=== PATIENT | male | born 1960 | race American Indian/Alaskan Native ===

== ENCOUNTER 2016-11-17 12:05 | Inpatient (IN) | payer OTHER ==
[2016-11-17] MEDS ORDERED: NACL 0.9% 1000 ML 1,000 ML ONE (12:26)
[2016-11-17] MEDS ORDERED: NACL 0.9% 1000 ML 2,000 ML IV ONE (12:53)
[2016-11-17] MEDS ORDERED: ZOSYN/NS 3.375GM/50ML 50 ML IV ONE (12:59)
[2016-11-17] MEDS ORDERED: VANCOMYCIN PHARMACY TO DOSE IV SCH (13:00)
[2016-11-17 13:08] LABS: ISTAT Base Excess -3; ISTAT HCO3 20.2; ISTAT PH 7.483 (7.35-7.45); ISTAT PO2 55 (80-105); ISTAT SO2 91; ISTAT TCO2 21
--- NOTE | 2016-11-17 13:16 | Admit Criteria Form ---
Admission Criteria Documentation: SEVERE SEPSIS Clinical Indications for Admission to Inpatient Care (Place 'X' for any and all applicable criteria): Hospital admission is needed for appropriate care of the patient because of ANY ONE of the following: [X]I. Hemodynamic instability indicated by ANY ONE of the following(1)(2)(3)( 4)(5): [X]a. Vital sign abnormality not readily corrected by appropriate treatment within 12 to 24 hours indicated by ANY ONE of the following: [X]i) Tachycardia that persists despite appropriate treatment [X]ii) Hypotension that persists despite appropriate treatment []iii) Orthostatic vital sign changes that persist despite appropriate treatment [X]b. Vital sign abnormality that is severe indicated by ANY ONE of the following: [X]i. Inadequate perfusion indicated by ANY ONE of the following: [X]1) Lactic acidosis (greater than 2 mmol/L) []2) New abnormal capillary refill (greater than 3 seconds) []3) Reduced urine output []4) New altered mental status []5) Myocardial Ischemia []ii. Mean arterial pressure [A] less than 60 mm Hg []iii. Mean arterial pressure[A] less than 70 mm Hg after 30 minutes of appropriate treatment (eg, fluid resuscitation) []iv. Sustained heart rate greater than 120 beats per minute in adult []v. IV inotropic or vasopressor medication required to maintain adequate blood pressure or perfusion []II. Systemic or infectious condition causing severe symptoms or findings not responsive to emergency or observation care treatment (as appropriate) indicated by ANY ONE of the following: []a. Cardiac arrhythmias of immediate concern(1)(2)(3) []b. Severe endocrine disorder (eg, thyrotoxicosis, adrenal insufficiency)(4)(5) []c. Seizures (eg, new or recurrent)(6) []d. New-onset end organ failure or dysfunction as indicated by ANY ONE of the following: []i. Acute unexplained hypoxemia (eg, not from lung infection or chronic disease)(7)(8)(9) []ii. Acute renal failure as indicated by new onset of ANY ONE of the following(10)(11)(12)(13)(14): []1) 3-fold rise in serum creatinine from baseline []2) Serum creatinine greater than 4 mg/dL (354 micromoles/L) with acute rise greater than 0.5 mg/dL (44.2 micromoles/L) []3) Reduction of more than 75% in estimated glomerular filtration rate from baseline. []4) Estimated glomerular filtration rate less than 35 mL/min/1.73m2 ( 0.59 mL/sec/1.73m2) in child younger than 18 years. []5) Cessation of urine output indicated by ALL of the following: []A. Adequate volume status []B. Inadequate urine output as indicated by ANY ONE of the following: []a. Urine output less than 0.3 mL/kg/hr for 24 hours []b. Anuria (urine output less than 0.1 mL/kg/hr) for 12 hours []iii. Acute mental status changes(15) []iv. Acute hepatic failure (eg, plasma bilirubin greater than 4 mg/ dL (68 micromoles/L), new INR greater than 2.0)(16)(17) []e. Unmanageable nausea and vomiting(18) []f. New-onset or uncontrolled central diabetes insipidus(19)(20) []g. Clinically significant dehydration(18)(21) []h. Hypoglycemia(22) []i. Acidosis (pH less than 7.35) or alkalosis (pH greater than 7.45)( 22)(23) []j. Toxic drug level that indicates need for specific monitoring or treatment(24)(25) []k. Severe electrolyte abnormalities indicated by ALL of the following( 1)(2)(3): []i. Electrolytes and associated findings are not as expected for patient baseline or acceptable treatment effects. []ii. Severe abnormalities indicated by ANY ONE of the following: []1) Sodium less than 130 mEq/L (mmol/L) (new) []2) Sodium less than 135 mEq/L (mmol/L) with ANY ONE of the following: []A. Uncorrectable (to near normal or chronic baseline) after trial of outpatient and emergency treatment []B. Altered mental status []C. Seizures []D. Severe medical etiology requiring inpatient management (eg , heart failure, hypovolemia) []3) Sodium greater than 155 mEq/L (mmol/L) []4) Sodium greater than 150 mEq/L (mmol/L) with ANY ONE of the following: []A. Uncorrectable (to near normal or chronic baseline) with outpatient and emergency treatment []B. Altered mental status []C. Seizures []D. Severe medical etiology (eg, hypovolemia, diabetes insipidus) []5) Potassium less than 2.5 mEq/L (mmol/L) despite outpatient and emergency treatment []6) Potassium less than 3 mEq/L (mmol/L) with ANY ONE of the following : []A. Weakness []B. Cardiac abnormality (eg, arrhythmia, conduction disturbance ) []C. Cardiac ischemia []D. Ileus []E. Ongoing medical cause requiring inpatient management (eg, acute renal wasting or SIADH) []F. Other severe symptoms []7) Potassium greater than 6.5 mEq/L (mmol/L) []8) Potassium greater than 5 mEq/L (mmol/L) with ANY ONE of the following: []A. Uncorrectable (to near normal or chronic baseline) with outpatient and emergency treatment []B. Severe ECG findings[A] []C. Acute worsening of renal failure (creatinine greater than 2.5 mg/dL (221 micromoles/L) or significant elevation for age and size) []D. Severe weakness []E. Severe medical etiology (eg, hemolysis, infection, drug overdose) []9) Calcium less than 7 mg/dL (1.75 mmol/L) despite outpatient and emergency treatment(5) []10) Calcium less than 8 mg/dL (2 mmol/L) with significant symptoms or findings (eg, altered mental status, muscle spasms, seizures, breathing difficulty, cardiac abnormality (eg, arrhythmia or conduction disturbance))(5) []11) Calcium greater than 14 mg/dL (3.5 mmol/L)(5) []12) Calcium greater than 12 mg/dL (3 mmol/L) with ANY ONE of the following(5): []A. Uncorrectable (to near normal or chronic baseline) with outpatient and emergency treatment []B. Significant dehydration or hypovolemia as indicated by ALL of the following(3)(6)(7): []a. Not resolved with initial treatments []b. Clinically significant dehydration as indicated by ANY ONE of the following: [](1) Vomiting refractory to outpatient treatment (ie, precluding oral rehydration) [](2) Inability to drink [](3) Hypernatremia or other electrolyte abnormality unable to be corrected with outpatient and emergency treatment [](4) Failure to remain hydrated with outpatient therapy [](5) Reduced urine output [](6) Hypotension [](7) Serious cause for dehydration requiring acute hospitalization ( eg, bowel obstruction, increased intracranial pressure, infectious cause) [](8) Child with ANY ONE of the following(8): [](i) Severe abdominal tenderness [](ii) Adequate care not available at home [](iii) Severe dehydration (greater than 9% loss of body weight) []C. Significant symptoms or findings (eg, altered mental status , cardiac abnormality (eg, arrhythmia, conduction disturbance), malignant etiology requiring inpatient treatment) []13) Phosphorus less than 1 mg/dL (0.32 mmol/L) []14) Phosphorus less than 1.5 mg/dL (0.48 mmol/L) with ANY ONE of the following: []A. Patient unresponsive to outpatient and emergency treatment []B. Significant symptoms or findings (eg, weakness, altered mental status, breathing difficulty, seizures, rhabdomyolysis) []15) Phosphorus greater than 10 mg/dL (3.2 mmol/L) []16) Phosphorus greater than 4.5 mg/dL (1.45 mmol/L) (new) with ANY ONE of the following: []A. Severe medical etiology (eg, crush injury, acute renal failure) []B. Associated hypocalcemia with significant findings (eg, neurologic symptoms, altered mental status, muscle spasms, seizures, breathing difficulty, cardiac abnormality (eg, arrhythmia, conduction disturbance)) []16) Magnesium less than 1 mg/dL (0.41 mmol/L) []17) Magnesium less than 1.5 mg/dL (0.62 mmol/L) with ANY ONE of the following: []A. Patient unresponsive to outpatient and emergency treatment []B. Associated hypocalcemia with significant findings (eg, altered mental status, muscle spasms, seizures, breathing difficulty, cardiac abnormality (eg, arrhythmia, conduction disturbance)) []C. Associated hypokalemia (potassium less than 3 mEq/L (mmol/L )) with risk of arrhythmia []18) Magnesium greater than 4 mEq/L (2 mmol/L) []19) Magnesium greater than 2.5 mEq/L (1.25 mmol/L) with significant symptoms or findings (eg, weakness, altered mental status, cardiac abnormality (eg, arrhythmia, conduction disturbance), breathing difficulty, severe medical etiology (eg, renal failure, hypovolemia)) []20) Uric acid greater than 20 mg/dL (1190 micromoles/L)(9) []21) Uric acid greater than 8 mg/dL (476 micromoles/L) with significant symptoms or findings of tumor lysis syndrome (eg, creatinine greater than 1.5 times upper limit of normal, cardiac abnormality (eg , arrhythmia, conduction disturbance), seizure)(9) []III. High fever or other high-risk infection situation as indicated by ANY ONE of the following(26)(27)(28): []a. Outpatient and observation care antimicrobial treatment unavailable, not effective, or not appropriate []b. Documented bacteremia []c. Temperature greater than 104.9 degrees F (40.5 degrees C) (oral) []d. Temperature greater than 103.1 degrees F (39.5 degrees C) (oral) or less than 96.8 degrees F (36 degrees C) (rectal) that does not respond to emergency treatment and observation care []IV. High-risk febrile neutropenia[A] as indicated by ANY ONE of the following(29)(30)(31)(32): []a. Profound neutropenia[B] anticipated to extend for more than 7 days []b. Hemodynamic instability []c. Hypoxemia []d. Tachypnea []e. Altered mental status []f. New-onset abdominal pain []g. New-onset vomiting or diarrhea []h. Oral or gastrointestinal mucositis that interferes with swallowing or causes severe diarrhea []i. Focal infection (eg, cellulitis, pneumonia, central line or catheter infection, perirectal abscess) []j. Renal insufficiency (eg, GFR of less than 30 mL/min/1.73m2 (0.5 mL/sec /1.73m2)). []k. Severe liver dysfunction (transaminase levels greater than 5 times normal) []l. Platelet count less than 50,000/mm3 (50 x109/L)(33) []m. Leukemia or lymphoma induction therapy []n. Leukemia not in complete remission or with evidence of disease progression []o. Bone marrow transplant patient []p. Alemtuzumab being used for therapy []q. [employer] Supportive Care in Cancer (MASCC) Risk Index score of less than 21[C](33)(35). []V. Isolation required (eg, tuberculosis that requires isolation, Ebola infection)[D](36)(37)(38)(39)(40) []. Gangrene that requires treatment beyond emergency or observation level care(41)(42) []VII. Antitoxin administration and ongoing observation required (eg, tetanus, botulism)(43)(44) []. Suspected infection with rapid progression or severe symptoms as indicated by ANY ONE of the following(45): []a. Streptococcal or staphylococcal toxic shock(46) []b. Diphtheria(47) []c. Hantavirus(48) []d. Severe acute respiratory syndrome(8)(49) []e. Anthrax(50) []f. Ebola[D](36)(37)(38) []g. Necrotizing soft tissue infection(41)(42) []h. Plague(50) []i. Other suspected infection that requires care beyond emergency or observation level care []VII. Severe adverse drug or systemic toxin reaction as indicated by ANY ONE of the following(24): []a. Serotonin syndrome(51)(52) []b. Neuroleptic malignant syndrome(51)(52) []c. Cholinergic syndrome with severe symptoms (eg, bronchorrhea, weakness , mental status changes, seizures)(53) []d. Anticholinergic syndrome []e. Sympathetic syndrome with severe symptoms (eg, seizures, mental status changes, cardiac dysrhythmias) []f. Other severe adverse drug or systemic toxin reaction that remains after emergency or observation level care (as appropriate) []VIII. Allergic reaction with severe symptoms (not responsive to emergency or observation care treatment as appropriate), including ANY ONE of the following(54): []a. Airway edema (pharyngeal, epiglottic, or laryngeal edema) []b. Stridor []c. Respiratory failure []d. Bronchospasm []e. Hypotension []IX. Environmental emergency (not responsive to emergency or observation care treatment as appropriate) as indicated by ANY ONE of the following(55)(56): []a. Hyperthermia []b. Heat stroke []c. Heat exhaustion []d. Hypothermia (temperature less than 95 degrees F (35 degrees C) rectal) (57) []e. Electrocution(58) []X. Complications of transplanted organ (ie, not covered elsewhere)[E] indicated by ANY ONE of the following(59): []a. Acute graft rejection (or graft vs. host disease)[F] requiring inpatient management (eg, intravenous immunosuppression)(60)(61)(62)( 63) []b. Acute failure of transplanted organ necessitating inpatient care (eg, cannot be managed in other setting) []c. Infection requiring inpatient management (eg, Hemodynamic instability, need for intravenous antimicrobial treatment)(64)(65) []d. Other complication of transplanted organ requiring inpatient management []XI. Systemic or Infectious Condition condition, symptom, or finding for which emergency and observation care have failed or are not considered appropriate. See General Criteria: Observation Care, General Admission Criteria or Pediatric General Admission Criteria guideline as appropriate. (Contents from SEVERE SEPSIS and SYSTEMIC OR INFECTIOUS CONDITION clinical indications for admission to inpatient care have been integrated in this form) The [facility] content [facility] by [facility] has been revised. The portions of the content which have been revised are identified through the use of italic text or in bold and [facility] has neither reviewed nor approved the modified material. All other unmodified content is copyright [facility]. Please see references footnoted in the original [facility] edition 2016 Admission Criteria Met: Yes
[2016-11-17 13:29] LABS: Hematocrit 26.2 % (35.5-45.6); Hemoglobin 8.5 gm/dl (11.8-15.2); Mean Corpuscular Volume 91 fl (84-94); Red Blood Count 2.89 M/mm3 (3.65-5.03); White Blood Count 25.7 K/mm3 (4.5-11.0)
[2016-11-17 13:30] LABS: Mean Corpuscular HGB Conc 33 % (32-34); Mean Corpuscular Hemoglobin 30 pg (28-32); Mean Platelet Volume 7.5 fl (6-12); Platelet Count 263 K/mm3 (140-440); Red Cell Distribution Width 16.3 % (13.2-15.2)
[2016-11-17 13:38] LABS: INR 1.13 (0.87-1.13)
[2016-11-17 13:48] LABS: Creatine Kinase MB 2.6 ng/mL (0.0-4.0)
[2016-11-17 13:49] LABS: Alanine Aminotransferase 14 units/L (7-56); Albumin 2.5 g/dL (3.9-5); Albumin/Globulin Ratio 0.7 %; Alkaline Phosphatase 72 units/L (35-129); Anion Gap 20 mmol/L; BUN/Creatinine Ratio 12.66; Bilirubin,Total 0.7 mg/dL (0.1-1.2); Blood Urea Nitrogen 19 mg/dL (9-20); Calcium 7.7 mg/dL (8.4-10.2); Carbon Dioxide 22 mmol/L (22-30); Chloride 95.4 mmol/L (98-107); Glucose 132 mg/dL (75-100); Lipase 76 units/L (13-60); Sodium 135 mmol/L (137-145); Total Protein 6.3 g/dL (6.3-8.2)
[2016-11-17 13:59] LABS: Bilirubin,Direct < 0.2 mg/dL (0-0.2)
--- NOTE | 2016-11-17 14:00 | XRay Report ---
AP CHEST: HISTORY: Fever, sepsis. FINDINGS: No comparison. Mild cardiomegaly and pulmonary venous congestion are identified. Small pleural effusions are suspected. No pneumothorax. Right IJ venous catheter terminates in the lower SVC. IMPRESSION: Mild CHF.
[2016-11-17 14:01] LABS: Cholesterol 111 mg/dL (50-199); HDL Cholesterol 45 mg/dL (40-59); LDL Cholesterol,Direct 39 mg/dL (50-130); Triglycerides 138 mg/dL (2-149)
[2016-11-17] MEDS ORDERED: K-DUR PO ONE ×2 (14:01→14:03)
[2016-11-17] MEDS ORDERED: KCL IV ONE (14:01)
--- NOTE | 2016-11-17 14:02 | Emergency Department Report ---
ED General Adult HPI - General Chief complaint: BP Check / Ring removal req Stated complaint: FEELING WEAK Time Seen by Provider: 11/17/16 12:53 Source: patient, EMS, RN notes reviewed Mode of arrival: Stretcher Limitations: Physical Limitation - History of Present Illness Initial comments: Patient presents to the emergency department with a limited ability to give a history. He is hypotensive. He is in respiratory distress. He states that he' s been feeling very weak. He said some abdominal swelling he states. Complains of some vague abdominal discomfort but this does not seem to be very prominent symptom. Apparently is also had diarrhea somewhat chronically. The patient's arrives after his initial resuscitation. She provides some further information. She states that he was discharged to rehabilitation from the formerly named [facility] on 11/15/2016. He was in the hospital for a month. She or the patient are aware of him having any cardiac problems. He is an insulin- dependent diabetic. The patient himself is able to tell me that he had diarrhea during his prior hospitalization which was thought to the "due to antibiotics". He also is aware that he had pneumonia. says that he was principally admitted for an infection of his left great toe. I believe they are both limited historians at best. -: Gradual, days(s) Location: abdomen Consistency: other (vague abdominal discomfort only. Apparently associated with diarrhea.) Improves with: none Worsens with: none Associated Symptoms: shortness of breath, weakness - Related Data Home Medications Medication Instructions Recorded Confirmed Last Taken Unobtainable 11/17/16 11/17/16 Unknown Allergies Allergy/AdvReac Type Severity Reaction Status Date / Time No Known Allergies Allergy Unverified 11/17/16 13:06 ED Review of Systems ROS: Stated complaint: FEELING WEAK Other details as noted in HPI Comment: Unobtainable due to pts medical conditions (limited history available as per HPI) ED Past Medical Hx - Past Medical History Previous Medical History?: Yes Hx Hypertension: Yes Hx Diabetes: Yes Hx Renal Disease: Yes Hx Psychiatric Treatment: Yes Additional medical history: anemia, esphophageal varicies, pneumonia, reports recent knee swelling. This is nursing information of uncertain reliability. It has not been verified. - Surgical History Past Surgical History?: No Additional Surgical History: Denies prior abdominal surgery - Social History Smoking Status: Never Smoker Substance Use Type: None - Medications Home Medications: Home Medications Medication Instructions Recorded Confirmed Last Taken Type Unobtainable 11/17/16 11/17/16 Unknown History ED Physical Exam - General Limitations: Physical Limitation General appearance: lethargic, other (respiratory distress) - Head Head exam: Present: atraumatic, normocephalic - Eye Eye exam: Present: normal appearance, PERRL, EOMI. Absent: scleral icterus - ENT ENT exam: Present: mucous membranes dry, mucous membranes moist - Neck Neck exam: Present: normal inspection - Respiratory Respiratory exam: Present: rhonchi. Absent: respiratory distress - Cardiovascular Cardiovascular Exam: Present: regular rate, normal rhythm. Absent: systolic murmur, diastolic murmur, rubs, gallop - GI/Abdominal GI/Abdominal exam: Present: soft, distended (protuberant but normal bowel sounds no definite fluid wave), normal bowel sounds. Absent: tenderness, guarding, rebound, rigid - Rectal Rectal exam: Present: deferred - Extremities Exam Extremities exam: Present: other (bilateral dorsalis pedis and posterior tibial pulses are appreciated. There are no necrotic toes.). Absent: calf tenderness - Back Exam Back exam: Present: normal inspection - Neurological Exam Neurological exam: Present: altered, other (no acute focal deficit obvious) - Psychiatric Psychiatric exam: Present: normal mood, flat affect - Skin Skin exam: Present: warm, dry, intact, other (be some post inflammatory hyperpigmentation of the left great toe but doesn't look infected). Absent: rash ED Course Vital Signs 11/17/16 11/17/16 11/17/16 12:10 12:15 12:20 Temperature Pulse Rate Respiratory Rate Blood Pressure 81/46 81/46 O2 Sat by Pulse 80 L 73 L 79 L Oximetry 11/17/16 11/17/16 11/17/16 12:26 12:30 12:36 Temperature Pulse Rate Respiratory Rate Blood Pressure 73/45 73/45 73/45 O2 Sat by Pulse 89 95 94 Oximetry 11/17/16 11/17/16 11/17/16 12:41 12:45 12:51 Temperature Pulse Rate Respiratory Rate Blood Pressure 79/46 81/47 73/45 O2 Sat by Pulse 91 92 96 Oximetry 11/17/16 11/17/16 11/17/16 12:55 12:57 13:00 Temperature 99.8 F H Pulse Rate 82 Respiratory Rate Blood Pressure 73/45 73/42 84/51 O2 Sat by Pulse 92 72 L 94 Oximetry 11/17/16 11/17/16 13:05 13:07 Temperature Pulse Rate Respiratory 16 Rate Blood Pressure 84/51 O2 Sat by Pulse 92 93 Oximetry - Reevaluation(s) Reevaluation #1: The patient's resuscitation consisted of IV fluids and the placement of a central line. An arterial blood gas showed hypoxia with mild metabolic acidosis and respiratory compensation. Patient actually responded well to IV fluids. His saturations improved. Levophed was placed on standby. monitoring engineer showed several runs of nonsustained V. tach. A CT of the patient's abdomen showed pleural effusion and bilateral pulmonary consolidations. A chest x-ray appeared to be consistent with cardiomegaly and CHF and shows good line placement. Chest x-ray did not include pneumonia as well. The CT of the abdomen was suggestive of colitis but no significant ascites. There was no pneumoperitoneum or other intra-abdominal process evident. I discussed this with Dr. Carballo, the radiologist. I obtained a consult with Dr. Lo concerning the patient's CHF hypotension as well as runs of ventricular tachycardia. I believe the patient's ventricular irritability certainly may be largely related to his hypokalemia. The patient was given 40 of potassium by mouth and K riders were begun. Additionally a magnesium level was obtained as well as 2 g of magnesium ordered empirically in consideration of the patient's severe hypokalemia and ventricular tachycardia. Patient is noted to have a very significantly elevated white blood cell count. His initial antibiotics choices included Zosyn, vancomycin and Flagyl. I will defer further antibiotic treatment to Dr. Bailey, the hospitalist is admitting the patient, as well as, infectious disease consultation as he may choose to obtain. A C. difficile study was ordered. Patient was noted by nursing staff without significant diarrhea. No bedsores were noted. 11/17/16 14:40 11/17/16 14:48 - Central Line Placement Right IJ Consent Obtained: verbal consent Time Out Performed: No Patient Placed on Monitor/Pulse Ox: Yes Prep: mask, gown, gloves Central Line Prep: Chlorhexidine scrub Local Anesthesia Used: Lidocaine 1% Amount of Anesthesia Used (mls): 3 Ultrasound Used for Placement: No (EJ to IJ transfer technique) Central Line Lumen Inserted: triple Bloods Obtained for Lab: Yes Central Line Position: good blood return, all ports aspirated, flus, sutured in place with 2-0 Dressing Applied: Tegaderm Post Procedure X-Ray: tip of catheter in good p Patient Tolerated Procedure: well Complications: none ED Medical Decision Making - Lab Data Result diagrams: 11/17/16 Unknown 11/17/16 Unknown Laboratory Results - last 24 hr 11/17/16 11/17/16 11/17/16 13:00 Unknown Unknown WBC 25.7 H RBC 2.89 L Hgb 8.5 L Hct 26.2 L MCV 91 MCH 30 MCHC 33 RDW 16.3 H Plt Count 263 PT 14.4 INR 1.13 POC ABG pH 7.483 H POC ABG pCO2 27.0 L POC ABG pO2 55 L POC ABG HCO3 20.2 POC ABG Total CO2 21 POC ABG O2 Sat 91 POC ABG Base Excess -3 FiO2 100 Sodium Chloride Carbon Dioxide Anion Gap BUN Creatinine Estimated GFR BUN/Creatinine Ratio Glucose Calcium Total Bilirubin Direct Bilirubin AST ALT Alkaline Phosphatase Ammonia Total Creatine Kinase CK-MB (CK-2) CK-MB (CK-2) Rel Index Troponin T Total Protein Albumin Albumin/Globulin Ratio Lipase 11/17/16 11/17/16 11/17/16 Unknown Unknown Unknown WBC RBC Hgb Hct MCV MCH MCHC RDW Plt Count PT INR POC ABG pH POC ABG pCO2 POC ABG pO2 POC ABG HCO3 POC ABG Total CO2 POC ABG O2 Sat POC ABG Base Excess FiO2 Sodium 135 L Chloride 95.4 L Carbon Dioxide 22 Anion Gap 20 BUN 19 Creatinine 1.5 Estimated GFR 59 BUN/Creatinine Ratio 12.66 Glucose 132 H Calcium 7.7 L Total Bilirubin 0.7 Direct Bilirubin < 0.2 AST 16 ALT 14 Alkaline Phosphatase 72 Ammonia 43.0 Total Creatine Kinase 23 L CK-MB (CK-2) 2.6 CK-MB (CK-2) Rel Index 11.3 H Troponin T 0.066 H Total Protein 6.3 Albumin 2.5 L Albumin/Globulin Ratio 0.7 Lipase 76 H Laboratory Results - last 24 hr 11/17/16 11/17/16 11/17/16 13:00 Unknown Unknown WBC 25.7 H RBC 2.89 L Hgb 8.5 L Hct 26.2 L MCV 91 MCH 30 MCHC 33 RDW 16.3 H Plt Count 263 PT 14.4 INR 1.13 POC ABG pH 7.483 H POC ABG pCO2 27.0 L POC ABG pO2 55 L POC ABG HCO3 20.2 POC ABG Total CO2 21 POC ABG O2 Sat 91 POC ABG Base Excess -3 FiO2 100 Sodium Chloride Carbon Dioxide Anion Gap BUN Creatinine Estimated GFR BUN/Creatinine Ratio Glucose Calcium Total Bilirubin Direct Bilirubin AST ALT Alkaline Phosphatase Ammonia Total Creatine Kinase CK-MB (CK-2) CK-MB (CK-2) Rel Index Troponin T Total Protein Albumin Albumin/Globulin Ratio Lipase 11/17/16 11/17/16 11/17/16 Unknown Unknown Unknown WBC RBC Hgb Hct MCV MCH MCHC RDW Plt Count PT INR POC ABG pH POC ABG pCO2 POC ABG pO2 POC ABG HCO3 POC ABG Total CO2 POC ABG O2 Sat POC ABG Base Excess FiO2 Sodium 135 L Chloride 95.4 L Carbon Dioxide 22 Anion Gap 20 BUN 19 Creatinine 1.5 Estimated GFR 59 BUN/Creatinine Ratio 12.66 Glucose 132 H Calcium 7.7 L Total Bilirubin 0.7 Direct Bilirubin < 0.2 AST 16 ALT 14 Alkaline Phosphatase 72 Ammonia 43.0 Total Creatine Kinase 23 L CK-MB (CK-2) 2.6 CK-MB (CK-2) Rel Index 11.3 H Troponin T 0.066 H Total Protein 6.3 Albumin 2.5 L Albumin/Globulin Ratio 0.7 Lipase 76 H - EKG Data -: EKG Interpreted by La EKG shows normal: sinus rhythm - EKG Data Interpretation: other (suggestive of hypokalemia repolarization abnormalities and nonsustained ventricular tachycardia) - Radiology Data Radiology results: report reviewed Critical Care Time: Yes Critical care time in (mins) excluding proc time.: 90 Critical care attestation.: If time is entered above; I have spent that time in minutes in the direct care of this critically ill patient, excluding procedure time. ED Disposition Clinical Impression: Septic shock, Nonsustained ventricular tachycardia, Hypokalemia, Hypoxia Bilateral pneumonia Qualifiers: Pneumonia type: due to unspecified organism Lung location: lower lobe of lung Qualified Code(s): J18.9 - Pneumonia, unspecified organism Anemia Qualifiers: Anemia type: unspecified type Qualified Code(s): D64.9 - Anemia, unspecified Disposition: OP ADMITTED IP TO THIS HOSP Is pt being admited?: Yes Does the pt Need Aspirin: Yes Condition: Stable Instructions: Bacterial Pneumonia (ED) Referrals: VERN COLVIN MD [Primary Care Provider] - 3-5 Days Time of Disposition: 14:51
[2016-11-17 14:03] LABS: Bilirubin,Indirect 0.5 mg/dL; Potassium 2.5 mmol/L (3.6-5.0)
[2016-11-17] MEDS ORDERED: ALUM-MAG HYDROX-SIMETH 200-200-20MG/5ML PO PRN (14:09)
[2016-11-17] MEDS ORDERED: MILK OF MAGNESIA PO PRN (14:09)
[2016-11-17] MEDS ORDERED: DULCOLAX PR PRN (14:09)
--- NOTE | 2016-11-17 14:09 | Event Note ---
Date: 11/17/16 See H/p in reports Septic shock Azeem pneumonia C diff colitis?? HTN DM
[2016-11-17 14:12] LABS: Blastocytes % (Manual) 0 %
[2016-11-17 14:13] LABS: Basophils % (Manual) 0 % (0.0-1.8); Eosinophils % (Manual) 0 % (0.0-4.3)
[2016-11-17 14:15] LABS: Diff Status Complete; RBC Morphology Normal
[2016-11-17] MEDS ORDERED: DILAUDID IV PRN (14:16)
[2016-11-17] MEDS: KCL 10MEQ/100ML 100 ML IV SCH ×3 (14:23→16:14)
[2016-11-17] MEDS ORDERED: NOVOLOG SUB-Q ONE (14:24)
[2016-11-17] MEDS ORDERED: VANCOMYCIN VIAL 2,000 MG in NACL 0.9% 500 ML 500 ML IV ONE (14:30)
[2016-11-17] MEDS ORDERED: PROTONIX IV ONE ×2 (14:32→15:02)
--- NOTE | 2016-11-17 14:44 | Cat Scan Report ---
CT ABDOMEN AND PELVIS WITHOUT CONTRAST: INDICATION: Fever, sepsis, abdominal pain. COMPARISON: None similar. FINDINGS: Noncontrast abdomen and pelvis CT performed. LUNG BASES: Extensive dense consolidation involving approximately 70-80% of both lower lobes with few air bronchograms as well. Few small right middle lobe interstitial nodular densities may measure up to 6 mm as peripherally on axial series 2, image 13. Prominent bronchovascular markings/septa as well. Small bilateral pleural effusions, right more than left with AP thickness of approximately 1.7 cm. Normal heart size. No effusions. Anemia suspected. ABDOMEN: Please note that sensitivity to detect small visceral lesions is limited due to the absence of intravenous or oral contrast. Some breathing artifact. Minimal dependent gallbladder hyperdensity along its posterior wall near the neck, axial series 2, image 54. Approximately 5 mm inferior splenic hypodensity peripherally questioned, axial image 67, series 2. Otherwise, grossly unremarkable unenhanced liver, spleen, pancreas, adrenals, nonaneurysmal abdominal aorta with few atherosclerotic calcifications, IVC and non-hydronephrotic kidneys. No radiopaque renal calculi. Mild bilateral perinephric stranding. Approximately 1 cm density to the left of the SMA, axial image 70, series 2 and also an approximately 1.4 cm left para-aortic ring calcification noted on axial image 90. No ascites or size significant adenopathy. Nonopacified GI tract evaluation limited, though grossly nonobstructive. Mild ingested fluid/debris and some air noted within the stomach. Few air-containing small bowel loops measure up to 1.9 cm caliber. Normal appendix. [id number] ascending colon stool. Some stool within distal small bowel though also noted within the right hemiabdomen. Questionable wall thickening with caliber transition noted along the right distal ascending colon, axial series 2, images 77-95 leading up to the hepatic flexure. Air-containing transverse colon measures up to 6 cm caliber. Decompressed descending colon. Fluid and air though mildly distends the sigmoid to approximately 6 cm caliber as on axial image 125, series 2. PELVIS: Poorly formed stool also noted within the remainder sigmoid and the rectum. Few small phleboliths. Seminal vesicles and prostate within normal limits with possible prior TURP. Grossly unremarkable nonopacified urinary bladder, well-distended. No free fluid or adenopathy. Questionable right orchiectomy. Approximately 2 cm fat-containing left inguinal hernia. Mild multilevel spinal degenerative changes. Spine and pelvic bones also somewhat heterogeneous, at places patchily sclerotic. Multilevel lumbar and few lower thoracic Schmorl's nodes along the superior endplates incidentally noted. Mild bilateral flank subcutaneous stranding/edema. CONCLUSION: 1. Distal ascending colon CT appearance felt somewhat abnormal with caliber transition and possible wall thickening. Infection/inflammation may be correlated for clinically, though a subtle underlying neoplasm would remain to be excluded. 2. Poorly formed rectosigmoid stool. 3. Dense bibasilar consolidations and small bilateral pleural effusions in this patient with possible CHF. 4. Various other incidental findings, including mild subcutaneous edema and slight nonspecific bony heterogeneity, amongst others, as described. I phoned the above results to Dr. Cuba in the ER, 1:55 PM, 11/17/2016. Thank you for the opportunity to participate in this patient's care.
[2016-11-17] MEDS ORDERED: MAGNESIUM SULFATE 2GM/50ML 50 ML IV ONE ×2 (14:48→15:02)
[2016-11-17] MEDS ORDERED: FLAGYL 500 MG/100 ML 100 ML IV SCH (15:00)
--- NOTE | 2016-11-17 16:45 | Consultation ---
Addendum entered and electronically signed by GEOVANY TRENT MD 11/17/16 20:16 : Patient admitted with sepsis and COPD exacerbation, in addition to multiple electrolyte abnormalities. His presenting EKG is atrial fibrillation, with reasonably well-controlled ventricular rate, but frequent ventricular ectopy in addition to short burst of nonsustained ventricular tachycardia. The duration or chronicity of the atrial fibrillation is uncertain. It is not certain if he was on oral anticoagulation therapy, and his INR is normal at 1.13 on this presentation. No records are available is time for assessment of his prior cardiac history. Recommend: Optimal management of sepsis and acute medical illness. Replete potassium and other electrolyte abnormalities. A beta ivonne therapy for atrial fibrillation rate control. Echocardiogram for left ventricular function assessment. Records from [facility] for further review of his prior cardiac history. Original Note: History of Present Illness Consult date: 11/17/16 Consult reason: arrhythmia, congestive heart failure History of present illness: This is a 56yr old man who present to the ED with feeling ill. He complains of abdominal pain, nausea and shortness of breath. Patient follows with the [place] and reports he was recently discharged from the [facility] hospital following a long hospitalization to an acute rehab for deconditioning. He reports he has a history of Diabetes and Hypertension. He denies a cardiac history. His ECG shows atrial fibrillation with frequent PVCs. ED workup revealed multiple metabolic abnormalities: WBC 25,700, HCT 26.2 and a potassium of 2.5. Also hypotensive with a BP 81/46 and a mild fever. Cardiac consultation requested. Medications and Allergies Allergies Allergy/AdvReac Type Severity Reaction Status Date / Time No Known Allergies Allergy Unverified 11/17/16 13:06 Home Medications Medication Instructions Recorded Confirmed Last Taken Type Unobtainable 11/17/16 11/17/16 Unknown History Active Meds: Active Medications Al Hydrox/Mg Hydrox/Simethicone (Alum-Mag Hydrox-Simeth 901-100-38pq/5ml) 30 ml PO Q4H PRN PRN Reason: Indigestion Aspirin (Baby Aspirin) 162 mg PO QDAY ONE Stop: 11/18/16 15:02 Bisacodyl (Dulcolax) 10 mg [place] QDAY PRN PRN Reason: constipation unrelieved by MOM Enoxaparin Sodium (Lovenox) 40 mg SUB-Q QDAY INCOLASA Hydromorphone HCl (Dilaudid) 0.5 mg IV Q3HR PRN PRN Reason: Pain , Severe (7-10) Potassium Chloride (Kcl 10meq/100ml) 100 mls @ 100 mls/hr IV Q1H NICOLASA Stop: 11/17/16 16:59 Last Admin: 11/17/16 16:14 Dose: Not Given Metronidazole (Flagyl 500 Mg/100 Ml) 100 mls @ 200 mls/hr IV ONCE NICOLASA Sodium Chloride (Nacl 0.9% 1000 Ml) 1,000 mls @ 125 mls/hr IV DIRECT NICOLASA Meropenem (Merrem/Ns 500 Mg/50 Ml) 50 mls @ 50 mls/hr IV Q6H NICOLASA Metronidazole (Flagyl 500 Mg/100 Ml) 100 mls @ 100 mls/hr IV Q8H NICOLASA Vancomycin HCl (Vancomycin/Ns 1 Gm/250 Ml) 250 mls @ 125 mls/hr IV Q12H NICOLASA Magnesium Hydroxide (Milk Of Magnesia) 30 ml PO Q4H PRN PRN Reason: Constipation Vancomycin HCl (Vancomycin Pharmacy To Dose) 1 each IV PKCONSULT NICOLASA PRN Reason: Protocol Physical Examination Vital Signs Pulse Ox 80 L 11/17/16 12:10 General appearance: no acute distress HEENT: Positive: PERRL Neck: Positive: trachea midline Cardiac: Positive: Irregularly Regular Lungs: Positive: Decreased Breath Sounds Results 11/17/16 Unknown 11/17/16 Unknown Cardiac Enzymes 11/17/16 11/17/16 Range/Units Unknown Unknown AST 16 (5-40) units/L CK-MB (CK-2) 2.6 (0.0-4.0) ng/mL Coagulation 11/17/16 Range/Units Unknown PT 14.4 (12.2-14.9) Sec. INR 1.13 (0.87-1.13) Lipids 11/17/16 Range/Units Unknown Triglycerides 138 (2-149) mg/dL Cholesterol 111 (50-199) mg/dL HDL Cholesterol 45 (40-59) mg/dL Cholesterol/HDL Ratio 2.46 % CBC 11/17/16 Range/Units Unknown WBC 25.7 H (4.5-11.0) K/mm3 RBC 2.89 L (3.65-5.03) M/mm3 Hgb 8.5 L (11.8-15.2) gm/dl Hct 26.2 L (35.5-45.6) % Plt Count 263 (140-440) K/mm3 Comprehensive Metabolic Panel 11/17/16 Range/Units Unknown Sodium 135 L (137-145) mmol/L Potassium 2.5 L* (3.6-5.0) mmol/L Chloride 95.4 L (98-107) mmol/L Carbon Dioxide 22 (22-30) mmol/L BUN 19 (9-20) mg/dL Creatinine 1.5 (0.8-1.5) mg/dL Glucose 132 H (75-100) mg/dL Calcium 7.7 L (8.4-10.2) mg/dL Direct Bilirubin < 0.2 (0-0.2) mg/dL Indirect Bilirubin 0.5 mg/dL AST 16 (5-40) units/L ALT 14 (7-56) units/L Alkaline Phosphatase 72 (35-129) units/L Total Protein 6.3 (6.3-8.2) g/dL Albumin 2.5 L (3.9-5) g/dL Assessment and Plan Sepsis Afib with frequent PVCs hypokalemia -2.5 Anemia Diabetes mellitus Recommend: Replete potassium Echocardiogram for LVEF assessment.
--- NOTE | 2016-11-17 17:25 | Emergency Department Report ---
Blank Doc - Documentation Documentation: This patient has been admitted. The nurse brought to my attention and EKG that had a short MT interval and left bundle-branch block. I ordered a stat repeat BMP and a troponin. I requested that the channel man be notified. The patient is already admitted to the ICU.
[2016-11-17 18:08] LABS: BUN/Creatinine Ratio 14.61; Blood Urea Nitrogen 19 mg/dL (9-20); Calcium 7.5 mg/dL (8.4-10.2); Carbon Dioxide 22 mmol/L (22-30); Chloride 101.4 mmol/L (98-107); Glucose 166 mg/dL (75-100); Potassium 3.9 mmol/L (3.6-5.0); Sodium 136 mmol/L (137-145)
[2016-11-17 18:11] LABS: Anion Gap 17 mmol/L
--- NOTE | 2016-11-17 18:36 | Consultation ---
History of Present Illness Consult date: 11/17/16 Requesting physician: ANSELMO THOMAS Reason for consult: pleural effusion, other (Sepsis Syndrome) History of present illness: PULMONARY/CCM CONSULT (Full dictation # [id number]) Please see dictated notes for full details Medications and Allergies Allergies Allergy/AdvReac Type Severity Reaction Status Date / Time No Known Allergies Allergy Unverified 11/17/16 13:06 Home Medications Medication Instructions Recorded Confirmed Last Taken Type Unobtainable 11/17/16 11/17/16 Unknown History Active Meds: Active Medications Al Hydrox/Mg Hydrox/Simethicone (Alum-Mag Hydrox-Simeth 867-874-30et/5ml) 30 ml PO Q4H PRN PRN Reason: Indigestion Aspirin (Baby Aspirin) 162 mg PO QDAY ONE Stop: 11/18/16 15:02 Bisacodyl (Dulcolax) 10 mg [place] QDAY PRN PRN Reason: constipation unrelieved by MOM Enoxaparin Sodium (Lovenox) 40 mg SUB-Q QDAY NICOLASA Hydromorphone HCl (Dilaudid) 0.5 mg IV Q3HR PRN PRN Reason: Pain , Severe (7-10) Metronidazole (Flagyl 500 Mg/100 Ml) 100 mls @ 200 mls/hr IV ONCE NICOLASA Sodium Chloride (Nacl 0.9% 1000 Ml) 1,000 mls @ 125 mls/hr IV DIRECT NICOLASA Meropenem (Merrem/Ns 500 Mg/50 Ml) 50 mls @ 50 mls/hr IV Q6H NICOLASA Metronidazole (Flagyl 500 Mg/100 Ml) 100 mls @ 100 mls/hr IV Q8H NICOLASA Vancomycin HCl (Vancomycin/Ns 1 Gm/250 Ml) 250 mls @ 125 mls/hr IV Q12H NICOLASA Magnesium Hydroxide (Milk Of Magnesia) 30 ml PO Q4H PRN PRN Reason: Constipation Vancomycin HCl (Vancomycin Pharmacy To Dose) 1 each IV PKCONSULT NICOLASA PRN Reason: Protocol Physical Examination Vital signs: Vital Signs Pulse Ox 80 L 11/17/16 12:10 Results - Laboratory Findings CBC and BMP: 11/17/16 Unknown 11/18/16 08:00 ABG POC ABG pH 7.483 (7.35-7.45) H 11/17/16 13:00 POC ABG pCO2 27.0 (35-45) L 11/17/16 13:00 POC ABG pO2 55 (80-105) L 11/17/16 13:00 POC ABG HCO3 20.2 11/17/16 13:00 POC ABG Total CO2 21 11/17/16 13:00 POC ABG O2 Sat 91 11/17/16 13:00 PT/INR, D-dimer PT 14.4 Sec. (12.2-14.9) 11/17/16 Unknown INR 1.13 (0.87-1.13) 11/17/16 Unknown Abnormal lab findings: Abnormal Labs 11/17/16 11/17/16 11/17/16 17:07 17:43 Unknown WBC 25.7 H RBC 2.89 L Hgb 8.5 L Hct 26.2 L RDW 16.3 H Seg Neuts % (Manual) 90.0 H Lymphocytes % (Manual) 7.0 L Seg Neutrophils # Man 23.1 H Sodium 136 L Potassium Chloride Glucose 166 H POC Glucose 153 H Lactic Acid Calcium 7.5 L Total Creatine Kinase CK-MB (CK-2) Rel Index Troponin T Albumin LDL Cholesterol Direct Lipase 11/17/16 11/17/16 11/17/16 Unknown Unknown Unknown WBC RBC Hgb Hct RDW Seg Neuts % (Manual) Lymphocytes % (Manual) Seg Neutrophils # Man Sodium 135 L Potassium 2.5 L* Chloride 95.4 L Glucose 132 H POC Glucose Lactic Acid 2.1 H* Calcium 7.7 L Total Creatine Kinase 23 L CK-MB (CK-2) Rel Index 11.3 H Troponin T 0.066 H Albumin 2.5 L LDL Cholesterol Direct 39 L Lipase 76 H
[2016-11-17 19:44] LABS: Bilirubin,Urine NEG (Negative); Blood,Urine NEG (Negative); Ketones,Urine NEG (Negative); Leukocyte Esterase,Urine NEG (Negative); Mucus,Urine FEW /HPF; Nitrite,Urine NEG (Negative); Protein,Urine <15 mg/dL mg/dL (Negative); Urobilinogen,Urine < 2.0 mg/dL (<2.0)
[2016-11-17] MEDS: NACL 0.9% 1000 ML 1,000 ML IV SCH (19:47)
[2016-11-17] MEDS: MERREM/NS 500 MG/50 ML 50 ML IV SCH ×2 (19:48→23:16)
[2016-11-17] MEDS: DILAUDID IV PRN ×2 (19:54→23:18)
[2016-11-17] MEDS: FLAGYL 500 MG/100 ML 100 ML IV SCH (23:30)
[2016-11-18] MEDS: VANCOMYCIN PO SCH ×3 (01:41→12:30)
[2016-11-18] MEDS: K-DUR PO SCH ×4 (01:41→12:28)
[2016-11-18] MEDS: KCL 10MEQ/100ML 100 ML IV SCH ×4 (01:41→04:49)
[2016-11-18] MEDS ORDERED: VANCOMYCIN/NS 1 GM/250 ML 250 ML IV SCH (02:00)
--- NOTE | 2016-11-18 02:07 | History and Physical Report ---
CHIEF COMPLAINT: Respiratory distress and feeling very weak. HISTORY OF PRESENT ILLNESS: A 56-year-old male, brought in for being hypotensive and respiratory distress. He feels very weak. Abdominal swelling. Complains of vague abdominal discomfort. Also, has some diarrhea, was discharged from rehabilitation center on 11/15/2016. He was in the hospital for one month. Has insulin-dependent diabetes. Diarrhea during his prior hospitalizations which was thought to be due to antibiotics. At this point, basically the patient is hypotensive and short of breath. He was apparently admitted for infection of the left great toe. This is a limited history and poor historian. PAST MEDICAL HISTORY: Significant for hypertension, diabetes, chronic kidney disease, psychiatric treatment, anemia, pneumonia, and recent knee swelling. PAST SURGICAL HISTORY: None. SOCIAL HISTORY: Does not smoke. No alcohol, no recreational drugs. FAMILY HISTORY: Significant for hypertension. REVIEW OF SYSTEMS: Significant for shortness of breath, abdominal discomfort, and diarrhea. Otherwise review of systems is essentially negative. PHYSICAL EXAMINATION: GENERAL: Middle aged male, cooperative during examination. VITAL SIGNS: Temperature is 99.8, blood pressure is 84/51, 73/45, and sats are 91% to 96%. HEENT: Unremarkable. NECK: Supple, no lymphadenopathy, no thyromegaly. LUNGS: Clear to auscultation and percussion. Good air entry. CARDIOVASCULAR: S1, S2 heard. No gallop, no murmur, no rub. Apical impulse. Scattered rhonchi bilaterally. ABDOMEN: Soft and benign. Slight tenderness present in the periumbilical region. EXTREMITIES: Good pedal pulses. CENTRAL NERVOUS SYSTEM: Alert and oriented x 4, nonfocal exam. LABORATORY DATA: Significant for high white count of 25,700, hemoglobin of 8.5, hematocrit of 26.2, and platelet count of 263. Sodium is 136, potassium is 3.9, repeat potassium is 2.5. BUN and creatinine 19 and 1.3, glucose is 156, calcium is 7.5. Troponin is 0.352 and repeat troponin is 0.066. Creatinine kinase is low. Lipase is 76. Urine shows no white blood cells or nitrites. X-ray shows mild CHF. CT of the abdomen shows distal ascending colon, probably somewhat abnormal with calibrate transition and possible wall thickening. Infection by inflammation may be correlated for clinically, otherwise subtle underlying neoplasm would remain to be excluded. Poorly formed rectosigmoid stool. Other incidental findings including mild subcutaneous edema. ASSESSMENT AND PLAN: 1. Sepsis secondary to possible Clostridium difficile colitis. The patient started on IV Flagyl and also p.o. vancomycin. Stool for Clostridium difficile to be ordered. 2. Hypokalemia, severe, to be supplemented. High troponins. Cardiology consult requested. 3. Septic shock, on broad-spectrum antibiotics and IV Flagyl to continue. ID consult, critical care consult, and Cardiology consult requested. Clostridium difficile toxin ordered. IV potassium chloride ordered. Prognosis is fair. Admit to ICU. CRITICAL CARE STATEMENT: The high probability of her clinical significant, sudden or life threatening deterioration of the cardiorespiratory system required my full and direct attention, intervention, and personal management. The aggregate critical care time was 35 minutes. The time is in addition to the time spent performing reported procedures, but include the following, data review and interpretation, patient's assessment and monitoring, vital signs documentation, medication orders and management. JOB# [id number] MEERA/BRAYAN ARCHER
[2016-11-18 02:08] LABS: BUN/Creatinine Ratio 14.28; Blood Urea Nitrogen 20 mg/dL (9-20); Calcium 7.3 mg/dL (8.4-10.2); Carbon Dioxide 21 mmol/L (22-30); Chloride 103.2 mmol/L (98-107); Glucose 169 mg/dL (75-100); Potassium 3.7 mmol/L (3.6-5.0); Sodium 136 mmol/L (137-145)
[2016-11-18 02:11] LABS: Anion Gap 16 mmol/L
[2016-11-18] MEDS: DILAUDID IV PRN ×4 (02:56→20:38)
[2016-11-18] MEDS: MERREM/NS 500 MG/50 ML 50 ML IV SCH (04:52)
[2016-11-18] MEDS: NACL 0.9% 1000 ML 1,000 ML IV SCH ×2 (04:53→23:32)
[2016-11-18] MEDS: FLAGYL 500 MG/100 ML 100 ML IV SCH ×2 (06:39→16:00)
[2016-11-18 08:43] LABS: Alanine Aminotransferase 13 units/L (7-56); Albumin 2.4 g/dL (3.9-5); Albumin/Globulin Ratio 0.7 %; Alkaline Phosphatase 110 units/L (35-129); Anion Gap 19 mmol/L; BUN/Creatinine Ratio 14.61; Bilirubin,Total 0.5 mg/dL (0.1-1.2); Blood Urea Nitrogen 19 mg/dL (9-20); Calcium 7.6 mg/dL (8.4-10.2); Carbon Dioxide 20 mmol/L (22-30); Chloride 104.1 mmol/L (98-107); Glucose 120 mg/dL (75-100); Potassium 4.3 mmol/L (3.6-5.0); Sodium 139 mmol/L (137-145)
[2016-11-18] MEDS ORDERED: MAGNESIUM SULFATE 4GM/100ML 100 ML IV ONE (09:00)
[2016-11-18] MEDS: BABY ASPIRIN PO SCH (09:29)
[2016-11-18] MEDS: LOVENOX SUB-Q SCH (09:29)
--- NOTE | 2016-11-18 11:37 | Progress Note ---
Addendum entered and electronically signed by RENAY DUMONT MD 12:12: Frequent episodes of non-sustained VT despite correction of potassium Patient denies previous history of heart disease but CT chest was pertinent for pulmonary edema and cardiomegaly. Echo is still pending ECG is showing intermittent LBBB Continue to replace electrolytes, treat underlying pneumonia, diarrhea and abdominal distention Start metoprolol and amiodarone to control wide complex arrhythmias Will hold on anticoagulation for paroxysmal afib until we make sure that his blood counts are stable An ischemic evaluation is warranted in the future once acute processes resolve Follow-up on echocardiogram Original Note: Assessment and Plan Sepsis Afib, paroxysmal potassium 2.5 on presentation reverted to sinus rhythm with a LBBB NSVT Anemia Diabetes mellitus Echocardiogram for LVEF assessment. Subjective Date of service: 11/18/16 Interval history: Short burst of nonsustained ventricular tachycardia noted on telemetry. Objective Vital Signs Temp Pulse Resp BP BP Pulse Ox 11/18/16 11:22 26 H 11/18/16 11:01 116 H 16 129/62 94 11/18/16 10:49 134 H 21 142/84 97 11/18/16 10:31 122 H 15 142/84 96 11/18/16 10:00 103 H 14 142/84 98 11/18/16 09:31 100 H 15 131/79 100 11/18/16 09:20 100 11/18/16 09:00 100 H 13 131/79 100 11/18/16 08:30 104 H 21 127/77 100 11/18/16 08:20 19 100 11/18/16 08:00 101 H 19 119/76 98 11/18/16 07:45 91 H 11 L 119/76 100 11/18/16 07:31 91 H 10 L 119/76 100 11/18/16 07:00 93 H 13 119/76 99 11/18/16 06:38 14 11/18/16 06:31 97 H 14 110/77 100 11/18/16 06:00 94 H 20 110/77 100 11/18/16 05:31 96 H 11 L 125/80 100 11/18/16 05:00 97 H 16 125/80 100 11/18/16 04:31 105 H 22 87/66 97 11/18/16 04:00 98.8 F 123 H 13 87/66 99 01/11/17 03:31 122 H 14 97/70 99 11/18/16 03:00 93 H 12 97/70 100 11/18/16 02:56 14 11/18/16 02:31 126 H 13 96/60 97 11/18/16 02:00 126 H 10 L 96/60 97 11/18/16 01:31 136 H 13 98/49 95 11/18/16 01:00 102 H 12 98/49 93 11/18/16 00:31 112 H 14 94/62 97 11/18/16 00:00 98.1 F 86 12 114/69 100 11/17/16 23:48 16 11/17/16 23:31 90 14 124/78 100 11/17/16 23:18 15 11/17/16 23:00 91 H 14 124/78 100 11/17/16 22:31 87 10 L 123/75 100 11/17/16 22:00 90 20 114/72 100 11/17/16 21:31 93 H 12 113/76 100 11/17/16 21:03 93 H 12 123/75 99 11/17/16 21:00 95 H 12 123/75 100 11/17/16 20:59 93 H 13 113/76 99 11/17/16 20:56 100 11/17/16 20:45 89 17 113/76 100 11/17/16 20:42 93 H 13 100 11/17/16 20:31 95 H 12 113/76 100 11/17/16 20:24 22 11/17/16 20:00 98.8 F 97 H 13 113/76 99 11/17/16 19:54 21 11/17/16 19:31 99 H 14 112/70 99 11/17/16 19:00 87 12 112/70 99 11/17/16 18:44 100 H 20 98 11/17/16 17:33 98 H 16 119/74 100 11/17/16 17:30 98 H 17 119/74 100 11/17/16 17:05 96 H 14 100 11/17/16 14:53 103 H 18 111/65 100 - Physical Examination General: No Apparent Distress HEENT: Positive: PERRL Neck: Positive: trachea midline Cardiac: Positive: Reg Rate and Rhythm - Labs and Meds Cardiac Enzymes 11/17/16 11/17/16 11/18/16 Range/Units Unknown Unknown 08:00 AST 16 20 (5-40) units/L CK-MB (CK-2) 2.6 (0.0-4.0) ng/mL Coagulation 11/17/16 Range/Units Unknown PT 14.4 (12.2-14.9) Sec. INR 1.13 (0.87-1.13) Lipids 11/17/16 Range/Units Unknown Triglycerides 138 (2-149) mg/dL Cholesterol 111 (50-199) mg/dL HDL Cholesterol 45 (40-59) mg/dL Cholesterol/HDL Ratio 2.46 % CBC 11/17/16 Range/Units Unknown WBC 25.7 H (4.5-11.0) K/mm3 RBC 2.89 L (3.65-5.03) M/mm3 Hgb 8.5 L (11.8-15.2) gm/dl Hct 26.2 L (35.5-45.6) % Plt Count 263 (140-440) K/mm3 Comprehensive Metabolic Panel 11/17/16 11/17/16 11/18/16 Range/Units 17:43 Unknown 01:25 Sodium 136 L 135 L 136 L (137-145) mmol/L Potassium 3.9 D 2.5 L* 3.7 (3.6-5.0) mmol/L Chloride 101.4 95.4 L 103.2 (98-107) mmol/L Carbon Dioxide 22 22 21 L (22-30) mmol/L BUN 19 19 20 (9-20) mg/dL Creatinine 1.3 1.5 1.4 (0.8-1.5) mg/dL Glucose 166 H 132 H 169 H (75-100) mg/dL Calcium 7.5 L 7.7 L 7.3 L (8.4-10.2) mg/dL Direct Bilirubin < 0.2 (0-0.2) mg/dL Indirect Bilirubin 0.5 mg/dL AST 16 (5-40) units/L ALT 14 (7-56) units/L Alkaline Phosphatase 72 (35-129) units/L Total Protein 6.3 (6.3-8.2) g/dL Albumin 2.5 L (3.9-5) g/dL 11/18/16 Range/Units 08:00 Sodium 139 (137-145) mmol/L Potassium 4.3 (3.6-5.0) mmol/L Chloride 104.1 (98-107) mmol/L Carbon Dioxide 20 L (22-30) mmol/L BUN 19 (9-20) mg/dL Creatinine 1.3 (0.8-1.5) mg/dL Glucose 120 H (75-100) mg/dL Calcium 7.6 L (8.4-10.2) mg/dL Direct Bilirubin (0-0.2) mg/dL Indirect Bilirubin mg/dL AST 20 (5-40) units/L ALT 13 (7-56) units/L Alkaline Phosphatase 110 (35-129) units/L Total Protein 6.0 L (6.3-8.2) g/dL Albumin 2.4 L (3.9-5) g/dL
[2016-11-18] MEDS: LOPRESSOR PO SCH ×2 (13:00→21:33)
[2016-11-18] MEDS ORDERED: CORDARONE PO SCH (13:00)
--- NOTE | 2016-11-18 13:36 | Progress Note ---
History Interval history: No new issues overnight. Patient denies currently any chest pain. Hospitalist Physical - Constitutional Vitals: Temp Pulse Resp BP Pulse Ox 98.8 F 113 H 26 H 130/86 97 11/18/16 04:00 11/18/16 13:00 11/18/16 12:31 11/18/16 13:00 11/18/16 12:31 General appearance: Present: no acute distress - EENT Eyes: Present: PERRL, EOM intact ENT: hearing intact, clear oral mucosa, dentition normal - Neck Neck: Present: supple, normal ROM - Respiratory Respiratory effort: normal Respiratory: bilateral: diminished, rhonchi - Cardiovascular Rhythm: regular Heart Sounds: Present: S1 & S2. Absent: gallop, rub - Extremities Extremities: no ischemia, No edema, Full ROM - Abdominal General gastrointestinal: soft, non-tender, non-distended, normal bowel sounds - Integumentary Integumentary: Present: clear, warm, dry - Neurologic Neurologic: CNII-XII intact, moves all extremities Results - Labs CBC & Chem 7: 11/17/16 Unknown 11/18/16 08:00 Labs: Laboratory Last Values WBC 25.7 K/mm3 (4.5-11.0) H 11/17/16 Unknown RBC 2.89 M/mm3 (3.65-5.03) L 11/17/16 Unknown Hgb 8.5 gm/dl (11.8-15.2) L 11/17/16 Unknown Hct 26.2 % (35.5-45.6) L 11/17/16 Unknown MCV 91 fl (84-94) 11/17/16 Unknown MCH 30 pg (28-32) 11/17/16 Unknown MCHC 33 % (32-34) 11/17/16 Unknown RDW 16.3 % (13.2-15.2) H 11/17/16 Unknown Plt Count 263 K/mm3 (140-440) 11/17/16 Unknown Add Manual Diff Complete 11/17/16 Unknown Total Counted 100 11/17/16 Unknown Seg Neuts % (Manual) 90.0 % (40.0-70.0) H 11/17/16 Unknown Band Neutrophils % 0 % 11/17/16 Unknown Lymphocytes % (Manual) 7.0 % (13.4-35.0) L 11/17/16 Unknown Reactive Lymphs % (Man) 0 % 11/17/16 Unknown Monocytes % (Manual) 3.0 % (0.0-7.3) 11/17/16 Unknown Eosinophils % (Manual) 0 % (0.0-4.3) 11/17/16 Unknown Basophils % (Manual) 0 % (0.0-1.8) 11/17/16 Unknown Metamyelocytes % 0 % 11/17/16 Unknown Myelocytes % 0 % 11/17/16 Unknown Promyelocytes % 0 % 11/17/16 Unknown Blast Cells % 0 % 11/17/16 Unknown Nucleated RBC % Not Reportable 11/17/16 Unknown Seg Neutrophils # Man 23.1 K/mm3 (1.8-7.7) H 11/17/16 Unknown Band Neutrophils # 0.0 K/mm3 11/17/16 Unknown Lymphocytes # (Manual) 1.8 K/mm3 (1.2-5.4) 11/17/16 Unknown Abs React Lymphs (Man) 0.0 K/mm3 11/17/16 Unknown Monocytes # (Manual) 0.8 K/mm3 (0.0-0.8) 11/17/16 Unknown Eosinophils # (Manual) 0.0 K/mm3 (0.0-0.4) 11/17/16 Unknown Basophils # (Manual) 0.0 K/mm3 (0.0-0.1) 11/17/16 Unknown Metamyelocytes # 0.0 K/mm3 11/17/16 Unknown Myelocytes # 0.0 K/mm3 11/17/16 Unknown Promyelocytes # 0.0 K/mm3 11/17/16 Unknown Blast Cells # 0.0 K/mm3 11/17/16 Unknown WBC Morphology Not Reportable 11/17/16 Unknown Hypersegmented Neuts Not Reportable 11/17/16 Unknown Hyposegmented Neuts Not Reportable 11/17/16 Unknown Hypogranular Neuts Not Reportable 11/17/16 Unknown Smudge Cells Not Reportable 11/17/16 Unknown Toxic Granulation Not Reportable 11/17/16 Unknown Toxic Vacuolation Not Reportable 11/17/16 Unknown Dohle Bodies Not Reportable 11/17/16 Unknown Pelger-Huet Anomaly Not Reportable 11/17/16 Unknown Boo Rods Not Reportable 11/17/16 Unknown Platelet Estimate Appears normal 11/17/16 Unknown Clumped Platelets Not Reportable 11/17/16 Unknown Plt Clumps, EDTA Not Reportable 11/17/16 Unknown Large Platelets Not Reportable 11/17/16 Unknown Giant Platelets Not Reportable 11/17/16 Unknown Platelet Satelliting Not Reportable 11/17/16 Unknown Plt Morphology Comment Not Reportable 11/17/16 Unknown RBC Morphology Normal 11/17/16 Unknown Dimorphic RBCs Not Reportable 11/17/16 Unknown Polychromasia Not Reportable 11/17/16 Unknown Hypochromasia Not Reportable 11/17/16 Unknown Poikilocytosis Not Reportable 11/17/16 Unknown Anisocytosis Not Reportable 11/17/16 Unknown Microcytosis Not Reportable 11/17/16 Unknown Macrocytosis Not Reportable 11/17/16 Unknown Spherocytes Not Reportable 11/17/16 Unknown Pappenheimer Bodies Not Reportable 11/17/16 Unknown Sickle Cells Not Reportable 11/17/16 Unknown Target Cells Not Reportable 11/17/16 Unknown Tear Drop Cells Not Reportable 11/17/16 Unknown Ovalocytes Not Reportable 11/17/16 Unknown Helmet Cells Not Reportable 11/17/16 Unknown [place] Bodies Not Reportable 11/17/16 Unknown [place] Rings Not Reportable 11/17/16 Unknown Oscar Cells Not Reportable 11/17/16 Unknown Bite Cells Not Reportable 11/17/16 Unknown Crenated Cell Not Reportable 11/17/16 Unknown Elliptocytes Not Reportable 11/17/16 Unknown Acanthocytes (Spur) Not Reportable 11/17/16 Unknown Rouleaux Not Reportable 11/17/16 Unknown Hemoglobin C Crystals Not Reportable 11/17/16 Unknown Schistocytes Not Reportable 11/17/16 Unknown Malaria parasites Not Reportable 11/17/16 Unknown Tan Bodies Not Reportable 11/17/16 Unknown Hem Pathologist Commnt No 11/17/16 Unknown PT 14.4 Sec. (12.2-14.9) 11/17/16 Unknown INR 1.13 (0.87-1.13) 11/17/16 Unknown POC ABG pH 7.483 (7.35-7.45) H 11/17/16 13:00 POC ABG pCO2 27.0 (35-45) L 11/17/16 13:00 POC ABG pO2 55 (80-105) L 11/17/16 13:00 POC ABG HCO3 20.2 11/17/16 13:00 POC ABG Total CO2 21 11/17/16 13:00 POC ABG O2 Sat 91 11/17/16 13:00 POC ABG Base Excess -3 11/17/16 13:00 FiO2 100 % 11/17/16 13:00 Sodium 139 mmol/L (137-145) 11/18/16 08:00 Potassium 4.3 mmol/L (3.6-5.0) 11/18/16 08:00 Chloride 104.1 mmol/L (98-107) 11/18/16 08:00 Carbon Dioxide 20 mmol/L (22-30) L 11/18/16 08:00 Anion Gap 19 mmol/L 11/18/16 08:00 BUN 19 mg/dL (9-20) 11/18/16 08:00 Creatinine 1.3 mg/dL (0.8-1.5) 11/18/16 08:00 Estimated GFR > 60 ml/min 11/18/16 08:00 BUN/Creatinine Ratio 14.61 % 11/18/16 08:00 Glucose 120 mg/dL (75-100) H 11/18/16 08:00 POC Glucose 145 (70-105) H 11/18/16 08:28 Hemoglobin A1c 7.9 % (4-6) H 11/18/16 01:25 Lactic Acid 2.1 mmol/L (0.7-2.0) H* 11/17/16 Unknown Calcium 7.6 mg/dL (8.4-10.2) L 11/18/16 08:00 Magnesium 1.5 mg/dL (1.7-2.3) L 11/18/16 01:25 Total Bilirubin 0.5 mg/dL (0.1-1.2) 11/18/16 08:00 Direct Bilirubin < 0.2 mg/dL (0-0.2) 11/17/16 Unknown Indirect Bilirubin 0.5 mg/dL 11/17/16 Unknown AST 20 units/L (5-40) 11/18/16 08:00 ALT 13 units/L (7-56) 11/18/16 08:00 Alkaline Phosphatase 110 units/L (35-129) 11/18/16 08:00 Ammonia 43.0 umol/L (25-60) 11/17/16 Unknown Total Creatine Kinase 23 units/L (55-170) L 11/17/16 Unknown CK-MB (CK-2) 2.6 ng/mL (0.0-4.0) 11/17/16 Unknown CK-MB (CK-2) Rel Index 11.3 (0-4) H 11/17/16 Unknown Troponin T 0.066 ng/mL (0.00-0.029) H 11/17/16 Unknown Total Protein 6.0 g/dL (6.3-8.2) L 11/18/16 08:00 Albumin 2.4 g/dL (3.9-5) L 11/18/16 08:00 Albumin/Globulin Ratio 0.7 % 11/18/16 08:00 Triglycerides 138 mg/dL (2-149) 11/17/16 Unknown Cholesterol 111 mg/dL (50-199) 11/17/16 Unknown LDL Cholesterol Direct 39 mg/dL (50-130) L 11/17/16 Unknown HDL Cholesterol 45 mg/dL (40-59) 11/17/16 Unknown Cholesterol/HDL Ratio 2.46 % 11/17/16 Unknown Lipase 76 units/L (13-60) H 11/17/16 Unknown Urine Color Yellow (Yellow) 11/17/16 15:29 Urine Turbidity Clear (Clear) 11/17/16 15: Urine pH 6.0 (5.0-7.0) 11/17/16 15:29 Ur Specific [place] 1.011 (1.003-1.030) 11/17/16 15:29 Urine Protein <15 mg/dl mg/dL (Negative) 11/17/16 15:29 Urine Glucose (UA) 50 mg/dL (Negative) 11/17/16 15: Urine Ketones Neg mg/dL (Negative) 11/17/16 15: Urine Blood Neg (Negative) 11/17/16 15: Urine Nitrite Neg (Negative) 11/17/16 15: Urine Bilirubin Neg (Negative) 11/17/16 15: Urine Urobilinogen < 2.0 mg/dL (<2.0) 11/17/16 15:29 Ur Leukocyte Esterase Neg (Negative) 11/17/16 15:29 Urine WBC (Auto) 2.0 /HPF (0.0-6.0) 11/17/16 15:29 Urine RBC (Auto) 3.0 /HPF (0.0-6.0) 11/17/16 15:29 Urine Mucus Few /HPF 11/17/16 15:29
[2016-11-18] MEDS ORDERED: CORDARONE 150 MG in D5W 97 ML IV ONE (14:30)
[2016-11-18] MEDS ORDERED: CORDARONE 900 MG in D5W 482 ML IV SCH (15:00)
[2016-11-18] MEDS ORDERED: PITRESSin 20 UNIT in NACL 0.9% 100 ML IV SCH (15:00)
[2016-11-18] MEDS: PEPCID PO SCH (15:43)
--- NOTE | 2016-11-18 15:52 | Consultation ---
History of Present Illness - Reason for Consult Consult date: 11/18/16 Evaluate for Acute IRU - History of Present Illness 56 y.o. male admitted from [facility] secondary to hypotension and respiratory distress. Pt [facility] for [facility]D; discharged to SNF once stable. Pt also reports intermittent diarrhea since discharge; pending CDiff culture. Acute care course complicated by AFib with episodes of non-sustained VTach. On today, pt reports ongoing shortness of breath. Consult requested for post-acute placement recommendations. Past History Past Medical History: atrial fib, anemia, diabetes, hypertension, renal failure Past Surgical History: No surgical history Social history: alcohol abuse. denies: smoking Family history: hypertension Medications and Allergies Allergies Allergy/AdvReac Type Severity Reaction Status Date / Time No Known Allergies Allergy Unverified 11/17/16 13:06 Home Medications Medication Instructions Recorded Confirmed Last Taken Type Unobtainable 11/17/16 11/17/16 Unknown History Active Meds: Active Medications Al Hydrox/Mg Hydrox/Simethicone (Alum-Mag Hydrox-Simeth [id number]/5ml) 30 ml PO Q4H PRN PRN Reason: Indigestion Aspirin (Baby Aspirin) 162 mg PO QDAY [facility] Last Admin: 11/18/16 09:29 Dose: 162 mg Bisacodyl (Dulcolax) 10 mg AL QDAY PRN PRN Reason: constipation unrelieved by MOM Enoxaparin Sodium (Lovenox) 40 mg SUB-Q QDAY [facility] Last Admin: 11/18/16 09:29 Dose: 40 mg Famotidine (Pepcid) 20 mg PO QDAY [facility] Last Admin: 11/18/16 15:43 Dose: 20 mg Hydromorphone HCl (Dilaudid) 0.5 mg IV Q3HR PRN PRN Reason: Pain , Severe (7-10) Last Admin: 11/18/16 11:22 Dose: 0.5 mg Sodium Chloride (Nacl 0.9% 1000 Ml) 1,000 mls @ 125 mls/hr IV DIRECT [facility] Last Admin: 11/18/16 04:53 Dose: 125 mls/hr Metronidazole (Flagyl 500 Mg/100 Ml) 100 mls @ 100 mls/hr IV Q8H [facility] Last Admin: 11/18/16 06:39 Dose: 100 mls/hr Vasopressin 20 unit/ Sodium (Chloride) 101 mls @ 12.12 mls/hr IV TITR NICOLASA; 0.04 UNITS/MIN PRN Reason: Protocol Amiodarone HCl 900 mg/ (Dextrose) 500 mls @ 33.33 mls/hr IV DIRECT NICOLASA; 1 MG /MIN PRN Reason: Protocol Last Admin: 11/18/16 14:36 Dose: 33.33 mls/hr Magnesium Hydroxide (Milk Of Magnesia) 30 ml PO Q4H PRN PRN Reason: Constipation Metoprolol Tartrate (Lopressor) 25 mg PO BID NICOLASA Last Admin: 11/18/16 13:00 Dose: 25 mg Review of Systems All systems: negative Ears, nose, mouth and throat: no headache Cardiovascular: no chest pain, no lightheadedness Respiratory: shortness of breath, dyspnea on exertion Gastrointestinal: diarrhea, no nausea, no vomiting Exam - Constitutional Vitals: Vital Signs - 12hr 11/18/16 11/18/16 11/18/16 04:00 04:31 05:00 Temperature 98.8 F Pulse Rate 123 H 105 H 97 H Respiratory 13 22 16 Rate Respiratory Rate [Left Knee ] Blood Pressure 87/66 87/66 125/80 O2 Sat by Pulse 99 97 100 Oximetry 11/18/16 11/18/16 11/18/16 05:31 06:00 06:31 Temperature Pulse Rate 96 H 94 H 97 H Respiratory 11 L 20 14 Rate Respiratory Rate [Left Knee ] Blood Pressure 125/80 110/77 110/77 O2 Sat by Pulse 100 100 100 Oximetry 11/18/16 11/18/16 11/18/16 06:38 07:00 07:31 Temperature Pulse Rate 93 H 91 H Respiratory 14 13 10 L Rate Respiratory Rate [Left Knee ] Blood Pressure 119/76 119/76 O2 Sat by Pulse 99 100 Oximetry 11/18/16 11/18/16 11/18/16 07:45 08:00 08:20 Temperature 98.3 F Pulse Rate 91 H 101 H Respiratory 11 L 19 19 Rate Respiratory Rate [Left Knee ] Blood Pressure 119/76 119/76 O2 Sat by Pulse 100 98 100 Oximetry 11/18/16 11/18/16 11/18/16 08:30 09:00 09:20 Temperature Pulse Rate 104 H 100 H Respiratory 21 13 Rate Respiratory Rate [Left Knee ] Blood Pressure 127/77 131/79 O2 Sat by Pulse 100 100 100 Oximetry 11/18/16 11/18/16 11/18/16 09:31 10:00 10:31 Temperature Pulse Rate 100 H 103 H 122 H Respiratory 15 14 15 Rate Respiratory Rate [Left Knee ] Blood Pressure 131/79 142/84 142/84 O2 Sat by Pulse 100 98 96 Oximetry 11/18/16 11/18/16 11/18/16 10:49 11:01 11:03 Temperature Pulse Rate 134 H 116 H 103 H Respiratory 21 16 16 Rate Respiratory Rate [Left Knee ] Blood Pressure 142/84 129/62 129/62 O2 Sat by Pulse 97 94 94 Oximetry 11/18/16 11/18/16 11/18/16 11:22 11:30 11:31 Temperature Pulse Rate 142 H Respiratory 26 H 23 Rate Respiratory 24 Rate [Left Knee ] Blood Pressure 129/62 O2 Sat by Pulse 91 Oximetry 11/18/16 11/18/16 11/18/16 12:00 12:31 13:00 Temperature 98.1 F Pulse Rate 105 H 136 H 113 H Respiratory 17 26 H Rate Respiratory Rate [Left Knee ] Blood Pressure 130/86 130/86 130/86 O2 Sat by Pulse 97 97 Oximetry General appearance: mild distress (shortness of breath), other (girlfriend present) - EENT Eyes: EOM intact ENT: hearing intact - Neck Neck: supple, normal ROM - Respiratory Respiratory effort: labored (just completed getting bed linens changed following incontinent episode) - Cardiovascular Rhythm: irregularly irregular - Extremities Extremities: No edema - Neurologic Neurologic: CNII-XII intact, moves all extremities - Psychiatric Psychiatric: appropriate mood/affect, cooperative - Labs CBC & Chem 7: 11/17/16 Unknown 11/18/16 08:00 Labs: Laboratory Results - last 72 hr 11/17/16 11/17/16 11/17/16 15:29 17:07 17:43 WBC RBC Hgb Hct MCV MCH MCHC RDW Plt Count Add Manual Diff Total Counted Seg Neuts % (Manual) Band Neutrophils % Lymphocytes % (Manual) Reactive Lymphs % (Man) Monocytes % (Manual) Eosinophils % (Manual) Basophils % (Manual) Metamyelocytes % Myelocytes % Promyelocytes % Blast Cells % Nucleated RBC % Seg Neutrophils # Man Band Neutrophils # Lymphocytes # (Manual) Abs React Lymphs (Man) Monocytes # (Manual) Eosinophils # (Manual) Basophils # (Manual) Metamyelocytes # Myelocytes # Promyelocytes # Blast Cells # WBC Morphology Hypersegmented Neuts Hyposegmented Neuts Hypogranular Neuts Smudge Cells Toxic Granulation Toxic Vacuolation Dohle Bodies Pelger-Huet Anomaly Boo Rods Platelet Estimate Clumped Platelets Plt Clumps, EDTA Large Platelets Giant Platelets Platelet Satelliting Plt Morphology Comment RBC Morphology Dimorphic RBCs Polychromasia Hypochromasia Poikilocytosis Anisocytosis Microcytosis Macrocytosis Spherocytes Pappenheimer Bodies Sickle Cells Target Cells Tear Drop Cells Ovalocytes Helmet Cells Cosme-Satsuma Bodies [place] Rings [place] Cells Bite Cells Crenated Cell Elliptocytes Acanthocytes (Spur) Rouleaux Hemoglobin C Crystals Schistocytes Malaria parasites Tan Bodies Hem Pathologist Commnt PT INR Sodium Potassium Chloride Carbon Dioxide Anion Gap BUN Creatinine Estimated GFR BUN/Creatinine Ratio Glucose POC Glucose 153 H Hemoglobin A1c Lactic Acid Calcium Magnesium 1.7 Total Bilirubin Direct Bilirubin Indirect Bilirubin AST ALT Alkaline Phosphatase Ammonia Total Creatine Kinase CK-MB (CK-2) CK-MB (CK-2) Rel Index Troponin T C-Reactive Protein Total Protein Albumin Albumin/Globulin Ratio Triglycerides Cholesterol LDL Cholesterol Direct HDL Cholesterol Cholesterol/HDL Ratio Lipase Urine Color Yellow Urine Turbidity Clear Urine pH 6.0 Ur Specific Savery 1.011 Urine Protein <15 mg/dl Urine Glucose (UA) 50 Urine Ketones Neg Urine Blood Neg Urine Nitrite Neg Urine Bilirubin Neg Urine Urobilinogen < 2.0 Ur Leukocyte Esterase Neg Urine WBC (Auto) 2.0 Urine RBC (Auto) 3.0 Urine Mucus Few 11/17/16 11/17/16 11/17/16 17:43 17:43 21:25 WBC RBC Hgb Hct MCV MCH MCHC RDW Plt Count Add Manual Diff Total Counted Seg Neuts % (Manual) Band Neutrophils % Lymphocytes % (Manual) Reactive Lymphs % (Man) Monocytes % (Manual) Eosinophils % (Manual) Basophils % (Manual) Metamyelocytes % Myelocytes % Promyelocytes % Blast Cells % Nucleated RBC % Seg Neutrophils # Man Band Neutrophils # Lymphocytes # (Manual) Abs React Lymphs (Man) Monocytes # (Manual) Eosinophils # (Manual) Basophils # (Manual) Metamyelocytes # Myelocytes # Promyelocytes # Blast Cells # WBC Morphology Hypersegmented Neuts Hyposegmented Neuts Hypogranular Neuts Smudge Cells Toxic Granulation Toxic Vacuolation Dohle Bodies Pelger-Huet Anomaly Boo Rods Platelet Estimate Clumped Platelets Plt Clumps, EDTA Large Platelets Giant Platelets Platelet Satelliting Plt Morphology Comment RBC Morphology Dimorphic RBCs Polychromasia Hypochromasia Poikilocytosis Anisocytosis Microcytosis Macrocytosis Spherocytes Pappenheimer Bodies Sickle Cells Target Cells Tear Drop Cells Ovalocytes Helmet Cells Cosme-Satsuma Bodies [place] Rings [place] Cells Bite Cells Crenated Cell Elliptocytes Acanthocytes (Spur) Rouleaux Hemoglobin C Crystals Schistocytes Malaria parasites Tan Bodies Hem Pathologist Commnt PT INR Sodium 136 L Potassium 3.9 D Chloride 101.4 Carbon Dioxide 22 Anion Gap 17 BUN 19 Creatinine 1.3 Estimated GFR > 60 BUN/Creatinine Ratio 14.61 Glucose 166 H POC Glucose Hemoglobin A1c Lactic Acid 1.2 Calcium 7.5 L Magnesium Total Bilirubin Direct Bilirubin Indirect Bilirubin AST ALT Alkaline Phosphatase Ammonia Total Creatine Kinase CK-MB (CK-2) CK-MB (CK-2) Rel Index Troponin T 0.352 H* D C-Reactive Protein Total Protein Albumin Albumin/Globulin Ratio Triglycerides Cholesterol LDL Cholesterol Direct HDL Cholesterol Cholesterol/HDL Ratio Lipase Urine Color Urine Turbidity Urine pH Ur Specific Savery Urine Protein Urine Glucose (UA) Urine Ketones Urine Blood Urine Nitrite Urine Bilirubin Urine Urobilinogen Ur Leukocyte Esterase Urine WBC (Auto) Urine RBC (Auto) Urine Mucus 11/17/16 11/17/16 11/17/16 Unknown Unknown Unknown WBC 25.7 H RBC 2.89 L Hgb 8.5 L Hct 26.2 L MCV 91 MCH 30 MCHC 33 RDW 16.3 H Plt Count 263 Add Manual Diff Complete Total Counted 100 Seg Neuts % (Manual) 90.0 H Band Neutrophils % 0 Lymphocytes % (Manual) 7.0 L Reactive Lymphs % (Man) 0 Monocytes % (Manual) 3.0 Eosinophils % (Manual) 0 Basophils % (Manual) 0 Metamyelocytes % 0 Myelocytes % 0 Promyelocytes % 0 Blast Cells % 0 Nucleated RBC % Not Reportable Seg Neutrophils # Man 23.1 H Band Neutrophils # 0.0 Lymphocytes # (Manual) 1.8 Abs React Lymphs (Man) 0.0 Monocytes # (Manual) 0.8 Eosinophils # (Manual) 0.0 Basophils # (Manual) 0.0 Metamyelocytes # 0.0 Myelocytes # 0.0 Promyelocytes # 0.0 Blast Cells # 0.0 WBC Morphology Not Reportable Hypersegmented Neuts Not Reportable Hyposegmented Neuts Not Reportable Hypogranular Neuts Not Reportable Smudge Cells Not Reportable Toxic Granulation Not Reportable Toxic Vacuolation Not Reportable Dohle Bodies Not Reportable Pelger-Huet Anomaly Not Reportable Boo Rods Not Reportable Platelet Estimate Appears normal Clumped Platelets Not Reportable Plt Clumps, EDTA Not Reportable Large Platelets Not Reportable Giant Platelets Not Reportable Platelet Satelliting Not Reportable Plt Morphology Comment Not Reportable RBC Morphology Normal Dimorphic RBCs Not Reportable Polychromasia Not Reportable Hypochromasia Not Reportable Poikilocytosis Not Reportable Anisocytosis Not Reportable Microcytosis Not Reportable Macrocytosis Not Reportable Spherocytes Not Reportable Pappenheimer Bodies Not Reportable Sickle Cells Not Reportable Target Cells Not Reportable Tear Drop Cells Not Reportable Ovalocytes Not Reportable Helmet Cells Not Reportable Cosme-Satsuma Bodies Not Reportable [place] Rings Not Reportable [place] Cells Not Reportable Bite Cells Not Reportable Crenated Cell Not Reportable Elliptocytes Not Reportable Acanthocytes (Spur) Not Reportable Rouleaux Not Reportable Hemoglobin C Crystals Not Reportable Schistocytes Not Reportable Malaria parasites Not Reportable Tan Bodies Not Reportable Hem Pathologist Commnt No PT 14.4 INR 1.13 Sodium 135 L Potassium 2.5 L* Chloride 95.4 L Carbon Dioxide 22 Anion Gap 20 BUN 19 Creatinine 1.5 Estimated GFR 59 BUN/Creatinine Ratio 12.66 Glucose 132 H POC Glucose Hemoglobin A1c Lactic Acid Calcium 7.7 L Magnesium Total Bilirubin 0.7 Direct Bilirubin < 0.2 Indirect Bilirubin 0.5 AST 16 ALT 14 Alkaline Phosphatase 72 Ammonia Total Creatine Kinase CK-MB (CK-2) CK-MB (CK-2) Rel Index Troponin T 0.066 H C-Reactive Protein Total Protein 6.3 Albumin 2.5 L Albumin/Globulin Ratio 0.7 Triglycerides 138 Cholesterol 111 LDL Cholesterol Direct 39 L HDL Cholesterol 45 Cholesterol/HDL Ratio 2.46 Lipase 76 H Urine Color Urine Turbidity Urine pH Ur Specific Savery Urine Protein Urine Glucose (UA) Urine Ketones Urine Blood Urine Nitrite Urine Bilirubin Urine Urobilinogen Ur Leukocyte Esterase Urine WBC (Auto) Urine RBC (Auto) Urine Mucus 11/17/16 11/17/16 11/17/16 Unknown Unknown Unknown WBC RBC Hgb Hct MCV MCH MCHC RDW Plt Count Add Manual Diff Total Counted Seg Neuts % (Manual) Band Neutrophils % Lymphocytes % (Manual) Reactive Lymphs % (Man) Monocytes % (Manual) Eosinophils % (Manual) Basophils % (Manual) Metamyelocytes % Myelocytes % Promyelocytes % Blast Cells % Nucleated RBC % Seg Neutrophils # Man Band Neutrophils # Lymphocytes # (Manual) Abs React Lymphs (Man) Monocytes # (Manual) Eosinophils # (Manual) Basophils # (Manual) Metamyelocytes # Myelocytes # Promyelocytes # Blast Cells # WBC Morphology Hypersegmented Neuts Hyposegmented Neuts Hypogranular Neuts Smudge Cells Toxic Granulation Toxic Vacuolation Dohle Bodies Pelger-Huet Anomaly Boo Rods Platelet Estimate Clumped Platelets Plt Clumps, EDTA Large Platelets Giant Platelets Platelet Satelliting Plt Morphology Comment RBC Morphology Dimorphic RBCs Polychromasia Hypochromasia Poikilocytosis Anisocytosis Microcytosis Macrocytosis Spherocytes Pappenheimer Bodies Sickle Cells Target Cells Tear Drop Cells Ovalocytes Helmet Cells Cosme-S[place]uma Bodies [place] Rings [place] Cells Bite Cells Crenated Cell Elliptocytes Acanthocytes (Spur) Rouleaux Hemoglobin C Crystals Schistocytes Malaria parasites Tan Bodies Hem Pathologist Commnt PT INR Sodium Potassium Chloride Carbon Dioxide Anion Gap BUN Creatinine Estimated GFR BUN/Creatinine Ratio Glucose POC Glucose Hemoglobin A1c Lactic Acid 2.1 H* Calcium Magnesium Total Bilirubin Direct Bilirubin Indirect Bilirubin AST ALT Alkaline Phosphatase Ammonia 43.0 Total Creatine Kinase 23 L CK-MB (CK-2) 2.6 CK-MB (CK-2) Rel Index 11.3 H Troponin T C-Reactive Protein Total Protein Albumin Albumin/Globulin Ratio Triglycerides Cholesterol LDL Cholesterol Direct HDL Cholesterol Cholesterol/HDL Ratio Lipase Urine Color Urine Turbidity Urine pH Ur Specific Savery Urine Protein Urine Glucose (UA) Urine Ketones Urine Blood Urine Nitrite Urine Bilirubin Urine Urobilinogen Ur Leukocyte Esterase Urine WBC (Auto) Urine RBC (Auto) Urine Mucus 11/18/16 11/18/16 11/18/16 00:20 01:25 01:25 WBC RBC Hgb Hct MCV MCH MCHC RDW Plt Count Add Manual Diff Total Counted Seg Neuts % (Manual) Band Neutrophils % Lymphocytes % (Manual) Reactive Lymphs % (Man) Monocytes % (Manual) Eosinophils % (Manual) Basophils % (Manual) Metamyelocytes % Myelocytes % Promyelocytes % Blast Cells % Nucleated RBC % Seg Neutrophils # Man Band Neutrophils # Lymphocytes # (Manual) Abs React Lymphs (Man) Monocytes # (Manual) Eosinophils # (Manual) Basophils # (Manual) Metamyelocytes # Myelocytes # Promyelocytes # Blast Cells # WBC Morphology Hypersegmented Neuts Hyposegmented Neuts Hypogranular Neuts Smudge Cells Toxic Granulation Toxic Vacuolation Dohle Bodies Pelger-Huet Anomaly Boo Rods Platelet Estimate Clumped Platelets Plt Clumps, EDTA Large Platelets Giant Platelets Platelet Satelliting Plt Morphology Comment RBC Morphology Dimorphic RBCs Polychromasia Hypochromasia Poikilocytosis Anisocytosis Microcytosis Macrocytosis Spherocytes Pappenheimer Bodies Sickle Cells Target Cells Tear Drop Cells Ovalocytes Helmet Cells Cosme-Satsuma Bodies [place] Rings [place] Cells Bite Cells Crenated Cell Elliptocytes Acanthocytes (Spur) Rouleaux Hemoglobin C Crystals Schistocytes Malaria parasites Tan Bodies Hem Pathologist Commnt PT INR Sodium Potassium Chloride Carbon Dioxide Anion Gap BUN Creatinine Estimated GFR BUN/Creatinine Ratio Glucose POC Glucose 290 H Hemoglobin A1c 7.9 H Lactic Acid Calcium Magnesium 1.5 L Total Bilirubin Direct Bilirubin Indirect Bilirubin AST ALT Alkaline Phosphatase Ammonia Total Creatine Kinase CK-MB (CK-2) CK-MB (CK-2) Rel Index Troponin T C-Reactive Protein Total Protein Albumin Albumin/Globulin Ratio Triglycerides Cholesterol LDL Cholesterol Direct HDL Cholesterol Cholesterol/HDL Ratio Lipase Urine Color Urine Turbidity Urine pH Ur Specific Sa[place] Urine Protein Urine Glucose (UA) Urine Ketones Urine Blood Urine Nitrite Urine Bilirubin Urine Urobilinogen Ur Leukocyte Esterase Urine WBC (Auto) Urine RBC (Auto) Urine Mucus 11/18/16 11/18/16 11/18/16 01:25 08:00 08:00 WBC RBC Hgb Hct MCV MCH MCHC RDW Plt Count Add Manual Diff Total Counted Seg Neuts % (Manual) Band Neutrophils % Lymphocytes % (Manual) Reactive Lymphs % (Man) Monocytes % (Manual) Eosinophils % (Manual) Basophils % (Manual) Metamyelocytes % Myelocytes % Promyelocytes % Blast Cells % Nucleated RBC % Seg Neutrophils # Man Band Neutrophils # Lymphocytes # (Manual) Abs React Lymphs (Man) Monocytes # (Manual) Eosinophils # (Manual) Basophils # (Manual) Metamyelocytes # Myelocytes # Promyelocytes # Blast Cells # WBC Morphology Hypersegmented Neuts Hyposegmented Neuts Hypogranular Neuts Smudge Cells Toxic Granulation Toxic Vacuolation Dohle Bodies Pelger-Huet Anomaly Boo Rods Platelet Estimate Clumped Platelets Plt Clumps, EDTA Large Platelets Giant Platelets Platelet Satelliting Plt Morphology Comment RBC Morphology Dimorphic RBCs Polychromasia Hypochromasia Poikilocytosis Anisocytosis Microcytosis Macrocytosis Spherocytes Pappenheimer Bodies Sickle Cells Target Cells Tear Drop Cells Ovalocytes Helmet Cells Cosme-S[place]uma Bodies [place] Rings Oscar Cells Bite Cells Crenated Cell Elliptocytes Acanthocytes (Spur) Rouleaux Hemoglobin C Crystals Schistocytes Malaria parasites Tan Bodies Hem Pathologist Commnt PT INR Sodium 136 L 139 Potassium 3.7 4.3 Chloride 103.2 104.1 Carbon Dioxide 21 L 20 L Anion Gap 16 19 BUN 20 19 Creatinine 1.4 1.3 Estimated GFR > 60 > 60 BUN/Creatinine Ratio 14.28 14.61 Glucose 169 H 120 H POC Glucose Hemoglobin A1c Lactic Acid Calcium 7.3 L 7.6 L Magnesium Total Bilirubin 0.5 Direct Bilirubin Indirect Bilirubin AST 20 ALT 13 Alkaline Phosphatase 110 Ammonia Total Creatine Kinase CK-MB (CK-2) CK-MB (CK-2) Rel Index Troponin T C-Reactive Protein 6.40 H Total Protein 6.0 L Albumin 2.4 L Albumin/Globulin Ratio 0.7 Triglycerides Cholesterol LDL Cholesterol Direct HDL Cholesterol Cholesterol/HDL Ratio Lipase Urine Color Urine Turbidity Urine pH Ur Specific Savery Urine Protein Urine Glucose (UA) Urine Ketones Urine Blood Urine Nitrite Urine Bilirubin Urine Urobilinogen Ur Leukocyte Esterase Urine WBC (Auto) Urine RBC (Auto) Urine Mucus 11/18/16 08:28 WBC RBC Hgb Hct MCV MCH MCHC RDW Plt Count Add Manual Diff Total Counted Seg Neuts % (Manual) Band Neutrophils % Lymphocytes % (Manual) Reactive Lymphs % (Man) Monocytes % (Manual) Eosinophils % (Manual) Basophils % (Manual) Metamyelocytes % Myelocytes % Promyelocytes % Blast Cells % Nucleated RBC % Seg Neutrophils # Man Band Neutrophils # Lymphocytes # (Manual) Abs React Lymphs (Man) Monocytes # (Manual) Eosinophils # (Manual) Basophils # (Manual) Metamyelocytes # Myelocytes # Promyelocytes # Blast Cells # WBC Morphology Hypersegmented Neuts Hyposegmented Neuts Hypogranular Neuts Smudge Cells Toxic Granulation Toxic Vacuolation Dohle Bodies Pelger-Huet Anomaly Boo Rods Platelet Estimate Clumped Platelets Plt Clumps, EDTA Large Platelets Giant Platelets Platelet Satelliting Plt Morphology Comment RBC Morphology Dimorphic RBCs Polychromasia Hypochromasia Poikilocytosis Anisocytosis Microcytosis Macrocytosis Spherocytes Pappenheimer Bodies Sickle Cells Target Cells Tear Drop Cells Ovalocytes Helmet Cells Cosme-S[place]uma Bodies [place] Rings [place] Cells Bite Cells Crenated Cell Elliptocytes Acanthocytes (Spur) Rouleaux Hemoglobin C Crystals Schistocytes Malaria parasites Tan Bodies Hem Pathologist Commnt PT INR Sodium Potassium Chloride Carbon Dioxide Anion Gap BUN Creatinine Estimated GFR BUN/Creatinine Ratio Glucose POC Glucose 145 H Hemoglobin A1c Lactic Acid Calcium Magnesium Total Bilirubin Direct Bilirubin Indirect Bilirubin AST ALT Alkaline Phosphatase Ammonia Total Creatine Kinase CK-MB (CK-2) CK-MB (CK-2) Rel Index Troponin T C-Reactive Protein Total Protein Albumin Albumin/Globulin Ratio Triglycerides Cholesterol LDL Cholesterol Direct HDL Cholesterol Cholesterol/HDL Ratio Lipase Urine Color Urine Turbidity Urine pH Ur Specific Sa[place] Urine Protein Urine Glucose (UA) Urine Ketones Urine Blood Urine Nitrite Urine Bilirubin Urine Urobilinogen Ur Leukocyte Esterase Urine WBC (Auto) Urine RBC (Auto) Urine Mucus Assessment and Plan Patient was assessed and evaluated for Acute Inpatient Rehab Unit. 56 y.o. male with recent history of pneumonia, COPD exacerbation, CHF, ? Cdiff. [facility] On today, pt is noted to be unstable to participate with PT. When respiratory status and HR stabilize, PT evaluation will be completed. If pt is noted to have decline in functional status, pt will require placement in [facility] approved facility. Will discuss with CM. Thank you for consultation. - Patient Problems (1) Hypoxia Current Visit: Yes Status: Acute (2) Nonsustained ventricular tachycardia Current Visit: Yes Status: Acute
--- NOTE | 2016-11-18 17:57 | Consultation ---
History of Present Illness - Reason for Consult Consult date: 11/18/16 sepsis - History of Present Illness Mr Hannah is a 56y/o AA male with a known history of HTN, DM 2, HLD, anemia, CKD, GERD, depression, and alcohol abuse who had been recently hospitalized at the [facility] with pneumonia (10/25- 11/08/16) and now presents for admission to on 11/17/16 with generalized weakness and worsening shortness of breath, and diarrhea. The patient has evidence of atrial fibrillation and frequent ventricular ectopy; chest x-ray shows cardiomegaly with bilateral infiltrates consistent with CHF; CBC shows a white count of 25,700. Lactate level is 2.1. The patient is afebrile with blood and urine cultures negative to date. He is currently on broad spectrum antibiotics and is seen for further ID recommendations. The patient currently denies any headache. He describes some dry cough. He denies chest pain but does have shortness of breath on minimal exertion. He denies any nausea or vomiting. He describes 2 watery stools per day without blood. He notes abdominal distention without pain. He described, prior to the hospitalization at the [place], generalized myalgias and arthralgias. The patient does not recall what previous antibiotics he received but is unaware of taking any recent oral antibiotics. Mr Hannah denies any recent travel. He is unaware of exposure to ill persons. There is no pet exposure. He denies any history of TB or HIV risk factors. He does describe daily alcohol use; drinking approximately a pint of alcohol daily right up until the time of his hospitalization now. The patient has undergone a CT scan of his abdomen which shows possible wall thickening of the ascending colon consistent with colitis. Medications and Allergies Allergies Allergy/AdvReac Type Severity Reaction Status Date / Time No Known Allergies Allergy Unverified 11/17/16 13:06 Home Medications Medication Instructions Recorded Confirmed Last Taken Type Unobtainable 11/17/16 11/17/16 Unknown History Active Meds: Active Medications Al Hydrox/Mg Hydrox/Simethicone (Alum-Mag Hydrox-Simeth [id number]/5ml) 30 ml PO Q4H PRN PRN Reason: Indigestion Aspirin (Baby Aspirin) 162 mg PO QDAY NICOLASA Last Admin: 11/18/16 09:29 Dose: 162 mg Bisacodyl (Dulcolax) 10 mg [place] QDAY PRN PRN Reason: constipation unrelieved by MOM Enoxaparin Sodium (Lovenox) 40 mg SUB-Q QDAY [facility] Last Admin: 11/18/16 09:29 Dose: 40 mg Famotidine (Pepcid) 20 mg PO QDAY [facility] Last Admin: 11/18/16 15:43 Dose: 20 mg Hydromorphone HCl (Dilaudid) 0.5 mg IV Q3HR PRN PRN Reason: Pain , Severe (7-10) Last Admin: 11/18/16 11:22 Dose: 0.5 mg Sodium Chloride (Nacl 0.9% 1000 Ml) 1,000 mls @ 125 mls/hr IV DIRECT NICOLASA Last Admin: 11/18/16 04:53 Dose: 125 mls/hr Metronidazole (Flagyl 500 Mg/100 Ml) 100 mls @ 100 mls/hr IV Q8H [facility] Last Admin: 11/18/16 16:00 Dose: 100 mls/hr Vasopressin 20 unit/ Sodium (Chloride) 101 mls @ 12.12 mls/hr IV TITR NICOLASA; 0.04 UNITS/MIN PRN Reason: Protocol Amiodarone HCl 900 mg/ (Dextrose) 500 mls @ 33.33 mls/hr IV DIRECT NICOLASA; 1 MG /MIN PRN Reason: Protocol Last Admin: 11/18/16 14:36 Dose: 33.33 mls/hr Magnesium Hydroxide (Milk Of Magnesia) 30 ml PO Q4H PRN PRN Reason: Constipation Metoprolol Tartrate (Lopressor) 25 mg PO BID [facility] Last Admin: 11/18/16 13:00 Dose: 25 mg Review of Systems Constitutional: weakness Respiratory: shortness of breath (see above.) Physical Examination - Physical Exam Narrative exam: Well-developed well-nourished appearing in no distress. HEENT: Pupils are equal reactive to light and accommodation. Conjunctiva clear. Oropharynx is normal with no evidence of oral candidiasis or pharyngitis. NECK: Supple. No enlargement of the thyroid gland. No significant cervical lymphadenopathy. No jugular venous distention at 30. Right IJ catheter in place. LUNGS: Rales bilaterally. HEART: Regular rate with ectopy. Murmur not heard. ABDOMEN: Soft and nontender. Liver and spleen are not palpably enlarged or tender. No palpable masses. Mildly distended. BS+ EXTREMITIES: No rash,or peripheral lymphadenopathy; 2+ ankle edema SKIN: No other rash, ulcers or wounds. NEUROLOGIC: No focal findings. No tremor. - Constitutional Vitals: Vital Signs Temp Pulse Resp BP Pulse Ox 97 F L 86 20 100/68 99 11/18/16 16:00 11/18/16 16:00 11/18/16 16:00 11/18/16 16:00 11/18/16 16:00 Temperature -Last 24 Hours Temperature 97 F Temperature 98.1 F Temperature 98.3 F Temperature 98.8 F Temperature 98.1 F Temperature 98.8 F Results - Labs CBC & Chem 7: 11/17/16 Unknown 11/18/16 08:00 Labs: Abnormal lab results 11/17/16 11/17/16 11/18/16 Range/Units 17:43 17:43 00:20 Sodium 136 L (137-145) mmol/L Carbon Dioxide (22-30) mmol/L Glucose 166 H (75-100) mg/dL POC Glucose 290 H (70-105) Hemoglobin A1c (4-6) % Calcium 7.5 L (8.4-10.2) mg/dL Magnesium (1.7-2.3) mg/dL Troponin T 0.352 H* D (0.00-0.029) ng/mL C-Reactive Protein (0.00-1.30) mg/dL Total Protein (6.3-8.2) g/dL Albumin (3.9-5) g/dL 11/18/16 11/18/16 11/18/16 Range/Units 01:25 01:25 01:25 Sodium 136 L (137-145) mmol/L Carbon Dioxide 21 L (22-30) mmol/L Glucose 169 H (75-100) mg/dL POC Glucose (70-105) Hemoglobin A1c 7.9 H (4-6) % Calcium 7.3 L (8.4-10.2) mg/dL Magnesium 1.5 L (1.7-2.3) mg/dL Troponin T (0.00-0.029) ng/mL C-Reactive Protein (0.00-1.30) mg/dL Total Protein (6.3-8.2) g/dL Albumin (3.9-5) g/dL 11/18/16 11/18/16 11/18/16 Range/Units 08:00 08:00 08:28 Sodium (137-145) mmol/L Carbon Dioxide 20 L (22-30) mmol/L Glucose 120 H (75-100) mg/dL POC Glucose 145 H (70-105) Hemoglobin A1c (4-6) % Calcium 7.6 L (8.4-10.2) mg/dL Magnesium (1.7-2.3) mg/dL Troponin T (0.00-0.029) ng/mL C-Reactive Protein 6.40 H (0.00-1.30) mg/dL Total Protein 6.0 L (6.3-8.2) g/dL Albumin 2.4 L (3.9-5) g/dL Assessment and Plan Assessment: Mr Hannah is a 56y/o AA male with a known history of HTN, DM 2, HLD, anemia, CKD, GERD, depression, and alcohol abuse who had been recently hospitalized at the [facility] with pneumonia (10/25- 11/08/16) and now presents for admission to on 11/17/16 with generalized weakness and worsening shortness of breath, and diarrhea. The patient has evidence of atrial fibrillation and frequent ventricular ectopy; chest x-ray shows cardiomegaly with bilateral infiltrates consistent with CHF; CBC shows a white count of 25,700. Lactate level is 2.1. The patient is afebrile with blood and urine cultures negative to date. He is currently on broad spectrum antibiotics and is seen for further ID recommendations. Antibiotics: Flagyl 500 mg by mouth 3 times a day ( 11/18 - > s/p: Vancomycin IV (11/17 ) Flagyl 500 mg IV every 8 hour ( 11/17 ->11/18) Meropenem 500 mg IV every 6 hours ( 11/17 -11/18) Zosyn 3.375 g IV every 6 hours ( 11/17) Conclusions: 1. Bilateral pulmonary infiltrate/effusion - R/O CHF - Atrial fibrillation - Frequent ventricular ectopy - Hypoxemia 2. Hx of recent PNA - [facility] hospitalization 10/25 - 11/08/16 ( ? Findings) - R/O sepsis 3. Diarrhea - CT scan with Ascending colon wall thickening - R/O PMC 4. Leukocytosis -R/O secondary to above 5. Anemia -probably multifactorial 6. EtOH abuse 7. Hx multiple medical problems: HTN, DM 2, HLD, depression, GERD, CKD Recommendations: - Suggest at this point txing for possible C. difficile colitis ( stool assay pending) with oral metronidazole - Suspect chest x-ray findings and hypoxemia in view of normal Temps to be due to heart failure. - Will follow off broad-spectrum parenteral antibiotics - Await further culture findings - Check pBNP; await cardiac echo findings - [facility] - Continue supportive therapies. -
[2016-11-18] MEDS: FLAGYL PO SCH (21:33)
[2016-11-19] MEDS: DILAUDID IV PRN ×3 (02:55→19:27)
--- NOTE | 2016-11-19 05:31 | Consultation ---
CONSULTING PHYSICIAN: Dr. Bailey. REASON FOR CONSULTATION: Septic shock. CHIEF COMPLAINT AND HISTORY OF PRESENT ILLNESS: The patient is a 56-year-old -[place] male with past medical history significant amongst other things for a recent admission at [facility]. A very poor historian. He states that he was told he had a pneumonia. Both his knees swell up during the admission and he had drainage of fluid from both knees. They were painful, they were tender, but he does not have a diagnosis. He at some point was discharged from [facility] nearby. He stated he had been there about 2 or 3 days. When on the day of presentation, he was getting physical therapy when he became very lightheaded. He had some nausea, no actual vomiting. He denied actual chest pain, but knew he was not feeling well. He was in some respiratory distress, came into the Emergency Room and in the Emergency Room, he was found amongst other things to be tachycardic, having some rounds of wide complex tachycardia. At a point, he had some sustained V-tach. He denies a history of problems of cardiomyopathy, but in the ER was found to likely have a cardiomyopathy. He was ultimately admitted to the intensive care unit secondary to the rounds of wide complex tachycardia as well as the need for vasopressor medication. When I stopped by to see him, he was feeling a little bit better, but as he was giving me the history, the pulse was going as high as to the 160s, 172 at one point and coming back right down. With regard to tobacco use/abuse, he gives a less than 10-pack year tobacco smoking history. In the ER, he told that he was a never smoker. He denies any hematemesis. He denies hemoptysis or any other bleeding diathesis. That really is as much of the history of presentation as I have. PAST MEDICAL HISTORY: Hypertension, diabetes, chronic kidney disease, history of some psychiatric treatment, history of anemia, history of esophageal varices, history of pneumonia, and history of gout. PAST SURGICAL HISTORY: Denied any. MEDICATIONS: He was on at the time I stopped by to see him, according to the medication administration record included the following: He was on p.r.n. milk of magnesia, amiodarone 400 mg p.o. b.i.d., aspirin 162 mg p.o. daily, p.r.n. Dulcolax, Lovenox 40 mg subq daily, Dilaudid 0.5 mg IV q.3 hours p.r.n. severe pain, Lopressor 25 mg p.o. b.i.d., Flagyl 500 mg IV q.8 hours and had been on sodium chloride at 125 mL per hour. He had been on meropenem, he received a dose in the Emergency Room I believe. He also received a dose of Zosyn and also received some vancomycin. ALLERGIES: No known drug allergies. DIET: Reportedly was having some diarrhea before coming in. Denies any acute weight loss or gain in the preceding few weeks to months. FAMILY AND SOCIAL HISTORY: He was living in the community prior to this admission to the rehab center. He gives me a less than 10-pack year tobacco smoking history. Family history otherwise unknown. REVIEW OF SYSTEMS: No loss of consciousness. No new onset seizures. No new onset focal weakness. No gross hematochezia or melena. No gross hematuria or dysuria. No hematemesis, no hemoptysis. He even denied palpitations. Complete review of systems was obtained. Pertinent positives and/or negatives as in body of history above, otherwise noncontributory. PHYSICAL EXAMINATION: VITAL SIGNS: At initial presentation, he had a low grade fever of 99.8 with a pulse of 82, respiratory rate of 16, blood pressure was as low as 73/82 in the Emergency Room. Oxygen sats at 94%. Inspired oxygen concentration was not recorded. HEAD, EYES, EARS, NOSE, AND THROAT: Pupils are equal, round, about 2 to 3 mm, reactive to light. Extraocular muscle movements are intact. Grossly, no palpable lymph nodes in the supraclavicular or submandibular lymph node chains. Oropharynx is a Mallampati #2 oropharynx. No significant posterior oropharyngeal erythema or exudation. LUNGS: Auscultation of both lung snider significant for bibasilar inspiratory rales. No active wheezing. HEART: Heart sounds 1 and 2 are heard. Irregular tachycardia at the time of my evaluation. ABDOMEN: Soft, full, bowel sounds are positive, did not appear tender. EXTREMITIES: Show swelling and tenderness to the left knee and right anterior region. No significant digital clubbing or cyanosis otherwise. NEUROLOGIC: The exam was grossly nonfocal. LABORATORY DATA: From my review, white cell count 25,700, hemoglobin 8.5, hematocrit 26.2, platelets 263. Arterial blood gas had showed a pH of 7.48, pCO2 of 27, pO2 of 55 that was on 100% FiO2 downstairs. INR 1.13. Admission sodium was 136, potassium 3.9, chloride 101, bicarb 22, BUN 19, creatinine 1.3, glucose was 166. Magnesium was on the lower limit of normal around 1.7 and by yesterday it was 1.5. Troponin peaked at 0.35. Albumin 2.5. Otherwise, liver function tests essentially within normal limits. Ammonia within normal limits. Urinalysis negative for nitrites and leukocyte esterase. I have also reviewed the radiologist's interpretation and it is really consistent with diffuse bilateral pulmonary infiltrates consistent with pulmonary edema. I cannot rule out small bilateral pleural effusions. There is a right IJ central line with a tip in the distal SVC, no gross pneumothorax, no gross bony fracture. No overt cardiomegaly. The film is rotated to the left. A CT of the abdomen and pelvis was also done and I have reviewed that report. The lung windows do show consolidation in the bases as well as probable small bilateral pleural effusions. There was appearance of possible wall thickening of the distal ascending colon, small bilateral pleural effusions with a consolidation. ASSESSMENT AND PLAN: We have a middle-aged gentleman acute congestive heart failure exacerbation and certainly must have had, I believe, a baseline cardiomyopathy, I do not know that for a fact. Respiratory whitman, pulmonary edema appears to be the major play here. I certainly cannot rule out an occult pneumonia are also at play in this dispensation. We will offer a CPAP therapy to this gentleman, who likely has congestive heart failure and it will help him with the reduced work of breathing and with oxygenation. The pleural effusions are not that remarkable. I note he has relative azotemia at presentation. I am not so sure that diuresis is appropriate. We will defer to the seismograph chief on that issue. Sputum will be sent for Gram stain culture and sensitivities. Bronchodilators will be scheduled initially, I will go with Xopenex in terms of his tachyarrhythmia at this time. Oxygen will be weaned to keep sats greater than or equal to about 92% to 94%. From a cardiovascular standpoint, he has been seen by Cardiology. I will defer rate control to them. Cardiac enzymes are really not that remarkable. I agree with magnesium supplementation. We will also need to supplement other electrolytes, in particular potassium. From a renal standpoint, again no major electrolyte abnormalities. At this point, he has had correction of his potassium. BUN and creatinine are in a more appropriate range. I do believe that if intravenous contrast is needed, he should be able to tolerate it. From a GI and nutritional standpoint, oral nutrition will be the feeding modality of choice. He will be put on GI prophylaxis. Aspiration precautions will be maintained. From an Infectious Disease standpoint, I am suspecting there may indeed be a GI cause here. I will continue the Flagyl. We have deescalated to Flagyl monotherapy; however, I will go ahead and get a CRP level to better understand the true infectious potential of this leukocytosis as well as consult Infectious Disease physicians if they have not already been consulted to assist with antibiotic management of this gentleman. Sputum will also be sent for culture and sensitivities. From a INSTRUMENT REPAIRER HELPER standpoint, the exam is grossly nonfocal. No acute indication for neuro imaging. We will follow him clinically. From a general in-hospital healthcare maintenance standpoint, he is going to be placed on GI prophylaxis. He is on deep venous thromboses prophylaxis. Flu and pneumonia vaccination will be per protocol. Thankfully, blood pressure is holding at this point. Hopefully, he does not decompensate. He remains critically ill at this point. He is about to go on continuous noninvasive ventilatory therapy and he continues to be in wide complex tachyarrhythmia. At this point, I spent about 30 to 35 minutes of critical care time without overlap and excluding any procedural time that may be necessary. JOB# [id number] SABINA/BRAYAN
[2016-11-19] MEDS: FLAGYL PO SCH ×3 (05:36→22:43)
--- NOTE | 2016-11-19 09:30 | Progress Note ---
Assessment and Plan Assessment: Mr Hannah is a 56y/o AA male with a known history of HTN, DM 2, HLD, anemia, CKD, GERD, depression, and alcohol abuse who had been recently hospitalized at the [facility] with pneumonia (10/25- 11/08/16) and now presents for admission to on 11/17/16 with generalized weakness and worsening shortness of breath, and diarrhea. The patient has evidence of atrial fibrillation and frequent ventricular ectopy; chest x-ray shows cardiomegaly with bilateral infiltrates consistent with CHF; CBC shows a white count of 25,700. Lactate level is 2.1. The patient is afebrile with blood and urine cultures negative to date. He is currently on broad spectrum antibiotics and is seen for further ID recommendations. Antibiotics: Flagyl 500 mg by mouth 3 times a day ( 11/18 - > s/p: Vancomycin IV (11/17 ) Flagyl 500 mg IV every 8 hour ( 11/17 ->11/18) Meropenem 500 mg IV every 6 hours ( 11/17 -11/18) Zosyn 3.375 g IV every 6 hours ( 11/17) Conclusions: 1. Bilateral pulmonary infiltrate/effusion - R/O CHF - Atrial fibrillation - Frequent ventricular ectopy - Hypoxemia - pBNP = 2949 2. Hx of recent PNA - [facility] hospitalization 10/25 - 11/08/16 ( ? Findings) - R/O sepsis - Blood and urine cultures negative ( 11/17 ) 3. Diarrhea - CT scan with Ascending colon wall thickening - R/O PMC ( C. difficile assay pending) 4. Leukocytosis -R/O secondary to above 5. Anemia -probably multifactorial 6. EtOH abuse 7. Hx multiple medical problems: HTN, DM 2, HLD, depression, GERD, CKD Recommendations: - Suggest at this point continuing oral metronidazole for possible C. difficile colitis ( stool assay pending) - Suspect chest x-ray findings and hypoxemia in view of normal Temps to be due to heart failure. - Await cardiac echocardiogram findings. Followed by cardiology. - Follow WBC numbers. - We'll try to get [facility] records - Continue supportive therapies. - Subjective Date of service: 11/19/16 Interval history: Patient undergoing echocardiogram. Appear short of breath lying flat. Objective - Exam Narrative Exam: Well-developed well-nourished appearing. Somewhat tachypneic. HEENT: Pupils are equal reactive to light and accommodation. Conjunctiva clear. Oropharynx is normal with no evidence of oral candidiasis or pharyngitis. NECK: Supple. No enlargement of the thyroid gland. No significant cervical lymphadenopathy. No jugular venous distention at 30. Right IJ catheter in place. LUNGS: Anterior breath sounds clear sounding this a.m. HEART: Regular rate with ectopy. Murmur not heard. ABDOMEN: Soft and nontender. Liver and spleen are not palpably enlarged or tender. No palpable masses. Mildly distended. BS+ EXTREMITIES: No rash,or peripheral lymphadenopathy; 2+ ankle edema SKIN: No other rash, ulcers or wounds. NEUROLOGIC: No focal findings. No tremor. - Constitutional Vitals: Vital Signs Temp Pulse Resp BP Pulse Ox 98.0 F 94 H 28 H 156/87 98 11/19/16 07:53 11/19/16 07:00 11/19/16 07:00 11/19/16 07:00 11/19/16 08:58 Temperature -Last 24 Hours Temperature 98.0 F Temperature 99.0 F Temperature 98.4 F Temperature 98.8 F Temperature 97 F Temperature 98.1 F - Labs CBC & Chem 7: 11/17/16 Unknown 11/18/16 08:00 Labs: Abnormal lab results 11/18/16 11/18/16 11/18/16 Range/Units 08:00 11:21 16:17 POC Glucose 203 H 259 H (70-105) C-Reactive Protein 6.40 H (0.00-1.30) mg/dL NT-Pro-B Natriuret Pep (0-900) pg/mL 11/18/16 11/19/16 11/19/16 Range/Units 21:46 02:45 07:45 POC Glucose 335 H 238 H (70-105) C-Reactive Protein (0.00-1.30) mg/dL NT-Pro-B Natriuret Pep 2949 H (0-900) pg/mL
[2016-11-19] MEDS: LOPRESSOR PO SCH ×2 (10:50→22:43)
[2016-11-19] MEDS: PEPCID PO SCH (10:50)
[2016-11-19] MEDS: BABY ASPIRIN PO SCH (10:50)
[2016-11-19] MEDS: LOVENOX SUB-Q SCH (10:52)
--- NOTE | 2016-11-19 11:02 | Progress Note ---
Assessment and Plan Assessment and plan: 1. Sepsis. Patient with bilateral pneumonia and leukocytosis. We will trend lactic acid levels and follow-up blood cultures. ID following. Continue antibiotics. 2. C. difficile colitis. Patient with significant diarrhea. CT scan with ascending colon wall thickening. C. difficile assay pending. 3. Healthcare associated Bilateral pneumonia. Patient with recent [place] hospitalization from 10/25-11/08/16 for pneumonia. Continue to follow serial chest x-ray. ID following. 4. Atrial fibrillation. Cardiology consultation. Follow-up echocardiogram. 5. Acute hypoxic respiratory failure. Etiology secondary to above. Continue O2 and BiPAP as needed. Pulmonary following. 6. Anemia. Etiology likely multifactorial. Continue follow H&H. 7. Hypertension. Continue antihypertensive medications. 8. Diabetes mellitus type 2. Continue Accu-Cheks and sliding scale insulin. 9. Hyperlipidemia. Continue medications. 10. Chronic kidney disease. Creatinine appears to be stable. Continue to monitor BMP closely. 11. DVT prophylaxis. The high probability of a clinically significant, sudden or life threatening deterioration of the [respiratory and cardiac] system(s) required my full and direct attention, intervention and personal management. The aggregate critical care time was [31] minutes. This time is in addition to time spent performing reported procedures but includes the following: [x] Data Review and interpretation [x] Patient assessment and monitoring of vital signs [x] Documentation [x] Medication orders and management History Interval history: No new issues overnight. Patient denies currently any chest pain. Hospitalist Physical - Constitutional Vitals: Temp Pulse Resp BP Pulse Ox 98.0 F 94 H 28 H 156/87 98 11/19/16 07:53 11/19/16 07:00 11/19/16 07:00 11/19/16 07:00 11/19/16 08:58 General appearance: Present: mild distress (shortness of breath), other ( girlfriend present) - EENT Eyes: Present: PERRL, EOM intact ENT: hearing intact, clear oral mucosa, dentition normal - Neck Neck: Present: supple, normal ROM - Respiratory Respiratory effort: normal Respiratory: bilateral: diminished, rales, rhonchi - Cardiovascular Rhythm: regular Heart Sounds: Present: S1 & S2. Absent: gallop, rub - Extremities Extremities: no ischemia, No edema, Full ROM - Abdominal General gastrointestinal: soft, non-tender, non-distended, normal bowel sounds - Integumentary Integumentary: Present: clear, warm, dry - Neurologic Neurologic: CNII-XII intact, moves all extremities Results - Labs CBC & Chem 7: 11/17/16 Unknown 11/18/16 08:00 Labs: Laboratory Last Values WBC 25.7 K/mm3 (4.5-11.0) H 11/17/16 Unknown RBC 2.89 M/mm3 (3.65-5.03) L 11/17/16 Unknown Hgb 8.5 gm/dl (11.8-15.2) L 11/17/16 Unknown Hct 26.2 % (35.5-45.6) L 11/17/16 Unknown MCV 91 fl (84-94) 11/17/16 Unknown MCH 30 pg (28-32) 11/17/16 Unknown MCHC 33 % (32-34) 11/17/16 Unknown RDW 16.3 % (13.2-15.2) H 11/17/16 Unknown Plt Count 263 K/mm3 (140-440) 11/17/16 Unknown Add Manual Diff Complete 11/17/16 Unknown Total Counted 100 11/17/16 Unknown Seg Neuts % (Manual) 90.0 % (40.0-70.0) H 11/17/16 Unknown Band Neutrophils % 0 % 11/17/16 Unknown Lymphocytes % (Manual) 7.0 % (13.4-35.0) L 11/17/16 Unknown Reactive Lymphs % (Man) 0 % 11/17/16 Unknown Monocytes % (Manual) 3.0 % (0.0-7.3) 11/17/16 Unknown Eosinophils % (Manual) 0 % (0.0-4.3) 11/17/16 Unknown Basophils % (Manual) 0 % (0.0-1.8) 11/17/16 Unknown Metamyelocytes % 0 % 11/17/16 Unknown Myelocytes % 0 % 11/17/16 Unknown Promyelocytes % 0 % 11/17/16 Unknown Blast Cells % 0 % 11/17/16 Unknown Nucleated RBC % Not Reportable 11/17/16 Unknown Seg Neutrophils # Man 23.1 K/mm3 (1.8-7.7) H 11/17/16 Unknown Band Neutrophils # 0.0 K/mm3 11/17/16 Unknown Lymphocytes # (Manual) 1.8 K/mm3 (1.2-5.4) 11/17/16 Unknown Abs React Lymphs (Man) 0.0 K/mm3 11/17/16 Unknown Monocytes # (Manual) 0.8 K/mm3 (0.0-0.8) 11/17/16 Unknown Eosinophils # (Manual) 0.0 K/mm3 (0.0-0.4) 11/17/16 Unknown Basophils # (Manual) 0.0 K/mm3 (0.0-0.1) 11/17/16 Unknown Metamyelocytes # 0.0 K/mm3 11/17/16 Unknown Myelocytes # 0.0 K/mm3 11/17/16 Unknown Promyelocytes # 0.0 K/mm3 11/17/16 Unknown Blast Cells # 0.0 K/mm3 11/17/16 Unknown WBC Morphology Not Reportable 11/17/16 Unknown Hypersegmented Neuts Not Reportable 11/17/16 Unknown Hyposegmented Neuts Not Reportable 11/17/16 Unknown Hypogranular Neuts Not Reportable 11/17/16 Unknown Smudge Cells Not Reportable 11/17/16 Unknown Toxic Granulation Not Reportable 11/17/16 Unknown Toxic Vacuolation Not Reportable 11/17/16 Unknown Dohle Bodies Not Reportable 11/17/16 Unknown Pelger-Huet Anomaly Not Reportable 11/17/16 Unknown Boo Rods Not Reportable 11/17/16 Unknown Platelet Estimate Appears normal 11/17/16 Unknown Clumped Platelets Not Reportable 11/17/16 Unknown Plt Clumps, EDTA Not Reportable 11/17/16 Unknown Large Platelets Not Reportable 11/17/16 Unknown Giant Platelets Not Reportable 11/17/16 Unknown Platelet Satelliting Not Reportable 11/17/16 Unknown Plt Morphology Comment Not Reportable 11/17/16 Unknown RBC Morphology Normal 11/17/16 Unknown Dimorphic RBCs Not Reportable 11/17/16 Unknown Polychromasia Not Reportable 11/17/16 Unknown Hypochromasia Not Reportable 11/17/16 Unknown Poikilocytosis Not Reportable 11/17/16 Unknown Anisocytosis Not Reportable 11/17/16 Unknown Microcytosis Not Reportable 11/17/16 Unknown Macrocytosis Not Reportable 11/17/16 Unknown Spherocytes Not Reportable 11/17/16 Unknown Pappenheimer Bodies Not Reportable 11/17/16 Unknown Sickle Cells Not Reportable 11/17/16 Unknown Target Cells Not Reportable 11/17/16 Unknown Tear Drop Cells Not Reportable 11/17/16 Unknown Ovalocytes Not Reportable 11/17/16 Unknown Helmet Cells Not Reportable 11/17/16 Unknown [place] Bodies Not Reportable 11/17/16 Unknown Novi Rings Not Reportable 11/17/16 Unknown Oscar Cells Not Reportable 11/17/16 Unknown Bite Cells Not Reportable 11/17/16 Unknown Crenated Cell Not Reportable 11/17/16 Unknown Elliptocytes Not Reportable 11/17/16 Unknown Acanthocytes (Spur) Not Reportable 11/17/16 Unknown Rouleaux Not Reportable 11/17/16 Unknown Hemoglobin C Crystals Not Reportable 11/17/16 Unknown Schistocytes Not Reportable 11/17/16 Unknown Malaria parasites Not Reportable 11/17/16 Unknown Tan Bodies Not Reportable 11/17/16 Unknown Hem Pathologist Commnt No 11/17/16 Unknown PT 14.4 Sec. (12.2-14.9) 11/17/16 Unknown INR 1.13 (0.87-1.13) 11/17/16 Unknown POC ABG pH 7.483 (7.35-7.45) H 11/17/16 13:00 POC ABG pCO2 27.0 (35-45) L 11/17/16 13:00 POC ABG pO2 55 (80-105) L 11/17/16 13:00 POC ABG HCO3 20.2 11/17/16 13:00 POC ABG Total CO2 21 11/17/16 13:00 POC ABG O2 Sat 91 11/17/16 13:00 POC ABG Base Excess -3 11/17/16 13:00 FiO2 100 % 11/17/16 13:00 Sodium 139 mmol/L (137-145) 11/18/16 08:00 Potassium 4.3 mmol/L (3.6-5.0) 11/18/16 08:00 Chloride 104.1 mmol/L (98-107) 11/18/16 08:00 Carbon Dioxide 20 mmol/L (22-30) L 11/18/16 08:00 Anion Gap 19 mmol/L 11/18/16 08:00 BUN 19 mg/dL (9-20) 11/18/16 08:00 Creatinine 1.3 mg/dL (0.8-1.5) 11/18/16 08:00 Estimated GFR > 60 ml/min 11/18/16 08:00 BUN/Creatinine Ratio 14.61 % 11/18/16 08:00 Glucose 120 mg/dL (75-100) H 11/18/16 08:00 POC Glucose 238 (70-105) H 11/19/16 07:45 Hemoglobin A1c 7.9 % (4-6) H 11/18/16 01:25 Lactic Acid 0.9 mmol/L (0.7-2.0) 11/19/16 05:55 Calcium 7.6 mg/dL (8.4-10.2) L 11/18/16 08:00 Magnesium 1.7 mg/dL (1.7-2.3) 11/19/16 05:55 Total Bilirubin 0.5 mg/dL (0.1-1.2) 11/18/16 08:00 Direct Bilirubin < 0.2 mg/dL (0-0.2) 11/17/16 Unknown Indirect Bilirubin 0.5 mg/dL 11/17/16 Unknown AST 20 units/L (5-40) 11/18/16 08:00 ALT 13 units/L (7-56) 11/18/16 08:00 Alkaline Phosphatase 110 units/L (35-129) 11/18/16 08:00 Ammonia 43.0 umol/L (25-60) 11/17/16 Unknown Total Creatine Kinase 23 units/L (55-170) L 11/17/16 Unknown CK-MB (CK-2) 2.6 ng/mL (0.0-4.0) 11/17/16 Unknown CK-MB (CK-2) Rel Index 11.3 (0-4) H 11/17/16 Unknown Troponin T 0.066 ng/mL (0.00-0.029) H 11/17/16 Unknown C-Reactive Protein 6.40 mg/dL (0.00-1.30) H 11/18/16 08:00 NT-Pro-B Natriuret Pep 2949 pg/mL (0-900) H 11/19/16 02:45 Total Protein 6.0 g/dL (6.3-8.2) L 11/18/16 08:00 Albumin 2.4 g/dL (3.9-5) L 11/18/16 08:00 Albumin/Globulin Ratio 0.7 % 11/18/16 08:00 Triglycerides 138 mg/dL (2-149) 11/17/16 Unknown Cholesterol 111 mg/dL (50-199) 11/17/16 Unknown LDL Cholesterol Direct 39 mg/dL (50-130) L 11/17/16 Unknown HDL Cholesterol 45 mg/dL (40-59) 11/17/16 Unknown Cholesterol/HDL Ratio 2.46 % 11/17/16 Unknown Lipase 76 units/L (13-60) H 11/17/16 Unknown Urine Color Yellow (Yellow) 11/17/16 15: Urine Turbidity Clear (Clear) 11/17/16 15: Urine pH 6.0 (5.0-7.0) 11/17/16 15: Ur Specific [place] 1.011 (1.003-1.030) 11/17/16 15: Urine Protein <15 mg/dl mg/dL (Negative) 11/17/16 15: Urine Glucose (UA) 50 mg/dL (Negative) 11/17/16 15: Urine Ketones Neg mg/dL (Negative) 11/17/16 15: Urine Blood Neg (Negative) 11/17/16 15: Urine Nitrite Neg (Negative) 11/17/16 15: Urine Bilirubin Neg (Negative) 11/17/16: Urine Urobilinogen < 2.0 mg/dL (<2.0) 11/17/16 15: Ur Leukocyte Esterase Neg (Negative) 11/17/16 15:29 Urine WBC (Auto) 2.0 /HPF (0.0-6.0) 11/17/16 15: Urine RBC (Auto) 3.0 /HPF (0.0-6.0) 11/17/16 15: Urine Mucus Few /HPF 11/17/16 15:29
--- NOTE | 2016-11-19 11:28 | Progress Note ---
Addendum entered and electronically signed by GEOVANY TRENT MD 11/19/16 16:00 : The patient's shortness of breath has worsened, currently markedly short of breath and is on O2 facemask. He has not had a chest x-ray today, last chest x- ray was 2 days ago on admission, demonstrates a right lower lobe infiltrate, with some vascular congestion in the bilateral upper lobes. Cardiac status: His presenting atrial fibrillation has reverted, he is currently in a stable sinus rhythm. Hemodynamics and blood pressure appears stable. Echocardiogram done at the bedside today demonstrates normal left ventricle systolic function with ejection fraction 60%, no significant valvular lesions, normal size right heart chambers with only mild pulmonary hypertension. Recommend: Chest x-ray will be prudent for assessment of his pulmonary status with respect to his worsening dyspnea. We will continue medical management of his paroxysmal cardiac tachycardia arrhythmias. Original Note: Assessment and Plan Sepsis Afib, paroxysmal potassium 2.5 on presentation reverted to sinus rhythm with a LBBB NSVT Anemia Diabetes mellitus Echocardiogram results pending. Continue metoprolol and amiodarone for suppression of wide complex arrhythmias. Will transition oral amiodarone. Will hold on anticoagulation for paroxysmal afib until his blood counts are stable. Ischemic evaluation is warranted in the future once acute processes resolve. Subjective Date of service: 11/19/16 Interval history: Patient is short of breath. Venturi mask in place. Objective Vital Signs Temp Pulse Resp Resp BP Pulse Ox 11/19/16 10:50 98 H 162/89 11/19/16 08:58 98 11/19/16 07:53 98.0 F 11/19/16 07:00 94 H 28 H 156/87 92 11/19/16 06:30 94 H 36 H 154/89 92 11/19/16 06:00 91 H 29 H 149/85 92 11/19/16 05:30 90 23 145/85 93 11/19/16 05:00 90 24 143/84 94 11/19/16 04:30 89 28 H 145/85 92 11/19/16 04:00 99.0 F 89 24 145/80 92 11/19/16 03:30 89 26 H 144/84 93 11/19/16 03:00 88 26 H 139/84 93 11/19/16 02:55 29 H 11/19/16 02:30 89 27 H 132/79 94 11/19/16 02:00 91 H 30 H 139/83 98 11/19/16 01:30 88 27 H 136/86 93 11/19/16 01:00 87 26 H 142/89 94 11/19/16 00:30 87 31 H 145/85 90 11/19/16 00:00 98.4 F 87 29 H 138/80 90 11/18/16 23:30 84 21 125/79 94 11/18/16 23:00 83 24 127/80 92 11/18/16 22:30 86 26 H 128/81 94 11/18/16 22:00 89 28 H 130/82 94 11/18/16 21:33 93 H 130/77 11/18/16 21:30 92 H 25 H 130/83 95 11/18/16 21:00 88 20 131/82 94 11/18/16 20:38 22 11/18/16 20:30 87 21 113/79 94 11/18/16 20:00 98.8 F 87 27 H 115/78 92 11/18/16 19:30 84 21 114/73 93 11/18/16 19:03 85 22 103/69 93 11/18/16 19:00 85 20 103/69 93 11/18/16 18:36 85 24 103/70 93 11/18/16 18:30 86 26 H 103/70 92 11/18/16 18:00 84 22 101/67 93 11/18/16 17:30 87 29 H 104/68 95 11/18/16 17:01 92 H 26 H 98/62 95 11/18/16 16:30 83 19 103/67 99 11/18/16 16:25 84 22 102/70 99 11/18/16 16:00 97 F L 86 22 100/68 99 11/18/16 15:30 92 H 31 H 100/67 99 11/18/16 15:00 102 H 29 H 123/75 97 11/18/16 14:30 138 H 26 H 105/72 93 11/18/16 14:00 128 H 27 H 109/66 95 11/18/16 13:30 136 H 32 H 82/52 86 11/18/16 13:00 112 H 27 H 95/59 89 11/18/16 12:45 128 H 30 H 130/86 94 11/18/16 12:31 136 H 26 H 130/86 97 11/18/16 12:00 98.1 F 105 H 17 130/86 97 11/18/16 11:31 142 H 23 129/62 91 11/18/16 11:30 24 - Physical Examination General: Other (mild distress) HEENT: Positive: PERRL Cardiac: Positive: Reg Rate and Rhythm
[2016-11-19] MEDS ORDERED: PNEUMOVAX 23 IM ONE (11:42)
[2016-11-19] MEDS ORDERED: FLUARIX QUAD 2016-2017(36 MOS+) IM ONE (11:45)
[2016-11-19] MEDS ORDERED: D50W (25GM) IV PRN (12:21)
--- NOTE | 2016-11-19 12:36 | Progress Note ---
Assessment and Plan - Patient Problems (1) Bilateral pneumonia Current Visit: Yes Status: Acute Qualifiers: Pneumonia type: due to unspecified organism Lung location: lower lobe of lung Qualified Code(s): J18.9 - Pneumonia, unspecified organism Plan to address problem: - Actually more likely pulmonary edema - leucocytosis may also be related to pulmonary edema - will send sputum culture - CRP unremarkable - begin diuresis (2) Hypokalemia Current Visit: Yes Status: Acute Plan to address problem: - corrected (3) Nonsustained ventricular tachycardia Current Visit: Yes Status: Acute Plan to address problem: - better controlled - appears in NSR now - cardiology on case (4) Acute hypoxemic respiratory failure Current Visit: Yes Status: Acute Plan to address problem: - begin lasix 20mg IV q12h (follow BUN/Cr and electrolytes) - prn BIPAP - wean oxygen to keep sats > 94% - bronchodilators prn (5) Pulmonary edema w/congestive heart failure w/preserved LV function Current Visit: Yes Status: Acute Plan to address problem: - trend CVP's - diuresis - ? flash pulmonary edema during arrhythmia - cardiology evaluation ongoing - 2D ECHO with diastolic dysfunction (6) Discharge planning issues Current Visit: Yes Status: Acute Plan to address problem: - on amiodarone drip and hopefully can transfer to telemetry once drip turned off 32' CCT Subjective Date of service: 11/19/16 Principal diagnosis: Acute Hypoxemic Respiratory Failure; Acute pulmonary Edema Interval history: seen and examined at bedside; 24hour events reviewed; nursing and respiratory care staff consulted; no adverse overnight events reported to me; resting in bet ; feels and looks a little stronger; still SOB; no N/V/F/C; no gross bleeding; no acute chest pains Objective Vital Signs - 12hr 11/19/16 11/19/16 11/19/16 01:00 01:30 02:00 Temperature Pulse Rate 87 88 91 H Respiratory 26 H 27 H 30 H Rate Blood Pressure 142/89 136/86 139/83 O2 Sat by Pulse 94 93 98 Oximetry 11/19/16 11/19/16 11/19/16 02:30 02:55 03:00 Temperature Pulse Rate 89 88 Respiratory 27 H 29 H 26 H Rate Blood Pressure 132/79 139/84 O2 Sat by Pulse 94 93 Oximetry 11/19/16 11/19/16 11/19/16 03:30 04:00 04:30 Temperature 99.0 F Pulse Rate 89 89 89 Respiratory 26 H 24 28 H Rate Blood Pressure 144/84 145/80 145/85 O2 Sat by Pulse 93 92 92 Oximetry 11/19/16 11/19/16 11/19/16 05:00 05:30 06:00 Temperature Pulse Rate 90 90 91 H Respiratory 24 23 29 H Rate Blood Pressure 143/84 145/85 149/85 O2 Sat by Pulse 94 93 92 Oximetry 11/19/16 11/19/16 11/19/16 06:30 07:00 07:53 Temperature 98.0 F Pulse Rate 94 H 94 H Respiratory 36 H 28 H Rate Blood Pressure 154/89 156/87 O2 Sat by Pulse 92 92 Oximetry 11/19/16 11/19/16 11/19/16 08:58 10:50 12:00 Temperature 98.1 F Pulse Rate 98 H Respiratory Rate Blood Pressure 162/89 O2 Sat by Pulse 98 Oximetry Constitutional: no acute distress Eyes: non-icteric ENT: oropharynx moist Neck: supple, no lymphadenopathy Effort: mildly labored Ascultation: Bilateral: diminished breath sounds (bases), rales (basilar predominant) Cardiovascular: regular rate and rhythm Gastrointestinal: normoactive bowel sounds, soft, non-tender, non-distended Integumentary: other (left leg swelling) Extremities: no cyanosis, pulses normal, no ischemia or petechiae, edema (left leg) Neurologic: normal mental status, non-focal exam (grossly), pupils equal and round, motor strength normal and Psychiatric: mood appropriate, affect normal CBC and BMP: 11/17/16 Unknown 11/18/16 08:00 ABG, PT/INR, D-dimer: ABG POC ABG pH 7.483 (7.35-7.45) H 11/17/16 13:00 POC ABG pCO2 27.0 (35-45) L 11/17/16 13:00 POC ABG pO2 55 (80-105) L 11/17/16 13:00 POC ABG HCO3 20.2 11/17/16 13:00 POC ABG Total CO2 21 11/17/16 13:00 POC ABG O2 Sat 91 11/17/16 13:00 PT/INR, D-dimer PT 14.4 Sec. (12.2-14.9) 11/17/16 Unknown INR 1.13 (0.87-1.13) 11/17/16 Unknown Abnormal lab findings: Abnormal Labs 11/17/16 11/17/16 11/17/16 17:07 17:43 17:43 WBC RBC Hgb Hct RDW Seg Neuts % (Manual) Lymphocytes % (Manual) Seg Neutrophils # Man Sodium 136 L Potassium Chloride Carbon Dioxide Glucose 166 H POC Glucose 153 H Hemoglobin A1c Lactic Acid Calcium 7.5 L Magnesium Total Creatine Kinase CK-MB (CK-2) Rel Index Troponin T 0.352 H* D C-Reactive Protein NT-Pro-B Natriuret Pep Total Protein Albumin LDL Cholesterol Direct Lipase 11/17/16 11/17/16 11/17/16 Unknown Unknown Unknown WBC 25.7 H RBC 2.89 L Hgb 8.5 L Hct 26.2 L RDW 16.3 H Seg Neuts % (Manual) 90.0 H Lymphocytes % (Manual) 7.0 L Seg Neutrophils # Man 23.1 H Sodium 135 L Potassium 2.5 L* Chloride 95.4 L Carbon Dioxide Glucose 132 H POC Glucose Hemoglobin A1c Lactic Acid 2.1 H* Calcium 7.7 L Magnesium Total Creatine Kinase CK-MB (CK-2) Rel Index Troponin T 0.066 H C-Reactive Protein NT-Pro-B Natriuret Pep Total Protein Albumin 2.5 L LDL Cholesterol Direct 39 L Lipase 76 H 11/17/16 11/18/16 11/18/16 Unknown 00:20 01:25 WBC RBC Hgb Hct RDW Seg Neuts % (Manual) Lymphocytes % (Manual) Seg Neutrophils # Man Sodium Potassium Chloride Carbon Dioxide Glucose POC Glucose 290 H Hemoglobin A1c 7.9 H Lactic Acid Calcium Magnesium Total Creatine Kinase 23 L CK-MB (CK-2) Rel Index 11.3 H Troponin T C-Reactive Protein NT-Pro-B Natriuret Pep Total Protein Albumin LDL Cholesterol Direct Lipase 11/18/16 11/18/16 11/18/16 01:25 01:25 08:00 WBC RBC Hgb Hct RDW Seg Neuts % (Manual) Lymphocytes % (Manual) Seg Neutrophils # Man Sodium 136 L Potassium Chloride Carbon Dioxide 21 L 20 L Glucose 169 H 120 H POC Glucose Hemoglobin A1c Lactic Acid Calcium 7.3 L 7.6 L Magnesium 1.5 L Total Creatine Kinase CK-MB (CK-2) Rel Index Troponin T C-Reactive Protein NT-Pro-B Natriuret Pep Total Protein 6.0 L Albumin 2.4 L LDL Cholesterol Direct Lipase 11/18/16 11/18/16 11/18/16 08:00 08:28 11:21 WBC RBC Hgb Hct RDW Seg Neuts % (Manual) Lymphocytes % (Manual) Seg Neutrophils # Man Sodium Potassium Chloride Carbon Dioxide Glucose POC Glucose 145 H 203 H Hemoglobin A1c Lactic Acid Calcium Magnesium Total Creatine Kinase CK-MB (CK-2) Rel Index Troponin T C-Reactive Protein 6.40 H NT-Pro-B Natriuret Pep Total Protein Albumin LDL Cholesterol Direct Lipase 11/18/16 11/18/16 11/19/16 16:17 21:46 02:45 WBC RBC Hgb Hct RDW Seg Neuts % (Manual) Lymphocytes % (Manual) Seg Neutrophils # Man Sodium Potassium Chloride Carbon Dioxide Glucose POC Glucose 259 H 335 H Hemoglobin A1c Lactic Acid Calcium Magnesium Total Creatine Kinase CK-MB (CK-2) Rel Index Troponin T C-Reactive Protein NT-Pro-B Natriuret Pep 2949 H Total Protein Albumin LDL Cholesterol Direct Lipase 11/19/16 11/19/16 07:45 11:38 WBC RBC Hgb Hct RDW Seg Neuts % (Manual) Lymphocytes % (Manual) Seg Neutrophils # Man Sodium Potassium Chloride Carbon Dioxide Glucose POC Glucose 238 H 229 H Hemoglobin A1c Lactic Acid Calcium Magnesium Total Creatine Kinase CK-MB (CK-2) Rel Index Troponin T C-Reactive Protein NT-Pro-B Natriuret Pep Total Protein Albumin LDL Cholesterol Direct Lipase Chest x-ray: image reviewed
--- NOTE | 2016-11-19 12:51 | Echocardiography Report ---
Transthoracic Echocardiogram Indication: A-fib BP: 156/83 Conclusions *1. Normal LV size and function EF 60%. *2. Sclerotic aortic valve, no , mild AR. *3. Normal R heart chambers, mild TR, mild pulm HTN. Findings Left Ventricle: The left ventricular chamber size is normal. Mild concentric left ventricular hypertrophy is observed. Global left ventricular wall motion and contractility are within normal limits. Global left ventricular systolic function is normal. The estimated ejection fraction is 60-65%. Abnormal left ventricular diastolic function is observed. Left Atrium: The left atrial chamber size is normal. Right Ventricle: The right ventricular cavity size is normal. The right ventricular global systolic function is normal. Right Atrium: The right atrial cavity size is normal. The interatrial septum appears normal. Aortic Valve: The aortic valve leaflets are moderately thickened. Mild aortic leaflet calcification is visualized. There is mild aortic regurgitation. There is no evidence of aortic stenosis. The mean gradient of the aortic valve is 11 mmHg. The peak instantaneous gradient of the aortic valve is 15 mmHg. Mitral Valve: The mitral valve leaflets appear myxomatous. There is mitral annular calcification. The mitral valve leaflets are mildly thickened. Mild mitral leaflet calcification is visualized. There is mild mitral regurgitation. There is no evidence of mitral stenosis. The pressure half time of the mitral valve is 45 msec. Tricuspid Valve: The tricuspid valve leaflets are normal. There is mild tricuspid regurgitation. The right ventricular systolic pressure is calculated at 35 mmHg. There is evidence of mild pulmonary hypertension. There is no tricuspid stenosis. Pulmonic Valve: The pulmonic valve appears normal. There is trace pulmonic regurgitation. There is no pulmonic stenosis. Pericardium: A trivial pericardial effusion is visualized. Aorta: There is no dilatation of the ascending aorta. There is no dilatation of the aortic root. Venous: The inferior vena cava appears normal in size. Measurements Chambers MM Name Value Normal Range Ao root diameter (MM) 3.6 cm (2 - 3.7) LA dimension (AP) MM 3.2 cm (1.9 - 4) LA:Ao ratio (MM) 0.89 ratio - AV cusp separation (MM) 1.7 cm (1.5 - 2.6) Chambers 2D Name Value Normal Range IVSd (2D) 1.2 cm (0.6 - 1.1) LVPWd (2D) 1.26 cm (0.6 - 1.1) IVS:LVPW ratio (2D) 0.95 ratio - LVIDd (2D) 4.97 cm (3.7 - 5.6) LVIDs (2D) 3.33 cm (2 - 3.8) LV FS (Teichholz) (2D) 33 % - LV FS (cube) (2D) 33 % - EF Teichholz (2D) 61.5 % - Ao root diameter (2D) 3.4 cm (2 - 3.7) LA dimension (AP) 2D 4.2 cm (1.9 - 4) LA:Ao ratio (2D) 1.24 ratio - Volumes/Mass Name Value Normal Range LA ESV SP 4CH (MOD) 23 ml - LA ESV SP 2CH (MOD) 20 ml - LA ESV BP (MOD) 23 ml - LA ESV BP (MOD) index 10.2 ml/m2 - Diastolic/Systolic Function Name Value Normal Range MV E-wave Vmax 1.52 m/sec - MV deceleration time 137 msec - LV septal e' Vmax 0.09 m/sec - LV lateral e' Vmax 0.09 m/sec - LV E:e' septal ratio 17.5 ratio - LV E:e' lateral ratio 16.7 ratio - Aortic Valve Name Value Normal Range AV VTI 32 cm - AV peak gradient 15 mmHg - AV mean gradient 11 mmHg - LVOT diameter 2.2 cm - LVOT VTI 28.3 cm - LVOT mean gradient 6 mmHg - SV LVOT 108 ml - FREDY (continuity VTI) 3.36 cm2 - Mitral Valve Name Value Normal Range MV Vmax 2.33 m/sec - MV VTI 45.5 cm - MV PHT 45 msec - MR Vmax 5.41 m/sec - MR VTI 134 cm - MVA (PHT) 4.89 cm2 - MVA (continuity VTI) 2.36 cm2 - Tricuspid Valve Name Value Normal Range TR Vmax 2.85 m/sec - TR peak gradient 32 mmHg - RAP 3 mmHg - RVSP 35 mmHg - Pulmonic Valve/Qp:Qs Name Value Normal Range PV Vmax 1.15 m/sec - PV peak gradient 5 mmHg - CO end-diastolic Vmax 1.67 m/sec - PV acceleration time 127 msec -
[2016-11-19] MEDS ORDERED: LASIX IV STA (13:36)
[2016-11-19] MEDS ORDERED: NACL 0.9% 500 ML 500 ML ONE (13:50)
[2016-11-19] MEDS ORDERED: XANAX PO PRN (13:54)
[2016-11-19] MEDS: NACL 0.9% 1000 ML 1,000 ML IV SCH (16:02)
[2016-11-19] MEDS: CORDARONE PO SCH (16:17)
[2016-11-19] MEDS ORDERED: ZOFRAN IV PRN (19:07)
[2016-11-20] MEDS: NACL 0.9% 1000 ML 1,000 ML IV SCH ×2 (00:04→08:29)
[2016-11-20] MEDS: DILAUDID IV PRN ×4 (00:05→21:59)
[2016-11-20 05:12] LABS: BUN/Creatinine Ratio 13.33; Blood Urea Nitrogen 16 mg/dL (9-20); Carbon Dioxide 19 mmol/L (22-30); Chloride 106.4 mmol/L (98-107); Glucose 110 mg/dL (75-100); Potassium 3.5 mmol/L (3.6-5.0); Sodium 139 mmol/L (137-145)
[2016-11-20 05:13] LABS: Anion Gap 17 mmol/L
[2016-11-20 05:15] LABS: Hematocrit 21.7 % (35.5-45.6); Hemoglobin 7.5 gm/dl (11.8-15.2); Mean Corpuscular HGB Conc 35 % (32-34); Mean Corpuscular Hemoglobin 31 pg (28-32); Mean Corpuscular Volume 91 fl (84-94); Platelet Count 205 K/mm3 (140-440); Red Blood Count 2.38 M/mm3 (3.65-5.03); Red Cell Distribution Width 16.2 % (13.2-15.2); White Blood Count 14.2 K/mm3 (4.5-11.0)
[2016-11-20] MEDS: FLAGYL PO SCH (05:29)
[2016-11-20 07:00] LABS: Anisocytosis RARE; Blastocytes % (Manual) 0 %; Diff Status Complete
[2016-11-20] MEDS ORDERED: MAGNESIUM SULFATE 4GM/100ML 100 ML IV ONE (09:00)
[2016-11-20] MEDS ORDERED: K-DUR PO ONE (09:00)
[2016-11-20] MEDS: CORDARONE PO SCH (09:43)
[2016-11-20] MEDS: BABY ASPIRIN PO SCH (09:43)
[2016-11-20] MEDS: LOPRESSOR PO SCH ×2 (09:43→21:57)
[2016-11-20] MEDS: LOVENOX SUB-Q SCH (09:44)
[2016-11-20] MEDS: PEPCID PO SCH (09:44)
--- NOTE | 2016-11-20 10:13 | Progress Note ---
Assessment and Plan Current antibiotics: Flagyl 500 mg PO TID 11/18 --> Previous antibiotics: Vancomycin IV (11/17) Flagyl 500 mg IV q8h (11/17-11/18) Meropenem 500 mg IV q6h 11/17 -11/18 Zosyn 3.375 g IV q6h (11/17) ASSESSMENT: Ileana Hannah is a 56 y/o male with HTN, DM 2, HLD, anemia, CKD, GERD, depression, and alcohol abuse who had been recently hospitalized at the [facility] with pneumonia (10/25- 11/08/16) and now is admitted to [facility] on with generalized weakness and worsening shortness of breath, and diarrhea. Problem list: 1. Bilateral pulmonary infiltrates/effusion -Likely CHF -Atrial fibrillation on admission - Frequent ventricular ectopy - Hypoxemia - pBNP = 2949 2. Atrial fibrillation -Present on admission -Now in NSR 3. Hx of recent pneumonia - [place] hospitalization 10/25-11/08/16 - R/O sepsis - Blood and urine cultures negative and patient has been afebrile 4. Diarrhea - CT scan with ascending colon wall thickening -C. difficile assay negative 5. Leukocytosis -Reactive -Secondary to #1 6. Anemia -probably multifactorial 7. EtOH abuse 8. HTN 9. Type 2 DM 10. CKD PLAN: 1. With C. difficile assay negative will stop Flagyl and follow him off of antibiotics 2. Treatment of CHF as per cardiology 3. Reculture as clinically indicated 4. Follow WBC Myles Marr MD [facility] Office: [phone] Subjective Date of service: 11/20/16 Principal diagnosis: Acute Hypoxemic Respiratory Failure; Acute pulmonary Edema Interval history: Feeling "much better." Minimal cough and no sputum production. Diarrhea is decreasing. No new complaints. ROS: No subjective fever or chills. No nausea, vomiting or diarrhea. Objective - Exam Narrative Exam: GENERAL: Well-developed well-nourished appearing male who is alert and in no acute distress. Currently sitting on the side of the bed. HEENT: Pupils are equal reactive to light and accommodation. Conjunctiva clear. Oropharynx is normal with no evidence of oral candidiasis or pharyngitis. NECK: Supple. No enlargement of the thyroid gland. No significant cervical lymphadenopathy. No jugular venous distention at 30. Right IJ catheter in place. LUNGS: Coarse breath sounds posteriorly. No wheezes or rubs heard. HEART: Regular rate with patient all extra beat. No murmur, gallop or rub heard ABDOMEN: Soft and nontender. Liver and spleen are not palpably enlarged or tender. No palpable masses. Nondistended. BS+ EXTREMITIES: No rash,or peripheral lymphadenopathy; 2+ ankle edema SKIN: No other rash, ulcers or wounds. NEUROLOGIC: No focal findings. No tremor. Alert and responsive. - Constitutional Vitals: Vital Signs Temp Pulse Resp BP Pulse Ox 98.4 F 95 H 23 162/77 94 11/20/16 08:40 11/20/16 09:43 11/20/16 09:01 11/20/16 09:43 11/20/16 09:18 Temperature -Last 24 Hours Temperature 98.4 F Temperature 98.4 F Temperature 97.1 F Temperature 97.2 F Temperature 98.0 F Temperature 98.1 F - Labs CBC & Chem 7: 11/20/16 04:30 11/20/16 04:30 Labs: Abnormal lab results Microbiology 11/17/16 Unknown Peripheral/Venous Blood Culture - Preliminary NO GROWTH AFTER 48 HOURS 11/17/16 Unknown Peripheral/Venous Blood Culture - Preliminary NO GROWTH AFTER 48 HOURS 11/19/16 08:00 Stool C. difficile DNA Amplification - Negative 11/17/16 15:29 Urine,Catheterized - Straight Catheter Urine Culture - Final NO GROWTH AFTER 48 HOURS Imagin/10: CT of abdomen and pelvis: Distal ascending colon CT appearance abnormal with caliber transition and possible wall thickening. Dense by basilar consolidations and small bilateral pleural effusions.
--- NOTE | 2016-11-20 11:45 | XRay Report ---
AP CHEST HISTORY: Pulmonary edema. FINDINGS: This exam is presented to me for interpretation. No significant change can be appreciated in pulmonary edema since the exam 2 days ago. Heart size is within normal limits. No consolidation, pleural effusion or pneumothorax is appreciated. Right IJ venous catheter remains in the same position. IMPRESSION: No change.
--- NOTE | 2016-11-20 11:58 | Progress Note ---
Assessment and Plan Sepsis Afib, paroxysmal potassium 2.5 on presentation reverted to sinus rhythm with a LBBB NSVT, paroxysmal Anemia Diabetes mellitus Echocardiogram reports a normal left ventricle systolic function with ejection fraction 60%, no significant valvular lesions, normal size right heart chambers with only mild pulmonary hypertension. Recommend: Continue metoprolol and amiodarone for suppression of wide complex arrhythmias. Will hold on anticoagulation for paroxysmal afib until his blood counts are stable. Pre discharge stress thallium for further cardiac evaluation once acute processes resolve. Subjective Date of service: 11/20/16 Principal diagnosis: Acute Hypoxemic Respiratory Failure; Acute pulmonary Edema Interval history: Patient appears better. He is sitting up in bedside chair. He denies shortness of breath and chest pain. Objective Vital Signs Temp Pulse Resp BP Pulse Ox 11/20/16 11:31 83 27 H 162/87 99 11/20/16 11:00 86 24 140/75 93 11/20/16 10:31 162/87 93 11/20/16 10:00 98 H 29 H 162/87 94 11/20/16 09:43 95 H 162/77 11/20/16 09:30 88 19 162/77 94 11/20/16 09:21 91 H 25 H 136/79 94 11/20/16 09:18 94 11/20/16 09:01 96 H 23 136/79 93 11/20/16 09:00 96 H 23 136/79 93 11/20/16 08:57 96 H 24 147/89 94 11/20/16 08:55 95 H 28 H 147/89 94 11/20/16 08:40 98.4 F 11/20/16 08:35 95 H 27 H 147/89 95 11/20/16 08:33 95 H 27 H 147/89 95 11/20/16 08:30 95 H 25 H 147/89 96 11/20/16 08:19 95 H 21 160/81 95 11/20/16 08:00 90 21 160/81 100 11/20/16 07:30 91 H 25 H 158/83 100 11/20/16 07:00 87 18 156/86 100 11/20/16 06:30 87 19 154/81 100 11/20/16 06:00 86 20 153/85 100 11/20/16 05:30 88 20 152/83 97 11/20/16 05:00 84 17 148/81 100 11/20/16 04:30 86 23 140/84 96 11/20/16 04:05 98.4 F 11/20/16 04:01 82 18 143/84 99 11/20/16 04:00 81 18 143/84 99 11/20/16 03:46 99 11/20/16 03:39 82 18 144/80 100 11/20/16 03:30 79 17 144/80 100 11/20/16 03:00 79 16 139/77 99 11/20/16 02:30 80 17 137/79 99 11/20/16 02:21 83 19 148/85 99 11/20/16 02:00 81 16 148/85 99 11/20/16 01:30 80 17 137/82 99 11/20/16 01:07 82 18 125/78 97 11/20/16 01:01 82 17 143/82 100 11/20/16 00:46 97.1 F L 11/20/16 00:30 81 17 143/82 100 11/20/16 00:08 87 20 128/79 98 11/20/16 00:00 92 H 17 144/85 100 11/19/16 23:31 23 100 11/19/16 23:30 86 18 144/85 100 11/19/16 23:26 87 18 154/84 100 11/19/16 23:00 86 18 143/80 100 11/19/16 22:35 85 11/19/16 22:34 85 18 143/80 100 11/19/16 22:30 85 18 150/84 99 11/19/16 22:00 91 H 22 146/82 96 11/19/16 21:30 83 17 146/82 100 11/19/16 21:00 83 17 141/86 100 11/19/16 20:33 99 11/19/16 20:30 82 18 148/80 99 11/19/16 20:29 97.2 F L 11/19/16 20:24 82 18 150/83 99 11/19/16 20:00 84 24 150/83 99 11/19/16 19:30 84 24 137/79 98 11/19/16 19:00 86 21 144/81 97 11/19/16 18:30 86 18 152/82 97 11/19/16 18:00 82 20 145/86 97 11/19/16 17:30 82 18 142/83 96 11/19/16 17:09 24 96 11/19/16 17:00 80 23 142/80 96 11/19/16 16:30 79 21 135/77 96 11/19/16 16:00 98.0 F 79 21 133/77 95 11/19/16 15:58 24 11/19/16 15:30 81 28 H 137/79 96 11/19/16 15:00 81 26 H 132/82 95 11/19/16 14:30 80 28 H 130/80 94 11/19/16 14:00 83 26 H 147/72 96 11/19/16 13:30 90 22 147/72 91 11/19/16 13:00 94 H 23 158/88 93 11/19/16 12:30 95 H 26 H 153/88 95 11/19/16 12:00 98.1 F 97 H 32 H 162/86 96 - Physical Examination General: No Apparent Distress HEENT: Positive: PERRL Neck: Positive: trachea midline Cardiac: Positive: Reg Rate and Rhythm Lungs: Positive: Decreased Breath Sounds Neuro: Positive: Grossly Intact, Weakness - Labs and Meds CBC 11/20/16 Range/Units 04:30 WBC 14.2 H (4.5-11.0) K/mm3 RBC 2.38 L (3.65-5.03) M/mm3 Hgb 7.5 L (11.8-15.2) gm/dl Hct 21.7 L (35.5-45.6) % Plt Count 205 (140-440) K/mm3 Comprehensive Metabolic Panel 11/20/16 Range/Units 04:30 Sodium 139 (137-145) mmol/L Potassium 3.5 L (3.6-5.0) mmol/L Chloride 106.4 (98-107) mmol/L Carbon Dioxide 19 L (22-30) mmol/L BUN 16 (9-20) mg/dL Creatinine 1.2 (0.8-1.5) mg/dL Glucose 110 H (75-100) mg/dL Calcium 8.0 L (8.4-10.2) mg/dL
--- NOTE | 2016-11-20 13:14 | Progress Note ---
Assessment and Plan Assessment and plan: 1. Sepsis. Patient with bilateral pneumonia and leukocytosis. We will trend lactic acid levels and follow-up blood cultures. ID following. Continue antibiotics. 2. C. difficile colitis. Patient with significant diarrhea. CT scan with ascending colon wall thickening. C. difficile assay pending. 3. Healthcare associated Bilateral pneumonia. Patient with recent [place] hospitalization from 10/25-11/08/16 for pneumonia. Continue to follow serial chest x-ray. ID following. 4. Atrial fibrillation. Cardiology consultation. Follow-up echocardiogram. 5. Acute hypoxic respiratory failure. Etiology secondary to above. Continue O2 and BiPAP as needed. Pulmonary following. 6. Anemia. Etiology likely multifactorial. Continue follow H&H. 7. Hypertension. Continue antihypertensive medications. 8. Diabetes mellitus type 2. Continue Accu-Cheks and sliding scale insulin. 9. Hyperlipidemia. Continue medications. 10. Chronic kidney disease. Creatinine appears to be stable. Continue to monitor BMP closely. 11. DVT prophylaxis. History Interval history: No new issues overnight. Patient denies currently any chest pain. Hospitalist Physical - Constitutional Vitals: Temp Pulse Resp BP Pulse Ox 98.4 F 83 22 139/77 93 11/20/16 08:40 11/20/16 12:00 11/20/16 12:00 11/20/16 12:00 11/20/16 12:00 General appearance: Present: mild distress (shortness of breath), other ( girlfriend present) - EENT Eyes: Present: PERRL, EOM intact ENT: hearing intact, clear oral mucosa, dentition normal - Neck Neck: Present: supple, normal ROM - Respiratory Respiratory effort: normal Respiratory: bilateral: CTA - Cardiovascular Rhythm: regular Heart Sounds: Present: S1 & S2. Absent: gallop, rub - Extremities Extremities: no ischemia, No edema, Full ROM - Abdominal General gastrointestinal: soft, non-tender, non-distended, normal bowel sounds - Integumentary Integumentary: Present: clear, warm, dry - Neurologic Neurologic: CNII-XII intact, moves all extremities Results - Labs CBC & Chem 7: 11/20/16 04:30 11/20/16 04:30 Labs: Laboratory Last Values WBC 14.2 K/mm3 (4.5-11.0) H 11/20/16 04:30 RBC 2.38 M/mm3 (3.65-5.03) L 11/20/16 04:30 Hgb 7.5 gm/dl (11.8-15.2) L 11/20/16 04:30 Hct 21.7 % (35.5-45.6) L 11/20/16 04:30 MCV 91 fl (84-94) 11/20/16 04:30 MCH 31 pg (28-32) 11/20/16 04:30 MCHC 35 % (32-34) H 11/20/16 04:30 RDW 16.2 % (13.2-15.2) H 11/20/16 04:30 Plt Count 205 K/mm3 (140-440) 11/20/16 04:30 Add Manual Diff Complete 11/20/16 04:30 Total Counted 100 11/20/16 04:30 Seg Neuts % (Manual) 86.0 % (40.0-70.0) H 11/20/16 04:30 Band Neutrophils % 4.0 % 11/20/16 04:30 Lymphocytes % (Manual) 6.0 % (13.4-35.0) L 11/20/16 04:30 Reactive Lymphs % (Man) 0 % 11/20/16 04:30 Monocytes % (Manual) 1.0 % (0.0-7.3) 11/20/16 04:30 Eosinophils % (Manual) 2.0 % (0.0-4.3) 11/20/16 04:30 Basophils % (Manual) 1.0 % (0.0-1.8) 11/20/16 04:30 Metamyelocytes % 0 % 11/20/16 04:30 Myelocytes % 0 % 11/20/16 04:30 Promyelocytes % 0 % 11/20/16 04:30 Blast Cells % 0 % 11/20/16 04:30 Nucleated RBC % Not Reportable 11/20/16 04:30 Seg Neutrophils # Man 12.2 K/mm3 (1.8-7.7) H 11/20/16 04:30 Band Neutrophils # 0.6 K/mm3 11/20/16 04:30 Lymphocytes # (Manual) 0.9 K/mm3 (1.2-5.4) L 11/20/16 04:30 Abs React Lymphs (Man) 0.0 K/mm3 11/20/16 04:30 Monocytes # (Manual) 0.1 K/mm3 (0.0-0.8) 11/20/16 04:30 Eosinophils # (Manual) 0.3 K/mm3 (0.0-0.4) 11/20/16 04:30 Basophils # (Manual) 0.1 K/mm3 (0.0-0.1) 11/20/16 04:30 Metamyelocytes # 0.0 K/mm3 11/20/16 04:30 Myelocytes # 0.0 K/mm3 11/20/16 04:30 Promyelocytes # 0.0 K/mm3 11/20/16 04:30 Blast Cells # 0.0 K/mm3 11/20/16 04:30 WBC Morphology Not Reportable 11/20/16 04:30 Hypersegmented Neuts Not Reportable 11/20/16 04:30 Hyposegmented Neuts Not Reportable 11/20/16 04:30 Hypogranular Neuts Not Reportable 11/20/16 04:30 Smudge Cells Not Reportable 11/20/16 04:30 Toxic Granulation Not Reportable 11/20/16 04:30 Toxic Vacuolation Not Reportable 11/20/16 04:30 Dohle Bodies Not Reportable 11/20/16 04:30 Pelger-Huet Anomaly Not Reportable 11/20/16 04:30 Boo Rods Not Reportable 11/20/16 04:30 Platelet Estimate Appears normal 11/20/16 04:30 Clumped Platelets Not Reportable 11/20/16 04:30 Plt Clumps, EDTA Not Reportable 11/20/16 04:30 Large Platelets Not Reportable 11/20/16 04:30 Giant Platelets Not Reportable 11/20/16 04:30 Platelet Satelliting Not Reportable 11/20/16 04:30 Plt Morphology Comment Not Reportable 11/20/16 04:30 RBC Morphology Not Reportable 11/20/16 04:30 Dimorphic RBCs Not Reportable 11/20/16 04:30 Polychromasia Not Reportable 11/20/16 04:30 Hypochromasia Not Reportable 11/20/16 04:30 Poikilocytosis Not Reportable 11/20/16 04:30 Anisocytosis Rare 11/20/16 04:30 Microcytosis Not Reportable 11/20/16 04:30 Macrocytosis Not Reportable 11/20/16 04:30 Spherocytes Not Reportable 11/20/16 04:30 Pappenheimer Bodies Not Reportable 11/20/16 04:30 Sickle Cells Not Reportable 11/20/16 04:30 Target Cells Not Reportable 11/20/16 04:30 Tear Drop Cells Not Reportable 11/20/16 04:30 Ovalocytes Not Reportable 11/20/16 04:30 Helmet Cells Not Reportable 11/20/16 04:30 [place] Bodies Not Reportable 11/20/16 04:30 [place] Rings Not Reportable 11/20/16 04:30 [place] Cells Not Reportable 11/20/16 04:30 Bite Cells Not Reportable 11/20/16 04:30 Crenated Cell Not Reportable 11/20/16 04:30 Elliptocytes Not Reportable 11/20/16 04:30 Acanthocytes (Spur) Not Reportable 11/20/16 04:30 Rouleaux Not Reportable 11/20/16 04:30 Hemoglobin C Crystals Not Reportable 11/20/16 04:30 Schistocytes Not Reportable 11/20/16 04:30 Malaria parasites Not Reportable 11/20/16 04:30 Tan Bodies Not Reportable 11/20/16 04:30 Hem Pathologist Commnt No 11/20/16 04:30 PT 14.4 Sec. (12.2-14.9) 11/17/16 Unknown INR 1.13 (0.87-1.13) 11/17/16 Unknown POC ABG pH 7.483 (7.35-7.45) H 11/17/16 13:00 POC ABG pCO2 27.0 (35-45) L 11/17/16 13:00 POC ABG pO2 55 (80-105) L 11/17/16 13:00 POC ABG HCO3 20.2 11/17/16 13:00 POC ABG Total CO2 21 11/17/16 13:00 POC ABG O2 Sat 91 11/17/16 13:00 POC ABG Base Excess -3 11/17/16 13:00 FiO2 100 % 11/17/16 13:00 Sodium 139 mmol/L (137-145) 11/20/16 04:30 Potassium 3.5 mmol/L (3.6-5.0) L 11/20/16 04:30 Chloride 106.4 mmol/L (98-107) 11/20/16 04:30 Carbon Dioxide 19 mmol/L (22-30) L 11/20/16 04:30 Anion Gap 17 mmol/L 11/20/16 04:30 BUN 16 mg/dL (9-20) 11/20/16 04:30 Creatinine 1.2 mg/dL (0.8-1.5) 11/20/16 04:30 Estimated GFR > 60 ml/min 11/20/16 04:30 BUN/Creatinine Ratio 13.33 % 11/20/16 04:30 Glucose 110 mg/dL (75-100) H 11/20/16 04:30 POC Glucose 164 (70-105) H 11/19/16 21:58 Hemoglobin A1c 7.9 % (4-6) H 11/18/16 01:25 Lactic Acid 0.9 mmol/L (0.7-2.0) 11/19/16 05:55 Calcium 8.0 mg/dL (8.4-10.2) L 11/20/16 04:30 Magnesium 1.4 mg/dL (1.7-2.3) L 11/20/16 04:30 Total Bilirubin 0.5 mg/dL (0.1-1.2) 11/18/16 08:00 Direct Bilirubin < 0.2 mg/dL (0-0.2) 11/17/16 Unknown Indirect Bilirubin 0.5 mg/dL 11/17/16 Unknown AST 20 units/L (5-40) 11/18/16 08:00 ALT 13 units/L (7-56) 11/18/16 08:00 Alkaline Phosphatase 110 units/L (35-129) 11/18/16 08:00 Ammonia 43.0 umol/L (25-60) 11/17/16 Unknown Total Creatine Kinase 23 units/L (55-170) L 11/17/16 Unknown CK-MB (CK-2) 2.6 ng/mL (0.0-4.0) 11/17/16 Unknown CK-MB (CK-2) Rel Index 11.3 (0-4) H 11/17/16 Unknown Troponin T 0.066 ng/mL (0.00-0.029) H 11/17/16 Unknown C-Reactive Protein 6.40 mg/dL (0.00-1.30) H 11/18/16 08:00 NT-Pro-B Natriuret Pep 2949 pg/mL (0-900) H 11/19/16 02:45 Total Protein 6.0 g/dL (6.3-8.2) L 11/18/16 08:00 Albumin 2.4 g/dL (3.9-5) L 11/18/16 08:00 Albumin/Globulin Ratio 0.7 % 11/18/16 08:00 Triglycerides 138 mg/dL (2-149) 11/17/16 Unknown Cholesterol 111 mg/dL (50-199) 11/17/16 Unknown LDL Cholesterol Direct 39 mg/dL (50-130) L 11/17/16 Unknown HDL Cholesterol 45 mg/dL (40-59) 11/17/16 Unknown Cholesterol/HDL Ratio 2.46 % 11/17/16 Unknown Lipase 76 units/L (13-60) H 11/17/16 Unknown Urine Color Yellow (Yellow) 11/17/16 15:29 Urine Turbidity Clear (Clear) 11/17/16 15: Urine pH 6.0 (5.0-7.0) 11/17/16 15:29 Ur Specific [place] 1.011 (1.003-1.030) 11/17/16 15: Urine Protein <15 mg/dl mg/dL (Negative) 11/17/16 15: Urine Glucose (UA) 50 mg/dL (Negative) 11/17/16 15: Urine Ketones Neg mg/dL (Negative) 11/17/16 15: Urine Blood Neg (Negative) 11/17/16 15:29 Urine Nitrite Neg (Negative) 11/17/16 15:29 Urine Bilirubin Neg (Negative) 11/17/16 15: Urine Urobilinogen < 2.0 mg/dL (<2.0) 11/17/16 15: Ur Leukocyte Esterase Neg (Negative) 11/17/16 15:29 Urine WBC (Auto) 2.0 /HPF (0.0-6.0) 11/17/16 15: Urine RBC (Auto) 3.0 /HPF (0.0-6.0) 11/17/16 15:29 Urine Mucus Few /HPF 11/17/16 15:29
--- NOTE | 2016-11-20 15:33 | Progress Note ---
Assessment and Plan - Patient Problems (1) Bilateral pneumonia Current Visit: Yes Status: Acute Qualifiers: Pneumonia type: due to unspecified organism Lung location: lower lobe of lung Qualified Code(s): J18.9 - Pneumonia, unspecified organism Plan to address problem: - rapidity of symptom improvement with diuresis suggests pulmonary edema - supplemental oxygen to keep sats >94% (2) Hypokalemia Current Visit: Yes Status: Acute Plan to address problem: - replaced - replace magnesium also (3) Nonsustained ventricular tachycardia Current Visit: Yes Status: Acute Plan to address problem: - no recurrence - per cardiology recs - replacing magnesium also (4) Acute hypoxemic respiratory failure Current Visit: Yes Status: Acute Plan to address problem: - - continue lasix but change to p.o. and follow Bun / Cr - prn BIPAP - wean oxygen to keep sats > 94% - bronchodilators prn (5) Pulmonary edema w/congestive heart failure w/preserved LV function Current Visit: Yes Status: Acute Plan to address problem: - significant drop in CVP (18 to 8) with diuresis suggest CHF element - ? flash pulmonary edema during arrhythmia - cardiology evaluation ongoing - 2D ECHO with diastolic dysfunction - continue gentle diuresis (6) Discharge planning issues Current Visit: Yes Status: Acute Plan to address problem: - OK to transfer to medical floor Subjective Date of service: 11/20/16 Principal diagnosis: Acute Hypoxemic Respiratory Failure; Acute pulmonary Edema Interval history: seen and examined at bedside; 24hour events reviewed; nursing and respiratory care staff consulted; no adverse overnight events reported to me; oxygenation much improved; great response to diuretics over last 24 hours; denies acute chest pains or increased SOB Objective Vital Signs - 12hr 11/20/16 11/20/16 11/20/16 03:30 03:39 03:46 Temperature Pulse Rate 79 82 Respiratory 17 18 Rate Blood Pressure 144/80 144/80 O2 Sat by Pulse 100 100 99 Oximetry 11/20/16 11/20/16 11/20/16 04:00 04:01 04:05 Temperature 98.4 F Pulse Rate 81 82 Respiratory 18 18 Rate Blood Pressure 143/84 143/84 O2 Sat by Pulse 99 99 Oximetry 11/20/16 11/20/16 11/20/16 04:30 05:00 05:30 Temperature Pulse Rate 86 84 88 Respiratory 23 17 20 Rate Blood Pressure 140/84 148/81 152/83 O2 Sat by Pulse 96 100 97 Oximetry 11/20/16 11/20/16 11/20/16 06:00 06:30 07:00 Temperature Pulse Rate 86 87 87 Respiratory 20 19 18 Rate Blood Pressure 153/85 154/81 156/86 O2 Sat by Pulse 100 100 100 Oximetry 11/20/16 11/20/16 11/20/16 07:30 08:00 08:19 Temperature Pulse Rate 91 H 90 95 H Respiratory 25 H 21 21 Rate Blood Pressure 158/83 160/81 160/81 O2 Sat by Pulse 100 100 95 Oximetry 11/20/16 11/20/16 11/20/16 08:30 08:33 08:35 Temperature Pulse Rate 95 H 95 H 95 H Respiratory 25 H 27 H 27 H Rate Blood Pressure 147/89 147/89 147/89 O2 Sat by Pulse 96 95 95 Oximetry 11/20/16 11/20/16 11/20/16 08:40 08:55 08:57 Temperature 98.4 F Pulse Rate 95 H 96 H Respiratory 28 H 24 Rate Blood Pressure 147/89 147/89 O2 Sat by Pulse 94 94 Oximetry 11/20/16 11/20/16 11/20/16 09:00 09:01 09:18 Temperature Pulse Rate 96 H 96 H Respiratory 23 23 Rate Blood Pressure 136/79 136/79 O2 Sat by Pulse 93 93 94 Oximetry 11/20/16 11/20/16 11/20/16 09:21 09:30 09:43 Temperature Pulse Rate 91 H 88 95 H Respiratory 25 H 19 Rate Blood Pressure 136/79 162/77 162/77 O2 Sat by Pulse 94 94 Oximetry 11/20/16 11/20/16 11/20/16 10:00 10:31 11:00 Temperature Pulse Rate 98 H 86 Respiratory 29 H 24 Rate Blood Pressure 162/87 162/87 140/75 O2 Sat by Pulse 94 93 93 Oximetry 11/20/16 11/20/16 11/20/16 11:31 11:45 12:00 Temperature Pulse Rate 83 84 83 Respiratory 27 H 19 22 Rate Blood Pressure 162/87 162/87 139/77 O2 Sat by Pulse 99 93 93 Oximetry 11/20/16 11/20/16 11/20/16 12:17 14:00 14:17 Temperature Pulse Rate 86 88 Respiratory 28 H 19 Rate Blood Pressure 140/75 127/73 130/77 O2 Sat by Pulse 93 95 98 Oximetry 11/20/16 15:21 Temperature Pulse Rate 91 H Respiratory 26 H Rate Blood Pressure 130/77 O2 Sat by Pulse 93 Oximetry Constitutional: no acute distress Eyes: non-icteric ENT: oropharynx moist Neck: supple, no lymphadenopathy Effort: mildly labored Ascultation: Bilateral: diminished breath sounds (bases), rales (basilar predominant) Cardiovascular: regular rate and rhythm Gastrointestinal: normoactive bowel sounds, soft, non-tender, non-distended Integumentary: other (left leg swelling) Extremities: no cyanosis, pulses normal, no ischemia or petechiae, edema (left leg) Neurologic: normal mental status, non-focal exam (grossly), pupils equal and round, motor strength normal and Psychiatric: mood appropriate, affect normal CBC and BMP: 11/20/16 04:30 11/20/16 04:30 ABG, PT/INR, D-dimer: ABG POC ABG pH 7.483 (7.35-7.45) H 11/17/16 13:00 POC ABG pCO2 27.0 (35-45) L 11/17/16 13:00 POC ABG pO2 55 (80-105) L 11/17/16 13:00 POC ABG HCO3 20.2 11/17/16 13:00 POC ABG Total CO2 21 11/17/16 13:00 POC ABG O2 Sat 91 11/17/16 13:00 PT/INR, D-dimer PT 14.4 Sec. (12.2-14.9) 11/17/16 Unknown INR 1.13 (0.87-1.13) 11/17/16 Unknown Abnormal lab findings: Abnormal Labs 11/17/16 11/17/16 11/17/16 17:07 17:43 17:43 WBC RBC Hgb Hct MCHC RDW Seg Neuts % (Manual) Lymphocytes % (Manual) Seg Neutrophils # Man Lymphocytes # (Manual) Sodium 136 L Potassium Chloride Carbon Dioxide Glucose 166 H POC Glucose 153 H Hemoglobin A1c Lactic Acid Calcium 7.5 L Magnesium Total Creatine Kinase CK-MB (CK-2) Rel Index Troponin T 0.352 H* D C-Reactive Protein NT-Pro-B Natriuret Pep Total Protein Albumin LDL Cholesterol Direct Lipase 0111/17/16 11/17/16 Unknown Unknown Unknown WBC 25.7 H RBC 2.89 L Hgb 8.5 L Hct 26.2 L MCHC RDW 16.3 H Seg Neuts % (Manual) 90.0 H Lymphocytes % (Manual) 7.0 L Seg Neutrophils # Man 23.1 H Lymphocytes # (Manual) Sodium 135 L Potassium 2.5 L* Chloride 95.4 L Carbon Dioxide Glucose 132 H POC Glucose Hemoglobin A1c Lactic Acid 2.1 H* Calcium 7.7 L Magnesium Total Creatine Kinase CK-MB (CK-2) Rel Index Troponin T 0.066 H C-Reactive Protein NT-Pro-B Natriuret Pep Total Protein Albumin 2.5 L LDL Cholesterol Direct 39 L Lipase 76 H 11/17/16 11/18/16 11/18/16 Unknown 00:20 01:25 WBC RBC Hgb Hct MCHC RDW Seg Neuts % (Manual) Lymphocytes % (Manual) Seg Neutrophils # Man Lymphocytes # (Manual) Sodium Potassium Chloride Carbon Dioxide Glucose POC Glucose 290 H Hemoglobin A1c 7.9 H Lactic Acid Calcium Magnesium Total Creatine Kinase 23 L CK-MB (CK-2) Rel Index 11.3 H Troponin T C-Reactive Protein NT-Pro-B Natriuret Pep Total Protein Albumin LDL Cholesterol Direct Lipase 11/18/16 11/18/16 11/18/16 01:25 01:25 08:00 WBC RBC Hgb Hct MCHC RDW Seg Neuts % (Manual) Lymphocytes % (Manual) Seg Neutrophils # Man Lymphocytes # (Manual) Sodium 136 L Potassium Chloride Carbon Dioxide 21 L 20 L Glucose 169 H 120 H POC Glucose Hemoglobin A1c Lactic Acid Calcium 7.3 L 7.6 L Magnesium 1.5 L Total Creatine Kinase CK-MB (CK-2) Rel Index Troponin T C-Reactive Protein NT-Pro-B Natriuret Pep Total Protein 6.0 L Albumin 2.4 L LDL Cholesterol Direct Lipase 11/18/16 11/18/16 11/18/16 08:00 08:28 11:21 WBC RBC Hgb Hct MCHC RDW Seg Neuts % (Manual) Lymphocytes % (Manual) Seg Neutrophils # Man Lymphocytes # (Manual) Sodium Potassium Chloride Carbon Dioxide Glucose POC Glucose 145 H 203 H Hemoglobin A1c Lactic Acid Calcium Magnesium Total Creatine Kinase CK-MB (CK-2) Rel Index Troponin T C-Reactive Protein 6.40 H NT-Pro-B Natriuret Pep Total Protein Albumin LDL Cholesterol Direct Lipase 11/18/16 11/18/16 11/19/16 16:17 21:46 02:45 WBC RBC Hgb Hct MCHC RDW Seg Neuts % (Manual) Lymphocytes % (Manual) Seg Neutrophils # Man Lymphocytes # (Manual) Sodium Potassium Chloride Carbon Dioxide Glucose POC Glucose 259 H 335 H Hemoglobin A1c Lactic Acid Calcium Magnesium Total Creatine Kinase CK-MB (CK-2) Rel Index Troponin T C-Reactive Protein NT-Pro-B Natriuret Pep 2949 H Total Protein Albumin LDL Cholesterol Direct Lipase 11/19/16 11/19/16 11/19/16 07:45 11:38 15:56 WBC RBC Hgb Hct MCHC RDW Seg Neuts % (Manual) Lymphocytes % (Manual) Seg Neutrophils # Man Lymphocytes # (Manual) Sodium Potassium Chloride Carbon Dioxide Glucose POC Glucose 238 H 229 H 248 H Hemoglobin A1c Lactic Acid Calcium Magnesium Total Creatine Kinase CK-MB (CK-2) Rel Index Troponin T C-Reactive Protein NT-Pro-B Natriuret Pep Total Protein Albumin LDL Cholesterol Direct Lipase 11/19/16 11/20/16 11/20/16 21:58 04:30 04:30 WBC 14.2 H RBC 2.38 L Hgb 7.5 L Hct 21.7 L MCHC 35 H RDW 16.2 H Seg Neuts % (Manual) 86.0 H Lymphocytes % (Manual) 6.0 L Seg Neutrophils # Man 12.2 H Lymphocytes # (Manual) 0.9 L Sodium Potassium 3.5 L Chloride Carbon Dioxide 19 L Glucose 110 H POC Glucose 164 H Hemoglobin A1c Lactic Acid Calcium 8.0 L Magnesium Total Creatine Kinase CK-MB (CK-2) Rel Index Troponin T C-Reactive Protein NT-Pro-B Natriuret Pep Total Protein Albumin LDL Cholesterol Direct Lipase 11/20/16 04:30 WBC RBC Hgb Hct MCHC RDW Seg Neuts % (Manual) Lymphocytes % (Manual) Seg Neutrophils # Man Lymphocytes # (Manual) Sodium Potassium Chloride Carbon Dioxide Glucose POC Glucose Hemoglobin A1c Lactic Acid Calcium Magnesium 1.4 L Total Creatine Kinase CK-MB (CK-2) Rel Index Troponin T C-Reactive Protein NT-Pro-B Natriuret Pep Total Protein Albumin LDL Cholesterol Direct Lipase Chest x-ray: image reviewed
[2016-11-20] MEDS: LASIX PO SCH (17:22)
[2016-11-21] MEDS: LASIX PO SCH ×2 (05:56→17:34)
[2016-11-21] MEDS: DILAUDID IV PRN ×3 (10:09→22:03)
[2016-11-21] MEDS: CORDARONE PO SCH (10:10)
[2016-11-21] MEDS: LOPRESSOR PO SCH ×2 (10:10→21:56)
[2016-11-21] MEDS: LOVENOX SUB-Q SCH (10:10)
[2016-11-21] MEDS: BABY ASPIRIN PO SCH (10:10)
[2016-11-21] MEDS: PEPCID PO SCH (10:11)
--- NOTE | 2016-11-21 10:16 | Progress Note ---
Assessment and Plan Assessment and plan: 1. Sepsis. Patient with bilateral pneumonia and leukocytosis. We will trend lactic acid levels and follow-up blood cultures. ID following. Continue antibiotics. 2. C. difficile colitis. Patient with significant diarrhea. CT scan with ascending colon wall thickening. C. difficile assay pending. 3. Healthcare associated Bilateral pneumonia. Patient with recent [facility]-11/[facility]/16 for pneumonia. Continue to follow serial chest x-ray. ID following. 4. Atrial fibrillation. Cardiology consultation. Follow-up echocardiogram. 5. Acute hypoxic respiratory failure. Etiology secondary to above. Continue O2 and BiPAP as needed. Pulmonary following. 6. Anemia. Etiology likely multifactorial. Continue follow H&H. Transfuse for hemoglobin less than 7.0. Check Hemoccult of stool. 7. Hypertension. Continue antihypertensive medications. 8. Diabetes mellitus type 2. Continue Accu-Cheks and sliding scale insulin. 9. Hyperlipidemia. Continue medications. 10. Chronic kidney disease. Creatinine appears to be stable. Continue to monitor BMP closely. 11. DVT prophylaxis. History Interval history: No new issues overnight. Patient denies currently any chest pain. Hospitalist Physical - Constitutional Vitals: Temp Pulse Resp BP Pulse Ox 98.6 F 94 H 20 170/77 96 11/21/16 07:50 11/21/16 07:50 11/21/16 10:09 11/21/16 07:50 11/21/16 09:20 General appearance: Present: no acute distress - EENT Eyes: Present: PERRL, EOM intact ENT: hearing intact, clear oral mucosa, dentition normal - Neck Neck: Present: supple, normal ROM - Respiratory Respiratory effort: normal Respiratory: bilateral: CTA - Cardiovascular Rhythm: regular Heart Sounds: Present: S1 & S2. Absent: gallop, rub - Extremities Extremities: no ischemia, No edema, Full ROM - Abdominal General gastrointestinal: soft, non-tender, non-distended, normal bowel sounds - Integumentary Integumentary: Present: clear, warm, dry - Neurologic Neurologic: CNII-XII intact, moves all extremities Results - Labs CBC & Chem 7: 11/20/16 04:30 11/20/16 04:30 Labs: Laboratory Last Values WBC 14.2 K/mm3 (4.5-11.0) H 11/20/16 04:30 RBC 2.38 M/mm3 (3.65-5.03) L 11/20/16 04:30 Hgb 7.5 gm/dl (11.8-15.2) L 11/20/16 04:30 Hct 21.7 % (35.5-45.6) L 11/20/16 04:30 MCV 91 fl (84-94) 11/20/16 04:30 MCH 31 pg (28-32) 11/20/16 04:30 MCHC 35 % (32-34) H 11/20/16 04:30 RDW 16.2 % (13.2-15.2) H 11/20/16 04:30 Plt Count 205 K/mm3 (140-440) 11/20/16 04:30 Add Manual Diff Complete 11/20/16 04:30 Total Counted 100 11/20/16 04:30 Seg Neuts % (Manual) 86.0 % (40.0-70.0) H 11/20/16 04:30 Band Neutrophils % 4.0 % 11/20/16 04:30 Lymphocytes % (Manual) 6.0 % (13.4-35.0) L 11/20/16 04:30 Reactive Lymphs % (Man) 0 % 11/20/16 04:30 Monocytes % (Manual) 1.0 % (0.0-7.3) 11/20/16 04:30 Eosinophils % (Manual) 2.0 % (0.0-4.3) 11/20/16 04:30 Basophils % (Manual) 1.0 % (0.0-1.8) 11/20/16 04:30 Metamyelocytes % 0 % 11/20/16 04:30 Myelocytes % 0 % 11/20/16 04:30 Promyelocytes % 0 % 11/20/16 04:30 Blast Cells % 0 % 11/20/16 04:30 Nucleated RBC % Not Reportable 11/20/16 04:30 Seg Neutrophils # Man 12.2 K/mm3 (1.8-7.7) H 11/20/16 04:30 Band Neutrophils # 0.6 K/mm3 11/20/16 04:30 Lymphocytes # (Manual) 0.9 K/mm3 (1.2-5.4) L 11/20/16 04:30 Abs React Lymphs (Man) 0.0 K/mm3 11/20/16 04:30 Monocytes # (Manual) 0.1 K/mm3 (0.0-0.8) 11/20/16 04:30 Eosinophils # (Manual) 0.3 K/mm3 (0.0-0.4) 11/20/16 04:30 Basophils # (Manual) 0.1 K/mm3 (0.0-0.1) 11/20/16 04:30 Metamyelocytes # 0.0 K/mm3 11/20/16 04:30 Myelocytes # 0.0 K/mm3 11/20/16 04:30 Promyelocytes # 0.0 K/mm3 11/20/16 04:30 Blast Cells # 0.0 K/mm3 11/20/16 04:30 WBC Morphology Not Reportable 11/20/16 04:30 Hypersegmented Neuts Not Reportable 11/20/16 04:30 Hyposegmented Neuts Not Reportable 11/20/16 04:30 Hypogranular Neuts Not Reportable 11/20/16 04:30 Smudge Cells Not Reportable 11/20/16 04:30 Toxic Granulation Not Reportable 11/20/16 04:30 Toxic Vacuolation Not Reportable 11/20/16 04:30 Dohle Bodies Not Reportable 11/20/16 04:30 Pelger-Huet Anomaly Not Reportable 11/20/16 04:30 Boo Rods Not Reportable 11/20/16 04:30 Platelet Estimate Appears normal 11/20/16 04:30 Clumped Platelets Not Reportable 11/20/16 04:30 Plt Clumps, EDTA Not Reportable 11/20/16 04:30 Large Platelets Not Reportable 11/20/16 04:30 Giant Platelets Not Reportable 11/20/16 04:30 Platelet Satelliting Not Reportable 11/20/16 04:30 Plt Morphology Comment Not Reportable 11/20/16 04:30 RBC Morphology Not Reportable 11/20/16 04:30 Dimorphic RBCs Not Reportable 11/20/16 04:30 Polychromasia Not Reportable 11/20/16 04:30 Hypochromasia Not Reportable 11/20/16 04:30 Poikilocytosis Not Reportable 11/20/16 04:30 Anisocytosis Rare 11/20/16 04:30 Microcytosis Not Reportable 11/20/16 04:30 Macrocytosis Not Reportable 11/20/16 04:30 Spherocytes Not Reportable 11/20/16 04:30 Pappenheimer Bodies Not Reportable 11/20/16 04:30 Sickle Cells Not Reportable 11/20/16 04:30 Target Cells Not Reportable 11/20/16 04:30 Tear Drop Cells Not Reportable 11/20/16 04:30 Ovalocytes Not Reportable 11/20/16 04:30 Helmet Cells Not Reportable 11/20/16 04:30 [place] Bodies Not Reportable 11/20/16 04:30 Alden Rings Not Reportable 11/20/16 04:30 Oscar Cells Not Reportable 11/20/16 04:30 Bite Cells Not Reportable 11/20/16 04:30 Crenated Cell Not Reportable 11/20/16 04:30 Elliptocytes Not Reportable 11/20/16 04:30 Acanthocytes (Spur) Not Reportable 11/20/16 04:30 Rouleaux Not Reportable 11/20/16 04:30 Hemoglobin C Crystals Not Reportable 11/20/16 04:30 Schistocytes Not Reportable 11/20/16 04:30 Malaria parasites Not Reportable 11/20/16 04:30 Tan Bodies Not Reportable 11/20/16 04:30 Hem Pathologist Commnt No 11/20/16 04:30 PT 14.4 Sec. (12.2-14.9) 11/17/16 Unknown INR 1.13 (0.87-1.13) 11/17/16 Unknown POC ABG pH 7.483 (7.35-7.45) H 11/17/16 13:00 POC ABG pCO2 27.0 (35-45) L 11/17/16 13:00 POC ABG pO2 55 (80-105) L 11/17/16 13:00 POC ABG HCO3 20.2 11/17/16 13:00 POC ABG Total CO2 21 11/17/16 13:00 POC ABG O2 Sat 91 11/17/16 13:00 POC ABG Base Excess -3 11/17/16 13:00 FiO2 100 % 11/17/16 13:00 Sodium 139 mmol/L (137-145) 11/20/16 04:30 Potassium 3.5 mmol/L (3.6-5.0) L 11/20/16 04:30 Chloride 106.4 mmol/L (98-107) 11/20/16 04:30 Carbon Dioxide 19 mmol/L (22-30) L 11/20/16 04:30 Anion Gap 17 mmol/L 11/20/16 04:30 BUN 16 mg/dL (9-20) 11/20/16 04:30 Creatinine 1.2 mg/dL (0.8-1.5) 11/20/16 04:30 Estimated GFR > 60 ml/min 11/20/16 04:30 BUN/Creatinine Ratio 13.33 % 11/20/16 04:30 Glucose 110 mg/dL (75-100) H 11/20/16 04:30 POC Glucose 204 (70-105) H 11/20/16 21:08 Hemoglobin A1c 7.9 % (4-6) H 11/18/16 01:25 Lactic Acid 0.9 mmol/L (0.7-2.0) 11/19/16 05:55 Calcium 8.0 mg/dL (8.4-10.2) L 11/20/16 04:30 Magnesium 1.5 mg/dL (1.7-2.3) L 11/21/16 06:20 Total Bilirubin 0.5 mg/dL (0.1-1.2) 11/18/16 08:00 Direct Bilirubin < 0.2 mg/dL (0-0.2) 11/17/16 Unknown Indirect Bilirubin 0.5 mg/dL 11/17/16 Unknown AST 20 units/L (5-40) 11/18/16 08:00 ALT 13 units/L (7-56) 11/18/16 08:00 Alkaline Phosphatase 110 units/L (35-129) 11/18/16 08:00 Ammonia 43.0 umol/L (25-60) 11/17/16 Unknown Total Creatine Kinase 23 units/L (55-170) L 11/17/16 Unknown CK-MB (CK-2) 2.6 ng/mL (0.0-4.0) 11/17/16 Unknown CK-MB (CK-2) Rel Index 11.3 (0-4) H 11/17/16 Unknown Troponin T 0.066 ng/mL (0.00-0.029) H 11/17/16 Unknown C-Reactive Protein 6.40 mg/dL (0.00-1.30) H 11/18/16 08:00 NT-Pro-B Natriuret Pep 2949 pg/mL (0-900) H 11/19/16 02:45 Total Protein 6.0 g/dL (6.3-8.2) L 11/18/16 08:00 Albumin 2.4 g/dL (3.9-5) L 11/18/16 08:00 Albumin/Globulin Ratio 0.7 % 11/18/16 08:00 Triglycerides 138 mg/dL (2-149) 11/17/16 Unknown Cholesterol 111 mg/dL (50-199) 11/17/16 Unknown LDL Cholesterol Direct 39 mg/dL (50-130) L 11/17/16 Unknown HDL Cholesterol 45 mg/dL (40-59) 11/17/16 Unknown Cholesterol/HDL Ratio 2.46 % 11/17/16 Unknown Lipase 76 units/L (13-60) H 11/17/16 Unknown Urine Color Yellow (Yellow) 11/17/16 15: Urine Turbidity Clear (Clear) 11/17/16 15: Urine pH 6.0 (5.0-7.0) 11/17/16 15: Ur Specific [place] 1.011 (1.003-1.030) 11/17/16 15: Urine Protein <15 mg/dl mg/dL (Negative) 11/17/16 15: Urine Glucose (UA) 50 mg/dL (Negative) 11/17/16 15: Urine Ketones Neg mg/dL (Negative) 11/17/16 15: Urine Blood Neg (Negative) 11/17/16 15: Urine Nitrite Neg (Negative) 11/17/16 15: Urine Bilirubin Neg (Negative) 11/17/16: Urine Urobilinogen < 2.0 mg/dL (<2.0) 11/17/16 15: Ur Leukocyte Esterase Neg (Negative) 11/17/16 15: Urine WBC (Auto) 2.0 /HPF (0.0-6.0) 11/17/16: Urine RBC (Auto) 3.0 /HPF (0.0-6.0) 11/17/16 15:29 Urine Mucus Few /HPF 11/17/16 15:29
--- NOTE | 2016-11-21 10:42 | Progress Note ---
Assessment and Plan 1. Paroxysmal atrial fibrillation currently in sinus rhythm 2. Type 2 diabetes mellitus 3. Chronic anemia Echocardiogram showing normal left ventricular size and function. LV ejection fraction 60% Plan. Cardiac-whitman stable continue present medication. Anticoagulation on hold due to anemia . Subjective Date of service: 11/21/16 Principal diagnosis: Acute Hypoxemic Respiratory Failure; Acute pulmonary Edema Interval history: No cardiac symptoms. Objective Vital Signs Temp Pulse Pulse Pulse Pulse Resp Resp 11/21/16 10:09 20 11/21/16 09:20 11/21/16 07:50 98.6 F 94 H 22 11/21/16 05:11 98.2 F 69 18 11/21/16 00:28 97.6 F 83 18 11/20/16 22:00 11/20/16 21:59 18 11/20/16 21:57 95 H 11/20/16 20:19 98.6 F 95 H 20 11/20/16 20:16 20 11/20/16 20:00 95 H 18 11/20/16 19:21 93 H 11/20/16 18:24 98.1 F 92 H 20 11/20/16 16:50 11/20/16 16:00 98.2 F 90 26 H 11/20/16 15:23 91 H 24 11/20/16 15:21 91 H 26 H 11/20/16 14:17 11/20/16 14:00 88 19 11/20/16 12:17 86 28 H 11/20/16 12:00 83 22 11/20/16 11:45 84 19 11/20/16 11:31 83 27 H 11/20/16 11:00 86 24 BP BP Pulse Ox 11/21/16 10:09 11/21/16 09:20 96 11/21/16 07:50 170/77 98 11/21/16 05:11 133/69 96 11/21/16 00:28 136/71 97 11/20/16 22:00 96 11/20/16 21:59 11/20/16 21:57 148/72 11/20/16 20:19 148/72 96 11/20/16 20:16 11/20/16 20:00 98 11/20/16 19:21 11/20/16 18:24 152/76 95 11/20/16 16:50 93 11/20/16 16:00 155/77 95 11/20/16 15:23 130/77 92 11/20/16 15:21 130/77 93 11/20/16 14:17 130/77 98 11/20/16 14:00 127/73 95 11/20/16 12:17 140/75 93 11/20/16 12:00 139/77 93 11/20/16 11:45 162/87 93 11/20/16 11:31 162/87 99 11/20/16 11:00 140/75 93 - Physical Examination General: No Apparent Distress HEENT: Positive: PERRL Neck: Positive: trachea midline Cardiac: Positive: Reg Rate and Rhythm, S1/S2, S3, PMI, Laterally Displaced Lungs: Positive: clear to auscultation, No Wheeze, Rales, Rhonchi Neuro: Positive: Grossly Intact, Weakness, No Lateralizing Findings Abdomen: Positive: Unremarkable /Rectal: Normal Prostate Extremities: Absent: edema
--- NOTE | 2016-11-21 23:36 | Progress Note ---
Assessment and Plan Patient awake, weak. Resting on nasal canula 3 litres O2. O2 satuaration 97%. - Patient Problems (1) Acute hypoxemic respiratory failure Current Visit: Yes Status: Acute Plan to address problem: O2 supplementation 3 litres O2. Recommend Brovanna aerosol treatments q 12 hours. (2) Bilateral pneumonia Current Visit: Yes Status: Acute Qualifiers: Pneumonia type: due to unspecified organism Lung location: lower lobe of lung Qualified Code(s): J18.9 - Pneumonia, unspecified organism Plan to address problem: Recommend ceftrioxone and Zithromax. (3) Nonsustained ventricular tachycardia Current Visit: Yes Status: Acute Plan to address problem: Management as per cardiology. (4) Pulmonary edema w/congestive heart failure w/preserved LV function Current Visit: Yes Status: Acute Plan to address problem: Management as per cardiology. Subjective Date of service: 11/21/16 Principal diagnosis: Acute Hypoxemic Respiratory Failure; Acute pulmonary Edema Interval history: Patient awake, weak. Resting on nasal canula 3 litres O2. O2 satuaration 97%. Objective Vital Signs - 12hr 11/21/16 11/21/16 11/21/16 15:01 15:15 20:05 Temperature 98.3 F 98.8 F Pulse Rate Pulse Rate [ 89 95 H Right Dorsalis Pedis] Respiratory 22 20 18 Rate Blood Pressure Blood Pressure 159/74 165/76 [Left Arm] O2 Sat by Pulse 97 95 Oximetry 11/21/16 11/21/16 11/21/16 21:34 21:56 22:03 Temperature Pulse Rate 93 H Pulse Rate [ Right Dorsalis Pedis] Respiratory 22 Rate Blood Pressure 165/76 Blood Pressure [Left Arm] O2 Sat by Pulse 97 Oximetry Constitutional: no acute distress Eyes: non-icteric ENT: oropharynx moist Neck: supple, no lymphadenopathy Effort: mildly labored Ascultation: Bilateral: diminished breath sounds (bases), rales (basilar predominant) Cardiovascular: regular rate and rhythm Gastrointestinal: normoactive bowel sounds, soft, non-tender, non-distended Integumentary: other (left leg swelling) Extremities: no cyanosis, pulses normal, no ischemia or petechiae, edema (left leg) Neurologic: normal mental status, non-focal exam (grossly), pupils equal and round, motor strength normal and Psychiatric: mood appropriate, affect normal CBC and BMP: 01/15/17 05:49 11/22/16 05:49 ABG, PT/INR, D-dimer: ABG POC ABG pH 7.483 (7.35-7.45) H 11/17/16 13:00 POC ABG pCO2 27.0 (35-45) L 11/17/16 13:00 POC ABG pO2 55 (80-105) L 11/17/16 13:00 POC ABG HCO3 20.2 11/17/16 13:00 POC ABG Total CO2 21 11/17/16 13:00 POC ABG O2 Sat 91 11/17/16 13:00 PT/INR, D-dimer PT 14.4 Sec. (12.2-14.9) 11/17/16 Unknown INR 1.13 (0.87-1.13) 11/17/16 Unknown Abnormal lab findings: Abnormal Labs 11/17/16 11/17/16 11/17/16 17:07 17:43 17:43 WBC RBC Hgb Hct MCHC RDW Seg Neuts % (Manual) Lymphocytes % (Manual) Seg Neutrophils # Man Lymphocytes # (Manual) Sodium 136 L Potassium Chloride Carbon Dioxide Glucose 166 H POC Glucose 153 H Hemoglobin A1c Lactic Acid Calcium 7.5 L Magnesium Total Creatine Kinase CK-MB (CK-2) Rel Index Troponin T 0.352 H* D C-Reactive Protein NT-Pro-B Natriuret Pep Total Protein Albumin LDL Cholesterol Direct Lipase 11/17/16 11/17/16 11/17/16 Unknown Unknown Unknown WBC 25.7 H RBC 2.89 L Hgb 8.5 L Hct 26.2 L MCHC RDW 16.3 H Seg Neuts % (Manual) 90.0 H Lymphocytes % (Manual) 7.0 L Seg Neutrophils # Man 23.1 H Lymphocytes # (Manual) Sodium 135 L Potassium 2.5 L* Chloride 95.4 L Carbon Dioxide Glucose 132 H POC Glucose Hemoglobin A1c Lactic Acid 2.1 H* Calcium 7.7 L Magnesium Total Creatine Kinase CK-MB (CK-2) Rel Index Troponin T 0.066 H C-Reactive Protein NT-Pro-B Natriuret Pep Total Protein Albumin 2.5 L LDL Cholesterol Direct 39 L Lipase 76 H 11/17/16 11/18/16 11/18/16 Unknown 00:20 01:25 WBC RBC Hgb Hct MCHC RDW Seg Neuts % (Manual) Lymphocytes % (Manual) Seg Neutrophils # Man Lymphocytes # (Manual) Sodium Potassium Chloride Carbon Dioxide Glucose POC Glucose 290 H Hemoglobin A1c 7.9 H Lactic Acid Calcium Magnesium Total Creatine Kinase 23 L CK-MB (CK-2) Rel Index 11.3 H Troponin T C-Reactive Protein NT-Pro-B Natriuret Pep Total Protein Albumin LDL Cholesterol Direct Lipase 11/18/16 11/18/16 11/18/16 01:25 01:25 08:00 WBC RBC Hgb Hct MCHC RDW Seg Neuts % (Manual) Lymphocytes % (Manual) Seg Neutrophils # Man Lymphocytes # (Manual) Sodium 136 L Potassium Chloride Carbon Dioxide 21 L 20 L Glucose 169 H 120 H POC Glucose Hemoglobin A1c Lactic Acid Calcium 7.3 L 7.6 L Magnesium 1.5 L Total Creatine Kinase CK-MB (CK-2) Rel Index Troponin T C-Reactive Protein NT-Pro-B Natriuret Pep Total Protein 6.0 L Albumin 2.4 L LDL Cholesterol Direct Lipase 11/18/16 11/18/16 11/18/16 08:00 08:28 11:21 WBC RBC Hgb Hct MCHC RDW Seg Neuts % (Manual) Lymphocytes % (Manual) Seg Neutrophils # Man Lymphocytes # (Manual) Sodium Potassium Chloride Carbon Dioxide Glucose POC Glucose 145 H 203 H Hemoglobin A1c Lactic Acid Calcium Magnesium Total Creatine Kinase CK-MB (CK-2) Rel Index Troponin T C-Reactive Protein 6.40 H NT-Pro-B Natriuret Pep Total Protein Albumin LDL Cholesterol Direct Lipase 11/18/16 11/18/16 11/19/16 16:17 21:46 02:45 WBC RBC Hgb Hct MCHC RDW Seg Neuts % (Manual) Lymphocytes % (Manual) Seg Neutrophils # Man Lymphocytes # (Manual) Sodium Potassium Chloride Carbon Dioxide Glucose POC Glucose 259 H 335 H Hemoglobin A1c Lactic Acid Calcium Magnesium Total Creatine Kinase CK-MB (CK-2) Rel Index Troponin T C-Reactive Protein NT-Pro-B Natriuret Pep 2949 H Total Protein Albumin LDL Cholesterol Direct Lipase 11/19/16 11/19/16 11/19/16 07:45 11:38 15:56 WBC RBC Hgb Hct MCHC RDW Seg Neuts % (Manual) Lymphocytes % (Manual) Seg Neutrophils # Man Lymphocytes # (Manual) Sodium Potassium Chloride Carbon Dioxide Glucose POC Glucose 238 H 229 H 248 H Hemoglobin A1c Lactic Acid Calcium Magnesium Total Creatine Kinase CK-MB (CK-2) Rel Index Troponin T C-Reactive Protein NT-Pro-B Natriuret Pep Total Protein Albumin LDL Cholesterol Direct Lipase 11/19/16 11/20/16 11/20/16 21:58 04:30 04:30 WBC 14.2 H RBC 2.38 L Hgb 7.5 L Hct 21.7 L MCHC 35 H RDW 16.2 H Seg Neuts % (Manual) 86.0 H Lymphocytes % (Manual) 6.0 L Seg Neutrophils # Man 12.2 H Lymphocytes # (Manual) 0.9 L Sodium Potassium 3.5 L Chloride Carbon Dioxide 19 L Glucose 110 H POC Glucose 164 H Hemoglobin A1c Lactic Acid Calcium 8.0 L Magnesium Total Creatine Kinase CK-MB (CK-2) Rel Index Troponin T C-Reactive Protein NT-Pro-B Natriuret Pep Total Protein Albumin LDL Cholesterol Direct Lipase 11/20/16 11/20/16 11/20/16 04:30 07:52 11:35 WBC RBC Hgb Hct MCHC RDW Seg Neuts % (Manual) Lymphocytes % (Manual) Seg Neutrophils # Man Lymphocytes # (Manual) Sodium Potassium Chloride Carbon Dioxide Glucose POC Glucose 113 H 194 H Hemoglobin A1c Lactic Acid Calcium Magnesium 1.4 L Total Creatine Kinase CK-MB (CK-2) Rel Index Troponin T C-Reactive Protein NT-Pro-B Natriuret Pep Total Protein Albumin LDL Cholesterol Direct Lipase 11/20/16 11/20/16 11/21/16 15:32 21:08 06:20 WBC RBC Hgb Hct MCHC RDW Seg Neuts % (Manual) Lymphocytes % (Manual) Seg Neutrophils # Man Lymphocytes # (Manual) Sodium Potassium Chloride Carbon Dioxide Glucose POC Glucose 179 H 204 H Hemoglobin A1c Lactic Acid Calcium Magnesium 1.5 L Total Creatine Kinase CK-MB (CK-2) Rel Index Troponin T C-Reactive Protein NT-Pro-B Natriuret Pep Total Protein Albumin LDL Cholesterol Direct Lipase 11/21/16 20:57 WBC RBC Hgb Hct MCHC RDW Seg Neuts % (Manual) Lymphocytes % (Manual) Seg Neutrophils # Man Lymphocytes # (Manual) Sodium Potassium Chloride Carbon Dioxide Glucose POC Glucose 311 H Hemoglobin A1c Lactic Acid Calcium Magnesium Total Creatine Kinase CK-MB (CK-2) Rel Index Troponin T C-Reactive Protein NT-Pro-B Natriuret Pep Total Protein Albumin LDL Cholesterol Direct Lipase Chest x-ray: report reviewed (Pulmonary edema.), image reviewed
[2016-11-22] MEDS: LASIX PO SCH (05:44)
[2016-11-22 06:12] LABS: Basophils % (Auto) 0.6 % (0.0-1.8); Hematocrit 22.5 % (35.5-45.6); Hemoglobin 7.3 gm/dl (11.8-15.2); Mean Corpuscular HGB Conc 32 % (32-34); Mean Corpuscular Hemoglobin 29 pg (28-32); Mean Corpuscular Volume 89 fl (84-94); Platelet Count 250 K/mm3 (140-440); Red Blood Count 2.52 M/mm3 (3.65-5.03); White Blood Count 13.2 K/mm3 (4.5-11.0)
[2016-11-22 06:34] LABS: BUN/Creatinine Ratio 9.09; Blood Urea Nitrogen 10 mg/dL (9-20); Calcium 7.6 mg/dL (8.4-10.2); Carbon Dioxide 21 mmol/L (22-30); Chloride 102.7 mmol/L (98-107); Glucose 188 mg/dL (75-100); Sodium 138 mmol/L (137-145)
[2016-11-22 06:44] LABS: Anion Gap 17 mmol/L
[2016-11-22 06:49] LABS: Potassium 2.6 mmol/L (3.6-5.0)
[2016-11-22] MEDS: KCL 10MEQ/100ML 100 ML IV SCH ×4 (08:11→12:15)
[2016-11-22] MEDS: BABY ASPIRIN PO SCH (09:52)
[2016-11-22] MEDS: CORDARONE PO SCH (09:52)
[2016-11-22] MEDS: LOPRESSOR PO SCH ×2 (09:53→21:43)
[2016-11-22] MEDS: LOVENOX SUB-Q SCH (09:53)
[2016-11-22] MEDS: PEPCID PO SCH (09:54)
--- NOTE | 2016-11-22 10:07 | Progress Note ---
Assessment and Plan 1. Paroxysmal atrial fibrillation currently in sinus rhythm 2. Type 2 diabetes mellitus 3. Chronic anemia 4. Colitis 5. Sepsis Echocardiogram showing normal left ventricular size and function. LV ejection fraction 60% Plan. Cardiac-whitman stable continue present medication. Anticoagulation on hold due to anemia Continue present management. . Subjective Date of service: 11/22/16 Principal diagnosis: Acute Hypoxemic Respiratory Failure; Acute pulmonary Edema Interval history: No cardiac symptoms. Objective Vital Signs Temp Pulse Pulse Resp BP BP Pulse Ox 11/22/16 08:22 97 11/22/16 07:30 99.6 F 92 H 20 122/56 97 11/22/16 05:01 98.6 F 84 18 153/72 99 11/22/16 00:05 97.6 F 84 20 138/64 94 11/21/16 22:03 22 11/21/16 21:56 93 H 165/76 11/21/16 21:34 97 11/21/16 20:05 98.8 F 95 H 18 165/76 95 11/21/16 15:15 98.3 F 89 20 159/74 97 11/21/16 15:01 22 11/21/16 11:28 98.5 F 89 22 142/73 97 11/21/16 10:09 20 - Physical Examination General: No Apparent Distress HEENT: Positive: PERRL Neck: Positive: trachea midline Cardiac: Positive: irregularly irregular, S1/S2, S3, PMI, Laterally Displaced Lungs: Positive: clear to auscultation, No Wheeze, Rales, Rhonchi Neuro: Positive: Grossly Intact, Weakness, No Lateralizing Findings Abdomen: Positive: Unremarkable /Rectal: Normal Prostate Extremities: Absent: edema - Labs and Meds CBC 11/22/16 Range/Units 05:49 WBC 13.2 H (4.5-11.0) K/mm3 RBC 2.52 L (3.65-5.03) M/mm3 Hgb 7.3 L (11.8-15.2) gm/dl Hct 22.5 L (35.5-45.6) % Plt Count 250 (140-440) K/mm3 Lymph # 1.3 (1.2-5.4) K/mm3 Reynolds # 1.0 H (0.0-0.8) K/mm3 Eos # 0.1 (0.0-0.4) K/mm3 Baso # 0.1 (0.0-0.1) K/mm3 Comprehensive Metabolic Panel 11/22/16 Range/Units 05:49 Sodium 138 (137-145) mmol/L Potassium 2.6 L* D (3.6-5.0) mmol/L Chloride 102.7 (98-107) mmol/L Carbon Dioxide 21 L (22-30) mmol/L BUN 10 (9-20) mg/dL Creatinine 1.1 (0.8-1.5) mg/dL Glucose 188 H (75-100) mg/dL Calcium 7.6 L (8.4-10.2) mg/dL
--- NOTE | 2016-11-22 11:17 | Progress Note ---
Assessment and Plan Assessment and plan: 1. Sepsis. Patient with bilateral pneumonia and leukocytosis. Improved. Continue to follow off antibiotics. 2. Colitis. Patient with significant diarrhea that is somewhat improved. CT scan with ascending colon wall thickening. C. difficile assay negative. Flagyl discontinued. Consider GI consultation for possible colonoscopy. 3. Healthcare associated Bilateral pneumonia. [facility] with [facility]16 for [facility]. Continue to follow serial chest x-ray. ID following. 4. Paroxysmal Atrial fibrillation. Cardiology following. Echocardiogram revealed normal LV size and function. EF 60%. Anticoagulation on hold due to anemia. Continue amiodarone. 5. Acute hypoxic respiratory failure. Etiology secondary to above. Continue O2 and BiPAP as needed. Pulmonary following. 6. Anemia. Etiology likely multifactorial. Continue follow H&H. Transfuse for hemoglobin less than 7.0. Check Hemoccult of stool. 7. Hypertension. Continue antihypertensive medications. 8. Diabetes mellitus type 2. Continue Accu-Cheks and sliding scale insulin. 9. Hyperlipidemia. Continue medications. 10. Chronic kidney disease. Creatinine appears to be stable. Continue to monitor BMP closely. 11. Hypokalemia. Replete potassium. Recheck BMP in morning. 12. DVT prophylaxis. History Interval history: No new issues overnight. Patient denies currently any chest pain. Hospitalist Physical - Constitutional Vitals: Temp Pulse Resp BP Pulse Ox 99.6 F 92 H 20 122/56 97 11/22/16 07:30 11/22/16 07:30 11/22/16 07:30 11/22/16 07:30 11/22/16 08:22 General appearance: Present: no acute distress - EENT Eyes: Present: PERRL, EOM intact ENT: hearing intact, clear oral mucosa, dentition normal - Neck Neck: Present: supple, normal ROM - Respiratory Respiratory effort: normal Respiratory: bilateral: CTA - Cardiovascular Rhythm: regular Heart Sounds: Present: S1 & S2. Absent: gallop, rub - Extremities Extremities: no ischemia, No edema, Full ROM - Abdominal General gastrointestinal: soft, non-tender, non-distended, normal bowel sounds - Integumentary Integumentary: Present: clear, warm, dry - Neurologic Neurologic: CNII-XII intact, moves all extremities Results - Labs CBC & Chem 7: 11/22/16 05:49 11/22/16 05:49 Labs: Laboratory Last Values WBC 13.2 K/mm3 (4.5-11.0) H 11/22/16 05:49 RBC 2.52 M/mm3 (3.65-5.03) L 11/22/16 05:49 Hgb 7.3 gm/dl (11.8-15.2) L 11/22/16 05:49 Hct 22.5 % (35.5-45.6) L 11/22/16 05:49 MCV 89 fl (84-94) 11/22/16 05:49 MCH 29 pg (28-32) 11/22/16 05:49 MCHC 32 % (32-34) 11/22/16 05:49 RDW 16.0 % (13.2-15.2) H 11/22/16 05:49 Plt Count 250 K/mm3 (140-440) 11/22/16 05:49 Lymph % (Auto) 9.8 % (13.4-35.0) L 11/22/16 05:49 Bell % (Auto) 7.3 % (0.0-7.3) 11/22/16 05:49 Eos % (Auto) 1.0 % (0.0-4.3) 11/22/16 05:49 Baso % (Auto) 0.6 % (0.0-1.8) 11/22/16 05:49 Lymph # 1.3 K/mm3 (1.2-5.4) 11/22/16 05:49 Bell # 1.0 K/mm3 (0.0-0.8) H 11/22/16 05:49 Eos # 0.1 K/mm3 (0.0-0.4) 11/22/16 05:49 Baso # 0.1 K/mm3 (0.0-0.1) 11/22/16 05:49 Add Manual Diff Complete 11/20/16 04:30 Total Counted 100 11/20/16 04:30 Seg Neutrophils % 81.3 % (40.0-70.0) H 11/22/16 05:49 Seg Neuts % (Manual) 86.0 % (40.0-70.0) H 11/20/16 04:30 Band Neutrophils % 4.0 % 11/20/16 04:30 Lymphocytes % (Manual) 6.0 % (13.4-35.0) L 11/20/16 04:30 Reactive Lymphs % (Man) 0 % 11/20/16 04:30 Monocytes % (Manual) 1.0 % (0.0-7.3) 11/20/16 04:30 Eosinophils % (Manual) 2.0 % (0.0-4.3) 11/20/16 04:30 Basophils % (Manual) 1.0 % (0.0-1.8) 11/20/16 04:30 Metamyelocytes % 0 % 11/20/16 04:30 Myelocytes % 0 % 11/20/16 04:30 Promyelocytes % 0 % 11/20/16 04:30 Blast Cells % 0 % 11/20/16 04:30 Nucleated RBC % Not Reportable 11/20/16 04:30 Seg Neutrophils # 10.7 K/mm3 (1.8-7.7) H 11/22/16 05:49 Seg Neutrophils # Man 12.2 K/mm3 (1.8-7.7) H 11/20/16 04:30 Band Neutrophils # 0.6 K/mm3 11/20/16 04:30 Lymphocytes # (Manual) 0.9 K/mm3 (1.2-5.4) L 11/20/16 04:30 Abs React Lymphs (Man) 0.0 K/mm3 11/20/16 04:30 Monocytes # (Manual) 0.1 K/mm3 (0.0-0.8) 11/20/16 04:30 Eosinophils # (Manual) 0.3 K/mm3 (0.0-0.4) 11/20/16 04:30 Basophils # (Manual) 0.1 K/mm3 (0.0-0.1) 11/20/16 04:30 Metamyelocytes # 0.0 K/mm3 11/20/16 04:30 Myelocytes # 0.0 K/mm3 11/20/16 04:30 Promyelocytes # 0.0 K/mm3 11/20/16 04:30 Blast Cells # 0.0 K/mm3 11/20/16 04:30 WBC Morphology Not Reportable 11/20/16 04:30 Hypersegmented Neuts Not Reportable 11/20/16 04:30 Hyposegmented Neuts Not Reportable 11/20/16 04:30 Hypogranular Neuts Not Reportable 11/20/16 04:30 Smudge Cells Not Reportable 11/20/16 04:30 Toxic Granulation Not Reportable 11/20/16 04:30 Toxic Vacuolation Not Reportable 11/20/16 04:30 Dohle Bodies Not Reportable 11/20/16 04:30 Pelger-Huet Anomaly Not Reportable 11/20/16 04:30 Boo Rods Not Reportable 11/20/16 04:30 Platelet Estimate Appears normal 11/20/16 04:30 Clumped Platelets Not Reportable 11/20/16 04:30 Plt Clumps, EDTA Not Reportable 11/20/16 04:30 Large Platelets Not Reportable 11/20/16 04:30 Giant Platelets Not Reportable 11/20/16 04:30 Platelet Satelliting Not Reportable 11/20/16 04:30 Plt Morphology Comment Not Reportable 11/20/16 04:30 RBC Morphology Not Reportable 11/20/16 04:30 Dimorphic RBCs Not Reportable 11/20/16 04:30 Polychromasia Not Reportable 11/20/16 04:30 Hypochromasia Not Reportable 11/20/16 04:30 Poikilocytosis Not Reportable 11/20/16 04:30 Anisocytosis Rare 11/20/16 04:30 Microcytosis Not Reportable 11/20/16 04:30 Macrocytosis Not Reportable 11/20/16 04:30 Spherocytes Not Reportable 11/20/16 04:30 Pappenheimer Bodies Not Reportable 11/20/16 04:30 Sickle Cells Not Reportable 11/20/16 04:30 Target Cells Not Reportable 11/20/16 04:30 Tear Drop Cells Not Reportable 11/20/16 04:30 Ovalocytes Not Reportable 11/20/16 04:30 Helmet Cells Not Reportable 11/20/16 04:30 Cosme-Copeland Bodies Not Reportable 11/20/16 04:30 Menno Rings Not Reportable 11/20/16 04:30 Oscar Cells Not Reportable 11/20/16 04:30 Bite Cells Not Reportable 11/20/16 04:30 Crenated Cell Not Reportable 11/20/16 04:30 Elliptocytes Not Reportable 11/20/16 04:30 Acanthocytes (Spur) Not Reportable 11/20/16 04:30 Rouleaux Not Reportable 11/20/16 04:30 Hemoglobin C Crystals Not Reportable 11/20/16 04:30 Schistocytes Not Reportable 11/20/16 04:30 Malaria parasites Not Reportable 11/20/16 04:30 Tan Bodies Not Reportable 11/20/16 04:30 Hem Pathologist Commnt No 11/20/16 04:30 PT 14.4 Sec. (12.2-14.9) 11/17/16 Unknown INR 1.13 (0.87-1.13) 11/17/16 Unknown POC ABG pH 7.483 (7.35-7.45) H 11/17/16 13:00 POC ABG pCO2 27.0 (35-45) L 11/17/16 13:00 POC ABG pO2 55 (80-105) L 11/17/16 13:00 POC ABG HCO3 20.2 11/17/16 13:00 POC ABG Total CO2 21 11/17/16 13:00 POC ABG O2 Sat 91 11/17/16 13:00 POC ABG Base Excess -3 11/17/16 13:00 FiO2 100 % 11/17/16 13:00 Sodium 138 mmol/L (137-145) 11/22/16 05:49 Potassium 2.6 mmol/L (3.6-5.0) L* D 11/22/16 05:49 Chloride 102.7 mmol/L (98-107) 11/22/16 05:49 Carbon Dioxide 21 mmol/L (22-30) L 11/22/16 05:49 Anion Gap 17 mmol/L 11/22/16 05:49 BUN 10 mg/dL (9-20) 11/22/16 05:49 Creatinine 1.1 mg/dL (0.8-1.5) 11/22/16 05:49 Estimated GFR > 60 ml/min 11/22/16 05:49 BUN/Creatinine Ratio 9.09 % 11/22/16 05:49 Glucose 188 mg/dL (75-100) H 11/22/16 05:49 POC Glucose 311 (70-105) H 11/21/16 20:57 Hemoglobin A1c 7.9 % (4-6) H 01/11/17 01:25 Lactic Acid 0.9 mmol/L (0.7-2.0) 11/19/16 05:55 Calcium 7.6 mg/dL (8.4-10.2) L 11/22/16 05:49 Magnesium 1.5 mg/dL (1.7-2.3) L 11/21/16 06:20 Total Bilirubin 0.5 mg/dL (0.1-1.2) 11/18/16 08:00 Direct Bilirubin < 0.2 mg/dL (0-0.2) 11/17/16 Unknown Indirect Bilirubin 0.5 mg/dL 11/17/16 Unknown AST 20 units/L (5-40) 11/18/16 08:00 ALT 13 units/L (7-56) 11/18/16 08:00 Alkaline Phosphatase 110 units/L (35-129) 11/18/16 08:00 Ammonia 43.0 umol/L (25-60) 11/17/16 Unknown Total Creatine Kinase 23 units/L (55-170) L 11/17/16 Unknown CK-MB (CK-2) 2.6 ng/mL (0.0-4.0) 11/17/16 Unknown CK-MB (CK-2) Rel Index 11.3 (0-4) H 11/17/16 Unknown Troponin T 0.066 ng/mL (0.00-0.029) H 11/17/16 Unknown C-Reactive Protein 6.40 mg/dL (0.00-1.30) H 11/18/16 08:00 NT-Pro-B Natriuret Pep 2949 pg/mL (0-900) H 11/19/16 02:45 Total Protein 6.0 g/dL (6.3-8.2) L 11/18/16 08:00 Albumin 2.4 g/dL (3.9-5) L 11/18/16 08:00 Albumin/Globulin Ratio 0.7 % 11/18/16 08:00 Triglycerides 138 mg/dL (2-149) 11/17/16 Unknown Cholesterol 111 mg/dL (50-199) 11/17/16 Unknown LDL Cholesterol Direct 39 mg/dL (50-130) L 11/17/16 Unknown HDL Cholesterol 45 mg/dL (40-59) 11/17/16 Unknown Cholesterol/HDL Ratio 2.46 % 11/17/16 Unknown Lipase 76 units/L (13-60) H 11/17/16 Unknown Urine Color Yellow (Yellow) 11/17/16: Urine Turbidity Clear (Clear) 11/17/16 15 Urine pH 6.0 (5.0-7.0) 11/17/16 15: Ur Specific [place] 1.011 (1.003-1.030) 11/17/16 Urine Protein <15 mg/dl mg/dL (Negative) 11/17/16 Urine Glucose (UA) 50 mg/dL (Negative) 11/17/16 Urine Ketones Neg mg/dL (Negative) 11/17/16 Urine Blood Neg (Negative) 11/17/16 Urine Nitrite Neg (Negative) 11/17/16 Urine Bilirubin Neg (Negative) 11/17/16 Urine Urobilinogen < 2.0 mg/dL (<2.0) 11/17/16 Ur Leukocyte Esterase Neg (Negative) 11/17/16: Urine WBC (Auto) 2.0 /HPF (0.0-6.0) 11/17/16: Urine RBC (Auto) 3.0 /HPF (0.0-6.0) 11/17/16: Urine Mucus Few /HPF 11/17/16
--- NOTE | 2016-11-22 12:45 | Progress Note ---
Assessment and Plan Current antibiotics: Flagyl 500 mg PO TID 11/18 --> Previous antibiotics: Vancomycin IV (11/17) Flagyl 500 mg IV q8h (11/17-11/18) Meropenem 500 mg IV q6h 11/17 -11/18 Zosyn 3.375 g IV q6h (11/17) ASSESSMENT: Ileana Hannah is a 56 y/o male with HTN, DM 2, HLD, anemia, CKD, GERD, depression, and alcohol abuse who had been recently hospitalized at the [facility] with pneumonia (10/25- 11/08/16) and now is admitted to [facility] on with generalized weakness and worsening shortness of breath, and diarrhea. Problem list: 1. Bilateral pulmonary infiltrates/effusion -Likely CHF -Atrial fibrillation on admission - Frequent ventricular ectopy - Hypoxemia - pBNP = 2949 -patient with persistent edema 2. Atrial fibrillation -Present on admission -Now in NSR 3. Hx of recent pneumonia - [place] hospitalization 10/25-11/08/16 - R/O sepsis - Blood and urine cultures negative and patient has been afebrile 4. Diarrhea - CT scan with ascending colon wall thickening -C. difficile assay negative -resolved 5. Leukocytosis -Reactive -Secondary to #1 --decreased compared to initial presentation 6. Anemia -probably multifactorial PLAN: 1. monitor off antibiotics 2. Treatment of CHF as per cardiology 3. Reculture as clinically indicated 4. monitor WBC Subjective Date of service: 11/22/16 Principal diagnosis: Acute Hypoxemic Respiratory Failure; Acute pulmonary Edema Interval history: Patient reports that he is doing okay, he has no new complaints. No shortness of breath. Objective - Constitutional Vitals: Selected Entries 11/22/16 11/22/16 07:30 11:27 Temperature 99.6 F 97.0 F L Pulse Rate [ 76 Right Dorsalis Pedis] Respiratory 20 Rate O2 Sat by Pulse 97 Oximetry Blood Pressure 124/66 [Left Arm] Blood Pressure 85 Mean [Left Arm] General appearance: Present: no acute distress, well-nourished - EENT Eyes: PERRL, EOM intact, no scleral icterus, no conjunctival injection ENT: hearing intact, clear oral mucosa Ears: bilateral: normal - Neck Neck: supple, normal ROM, no enlarged thyroid, no masses or JVD - Respiratory Respiratory: bilateral: CTA - Breasts Breasts: deferred - Cardiovascular Rhythm: regular Heart Sounds: Present: S1 & S2, systolic murmur (systolic 1/6) Extremity abnormal: edema (1+ edema bilaterally) - Gastrointestinal General gastrointestinal: Present: soft, non-tender, normal bowel sounds Rectal Exam: deferred - Genitourinary Male genitourinary: deferred - Integumentary Integumentary: clear, warm, dry, no jaundice, no rash - Labs CBC & Chem 7: 11/22/16 05:49 11/22/16 05:49 Labs: Microbiology 11/19/16 08:00 Stool C. difficile DNA Amplification - Final 11/17/16 15:29 Urine,Catheterized - Straight Catheter Urine Culture - Final NO GROWTH AFTER 48 HOURS 11/17/16 Unknown Peripheral/Venous Blood Culture - Preliminary NO GROWTH AFTER 4 DAYS 11/17/16 Unknown Peripheral/Venous Blood Culture - Preliminary NO GROWTH AFTER 4 DAYS Laboratory Tests 11/22/16 11/22/16 05:49 05:49 WBC 13.2 H Plt Count 250 Potassium 2.6 L* D Creatinine 1.1 Glucose 188 H Calcium 7.6 L
--- NOTE | 2016-11-22 18:22 | Progress Note ---
Assessment and Plan Patient awake, weak. Resting on nasal canula 3 litres O2. O2 satuaration 98%. - Patient Problems (1) Acute hypoxemic respiratory failure Current Visit: Yes Status: Acute Plan to address problem: O2 supplementation 3 litres O2. Recommend Brovanna aerosol treatments q 12 hours. (2) Bilateral pneumonia Current Visit: Yes Status: Acute Qualifiers: Pneumonia type: due to unspecified organism Lung location: lower lobe of lung Qualified Code(s): J18.9 - Pneumonia, unspecified organism Plan to address problem: Recommend ceftrioxone and Zithromax. 11/22/16 Patient started on ceftrioxone. Not started no Zithromax because of drug interactions. (3) Nonsustained ventricular tachycardia Current Visit: Yes Status: Acute Plan to address problem: Management as per cardiology. (4) Pulmonary edema w/congestive heart failure w/preserved LV function Current Visit: Yes Status: Acute Plan to address problem: Management as per cardiology. Subjective Date of service: 11/22/16 Principal diagnosis: Acute Hypoxemic Respiratory Failure; Acute pulmonary Edema Interval history: Patient awake, weak. Resting on nasal canula 3 litres O2. O2 satuaration 97%. Objective Vital Signs - 12hr 11/22/16 11/22/16 11/22/16 07:30 08:22 10:00 Temperature 99.6 F Pulse Rate 89 Pulse Rate [ 92 H Right Dorsalis Pedis] Respiratory 20 20 Rate Respiratory 20 Rate [Left Knee ] Blood Pressure 122/56 [Left Arm] O2 Sat by Pulse 97 97 98 Oximetry 11/22/16 11:27 Temperature 97.0 F L Pulse Rate Pulse Rate [ 76 Right Dorsalis Pedis] Respiratory 20 Rate Respiratory Rate [Left Knee ] Blood Pressure 124/66 [Left Arm] O2 Sat by Pulse 97 Oximetry Constitutional: no acute distress Eyes: non-icteric ENT: oropharynx moist Neck: supple, no lymphadenopathy Effort: mildly labored Ascultation: Bilateral: diminished breath sounds (bases), rales (basilar predominant) Cardiovascular: regular rate and rhythm Gastrointestinal: normoactive bowel sounds, soft, non-tender, non-distended Integumentary: other (left leg swelling) Extremities: no cyanosis, pulses normal, no ischemia or petechiae, edema (left leg) Neurologic: normal mental status, non-focal exam (grossly), pupils equal and round, motor strength normal and Psychiatric: mood appropriate, affect normal CBC and BMP: 11/22/16 05:49 11/22/16 05:49 ABG, PT/INR, D-dimer: ABG POC ABG pH 7.483 (7.35-7.45) H 11/17/16 13:00 POC ABG pCO2 27.0 (35-45) L 11/17/16 13:00 POC ABG pO2 55 (80-105) L 11/17/16 13:00 POC ABG HCO3 20.2 11/17/16 13:00 POC ABG Total CO2 21 11/17/16 13:00 POC ABG O2 Sat 91 11/17/16 13:00 PT/INR, D-dimer PT 14.4 Sec. (12.2-14.9) 11/17/16 Unknown INR 1.13 (0.87-1.13) 11/17/16 Unknown Abnormal lab findings: Abnormal Labs 11/17/16 11/17/16 11/17/16 17:07 17:43 17:43 WBC RBC Hgb Hct MCHC RDW Lymph % (Auto) [place] # Seg Neutrophils % Seg Neuts % (Manual) Lymphocytes % (Manual) Seg Neutrophils # Seg Neutrophils # Man Lymphocytes # (Manual) Sodium 136 L Potassium Chloride Carbon Dioxide Glucose 166 H POC Glucose 153 H Hemoglobin A1c Lactic Acid Calcium 7.5 L Magnesium Total Creatine Kinase CK-MB (CK-2) Rel Index Troponin T 0.352 H* D C-Reactive Protein NT-Pro-B Natriuret Pep Total Protein Albumin LDL Cholesterol Direct Lipase 11/17/16 11/17/16 11/17/16 Unknown Unknown Unknown WBC 25.7 H RBC 2.89 L Hgb 8.5 L Hct 26.2 L MCHC RDW 16.3 H Lymph % (Auto) [place] # Seg Neutrophils % Seg Neuts % (Manual) 90.0 H Lymphocytes % (Manual) 7.0 L Seg Neutrophils # Seg Neutrophils # Man 23.1 H Lymphocytes # (Manual) Sodium 135 L Potassium 2.5 L* Chloride 95.4 L Carbon Dioxide Glucose 132 H POC Glucose Hemoglobin A1c Lactic Acid 2.1 H* Calcium 7.7 L Magnesium Total Creatine Kinase CK-MB (CK-2) Rel Index Troponin T 0.066 H C-Reactive Protein NT-Pro-B Natriuret Pep Total Protein Albumin 2.5 L LDL Cholesterol Direct 39 L Lipase 76 H 11/17/16 11/18/16 11/18/16 Unknown 00:20 01:25 WBC RBC Hgb Hct MCHC RDW Lymph % (Auto) [place] # Seg Neutrophils % Seg Neuts % (Manual) Lymphocytes % (Manual) Seg Neutrophils # Seg Neutrophils # Man Lymphocytes # (Manual) Sodium Potassium Chloride Carbon Dioxide Glucose POC Glucose 290 H Hemoglobin A1c 7.9 H Lactic Acid Calcium Magnesium Total Creatine Kinase 23 L CK-MB (CK-2) Rel Index 11.3 H Troponin T C-Reactive Protein NT-Pro-B Natriuret Pep Total Protein Albumin LDL Cholesterol Direct Lipase 11/18/16 11/18/16 11/18/16 01:25 01:25 08:00 WBC RBC Hgb Hct MCHC RDW Lymph % (Auto) [place] # Seg Neutrophils % Seg Neuts % (Manual) Lymphocytes % (Manual) Seg Neutrophils # Seg Neutrophils # Man Lymphocytes # (Manual) Sodium 136 L Potassium Chloride Carbon Dioxide 21 L 20 L Glucose 169 H 120 H POC Glucose Hemoglobin A1c Lactic Acid Calcium 7.3 L 7.6 L Magnesium 1.5 L Total Creatine Kinase CK-MB (CK-2) Rel Index Troponin T C-Reactive Protein NT-Pro-B Natriuret Pep Total Protein 6.0 L Albumin 2.4 L LDL Cholesterol Direct Lipase 11/18/16 11/18/16 11/18/16 08:00 08:28 11:21 WBC RBC Hgb Hct MCHC RDW Lymph % (Auto) [place] # Seg Neutrophils % Seg Neuts % (Manual) Lymphocytes % (Manual) Seg Neutrophils # Seg Neutrophils # Man Lymphocytes # (Manual) Sodium Potassium Chloride Carbon Dioxide Glucose POC Glucose 145 H 203 H Hemoglobin A1c Lactic Acid Calcium Magnesium Total Creatine Kinase CK-MB (CK-2) Rel Index Troponin T C-Reactive Protein 6.40 H NT-Pro-B Natriuret Pep Total Protein Albumin LDL Cholesterol Direct Lipase 11/18/16 11/18/16 11/19/16 16:17 21:46 02:45 WBC RBC Hgb Hct MCHC RDW Lymph % (Auto) [place] # Seg Neutrophils % Seg Neuts % (Manual) Lymphocytes % (Manual) Seg Neutrophils # Seg Neutrophils # Man Lymphocytes # (Manual) Sodium Potassium Chloride Carbon Dioxide Glucose POC Glucose 259 H 335 H Hemoglobin A1c Lactic Acid Calcium Magnesium Total Creatine Kinase CK-MB (CK-2) Rel Index Troponin T C-Reactive Protein NT-Pro-B Natriuret Pep 2949 H Total Protein Albumin LDL Cholesterol Direct Lipase 11/19/16 11/19/16 11/19/16 07:45 11:38 15:56 WBC RBC Hgb Hct MCHC RDW Lymph % (Auto) [place] # Seg Neutrophils % Seg Neuts % (Manual) Lymphocytes % (Manual) Seg Neutrophils # Seg Neutrophils # Man Lymphocytes # (Manual) Sodium Potassium Chloride Carbon Dioxide Glucose POC Glucose 238 H 229 H 248 H Hemoglobin A1c Lactic Acid Calcium Magnesium Total Creatine Kinase CK-MB (CK-2) Rel Index Troponin T C-Reactive Protein NT-Pro-B Natriuret Pep Total Protein Albumin LDL Cholesterol Direct Lipase 11/19/16 11/20/16 11/20/16 21:58 04:30 04:30 WBC 14.2 H RBC 2.38 L Hgb 7.5 L Hct 21.7 L MCHC 35 H RDW 16.2 H Lymph % (Auto) [place] # Seg Neutrophils % Seg Neuts % (Manual) 86.0 H Lymphocytes % (Manual) 6.0 L Seg Neutrophils # Seg Neutrophils # Man 12.2 H Lymphocytes # (Manual) 0.9 L Sodium Potassium 3.5 L Chloride Carbon Dioxide 19 L Glucose 110 H POC Glucose 164 H Hemoglobin A1c Lactic Acid Calcium 8.0 L Magnesium Total Creatine Kinase CK-MB (CK-2) Rel Index Troponin T C-Reactive Protein NT-Pro-B Natriuret Pep Total Protein Albumin LDL Cholesterol Direct Lipase 11/20/16 11/20/16 11/20/16 04:30 07:52 11:35 WBC RBC Hgb Hct MCHC RDW Lymph % (Auto) [place] # Seg Neutrophils % Seg Neuts % (Manual) Lymphocytes % (Manual) Seg Neutrophils # Seg Neutrophils # Man Lymphocytes # (Manual) Sodium Potassium Chloride Carbon Dioxide Glucose POC Glucose 113 H 194 H Hemoglobin A1c Lactic Acid Calcium Magnesium 1.4 L Total Creatine Kinase CK-MB (CK-2) Rel Index Troponin T C-Reactive Protein NT-Pro-B Natriuret Pep Total Protein Albumin LDL Cholesterol Direct Lipase 11/20/16 11/20/16 11/21/16 15:32 21:08 06:20 WBC RBC Hgb Hct MCHC RDW Lymph % (Auto) [place] # Seg Neutrophils % Seg Neuts % (Manual) Lymphocytes % (Manual) Seg Neutrophils # Seg Neutrophils # Man Lymphocytes # (Manual) Sodium Potassium Chloride Carbon Dioxide Glucose POC Glucose 179 H 204 H Hemoglobin A1c Lactic Acid Calcium Magnesium 1.5 L Total Creatine Kinase CK-MB (CK-2) Rel Index Troponin T C-Reactive Protein NT-Pro-B Natriuret Pep Total Protein Albumin LDL Cholesterol Direct Lipase 11/21/16 11/21/16 11/21/16 07:53 11:22 16:16 WBC RBC Hgb Hct MCHC RDW Lymph % (Auto) [place] # Seg Neutrophils % Seg Neuts % (Manual) Lymphocytes % (Manual) Seg Neutrophils # Seg Neutrophils # Man Lymphocytes # (Manual) Sodium Potassium Chloride Carbon Dioxide Glucose POC Glucose 193 H 260 H 315 H Hemoglobin A1c Lactic Acid Calcium Magnesium Total Creatine Kinase CK-MB (CK-2) Rel Index Troponin T C-Reactive Protein NT-Pro-B Natriuret Pep Total Protein Albumin LDL Cholesterol Direct Lipase 11/21/16 11/22/16 11/22/16 20:57 05:49 05:49 WBC 13.2 H RBC 2.52 L Hgb 7.3 L Hct 22.5 L MCHC RDW 16.0 H Lymph % (Auto) 9.8 L [place] # 1.0 H Seg Neutrophils % 81.3 H Seg Neuts % (Manual) Lymphocytes % (Manual) Seg Neutrophils # 10.7 H Seg Neutrophils # Man Lymphocytes # (Manual) Sodium Potassium 2.6 L* D Chloride Carbon Dioxide 21 L Glucose 188 H POC Glucose 311 H Hemoglobin A1c Lactic Acid Calcium 7.6 L Magnesium Total Creatine Kinase CK-MB (CK-2) Rel Index Troponin T C-Reactive Protein NT-Pro-B Natriuret Pep Total Protein Albumin LDL Cholesterol Direct Lipase
[2016-11-22] MEDS: BROVANA NEBU IH SCH (20:18)
[2016-11-22] MEDS: DILAUDID IV PRN (21:44)
[2016-11-23] MEDS: DILAUDID IV PRN ×4 (06:01→21:35)
[2016-11-23] MEDS: LASIX PO SCH ×3 (06:02→17:25)
[2016-11-23 06:14] LABS: Basophils % (Auto) 0.6 % (0.0-1.8); Eosinophils % (Auto) 1.1 % (0.0-4.3); Hematocrit 22.2 % (35.5-45.6); Hemoglobin 7.4 gm/dl (11.8-15.2); Mean Corpuscular HGB Conc 34 % (32-34); Mean Corpuscular Hemoglobin 30 pg (28-32); Mean Corpuscular Volume 89 fl (84-94); Platelet Count 258 K/mm3 (140-440); Red Blood Count 2.49 M/mm3 (3.65-5.03); White Blood Count 14.6 K/mm3 (4.5-11.0)
[2016-11-23 06:36] LABS: Anion Gap 20 mmol/L; BUN/Creatinine Ratio 7.85; Blood Urea Nitrogen 11 mg/dL (9-20); Calcium 7.6 mg/dL (8.4-10.2); Carbon Dioxide 20 mmol/L (22-30); Chloride 98.8 mmol/L (98-107); Glucose 159 mg/dL (75-100); Sodium 136 mmol/L (137-145)
[2016-11-23 06:43] LABS: Potassium 2.8 mmol/L (3.6-5.0)
[2016-11-23] MEDS: K-DUR PO SCH ×2 (07:15→16:33)
[2016-11-23] MEDS: BROVANA NEBU IH SCH ×2 (07:37→19:53)
--- NOTE | 2016-11-23 08:33 | Gastroenterology Consultation ---
<CRISTINA VELÁSQUEZ - Last Filed: 11/23/16 08:36> History of Present Illness - Reason for Consult Consult date: 11/23/16 Diarrhea Requesting physician: MARLENY BRIONES - History of Present Illness Mr Hannah is a 56y/o AA male with a known history of HTN, DM 2, HLD, CKD, GERD , testicular cancer and alcohol use who had been recently hospitalized at the [facility] with pneumonia and presented to [facility] on 11/17/16 for weakness and progressive SOB. He was noted for white count of 25,700. Lactate 2.1 on admission. During hospitalization he has been on multiple ABX. CT scan on 11/17/16 ( non-contrast) significant for possible wall thickening in the ascending colon. The patient has complaint of diarrhea, in which he states started on admission. He noted he is having watery stool twice per day. No previous hx of diarrhea. He reports his last colonoscopy was 2 years ago with the AR and EGD last year with the AR. He states both were normal. He denies abdominal pain, melena, N/V, or hematochezia. He is noted to be anemic on admission with unknown baseline. Past History Past Medical History: atrial fib, anemia, diabetes, hypertension, renal failure , other (testicular cancer) Past Surgical History: No surgical history Social history: alcohol abuse. denies: smoking Family history: hypertension Medications and Allergies Allergies Allergy/AdvReac Type Severity Reaction Status Date / Time No Known Allergies Allergy Unverified 11/17/16 13:06 Home Medications Medication Instructions Recorded Confirmed Last Taken Type Unobtainable 11/17/16 11/17/16 Unknown History Active Meds: Active Medications Al Hydrox/Mg Hydrox/Simethicone (Alum-Mag Hydrox-Simeth [id number]/5ml) 30 ml PO Q4H PRN PRN Reason: Indigestion Alprazolam (Xanax) 0.25 mg PO Q8H PRN PRN Reason: Anxiety Amiodarone HCl (Cordarone) 200 mg PO QDAY [facility] Last Admin: 11/22/16 09:52 Dose: 200 mg Arformoterol Tartrate (Brovana Nebu) 15 mcg IH Q12HRT [facility] Last Admin: 11/23/16 07:37 Dose: 15 mcg Aspirin (Baby Aspirin) 162 mg PO QDAY [facility] Last Admin: 11/22/16 09:52 Dose: 162 mg Bisacodyl (Dulcolax) 10 mg DC QDAY PRN PRN Reason: constipation unrelieved by MOM Dextrose (D50w (25gm)) 50 ml IV PRN PRN PRN Reason: Hypoglycemia Enoxaparin Sodium (Lovenox) 40 mg SUB-Q QDAY [facility] Last Admin: 11/22/16 09:53 Dose: 40 mg Famotidine (Pepcid) 20 mg PO QDAY [facility] Last Admin: 11/22/16 09:54 Dose: 20 mg Furosemide (Lasix) 20 mg PO 0600,1800 [facility] Last Admin: 11/23/16 06:02 Dose: 20 mg Hydromorphone HCl (Dilaudid) 0.5 mg IV Q3HR PRN PRN Reason: Pain , Severe (7-10) Last Admin: 11/23/16 06:01 Dose: 0.5 mg Ceftriaxone Sodium (Rocephin/Ns 1 Gm/50 Ml) 50 mls @ 100 mls/hr IV Q24HR [facility] PRN Reason: Protocol Insulin Human Regular (Novolin R) 0 units SUB-Q ACHS [facility] PRN Reason: Protocol Last Admin: 11/22/16 23:30 Dose: 2 units Magnesium Hydroxide (Milk Of Magnesia) 30 ml PO Q4H PRN PRN Reason: Constipation Metoprolol Tartrate (Lopressor) 25 mg PO BID [facility] Last Admin: 11/22/16 21:43 Dose: 25 mg Ondansetron HCl (Zofran) 4 mg IV Q8H PRN PRN Reason: Nausea And Vomiting Potassium Chloride (K-Dur) 40 meq PO Q4H [facility] Stop: 11/23/16 11:01 Last Admin: 11/23/16 07:15 Dose: 40 meq Review of Systems - Review of Systems Constitutional: weakness Respiratory: shortness of breath Gastrointestinal: diarrhea Exam - Constitutional Vital Signs: Temp Pulse Resp BP Pulse Ox 98.1 F 91 H 18 122/61 97 11/23/16 04:05 11/23/16 07:52 11/23/16 07:52 11/23/16 04:05 11/23/16 07:39 General appearance: no acute distress - EENT Eyes: EOM intact ENT: hearing intact - Neck Neck: supple - Respiratory Respiratory: bilateral: CTA - Cardiovascular Rhythm: regular Heart Sounds: Present: S1 & S2, systolic murmur Extremities: Full ROM Extremity abnormal: edema - Gastrointestinal General gastrointestinal: Present: soft, distended, other (hyperactive bowel sounds) - Integumentary Integumentary: Present: warm, dry - Neurologic Neurological: alert and oriented x3 - Psychiatric Psychiatric: cooperative - Labs CBC & Chem 7: 11/23/16 06:00 11/23/16 06:00 Lab Results: Laboratory Results - last 24 hr 11/22/16 11/22/16 11/22/16 07:28 11:22 17:26 WBC RBC Hgb Hct MCV MCH MCHC RDW Plt Count Lymph % (Auto) [place] % (Auto) Eos % (Auto) Baso % (Auto) Lymph # [place] # Eos # Baso # Seg Neutrophils % Seg Neutrophils # Sodium Potassium Chloride Carbon Dioxide Anion Gap BUN Creatinine Estimated GFR BUN/Creatinine Ratio Glucose POC Glucose 223 H 462 H 105 Calcium 11/22/16 11/23/16 11/23/16 22:53 06:00 06:00 WBC 14.6 H RBC 2.49 L Hgb 7.4 L Hct 22.2 L MCV 89 MCH 30 MCHC 34 RDW 16.0 H Plt Count 258 Lymph % (Auto) 10.4 L [place] % (Auto) 7.1 Eos % (Auto) 1.1 Baso % (Auto) 0.6 Lymph # 1.5 [place] # 1.0 H Eos # 0.2 Baso # 0.1 Seg Neutrophils % 80.8 H Seg Neutrophils # 11.8 H Sodium 136 L Potassium 2.8 L* Chloride 98.8 Carbon Dioxide 20 L Anion Gap 20 BUN 11 Creatinine 1.4 Estimated GFR > 60 BUN/Creatinine Ratio 7.85 Glucose 159 H POC Glucose 181 H Calcium 7.6 L 11/23/16 07:48 WBC RBC Hgb Hct MCV MCH MCHC RDW Plt Count Lymph % (Auto) [place] % (Auto) Eos % (Auto) Baso % (Auto) Lymph # [place] # Eos # Baso # Seg Neutrophils % Seg Neutrophils # Sodium Potassium Chloride Carbon Dioxide Anion Gap BUN Creatinine Estimated GFR BUN/Creatinine Ratio Glucose POC Glucose 168 H Calcium Assessment and Plan 1. Diarrhea -The patient was previously on Flagyl, Vancomycin, Meropenum and Zosyn. He is now on Ceftriaxone per pulmonology. C diff negative. Will check stool culture and fecal leukocytes. Likely infectious related but inflammatory (less likely) vs ischemic remains in the differential. Will discuss with Dr. Perry if colonoscopy vs Flex sig is warranted for inpatient, as the patient has had a colonoscopy her reports within [address] of Abdomen non-contrast completed on 11/17/16. 2. PNA -Per pulmonology -Currently on Ceftriaxone. -WBC now 14K from 25K 3. Anemia -Patient denies any overt bleeding. -8.5/26.2 on admission (unknown baseline) now 7.4/22 (likely hemodiluted with previous IVF and resuscitation for sepsis) -Further recommendations to follow. <JALIL PERRY - Last Filed: 11/23/16 17:35> Medications and Allergies Active Meds: Active Medications Al Hydrox/Mg Hydrox/Simethicone (Alum-Mag Hydrox-Simeth [phone]/5ml) 30 ml PO Q4H PRN PRN Reason: Indigestion Alprazolam (Xanax) 0.25 mg PO Q8H PRN PRN Reason: Anxiety Amiodarone HCl (Cordarone) 200 mg PO QDAY [facility] Last Admin: 11/23/16 09:44 Dose: 200 mg Arformoterol Tartrate (Brovana Nebu) 15 mcg IH Q12HRT [facility] Last Admin: 11/23/16 07:37 Dose: 15 mcg Aspirin (Baby Aspirin) 162 mg PO QDAY [facility] Last Admin: 11/23/16 09:44 Dose: 162 mg Bisacodyl (Dulcolax) 10 mg DC QDAY PRN PRN Reason: constipation unrelieved by MOM Dextrose (D50w (25gm)) 50 ml IV PRN PRN PRN Reason: Hypoglycemia Enoxaparin Sodium (Lovenox) 40 mg SUB-Q QDAY [facility] Last Admin: 11/23/16 09:44 Dose: 40 mg Famotidine (Pepcid) 20 mg PO QDAY [facility] Last Admin: 11/23/16 09:45 Dose: 20 mg Furosemide (Lasix) 20 mg PO 0600,1800 [facility] Last Admin: 11/23/16 17:25 Dose: 20 mg Hydromorphone HCl (Dilaudid) 0.5 mg IV Q3HR PRN PRN Reason: Pain , Severe (7-10) Last Admin: 11/23/16 10:56 Dose: 0.5 mg Ceftriaxone Sodium (Rocephin/Ns 1 Gm/50 Ml) 50 mls @ 100 mls/hr IV Q24HR [facility] PRN Reason: Protocol Last Admin: 11/23/16 09:43 Dose: 100 mls/hr Insulin Human Regular (Novolin R) 0 units SUB-Q ACHS [facility] PRN Reason: Protocol Last Admin: 11/23/16 17:25 Dose: 6 units Magnesium Hydroxide (Milk Of Magnesia) 30 ml PO Q4H PRN PRN Reason: Constipation Metoprolol Tartrate (Lopressor) 25 mg PO BID [facility] Last Admin: 11/23/16 09:44 Dose: 25 mg Ondansetron HCl (Zofran) 4 mg IV Q8H PRN PRN Reason: Nausea And Vomiting Potassium Chloride (K-Dur) 40 meq PO ONCE ONE Stop: 11/23/16 18:01 Last Admin: 11/23/16 17:25 Dose: 40 meq Exam - Constitutional Vital Signs: Temp Pulse Resp BP Pulse Ox 98.3 F 86 18 128/75 97 11/23/16 11:30 11/23/16 11:30 11/23/16 11:30 11/23/16 11:30 11/23/16 11:30 - Labs CBC & Chem 7: 11/23/16 06:00 11/23/16 06:00 Lab Results: Laboratory Results - last 24 hr 11/22/16 11/22/16 11/22/16 07:28 11:22 17:26 WBC RBC Hgb Hct MCV MCH MCHC RDW Plt Count Lymph % (Auto) [place] % (Auto) Eos % (Auto) Baso % (Auto) Lymph # [place] # Eos # Baso # Seg Neutrophils % Seg Neutrophils # Sodium Potassium Chloride Carbon Dioxide Anion Gap BUN Creatinine Estimated GFR BUN/Creatinine Ratio Glucose POC Glucose 223 H 462 H 105 Calcium 11/22/16 11/23/16 11/23/16 22:53 06:00 06:00 WBC 14.6 H RBC 2.49 L Hgb 7.4 L Hct 22.2 L MCV 89 MCH 30 MCHC 34 RDW 16.0 H Plt Count 258 Lymph % (Auto) 10.4 L [place] % (Auto) 7.1 Eos % (Auto) 1.1 Baso % (Auto) 0.6 Lymph # 1.5 [place] # 1.0 H Eos # 0.2 Baso # 0.1 Seg Neutrophils % 80.8 H Seg Neutrophils # 11.8 H Sodium 136 L Potassium 2.8 L* Chloride 98.8 Carbon Dioxide 20 L Anion Gap 20 BUN 11 Creatinine 1.4 Estimated GFR > 60 BUN/Creatinine Ratio 7.85 Glucose 159 H POC Glucose 181 H Calcium 7.6 L 11/23/16 11/23/16 11/23/16 07:48 11:02 16:15 WBC RBC Hgb Hct MCV MCH MCHC RDW Plt Count Lymph % (Auto) [place] % (Auto) Eos % (Auto) Baso % (Auto) Lymph # [place] # Eos # Baso # Seg Neutrophils % Seg Neutrophils # Sodium Potassium Chloride Carbon Dioxide Anion Gap BUN Creatinine Estimated GFR BUN/Creatinine Ratio Glucose POC Glucose 168 H 223 H 359 H Calcium Assessment and Plan GI Attending: I have performed a face to face evaluation on Mr. Hannah and agree with the above note of Justyna Velásquez NP. Pt with chronic, intermittent diarrhea; infectious w/u thus far neg. Will need to consider colonoscopy in next 1-2 days if he does not improve; would ensure to evaluate for IBD, Microscopic Colitis, etc.
[2016-11-23] MEDS: ROCEPHIN/NS 1 GM/50 ML 50 ML IV SCH (09:43)
[2016-11-23] MEDS: LOPRESSOR PO SCH ×2 (09:44→21:32)
[2016-11-23] MEDS: BABY ASPIRIN PO SCH (09:44)
[2016-11-23] MEDS: CORDARONE PO SCH (09:44)
[2016-11-23] MEDS: LOVENOX SUB-Q SCH (09:44)
[2016-11-23] MEDS: PEPCID PO SCH (09:45)
[2016-11-23] MEDS: KCL 10MEQ/100ML 100 ML IV SCH ×4 (12:24→17:25)
--- NOTE | 2016-11-23 12:28 | Progress Note ---
Assessment and Plan Current antibiotics: ceftriaxone 1gm iv Q24H (11/22 Previous antibiotics: Vancomycin IV (11/17) Flagyl 500 mg IV q8h (11/17-11/18) Meropenem 500 mg IV q6h 11/17 -11/18 Zosyn 3.375 g IV q6h (11/17) ASSESSMENT: Ileana Hannah is a 56 y/o male with HTN, DM 2, HLD, anemia, CKD, GERD, depression, and alcohol abuse who had been recently hospitalized at the [facility] with pneumonia (10/25- 11/08/16) and now is admitted to [facility] on with generalized weakness and worsening shortness of breath, and diarrhea. Problem list: 1. Bilateral pulmonary infiltrates/effusion -patient without clinical symptoms of pneumonia --his wbc is 14 which is lower than before, patient remains afebrile 2. Atrial fibrillation -Present on admission -Now in NSR 3. Hx of recent pneumonia - [place] hospitalization 10/25-11/08/16 - R/O sepsis - Blood and urine cultures negative and patient has been afebrile 4. Diarrhea - CT scan with ascending colon wall thickening -C. difficile assay negative on 11/19 -patient said he had 2 bowel movement yesterday that was watery but has not had any bowel movement today --if this was an infectious diarrhea I would expect it to get worse and not better without treatment 5. Leukocytosis -Reactive -Secondary to #1 --decreased compared to initial presentation PLAN: 1. Ceftriaxone started by pulmonary 2. repeat chest xray Subjective Date of service: 11/23/16 Principal diagnosis: Acute Hypoxemic Respiratory Failure; Acute pulmonary Edema Interval history: Patient seen in bed comfortable, no new complaints. He does not have a cough, no fevers. He had only 2 bowel movements yesterday and none today Objective - Constitutional Vitals: Selected Entries 11/23/16 11/23/16 07:30 07:52 Temperature 98.4 F Pulse Rate [ 91 H Anterior Bilateral Throughout] Respiratory 18 Rate [Anterior Bilateral Throughout] Blood Pressure 146/82 [Left Arm] Blood Pressure 103 Mean [Left Arm] General appearance: Present: no acute distress, well-nourished - EENT Eyes: PERRL, EOM intact, no scleral icterus, no conjunctival injection ENT: hearing intact, clear oral mucosa Ears: bilateral: normal - Neck Neck: supple, normal ROM, no enlarged thyroid, no masses or JVD - Respiratory Respiratory effort: normal Respiratory: bilateral: rales - Breasts Breasts: deferred - Cardiovascular Rhythm: regular Heart Sounds: Present: S1 & S2 Extremities: no ischemia Extremity abnormal: edema - Gastrointestinal General gastrointestinal: Present: soft, non-tender, normal bowel sounds Rectal Exam: deferred - Genitourinary Male genitourinary: deferred - Integumentary Integumentary: clear, warm, dry, no jaundice, no rash - Musculoskeletal Musculoskeletal: strength equal bilaterally - Neurologic Neurologic: moves all extremities - Psychiatric Psychiatric: appropriate mood/affect, cooperative - Labs CBC & Chem 7: 11/23/16 06:00 11/23/16 06:00 Labs: Microbiology 11/17/16 Unknown Peripheral/Venous Blood Culture - Final NO GROWTH AFTER 5 DAYS 11/17/16 Unknown Peripheral/Venous Blood Culture - Final NO GROWTH AFTER 5 DAYS 11/17/16 15:29 Urine,Catheterized - Straight Catheter Urine Culture - Final NO GROWTH AFTER 48 HOURS Laboratory Tests 11/17/16 11/23/16 11/23/16 15:29 06:00 06:00 WBC 14.6 H Plt Count 258 Potassium 2.8 L* Creatinine 1.4 Estimated GFR > 60 Urine WBC (Auto) 2.0
--- NOTE | 2016-11-23 13:50 | XRay Report ---
CHEST 2 VIEWS INDICATION: Pneumonia. COMPARISON: 11/09/2016 FINDINGS: Frontal and lateral chest radiographs again demonstrate right IJ catheter tip about the cavoatrial junction. Stable cardiomediastinal silhouette with slight improved bronchovascular prominence centrally, though some congestive hazy air space opacities in the lower lung zones persist with partially obscured left hemidiaphragm medially. Tiny pleural effusions may also be present. Minimal fluid or thickening along the fissures. Stable bones. CONCLUSION: Overall improving pulmonary edema radiographically, as described. Please correlate. Thank you for the opportunity to participate in this patient's care.
--- NOTE | 2016-11-23 14:58 | Progress Note ---
Assessment and Plan Patient awake, weak. Resting on nasal canula 3 litres O2. O2 satuaration 99% I was told patient scheduled for stress test tomorrow.. - Patient Problems (1) Acute hypoxemic respiratory failure Current Visit: Yes Status: Acute Plan to address problem: O2 supplementation 3 litres O2. Recommend Brovanna aerosol treatments q 12 hours. (2) Bilateral pneumonia Current Visit: Yes Status: Acute Qualifiers: Pneumonia type: due to unspecified organism Lung location: lower lobe of lung Qualified Code(s): J18.9 - Pneumonia, unspecified organism Plan to address problem: Recommend ceftrioxone and Zithromax. 11/22/16 Patient started on ceftrioxone. Not started no Zithromax because of drug interactions. (3) Nonsustained ventricular tachycardia Current Visit: Yes Status: Acute Plan to address problem: Management as per cardiology. (4) Pulmonary edema w/congestive heart failure w/preserved LV function Current Visit: Yes Status: Acute Plan to address problem: Management as per cardiology. Subjective Date of service: 11/23/16 Principal diagnosis: Acute Hypoxemic Respiratory Failure; Acute pulmonary Edema Interval history: Patient awake, weak. Resting on nasal canula 3 litres O2. O2 satuaration 99%. I was told patient scheduled for stress test tomorrow. Objective Vital Signs - 12hr 11/23/16 11/23/16 11/23/16 04:05 07:30 07:37 Temperature 98.1 F 98.4 F Pulse Rate [ 89 Anterior Bilateral Throughout] Pulse Rate [ 91 H Left Radial] Pulse Rate [ 89 Right Radial] Respiratory 20 20 Rate Respiratory 18 Rate [Anterior Bilateral Throughout] Blood Pressure 122/61 146/82 [Left Arm] O2 Sat by Pulse 95 97 Oximetry 11/23/16 11/23/16 11/23/16 07:39 07:52 11:30 Temperature 98.3 F Pulse Rate [ 91 H Anterior Bilateral Throughout] Pulse Rate [ Left Radial] Pulse Rate [ 86 Right Radial] Respiratory 18 Rate Respiratory 18 Rate [Anterior Bilateral Throughout] Blood Pressure 128/75 [Left Arm] O2 Sat by Pulse 97 97 Oximetry Constitutional: no acute distress Eyes: non-icteric ENT: oropharynx moist Neck: supple, no lymphadenopathy Effort: mildly labored Ascultation: Bilateral: diminished breath sounds (bases), rales (basilar predominant) Cardiovascular: regular rate and rhythm Gastrointestinal: normoactive bowel sounds, soft, non-tender, non-distended Integumentary: other (left leg swelling) Extremities: no cyanosis, pulses normal, no ischemia or petechiae, edema (left leg) Neurologic: normal mental status, non-focal exam (grossly), pupils equal and round, motor strength normal and Psychiatric: mood appropriate, affect normal CBC and BMP: 11/23/16 06:00 11/23/16 20:25 ABG, PT/INR, D-dimer: ABG POC ABG pH 7.483 (7.35-7.45) H 11/17/16 13:00 POC ABG pCO2 27.0 (35-45) L 11/17/16 13:00 POC ABG pO2 55 (80-105) L 11/17/16 13:00 POC ABG HCO3 20.2 11/17/16 13:00 POC ABG Total CO2 21 11/17/16 13:00 POC ABG O2 Sat 91 11/17/16 13:00 PT/INR, D-dimer PT 14.4 Sec. (12.2-14.9) 11/17/16 Unknown INR 1.13 (0.87-1.13) 11/17/16 Unknown Abnormal lab findings: Abnormal Labs 11/17/16 11/17/16 11/17/16 17:07 17:43 17:43 WBC RBC Hgb Hct MCHC RDW Lymph % (Auto) [place] # Seg Neutrophils % Seg Neuts % (Manual) Lymphocytes % (Manual) Seg Neutrophils # Seg Neutrophils # Man Lymphocytes # (Manual) Sodium 136 L Potassium Chloride Carbon Dioxide Glucose 166 H POC Glucose 153 H Hemoglobin A1c Lactic Acid Calcium 7.5 L Magnesium Total Creatine Kinase CK-MB (CK-2) Rel Index Troponin T 0.352 H* D C-Reactive Protein NT-Pro-B Natriuret Pep Total Protein Albumin LDL Cholesterol Direct Lipase 11/17/16 11/17/16 11/17/16 Unknown Unknown Unknown WBC 25.7 H RBC 2.89 L Hgb 8.5 L Hct 26.2 L MCHC RDW 16.3 H Lymph % (Auto) [place] # Seg Neutrophils % Seg Neuts % (Manual) 90.0 H Lymphocytes % (Manual) 7.0 L Seg Neutrophils # Seg Neutrophils # Man 23.1 H Lymphocytes # (Manual) Sodium 135 L Potassium 2.5 L* Chloride 95.4 L Carbon Dioxide Glucose 132 H POC Glucose Hemoglobin A1c Lactic Acid 2.1 H* Calcium 7.7 L Magnesium Total Creatine Kinase CK-MB (CK-2) Rel Index Troponin T 0.066 H C-Reactive Protein NT-Pro-B Natriuret Pep Total Protein Albumin 2.5 L LDL Cholesterol Direct 39 L Lipase 76 H 11/17/16 11/18/16 11/18/16 Unknown 00:20 01:25 WBC RBC Hgb Hct MCHC RDW Lymph % (Auto) [place] # Seg Neutrophils % Seg Neuts % (Manual) Lymphocytes % (Manual) Seg Neutrophils # Seg Neutrophils # Man Lymphocytes # (Manual) Sodium Potassium Chloride Carbon Dioxide Glucose POC Glucose 290 H Hemoglobin A1c 7.9 H Lactic Acid Calcium Magnesium Total Creatine Kinase 23 L CK-MB (CK-2) Rel Index 11.3 H Troponin T C-Reactive Protein NT-Pro-B Natriuret Pep Total Protein Albumin LDL Cholesterol Direct Lipase 11/18/16 11/18/16 11/18/16 01:25 01:25 08:00 WBC RBC Hgb Hct MCHC RDW Lymph % (Auto) [place] # Seg Neutrophils % Seg Neuts % (Manual) Lymphocytes % (Manual) Seg Neutrophils # Seg Neutrophils # Man Lymphocytes # (Manual) Sodium 136 L Potassium Chloride Carbon Dioxide 21 L 20 L Glucose 169 H 120 H POC Glucose Hemoglobin A1c Lactic Acid Calcium 7.3 L 7.6 L Magnesium 1.5 L Total Creatine Kinase CK-MB (CK-2) Rel Index Troponin T C-Reactive Protein NT-Pro-B Natriuret Pep Total Protein 6.0 L Albumin 2.4 L LDL Cholesterol Direct Lipase 11/18/16 11/18/16 11/18/16 08:00 08:28 11:21 WBC RBC Hgb Hct MCHC RDW Lymph % (Auto) [place] # Seg Neutrophils % Seg Neuts % (Manual) Lymphocytes % (Manual) Seg Neutrophils # Seg Neutrophils # Man Lymphocytes # (Manual) Sodium Potassium Chloride Carbon Dioxide Glucose POC Glucose 145 H 203 H Hemoglobin A1c Lactic Acid Calcium Magnesium Total Creatine Kinase CK-MB (CK-2) Rel Index Troponin T C-Reactive Protein 6.40 H NT-Pro-B Natriuret Pep Total Protein Albumin LDL Cholesterol Direct Lipase 11/18/16 11/18/16 11/19/16 16:17 21:46 02:45 WBC RBC Hgb Hct MCHC RDW Lymph % (Auto) [place] # Seg Neutrophils % Seg Neuts % (Manual) Lymphocytes % (Manual) Seg Neutrophils # Seg Neutrophils # Man Lymphocytes # (Manual) Sodium Potassium Chloride Carbon Dioxide Glucose POC Glucose 259 H 335 H Hemoglobin A1c Lactic Acid Calcium Magnesium Total Creatine Kinase CK-MB (CK-2) Rel Index Troponin T C-Reactive Protein NT-Pro-B Natriuret Pep 2949 H Total Protein Albumin LDL Cholesterol Direct Lipase 11/19/16 11/19/16 11/19/16 07:45 11:38 15:56 WBC RBC Hgb Hct MCHC RDW Lymph % (Auto) [place] # Seg Neutrophils % Seg Neuts % (Manual) Lymphocytes % (Manual) Seg Neutrophils # Seg Neutrophils # Man Lymphocytes # (Manual) Sodium Potassium Chloride Carbon Dioxide Glucose POC Glucose 238 H 229 H 248 H Hemoglobin A1c Lactic Acid Calcium Magnesium Total Creatine Kinase CK-MB (CK-2) Rel Index Troponin T C-Reactive Protein NT-Pro-B Natriuret Pep Total Protein Albumin LDL Cholesterol Direct Lipase 11/19/16 11/20/16 11/20/16 21:58 04:30 04:30 WBC 14.2 H RBC 2.38 L Hgb 7.5 L Hct 21.7 L MCHC 35 H RDW 16.2 H Lymph % (Auto) [place] # Seg Neutrophils % Seg Neuts % (Manual) 86.0 H Lymphocytes % (Manual) 6.0 L Seg Neutrophils # Seg Neutrophils # Man 12.2 H Lymphocytes # (Manual) 0.9 L Sodium Potassium 3.5 L Chloride Carbon Dioxide 19 L Glucose 110 H POC Glucose 164 H Hemoglobin A1c Lactic Acid Calcium 8.0 L Magnesium Total Creatine Kinase CK-MB (CK-2) Rel Index Troponin T C-Reactive Protein NT-Pro-B Natriuret Pep Total Protein Albumin LDL Cholesterol Direct Lipase 11/20/16 11/20/16 11/20/16 04:30 07:52 11:35 WBC RBC Hgb Hct MCHC RDW Lymph % (Auto) [place] # Seg Neutrophils % Seg Neuts % (Manual) Lymphocytes % (Manual) Seg Neutrophils # Seg Neutrophils # Man Lymphocytes # (Manual) Sodium Potassium Chloride Carbon Dioxide Glucose POC Glucose 113 H 194 H Hemoglobin A1c Lactic Acid Calcium Magnesium 1.4 L Total Creatine Kinase CK-MB (CK-2) Rel Index Troponin T C-Reactive Protein NT-Pro-B Natriuret Pep Total Protein Albumin LDL Cholesterol Direct Lipase 11/20/16 11/20/16 11/21/16 15:32 21:08 06:20 WBC RBC Hgb Hct MCHC RDW Lymph % (Auto) [place] # Seg Neutrophils % Seg Neuts % (Manual) Lymphocytes % (Manual) Seg Neutrophils # Seg Neutrophils # Man Lymphocytes # (Manual) Sodium Potassium Chloride Carbon Dioxide Glucose POC Glucose 179 H 204 H Hemoglobin A1c Lactic Acid Calcium Magnesium 1.5 L Total Creatine Kinase CK-MB (CK-2) Rel Index Troponin T C-Reactive Protein NT-Pro-B Natriuret Pep Total Protein Albumin LDL Cholesterol Direct Lipase 11/21/16 11/21/16 11/21/16 07:53 11:22 16:16 WBC RBC Hgb Hct MCHC RDW Lymph % (Auto) [place] # Seg Neutrophils % Seg Neuts % (Manual) Lymphocytes % (Manual) Seg Neutrophils # Seg Neutrophils # Man Lymphocytes # (Manual) Sodium Potassium Chloride Carbon Dioxide Glucose POC Glucose 193 H 260 H 315 H Hemoglobin A1c Lactic Acid Calcium Magnesium Total Creatine Kinase CK-MB (CK-2) Rel Index Troponin T C-Reactive Protein NT-Pro-B Natriuret Pep Total Protein Albumin LDL Cholesterol Direct Lipase 11/21/16 11/22/16 11/22/16 20:57 05:49 05:49 WBC 13.2 H RBC 2.52 L Hgb 7.3 L Hct 22.5 L MCHC RDW 16.0 H Lymph % (Auto) 9.8 L [place] # 1.0 H Seg Neutrophils % 81.3 H Seg Neuts % (Manual) Lymphocytes % (Manual) Seg Neutrophils # 10.7 H Seg Neutrophils # Man Lymphocytes # (Manual) Sodium Potassium 2.6 L* D Chloride Carbon Dioxide 21 L Glucose 188 H POC Glucose 311 H Hemoglobin A1c Lactic Acid Calcium 7.6 L Magnesium Total Creatine Kinase CK-MB (CK-2) Rel Index Troponin T C-Reactive Protein NT-Pro-B Natriuret Pep Total Protein Albumin LDL Cholesterol Direct Lipase 11/22/16 11/22/16 11/22/16 07:28 11:22 22:53 WBC RBC Hgb Hct MCHC RDW Lymph % (Auto) [place] # Seg Neutrophils % Seg Neuts % (Manual) Lymphocytes % (Manual) Seg Neutrophils # Seg Neutrophils # Man Lymphocytes # (Manual) Sodium Potassium Chloride Carbon Dioxide Glucose POC Glucose 223 H 462 H 181 H Hemoglobin A1c Lactic Acid Calcium Magnesium Total Creatine Kinase CK-MB (CK-2) Rel Index Troponin T C-Reactive Protein NT-Pro-B Natriuret Pep Total Protein Albumin LDL Cholesterol Direct Lipase 11/23/16 11/23/16 11/23/16 06:00 06:00 07:48 WBC 14.6 H RBC 2.49 L Hgb 7.4 L Hct 22.2 L MCHC RDW 16.0 H Lymph % (Auto) 10.4 L [place] # 1.0 H Seg Neutrophils % 80.8 H Seg Neuts % (Manual) Lymphocytes % (Manual) Seg Neutrophils # 11.8 H Seg Neutrophils # Man Lymphocytes # (Manual) Sodium 136 L Potassium 2.8 L* Chloride Carbon Dioxide 20 L Glucose 159 H POC Glucose 168 H Hemoglobin A1c Lactic Acid Calcium 7.6 L Magnesium Total Creatine Kinase CK-MB (CK-2) Rel Index Troponin T C-Reactive Protein NT-Pro-B Natriuret Pep Total Protein Albumin LDL Cholesterol Direct Lipase 11/23/16 11:02 WBC RBC Hgb Hct MCHC RDW Lymph % (Auto) [place] # Seg Neutrophils % Seg Neuts % (Manual) Lymphocytes % (Manual) Seg Neutrophils # Seg Neutrophils # Man Lymphocytes # (Manual) Sodium Potassium Chloride Carbon Dioxide Glucose POC Glucose 223 H Hemoglobin A1c Lactic Acid Calcium Magnesium Total Creatine Kinase CK-MB (CK-2) Rel Index Troponin T C-Reactive Protein NT-Pro-B Natriuret Pep Total Protein Albumin LDL Cholesterol Direct Lipase Chest x-ray: report reviewed (Reported improving pulmonary edema.), image reviewed
--- NOTE | 2016-11-23 15:23 | Progress Note ---
Addendum entered and electronically signed by GEOVANY TRENT MD 11/23/16 19:19 : Persantine thallium in the a.m. for cardiac ischemia assessment. Original Note: Assessment and Plan Pneumonia Afib, paroxysmal potassium 2.5 on presentation reverted to sinus rhythm with a LBBB NSVT, paroxysmal Anemia Diabetes mellitus Echocardiogram reports a normal left ventricle systolic function with ejection fraction 60%, no significant valvular lesions, normal size right heart chambers with only mild pulmonary hypertension. Recommend: Continue metoprolol and amiodarone for suppression of wide complex arrhythmias. Will hold on anticoagulation for paroxysmal afib until his blood counts are stable. Will get a stress thallium tomorrow morning for further cardiac evaluation. Subjective Date of service: 11/23/16 Principal diagnosis: Acute Hypoxemic Respiratory Failure; Acute pulmonary Edema Interval history: Patient appears better. He is sitting up in bedside chair. He denies shortness of breath and chest pain. Objective Vital Signs Temp Pulse Pulse Pulse Pulse Pulse Resp 11/23/16 11:30 98.3 F 86 18 11/23/16 07:52 91 H 11/23/16 07:39 11/23/16 07:37 89 11/23/16 07:30 98.4 F 89 20 11/23/16 04:05 98.1 F 91 H 20 11/23/16 00:20 98.7 F 82 20 11/22/16 21:53 98.6 F 100 H 18 11/22/16 21:44 20 11/22/16 21:43 100 H 11/22/16 20:25 94 H 11/22/16 20:23 11/22/16 20:20 91 H Resp Resp BP BP Pulse Ox 11/23/16 11:30 128/75 97 11/23/16 07:52 18 11/23/16 07:39 97 11/23/16 07:37 18 11/23/16 07:30 146/82 97 11/23/16 04:05 122/61 95 11/23/16 00:20 120/64 98 11/22/16 21:53 156/71 11/22/16 21:44 11/22/16 21:43 156/71 11/22/16 20:25 16 11/22/16 20:23 93 11/22/16 20:20 16 - Physical Examination General: No Apparent Distress HEENT: Positive: PERRL Neck: Positive: trachea midline Neuro: Positive: Grossly Intact, Weakness, No Lateralizing Findings Abdomen: Positive: Unremarkable /Rectal: Normal Prostate Extremities: Absent: edema - Labs and Meds CBC 11/23/16 Range/Units 06:00 WBC 14.6 H (4.5-11.0) K/mm3 RBC 2.49 L (3.65-5.03) M/mm3 Hgb 7.4 L (11.8-15.2) gm/dl Hct 22.2 L (35.5-45.6) % Plt Count 258 (140-440) K/mm3 Lymph # 1.5 (1.2-5.4) K/mm3 [place] # 1.0 H (0.0-0.8) K/mm3 Eos # 0.2 (0.0-0.4) K/mm3 Baso # 0.1 (0.0-0.1) K/mm3 Comprehensive Metabolic Panel 11/23/16 Range/Units 06:00 Sodium 136 L (137-145) mmol/L Potassium 2.8 L* (3.6-5.0) mmol/L Chloride 98.8 (98-107) mmol/L Carbon Dioxide 20 L (22-30) mmol/L BUN 11 (9-20) mg/dL Creatinine 1.4 (0.8-1.5) mg/dL Glucose 159 H (75-100) mg/dL Calcium 7.6 L (8.4-10.2) mg/dL
--- NOTE | 2016-11-23 17:34 | Progress Note ---
Assessment and Plan Assessment and plan: Patient is a 56y/o AA male with a known history of HTN, DM 2, HLD, anemia, CKD, GERD, depression, and alcohol abuse who had been recently hospitalized at the [facility] with pneumonia (10/25- 11/08/16) and now presents for admission to on 11/17/16 with generalized weakness and worsening shortness of breath, and diarrhea. Patient was noted to have CHF, and started on diuresis along with antibiotics for Bilateral Pneumonia. 1. Sepsis. Patient with bilateral pneumonia and leukocytosis. Improved. Continue to on Ceftriaxone. ID following. 2. Colitis. Patient with significant diarrhea that is somewhat improved. CT scan with ascending colon wall thickening. C. difficile assay negative. Flagyl discontinued. If no improvement consider GI consultation for possible colonoscopy. 3. Healthcare associated Bilateral pneumonia with hypoxemic Respiratory failure. Patient with recent [facility] hospitalization from 10/25-11/08/16 for pneumonia. Continue to follow serial chest x-ray. ID following. 4. Paroxysmal Atrial fibrillation. Cardiology following. Echocardiogram revealed normal LV size and function. EF 60%. Anticoagulation on hold due to anemia. Continue metoprolol and amiodarone. cardiology plans for stress test in am. Continue Brovanna 5. Acute hypoxic respiratory failure. Etiology secondary to above. Continue O2 and BiPAP as needed. Pulmonary following. 6. Anemia. continue to hold anticoagulation untill stable. Etiology likely multifactorial. Continue follow H&H. Transfuse for hemoglobin less than 7.0. Check Hemoccult of stool. 7. Hypertension. Continue antihypertensive medications. 8. Diabetes mellitus type 2. Continue Accu-Cheks and sliding scale insulin. 9. Hyperlipidemia. Continue medications. 10. Chronic kidney disease. Creatinine appears to be stable. Continue to monitor BMP closely. 11. Hypokalemia. Replete potassium. will give Kcl rider Recheck BMP in morning. 13. DVT prophylaxis. History Interval history: Patient seen and examined this morning in no acute distress Denies any chest pain, nausea, vomiting, diarrhea No fever noted blood pressure controlled No adverse events reported to me by nursing staff Hospitalist Physical - Physical exam Narrative exam: VITAL SIGNS: Reviewed. GENERAL: The patient appeared well nourished and normally developed. Vital signs as documented. HEAD: No signs of head trauma. EYES: Pupils are equal. Extraocular motions intact. EARS: Hearing grossly intact. MOUTH: Oropharynx is normal. NECK: No adenopathy, no JVD. CHEST: Chest with bibasilar crackles. CARDIAC: Regular rate and rhythm. S1 and S2, without murmurs, gallops, or rubs. VASCULAR: No Edema. Peripheral pulses normal and equal in all extremities. ABDOMEN: Soft, without detectable tenderness. No sign of distention. No rebound or guarding, and no masses palpated. Bowel Sounds normal. MUSCULOSKELETAL: Good range of motion of all major joints. Extremities without clubbing, cyanosis or edema. NEUROLOGIC EXAM: Alert and oriented x 3. No focal sensory or strength deficits. Speech normal. Follows commands. PSYCHIATRIC: Mood normal. SKIN: No rash or lesions. - Constitutional Vitals: Temp Pulse Resp BP Pulse Ox 98.3 F 86 18 128/75 97 11/23/16 11:30 11/23/16 11:30 11/23/16 11:30 11/23/16 11:30 11/23/16 11:30 General appearance: Present: no acute distress, well-nourished Results - Labs CBC & Chem 7: 11/23/16 06:00 11/23/16 06:00 Labs: Laboratory Last Values WBC 14.6 K/mm3 (4.5-11.0) H 11/23/16 06:00 RBC 2.49 M/mm3 (3.65-5.03) L 11/23/16 06:00 Hgb 7.4 gm/dl (11.8-15.2) L 11/23/16 06:00 Hct 22.2 % (35.5-45.6) L 11/23/16 06:00 MCV 89 fl (84-94) 11/23/16 06:00 MCH 30 pg (28-32) 11/23/16 06:00 MCHC 34 % (32-34) 11/23/16 06:00 RDW 16.0 % (13.2-15.2) H 11/23/16 06:00 Plt Count 258 K/mm3 (140-440) 11/23/16 06:00 Lymph % (Auto) 10.4 % (13.4-35.0) L 11/23/16 06:00 [place] % (Auto) 7.1 % (0.0-7.3) 11/23/16 06:00 Eos % (Auto) 1.1 % (0.0-4.3) 11/23/16 06:00 Baso % (Auto) 0.6 % (0.0-1.8) 11/23/16 06:00 Lymph # 1.5 K/mm3 (1.2-5.4) 11/23/16 06:00 [place] # 1.0 K/mm3 (0.0-0.8) H 11/23/16 06:00 Eos # 0.2 K/mm3 (0.0-0.4) 11/23/16 06:00 Baso # 0.1 K/mm3 (0.0-0.1) 11/23/16 06:00 Add Manual Diff Complete 11/20/16 04:30 Total Counted 100 11/20/16 04:30 Seg Neutrophils % 80.8 % (40.0-70.0) H 11/23/16 06:00 Seg Neuts % (Manual) 86.0 % (40.0-70.0) H 11/20/16 04:30 Band Neutrophils % 4.0 % 11/20/16 04:30 Lymphocytes % (Manual) 6.0 % (13.4-35.0) L 11/20/16 04:30 Reactive Lymphs % (Man) 0 % 11/20/16 04:30 Monocytes % (Manual) 1.0 % (0.0-7.3) 11/20/16 04:30 Eosinophils % (Manual) 2.0 % (0.0-4.3) 11/20/16 04:30 Basophils % (Manual) 1.0 % (0.0-1.8) 11/20/16 04:30 Metamyelocytes % 0 % 11/20/16 04:30 Myelocytes % 0 % 11/20/16 04:30 Promyelocytes % 0 % 11/20/16 04:30 Blast Cells % 0 % 11/20/16 04:30 Nucleated RBC % Not Reportable 11/20/16 04:30 Seg Neutrophils # 11.8 K/mm3 (1.8-7.7) H 11/23/16 06:00 Seg Neutrophils # Man 12.2 K/mm3 (1.8-7.7) H 11/20/16 04:30 Band Neutrophils # 0.6 K/mm3 11/20/16 04:30 Lymphocytes # (Manual) 0.9 K/mm3 (1.2-5.4) L 11/20/16 04:30 Abs React Lymphs (Man) 0.0 K/mm3 11/20/16 04:30 Monocytes # (Manual) 0.1 K/mm3 (0.0-0.8) 11/20/16 04:30 Eosinophils # (Manual) 0.3 K/mm3 (0.0-0.4) 11/20/16 04:30 Basophils # (Manual) 0.1 K/mm3 (0.0-0.1) 11/20/16 04:30 Metamyelocytes # 0.0 K/mm3 11/20/16 04:30 Myelocytes # 0.0 K/mm3 11/20/16 04:30 Promyelocytes # 0.0 K/mm3 11/20/16 04:30 Blast Cells # 0.0 K/mm3 11/20/16 04:30 WBC Morphology Not Reportable 11/20/16 04:30 Hypersegmented Neuts Not Reportable 11/20/16 04:30 Hyposegmented Neuts Not Reportable 11/20/16 04:30 Hypogranular Neuts Not Reportable 11/20/16 04:30 Smudge Cells Not Reportable 11/20/16 04:30 Toxic Granulation Not Reportable 11/20/16 04:30 Toxic Vacuolation Not Reportable 11/20/16 04:30 Dohle Bodies Not Reportable 11/20/16 04:30 Pelger-Huet Anomaly Not Reportable 11/20/16 04:30 Boo Rods Not Reportable 11/20/16 04:30 Platelet Estimate Appears normal 11/20/16 04:30 Clumped Platelets Not Reportable 11/20/16 04:30 Plt Clumps, EDTA Not Reportable 11/20/16 04:30 Large Platelets Not Reportable 11/20/16 04:30 Giant Platelets Not Reportable 11/20/16 04:30 Platelet Satelliting Not Reportable 11/20/16 04:30 Plt Morphology Comment Not Reportable 11/20/16 04:30 RBC Morphology Not Reportable 11/20/16 04:30 Dimorphic RBCs Not Reportable 11/20/16 04:30 Polychromasia Not Reportable 11/20/16 04:30 Hypochromasia Not Reportable 11/20/16 04:30 Poikilocytosis Not Reportable 11/20/16 04:30 Anisocytosis Rare 11/20/16 04:30 Microcytosis Not Reportable 11/20/16 04:30 Macrocytosis Not Reportable 11/20/16 04:30 Spherocytes Not Reportable 11/20/16 04:30 Pappenheimer Bodies Not Reportable 11/20/16 04:30 Sickle Cells Not Reportable 11/20/16 04:30 Target Cells Not Reportable 11/20/16 04:30 Tear Drop Cells Not Reportable 11/20/16 04:30 Ovalocytes Not Reportable 11/20/16 04:30 Helmet Cells Not Reportable 11/20/16 04:30 [place] Bodies Not Reportable 11/20/16 04:30 [place] Rings Not Reportable 11/20/16 04:30 [place] Cells Not Reportable 11/20/16 04:30 Bite Cells Not Reportable 11/20/16 04:30 Crenated Cell Not Reportable 11/20/16 04:30 Elliptocytes Not Reportable 11/20/16 04:30 Acanthocytes (Spur) Not Reportable 11/20/16 04:30 Rouleaux Not Reportable 11/20/16 04:30 Hemoglobin C Crystals Not Reportable 11/20/16 04:30 Schistocytes Not Reportable 11/20/16 04:30 Malaria parasites Not Reportable 11/20/16 04:30 Tan Bodies Not Reportable 11/20/16 04:30 Hem Pathologist Commnt No 11/20/16 04:30 PT 14.4 Sec. (12.2-14.9) 11/17/16 Unknown INR 1.13 (0.87-1.13) 11/17/16 Unknown POC ABG pH 7.483 (7.35-7.45) H 11/17/16 13:00 POC ABG pCO2 27.0 (35-45) L 11/17/16 13:00 POC ABG pO2 55 (80-105) L 11/17/16 13:00 POC ABG HCO3 20.2 11/17/16 13:00 POC ABG Total CO2 21 11/17/16 13:00 POC ABG O2 Sat 91 11/17/16 13:00 POC ABG Base Excess -3 11/17/16 13:00 FiO2 100 % 11/17/16 13:00 Sodium 136 mmol/L (137-145) L 11/23/16 06:00 Potassium 2.8 mmol/L (3.6-5.0) L* 11/23/16 06:00 Chloride 98.8 mmol/L (98-107) 11/23/16 06:00 Carbon Dioxide 20 mmol/L (22-30) L 11/23/16 06:00 Anion Gap 20 mmol/L 11/23/16 06:00 BUN 11 mg/dL (9-20) 11/23/16 06:00 Creatinine 1.4 mg/dL (0.8-1.5) 11/23/16 06:00 Estimated GFR > 60 ml/min 11/23/16 06:00 BUN/Creatinine Ratio 7.85 % 11/23/16 06:00 Glucose 159 mg/dL (75-100) H 11/23/16 06:00 POC Glucose 359 (70-105) H 11/23/16 16:15 Hemoglobin A1c 7.9 % (4-6) H 11/18/16 01:25 Lactic Acid 0.9 mmol/L (0.7-2.0) 11/19/16 05:55 Calcium 7.6 mg/dL (8.4-10.2) L 11/23/16 06:00 Magnesium 1.5 mg/dL (1.7-2.3) L 11/21/16 06:20 Total Bilirubin 0.5 mg/dL (0.1-1.2) 11/18/16 08:00 Direct Bilirubin < 0.2 mg/dL (0-0.2) 11/17/16 Unknown Indirect Bilirubin 0.5 mg/dL 11/17/16 Unknown AST 20 units/L (5-40) 11/18/16 08:00 ALT 13 units/L (7-56) 11/18/16 08:00 Alkaline Phosphatase 110 units/L (35-129) 11/18/16 08:00 Ammonia 43.0 umol/L (25-60) 11/17/16 Unknown Total Creatine Kinase 23 units/L (55-170) L 11/17/16 Unknown CK-MB (CK-2) 2.6 ng/mL (0.0-4.0) 11/17/16 Unknown CK-MB (CK-2) Rel Index 11.3 (0-4) H 11/17/16 Unknown Troponin T 0.066 ng/mL (0.00-0.029) H 11/17/16 Unknown C-Reactive Protein 6.40 mg/dL (0.00-1.30) H 11/18/16 08:00 NT-Pro-B Natriuret Pep 2949 pg/mL (0-900) H 11/19/16 02:45 Total Protein 6.0 g/dL (6.3-8.2) L 11/18/16 08:00 Albumin 2.4 g/dL (3.9-5) L 11/18/16 08:00 Albumin/Globulin Ratio 0.7 % 11/18/16 08:00 Triglycerides 138 mg/dL (2-149) 11/17/16 Unknown Cholesterol 111 mg/dL (50-199) 11/17/16 Unknown LDL Cholesterol Direct 39 mg/dL (50-130) L 11/17/16 Unknown HDL Cholesterol 45 mg/dL (40-59) 11/17/16 Unknown Cholesterol/HDL Ratio 2.46 % 11/17/16 Unknown Lipase 76 units/L (13-60) H 11/17/16 Unknown Urine Color Yellow (Yellow) 11/17/16 15: Urine Turbidity Clear (Clear) 11/17/16 15: Urine pH 6.0 (5.0-7.0) 11/17/16 15:29 Ur Specific [place] 1.011 (1.003-1.030) 11/17/16 15: Urine Protein <15 mg/dl mg/dL (Negative) 11/17/16 15: Urine Glucose (UA) 50 mg/dL (Negative) 11/17/16 15: Urine Ketones Neg mg/dL (Negative) 11/17/16 15: Urine Blood Neg (Negative) 11/17/16 15: Urine Nitrite Neg (Negative) 11/17/16 15: Urine Bilirubin Neg (Negative) 11/17/16 15: Urine Urobilinogen < 2.0 mg/dL (<2.0) 11/17/16 15: Ur Leukocyte Esterase Neg (Negative) 11/17/16 15:29 Urine WBC (Auto) 2.0 /HPF (0.0-6.0) 11/17/16 15:29 Urine RBC (Auto) 3.0 /HPF (0.0-6.0) 11/17/16 15:29 Urine Mucus Few /HPF 11/17/16 15:29 - Imaging and Cardiology Chest x-ray: image reviewed (improving )
[2016-11-23] MEDS ORDERED: K-DUR PO ONE (18:00)
[2016-11-24] MEDS: DILAUDID IV PRN ×3 (01:42→21:17)
[2016-11-24] MEDS: LASIX PO SCH ×2 (05:24→21:12)
[2016-11-24] MEDS: BROVANA NEBU IH SCH ×2 (07:15→20:25)
[2016-11-24] MEDS ORDERED: LEXISCAN IV ONE ×2 (08:57→09:00)
[2016-11-24] MEDS: ROCEPHIN/NS 1 GM/50 ML 50 ML IV SCH (11:36)
[2016-11-24] MEDS: LOVENOX SUB-Q SCH (11:41)
[2016-11-24] MEDS: LOPRESSOR PO SCH ×2 (11:47→21:12)
[2016-11-24] MEDS: BABY ASPIRIN PO SCH (11:48)
[2016-11-24] MEDS: PEPCID PO SCH (11:49)
[2016-11-24] MEDS: CORDARONE PO SCH (11:49)
--- NOTE | 2016-11-24 12:53 | Progress Note ---
Assessment and Plan - Patient Problems (1) Pulmonary edema w/congestive heart failure w/preserved LV function Current Visit: Yes Status: Acute Plan to address problem: Patient presented with SOB breath, bilateral infiltrates, consistent with acute pneumonia and possible intercurrent pulmonary edema. Echocardiogram showed normal left ventricular systolic function, ejection fraction 60%, and Persantine thallium stress test is normal. Recommend medical therapy to include diuretics, optimal blood pressure control, and aggressive risk factor modification. (2) Paroxysmal atrial fibrillation Current Visit: Yes Status: Acute Plan to address problem: The patient on presentation with his acute respiratory decompensation, manifested atrial fibrillation with rapid ventricular response. With medical therapy and maintaining his overall clinical status, the atrial fibrillation has reverted to a stable sinus rhythm. We will continue amiodarone, beta blockers for atrial fibrillation suppression. At this time, he is a poor candidate for oral anticoagulation due to persistent, severe anemia with a hematocrit of 22. Recommend spring 81 mg daily , until a full and complete workup of his anemia and hematology all gastroenterology established is that he can be safely anticoagulated. Okay for cardiac discharge. Subjective Date of service: 11/24/16 Principal diagnosis: Acute Hypoxemic Respiratory Failure; Acute pulmonary Edema Interval history: Patient looks and feels better, no cardiac complaints. Persantin thallium stress test today, was normal. Objective Vital Signs Temp Pulse Pulse Pulse Resp Resp BP 11/24/16 11:47 129/66 11/24/16 09:33 106 H 129/66 11/24/16 09:32 105 H 139/64 11/24/16 09:31 104 H 126/63 11/24/16 09:30 105 H 140/64 11/24/16 09:29 105 H 113/59 11/24/16 09:28 101 H 149/78 11/24/16 09:26 96 H 139/74 11/24/16 07:24 91 H 16 11/24/16 07:19 11/24/16 07:15 90 16 11/24/16 04:17 81 11/24/16 04:10 99.0 F 88 20 11/24/16 00:15 98.2 F 76 20 11/23/16 20:05 93 H 20 11/23/16 20:00 98.8 F 92 H 20 11/23/16 19:53 92 H 20 11/23/16 16:30 97 F L 89 16 BP BP Pulse Ox 11/24/16 11:47 11/24/16 09:33 11/24/16 09:32 11/24/16 09:31 11/24/16 09:30 11/24/16 09:29 11/24/16 09:28 11/24/16 09:26 11/24/16 07:24 11/24/16 07:19 98 11/24/16 07:15 11/24/16 04:17 11/24/16 04:10 135/72 99 11/24/16 00:15 117/60 100 11/23/16 20:05 11/23/16 20:00 150/69 97 11/23/16 19:53 99 11/23/16 16:30 140/76 - Physical Examination General: No Apparent Distress HEENT: Positive: PERRL Neck: Positive: trachea midline Cardiac: Positive: Reg Rate and Rhythm Lungs: Positive: Decreased Breath Sounds Neuro: Positive: Grossly Intact, Weakness, No Lateralizing Findings Abdomen: Positive: Unremarkable /Rectal: Normal Prostate Extremities: Absent: edema - Labs and Meds Comprehensive Metabolic Panel 11/23/16 Range/Units 20:25 Potassium 3.7 D (3.6-5.0) mmol/L
--- NOTE | 2016-11-24 16:36 | Progress Note ---
Assessment and Plan Current antibiotics: ceftriaxone 1gm iv Q24H (11/22 Previous antibiotics: Vancomycin IV (11/17) Flagyl 500 mg IV q8h (11/17-11/18) Meropenem 500 mg IV q6h 11/17 -11/18 Zosyn 3.375 g IV q6h (11/17) ASSESSMENT: Ileana Hannah is a 56 y/o male with HTN, DM 2, HLD, anemia, CKD, GERD, depression, and alcohol abuse who had been recently hospitalized at the [facility] with pneumonia (10/25- 11/08/16) and now is admitted to [facility] on with generalized weakness and worsening shortness of breath, and diarrhea. Problem list: 1. Bilateral pulmonary infiltrates/effusion -patient without clinical symptoms of pneumonia --his wbc is 14 which is lower than before, patient remains afebrile -Suspect resolving CHF 2. Atrial fibrillation -Present on admission -Now in NSR 3. Hx of recent pneumonia - CT hospitalization 10/25-11/08/16 - R/O sepsis - Blood and urine cultures negative and patient has been afebrile 4. Diarrhea - CT scan with ascending colon wall thickening -C. difficile assay negative on 11/19 -patient said he had 2 bowel movement yesterday that was watery but has not had any bowel movement today --if this was an infectious diarrhea I would expect it to get worse and not better without treatment 5. Leukocytosis -Reactive -Secondary to #1 --decreased compared to initial presentation PLAN: 1. Would suggest at this point stopping antibiotics. 2. Potassium correction as per Medicine 2. From ID standpoint can otherwise be followed as an outpatient. Subjective Date of service: 11/24/16 Principal diagnosis: Acute Hypoxemic Respiratory Failure; Acute pulmonary Edema Interval history: Describes a "few episodes" of diarrhea. No chest pain, cough or shortness of breath. Objective - Exam Narrative Exam: Well-developed well-nourished appearing. Somewhat tachypneic. HEENT: Pupils are equal reactive to light and accommodation. Conjunctiva clear. Oropharynx is normal with no evidence of oral candidiasis or pharyngitis. NECK: Supple. No enlargement of the thyroid gland. No significant cervical lymphadenopathy. No jugular venous distention at 30. Right IJ catheter in place. LUNGS: Anterior breath sounds clear sounding this a.m. HEART: Regular rate with ectopy. Murmur not heard. ABDOMEN: Soft and nontender. Liver and spleen are not palpably enlarged or tender. No palpable masses. Mildly distended. BS+ EXTREMITIES: No rash,or peripheral lymphadenopathy; 2+ ankle edema SKIN: No other rash, ulcers or wounds. NEUROLOGIC: No focal findings. No tremor. - Constitutional Vitals: Vital Signs Temp Pulse Resp BP Pulse Ox 99.6 F 83 18 126/65 98 11/24/16 16:10 11/24/16 16:10 11/24/16 16:10 11/24/16 16:10 11/24/16 16:10 Temperature -Last 24 Hours Temperature 99.6 F Temperature 98.9 F Temperature 99.0 F Temperature 98.2 F Temperature 98.8 F - Labs CBC & Chem 7: 11/23/16 06:00 11/23/16 20:25 Labs: Abnormal lab results 11/23/16 11/24/16 11/24/16 Range/Units 20:40 07:45 11:52 POC Glucose 331 H 262 H 330 H (70-105) 11/24/16 Range/Units 15:13 POC Glucose 238 H (70-105)
--- NOTE | 2016-11-24 16:42 | Gastroenterology Progress Note ---
Assessment and Plan 1) Diarrhea-unclear etiology, but slowly resolving -Would opt for watch and wait approach, off abx -C. diff neg 2) Distal asc colitis on CT -Pt states that his [facility] -Would not opt to repeat as outpatient -Pt can f/u at the [facility] for consideration of repeat colonoscopy 3) Anemia -Monitor Hb; no overt signs of GI bleeding, so no need for inpatient procedures No further w/u needed at this time. I will stop following daily, but please do not hesitate to contact me with any questions. Thank you! Subjective Date of service: 11/24/16 Principal diagnosis: Diarrhea, colitis on CT, anemia Interval history: Pt seen/examined. Events of last 24hrs noted. C. diff negative, stress test unremarkable. Pt states that stools are not yet completely formed, but describes a mushy consistency. No fevers, chills, nausea/vomiting, CP/SOB. Objective - Constitutional Vitals: Temp Pulse Resp BP Pulse Ox 99.6 F 83 18 126/65 98 11/24/16 16:10 11/24/16 16:10 11/24/16 16:10 11/24/16 16:10 11/24/16 16:10 General appearance: no acute distress - Neck Neck: supple - Respiratory Respiratory: bilateral: CTA - Cardiovascular Rhythm: regular Heart Sounds: Present: S1 & S2 - Extremities Extremities: No edema - Gastrointestinal General gastrointestinal: Present: soft, non-tender, non-distended, normal bowel sounds - Neurologic Neurological: alert and oriented x3 - Psychiatric Psychiatric: appropriate mood/affect - Labs CBC & Chem 7: 11/23/16 06:00 11/23/16 20:25 Labs: Laboratory Results - last 24 hr 11/23/16 11/23/16 11/24/16 20:25 20:40 07:45 Potassium 3.7 D POC Glucose 331 H 262 H 11/24/16 11/24/16 11:52 15:13 Potassium POC Glucose 330 H 238 H - Imaging CT scan: report reviewed
--- NOTE | 2016-11-24 18:31 | Progress Note ---
Assessment and Plan Patient awake, weak. Resting on nasal canula 3 litres O2. O2 satuaration 98% .Patient undergone nuclear perfusion scan. Results pending. - Patient Problems (1) Acute hypoxemic respiratory failure Current Visit: Yes Status: Acute Plan to address problem: O2 supplementation 3 litres O2. Recommend Brovanna aerosol treatments q 12 hours. (2) Bilateral pneumonia Current Visit: Yes Status: Acute Qualifiers: Pneumonia type: due to unspecified organism Lung location: lower lobe of lung Qualified Code(s): J18.9 - Pneumonia, unspecified organism Plan to address problem: Recommend ceftrioxone and Zithromax. 11/22/16 Patient started on ceftrioxone. Not started no Zithromax because of drug interactions. (3) Nonsustained ventricular tachycardia Current Visit: Yes Status: Acute Plan to address problem: Management as per cardiology. (4) Pulmonary edema w/congestive heart failure w/preserved LV function Current Visit: Yes Status: Acute Plan to address problem: Management as per cardiology. Chest xray reported improving pulmonary edema. Subjective Date of service: 11/24/16 Principal diagnosis: Diarrhea, colitis on CT, anemia Interval history: Patient awake, weak. Resting on nasal canula 3 litres O2. O2 satuaration 98% .Patient undergone nuclear perfusion scan. Results pending. Objective Vital Signs - 12hr 11/24/16 11/24/16 11/24/16 07:15 07:19 07:24 Temperature Pulse Rate Pulse Rate [ 90 91 H Anterior Bilateral Throughout] Pulse Rate [ Left Dorsalis Pedis] Pulse Rate [ Right Dorsalis Pedis] Respiratory Rate Respiratory 16 16 Rate [Anterior Bilateral Throughout] Blood Pressure Blood Pressure [Right Radial Artery] O2 Sat by Pulse 98 Oximetry 11/24/16 11/24/16 11/24/16 09:26 09:28 09:29 Temperature Pulse Rate 96 H 101 H 105 H Pulse Rate [ Anterior Bilateral Throughout] Pulse Rate [ Left Dorsalis Pedis] Pulse Rate [ Right Dorsalis Pedis] Respiratory Rate Respiratory Rate [Anterior Bilateral Throughout] Blood Pressure 139/74 149/78 113/59 Blood Pressure [Right Radial Artery] O2 Sat by Pulse Oximetry 11/24/16 11/24/16 11/24/16 09:30 09:31 09:32 Temperature Pulse Rate 105 H 104 H 105 H Pulse Rate [ Anterior Bilateral Throughout] Pulse Rate [ Left Dorsalis Pedis] Pulse Rate [ Right Dorsalis Pedis] Respiratory Rate Respiratory Rate [Anterior Bilateral Throughout] Blood Pressure 140/64 126/63 139/64 Blood Pressure [Right Radial Artery] O2 Sat by Pulse Oximetry 11/24/16 11/24/16 11/24/16 09:33 10:00 11:47 Temperature Pulse Rate 106 H Pulse Rate [ Anterior Bilateral Throughout] Pulse Rate [ 80 Left Dorsalis Pedis] Pulse Rate [ Right Dorsalis Pedis] Respiratory Rate Respiratory Rate [Anterior Bilateral Throughout] Blood Pressure 129/66 129/66 Blood Pressure [Right Radial Artery] O2 Sat by Pulse Oximetry 11/24/16 11/24/16 13:04 16:10 Temperature 98.9 F 99.6 F Pulse Rate Pulse Rate [ Anterior Bilateral Throughout] Pulse Rate [ Left Dorsalis Pedis] Pulse Rate [ 98 H 83 Right Dorsalis Pedis] Respiratory 28 H 18 Rate Respiratory Rate [Anterior Bilateral Throughout] Blood Pressure Blood Pressure 154/76 126/65 [Right Radial Artery] O2 Sat by Pulse 98 98 Oximetry Constitutional: no acute distress Eyes: non-icteric ENT: oropharynx moist Neck: supple, no lymphadenopathy Effort: mildly labored Ascultation: Bilateral: diminished breath sounds (bases), rales (basilar predominant) Cardiovascular: regular rate and rhythm Gastrointestinal: normoactive bowel sounds, soft, non-tender, non-distended Integumentary: other (left leg swelling) Extremities: no cyanosis, pulses normal, no ischemia or petechiae, edema (left leg) Neurologic: normal mental status, non-focal exam (grossly), pupils equal and round, motor strength normal and Psychiatric: mood appropriate, affect normal CBC and BMP: 11/23/16 06:00 11/23/16 20:25 ABG, PT/INR, D-dimer: ABG POC ABG pH 7.483 (7.35-7.45) H 11/17/16 13:00 POC ABG pCO2 27.0 (35-45) L 11/17/16 13:00 POC ABG pO2 55 (80-105) L 11/17/16 13:00 POC ABG HCO3 20.2 11/17/16 13:00 POC ABG Total CO2 21 11/17/16 13:00 POC ABG O2 Sat 91 11/17/16 13:00 PT/INR, D-dimer PT 14.4 Sec. (12.2-14.9) 11/17/16 Unknown INR 1.13 (0.87-1.13) 11/17/16 Unknown Abnormal lab findings: Abnormal Labs 11/17/16 11/17/16 11/17/16 17:07 17:43 17:43 WBC RBC Hgb Hct MCHC RDW Lymph % (Auto) [place] # Seg Neutrophils % Seg Neuts % (Manual) Lymphocytes % (Manual) Seg Neutrophils # Seg Neutrophils # Man Lymphocytes # (Manual) Sodium 136 L Potassium Chloride Carbon Dioxide Glucose 166 H POC Glucose 153 H Hemoglobin A1c Lactic Acid Calcium 7.5 L Magnesium Total Creatine Kinase CK-MB (CK-2) Rel Index Troponin T 0.352 H* D C-Reactive Protein NT-Pro-B Natriuret Pep Total Protein Albumin LDL Cholesterol Direct Lipase 11/17/16 11/17/16 11/17/16 Unknown Unknown Unknown WBC 25.7 H RBC 2.89 L Hgb 8.5 L Hct 26.2 L MCHC RDW 16.3 H Lymph % (Auto) [place] # Seg Neutrophils % Seg Neuts % (Manual) 90.0 H Lymphocytes % (Manual) 7.0 L Seg Neutrophils # Seg Neutrophils # Man 23.1 H Lymphocytes # (Manual) Sodium 135 L Potassium 2.5 L* Chloride 95.4 L Carbon Dioxide Glucose 132 H POC Glucose Hemoglobin A1c Lactic Acid 2.1 H* Calcium 7.7 L Magnesium Total Creatine Kinase CK-MB (CK-2) Rel Index Troponin T 0.066 H C-Reactive Protein NT-Pro-B Natriuret Pep Total Protein Albumin 2.5 L LDL Cholesterol Direct 39 L Lipase 76 H 11/17/16 11/18/16 11/18/16 Unknown 00:20 01:25 WBC RBC Hgb Hct MCHC RDW Lymph % (Auto) [place] # Seg Neutrophils % Seg Neuts % (Manual) Lymphocytes % (Manual) Seg Neutrophils # Seg Neutrophils # Man Lymphocytes # (Manual) Sodium Potassium Chloride Carbon Dioxide Glucose POC Glucose 290 H Hemoglobin A1c 7.9 H Lactic Acid Calcium Magnesium Total Creatine Kinase 23 L CK-MB (CK-2) Rel Index 11.3 H Troponin T C-Reactive Protein NT-Pro-B Natriuret Pep Total Protein Albumin LDL Cholesterol Direct Lipase 11/18/16 11/18/16 11/18/16 01:25 01:25 08:00 WBC RBC Hgb Hct MCHC RDW Lymph % (Auto) [place] # Seg Neutrophils % Seg Neuts % (Manual) Lymphocytes % (Manual) Seg Neutrophils # Seg Neutrophils # Man Lymphocytes # (Manual) Sodium 136 L Potassium Chloride Carbon Dioxide 21 L 20 L Glucose 169 H 120 H POC Glucose Hemoglobin A1c Lactic Acid Calcium 7.3 L 7.6 L Magnesium 1.5 L Total Creatine Kinase CK-MB (CK-2) Rel Index Troponin T C-Reactive Protein NT-Pro-B Natriuret Pep Total Protein 6.0 L Albumin 2.4 L LDL Cholesterol Direct Lipase 11/18/16 11/18/16 11/18/16 08:00 08:28 11:21 WBC RBC Hgb Hct MCHC RDW Lymph % (Auto) [place] # Seg Neutrophils % Seg Neuts % (Manual) Lymphocytes % (Manual) Seg Neutrophils # Seg Neutrophils # Man Lymphocytes # (Manual) Sodium Potassium Chloride Carbon Dioxide Glucose POC Glucose 145 H 203 H Hemoglobin A1c Lactic Acid Calcium Magnesium Total Creatine Kinase CK-MB (CK-2) Rel Index Troponin T C-Reactive Protein 6.40 H NT-Pro-B Natriuret Pep Total Protein Albumin LDL Cholesterol Direct Lipase 11/18/16 11/18/16 11/19/16 16:17 21:46 02:45 WBC RBC Hgb Hct MCHC RDW Lymph % (Auto) [place] # Seg Neutrophils % Seg Neuts % (Manual) Lymphocytes % (Manual) Seg Neutrophils # Seg Neutrophils # Man Lymphocytes # (Manual) Sodium Potassium Chloride Carbon Dioxide Glucose POC Glucose 259 H 335 H Hemoglobin A1c Lactic Acid Calcium Magnesium Total Creatine Kinase CK-MB (CK-2) Rel Index Troponin T C-Reactive Protein NT-Pro-B Natriuret Pep 2949 H Total Protein Albumin LDL Cholesterol Direct Lipase 11/19/16 11/19/16 11/19/16 07:45 11:38 15:56 WBC RBC Hgb Hct MCHC RDW Lymph % (Auto) [place] # Seg Neutrophils % Seg Neuts % (Manual) Lymphocytes % (Manual) Seg Neutrophils # Seg Neutrophils # Man Lymphocytes # (Manual) Sodium Potassium Chloride Carbon Dioxide Glucose POC Glucose 238 H 229 H 248 H Hemoglobin A1c Lactic Acid Calcium Magnesium Total Creatine Kinase CK-MB (CK-2) Rel Index Troponin T C-Reactive Protein NT-Pro-B Natriuret Pep Total Protein Albumin LDL Cholesterol Direct Lipase 11/19/16 11/20/16 11/20/16 21:58 04:30 04:30 WBC 14.2 H RBC 2.38 L Hgb 7.5 L Hct 21.7 L MCHC 35 H RDW 16.2 H Lymph % (Auto) [place] # Seg Neutrophils % Seg Neuts % (Manual) 86.0 H Lymphocytes % (Manual) 6.0 L Seg Neutrophils # Seg Neutrophils # Man 12.2 H Lymphocytes # (Manual) 0.9 L Sodium Potassium 3.5 L Chloride Carbon Dioxide 19 L Glucose 110 H POC Glucose 164 H Hemoglobin A1c Lactic Acid Calcium 8.0 L Magnesium Total Creatine Kinase CK-MB (CK-2) Rel Index Troponin T C-Reactive Protein NT-Pro-B Natriuret Pep Total Protein Albumin LDL Cholesterol Direct Lipase 11/20/16 11/20/16 11/20/16 04:30 07:52 11:35 WBC RBC Hgb Hct MCHC RDW Lymph % (Auto) [place] # Seg Neutrophils % Seg Neuts % (Manual) Lymphocytes % (Manual) Seg Neutrophils # Seg Neutrophils # Man Lymphocytes # (Manual) Sodium Potassium Chloride Carbon Dioxide Glucose POC Glucose 113 H 194 H Hemoglobin A1c Lactic Acid Calcium Magnesium 1.4 L Total Creatine Kinase CK-MB (CK-2) Rel Index Troponin T C-Reactive Protein NT-Pro-B Natriuret Pep Total Protein Albumin LDL Cholesterol Direct Lipase 11/20/16 11/20/16 11/21/16 15:32 21:08 06:20 WBC RBC Hgb Hct MCHC RDW Lymph % (Auto) [place] # Seg Neutrophils % Seg Neuts % (Manual) Lymphocytes % (Manual) Seg Neutrophils # Seg Neutrophils # Man Lymphocytes # (Manual) Sodium Potassium Chloride Carbon Dioxide Glucose POC Glucose 179 H 204 H Hemoglobin A1c Lactic Acid Calcium Magnesium 1.5 L Total Creatine Kinase CK-MB (CK-2) Rel Index Troponin T C-Reactive Protein NT-Pro-B Natriuret Pep Total Protein Albumin LDL Cholesterol Direct Lipase 11/21/16 11/21/16 11/21/16 07:53 11:22 16:16 WBC RBC Hgb Hct MCHC RDW Lymph % (Auto) [place] # Seg Neutrophils % Seg Neuts % (Manual) Lymphocytes % (Manual) Seg Neutrophils # Seg Neutrophils # Man Lymphocytes # (Manual) Sodium Potassium Chloride Carbon Dioxide Glucose POC Glucose 193 H 260 H 315 H Hemoglobin A1c Lactic Acid Calcium Magnesium Total Creatine Kinase CK-MB (CK-2) Rel Index Troponin T C-Reactive Protein NT-Pro-B Natriuret Pep Total Protein Albumin LDL Cholesterol Direct Lipase 11/21/16 11/22/16 11/22/16 20:57 05:49 05:49 WBC 13.2 H RBC 2.52 L Hgb 7.3 L Hct 22.5 L MCHC RDW 16.0 H Lymph % (Auto) 9.8 L [place] # 1.0 H Seg Neutrophils % 81.3 H Seg Neuts % (Manual) Lymphocytes % (Manual) Seg Neutrophils # 10.7 H Seg Neutrophils # Man Lymphocytes # (Manual) Sodium Potassium 2.6 L* D Chloride Carbon Dioxide 21 L Glucose 188 H POC Glucose 311 H Hemoglobin A1c Lactic Acid Calcium 7.6 L Magnesium Total Creatine Kinase CK-MB (CK-2) Rel Index Troponin T C-Reactive Protein NT-Pro-B Natriuret Pep Total Protein Albumin LDL Cholesterol Direct Lipase 11/22/16 11/22/16 11/22/16 07:28 11:22 22:53 WBC RBC Hgb Hct MCHC RDW Lymph % (Auto) [place] # Seg Neutrophils % Seg Neuts % (Manual) Lymphocytes % (Manual) Seg Neutrophils # Seg Neutrophils # Man Lymphocytes # (Manual) Sodium Potassium Chloride Carbon Dioxide Glucose POC Glucose 223 H 462 H 181 H Hemoglobin A1c Lactic Acid Calcium Magnesium Total Creatine Kinase CK-MB (CK-2) Rel Index Troponin T C-Reactive Protein NT-Pro-B Natriuret Pep Total Protein Albumin LDL Cholesterol Direct Lipase 11/23/16 11/23/16 11/23/16 06:00 06:00 07:48 WBC 14.6 H RBC 2.49 L Hgb 7.4 L Hct 22.2 L MCHC RDW 16.0 H Lymph % (Auto) 10.4 L [place] # 1.0 H Seg Neutrophils % 80.8 H Seg Neuts % (Manual) Lymphocytes % (Manual) Seg Neutrophils # 11.8 H Seg Neutrophils # Man Lymphocytes # (Manual) Sodium 136 L Potassium 2.8 L* Chloride Carbon Dioxide 20 L Glucose 159 H POC Glucose 168 H Hemoglobin A1c Lactic Acid Calcium 7.6 L Magnesium Total Creatine Kinase CK-MB (CK-2) Rel Index Troponin T C-Reactive Protein NT-Pro-B Natriuret Pep Total Protein Albumin LDL Cholesterol Direct Lipase 11/23/16 11/23/16 11/23/16 11:02 16:15 20:40 WBC RBC Hgb Hct MCHC RDW Lymph % (Auto) [place] # Seg Neutrophils % Seg Neuts % (Manual) Lymphocytes % (Manual) Seg Neutrophils # Seg Neutrophils # Man Lymphocytes # (Manual) Sodium Potassium Chloride Carbon Dioxide Glucose POC Glucose 223 H 359 H 331 H Hemoglobin A1c Lactic Acid Calcium Magnesium Total Creatine Kinase CK-MB (CK-2) Rel Index Troponin T C-Reactive Protein NT-Pro-B Natriuret Pep Total Protein Albumin LDL Cholesterol Direct Lipase 11/24/16 11/24/16 11/24/16 07:45 11:52 15:13 WBC RBC Hgb Hct MCHC RDW Lymph % (Auto) [place] # Seg Neutrophils % Seg Neuts % (Manual) Lymphocytes % (Manual) Seg Neutrophils # Seg Neutrophils # Man Lymphocytes # (Manual) Sodium Potassium Chloride Carbon Dioxide Glucose POC Glucose 262 H 330 H 238 H Hemoglobin A1c Lactic Acid Calcium Magnesium Total Creatine Kinase CK-MB (CK-2) Rel Index Troponin T C-Reactive Protein NT-Pro-B Natriuret Pep Total Protein Albumin LDL Cholesterol Direct Lipase
--- NOTE | 2016-11-24 23:57 | Treadmill Report ---
THALLIUM STRESS TEST REPORT LEFT VENTRICLE: Left ventricular chamber size is within normal spread. Perfusion study demonstrates homogeneous uptake of the tracer in all segments, no significant defects identified. Gated analysis demonstrates normal left ventricular systolic function, ejection fraction of 60%. CONCLUSION: Normal myocardial perfusion study. JOB# [id number] CA/NTS
[2016-11-25] MEDS: LASIX PO SCH ×2 (05:45→19:40)
[2016-11-25] MEDS: BROVANA NEBU IH SCH ×2 (08:59→20:56)
[2016-11-25] MEDS: LOVENOX SUB-Q SCH (09:18)
[2016-11-25] MEDS: BABY ASPIRIN PO SCH (09:20)
[2016-11-25] MEDS: LOPRESSOR PO SCH ×2 (09:21→22:33)
[2016-11-25] MEDS: PEPCID PO SCH (09:22)
[2016-11-25] MEDS: CORDARONE PO SCH (09:22)
--- NOTE | 2016-11-25 11:29 | Progress Note ---
Addendum entered and electronically signed by RENAY DUMONT MD 12:18: Continue metoprolol No further cardiac work-up Will sign off Please call back if needed Original Note: Assessment and Plan Pneumonia Afib, paroxysmal potassium 2.5 on presentation reverted to sinus rhythm with a LBBB normal MPI this admission NSVT, paroxysmal Severe Anemia Diabetes mellitus Echocardiogram reports a normal left ventricle systolic function with ejection fraction 60%, no significant valvular lesions, normal size right heart chambers with only mild pulmonary hypertension. Recommend: Continue metoprolol for suppression of wide complex arrhythmias. Considered a poor candidate for oral anticoagulation due to persistent, severe anemia with a hematocrit of 22. Recommend aspirin 81 mg daily. Stable cardiac whitman for discharge home. Subjective Date of service: 11/25/16 Principal diagnosis: Diarrhea, colitis on CT, anemia Interval history: Patient denies shortness of breath and chest pain. Appears well. Objective Vital Signs Temp Pulse Pulse Pulse Pulse Pulse Resp 11/25/16 09:21 80 11/25/16 08:55 97 H 11/25/16 08:47 95 H 11/25/16 08:00 11/25/16 07:47 99.3 F 94 H 20 11/25/16 00:55 98.8 F 83 19 11/24/16 21:17 20 11/24/16 21:12 95 H 11/24/16 20:36 88 11/24/16 20:27 11/24/16 20:26 88 11/24/16 20:00 99.1 F 86 18 11/24/16 16:10 99.6 F 83 18 11/24/16 13:04 98.9 F 98 H 28 H 11/24/16 11:47 Resp Resp BP BP Pulse Ox 11/25/16 09:21 11/25/16 08:55 20 11/25/16 08:47 20 22 11/25/16 08:00 97 11/25/16 07:47 126/60 92 11/25/16 00:55 123/59 98 11/24/16 21:17 11/24/16 21:12 115/63 11/24/16 20:36 17 11/24/16 20:27 98 11/24/16 20:26 17 11/24/16 20:00 115/63 100 11/24/16 16:10 126/65 98 11/24/16 13:04 154/76 98 11/24/16 11:47 129/66 - Physical Examination General: No Apparent Distress HEENT: Positive: PERRL Neck: Positive: trachea midline Cardiac: Positive: Reg Rate and Rhythm Lungs: Positive: Decreased Breath Sounds Neuro: Positive: Grossly Intact Extremities: Absent: edema
--- NOTE | 2016-11-25 12:06 | Progress Note ---
Assessment and Plan Current antibiotics: none Previous antibiotics: Vancomycin IV (11/17) Flagyl 500 mg IV q8h (11/17-11/18) Meropenem 500 mg IV q6h 11/17 -11/18 Zosyn 3.375 g IV q6h (11/17) ceftriaxone 1gm iv Q24H (11/22-11/24 ASSESSMENT: Ileana Hannah is a 56 y/o male with HTN, DM 2, HLD, anemia, CKD, GERD, depression, and alcohol abuse who had been recently hospitalized at the [facility] with pneumonia (10/25- 11/08/16) and now is admitted to [facility] on with generalized weakness and worsening shortness of breath, and diarrhea. Problem list: 1. Bilateral pulmonary infiltrates/effusion -patient without clinical symptoms of pneumonia --his wbc is 14 which is lower than before, patient remains afebrile -patient currently without shortness of breath 2. Atrial fibrillation -Present on admission -Now in NSR 3. Hx of recent pneumonia - [place] hospitalization 10/25-11/08/16 - R/O sepsis - Blood and urine cultures negative and patient has been afebrile 4. Diarrhea - CT scan with ascending colon wall thickening -C. difficile assay negative on 11/19 -patient said he had 2 bowel movement yesterday that was watery but has not had any bowel movement today --if this was an infectious diarrhea I would expect it to get worse and not better without treatment 5. Leukocytosis -Reactive -Secondary to #1 --decreased compared to initial presentation -most likely reactive PLAN: 1)monitor off antibiotics 2) no further ID input, please call with questions or concerns 1. Subjective Date of service: 11/25/16 Principal diagnosis: Diarrhea, colitis on CT, anemia Interval history: Patient said he would like to go home, he does not have shortness of breath Objective - Constitutional Vitals: Vital Signs Temp Pulse Resp BP Pulse Ox 99.3 F 80 20 126/60 97 11/25/16 07:47 11/25/16 09:21 11/25/16 08:55 11/25/16 07:47 11/25/16 08:00 Temperature -Last 24 Hours Temperature 99.3 F Temperature 98.8 F Temperature 99.1 F Temperature 99.6 F Temperature 98.9 F General appearance: Present: no acute distress, well-nourished - EENT Eyes: PERRL, EOM intact, no scleral icterus, no conjunctival injection ENT: hearing intact, clear oral mucosa Ears: bilateral: normal - Neck Neck: supple, normal ROM, no enlarged thyroid, no masses or JVD - Respiratory Respiratory effort: normal Respiratory: bilateral: CTA - Breasts Breasts: deferred - Cardiovascular Rhythm: regular Heart Sounds: Present: S1 & S2 Extremities: no ischemia Extremity abnormal: edema (1+) - Gastrointestinal General gastrointestinal: Present: soft, non-tender, normal bowel sounds Rectal Exam: deferred - Genitourinary Male genitourinary: deferred - Integumentary Integumentary: clear, warm, dry, no jaundice, no rash - Musculoskeletal Musculoskeletal: strength equal bilaterally - Labs CBC & Chem 7: 11/23/16 06:00 11/23/16 20:25 Labs: Abnormal lab results 11/24/16 11/24/16 11/24/16 Range/Units 11:52 15:13 20:56 POC Glucose 330 H 238 H 131 H (70-105)
[2016-11-25] MEDS: DILAUDID IV PRN ×2 (14:30→19:57)
--- NOTE | 2016-11-25 20:11 | Progress Note ---
Assessment and Plan Patient resting on room air at this time.. O2 satuaration 92% on room air.No acute respiratory distress..Patient undergone thallium stress test.Reported normal study. - Patient Problems (1) Acute hypoxemic respiratory failure Current Visit: Yes Status: Acute Plan to address problem: Patient is on room air. O2 satuaration 92%. Recommend Brovanna aerosol treatments q 12 hours. (2) Bilateral pneumonia Current Visit: Yes Status: Acute Qualifiers: Pneumonia type: due to unspecified organism Lung location: lower lobe of lung Qualified Code(s): J18.9 - Pneumonia, unspecified organism Plan to address problem: Recommend ceftrioxone and Zithromax. 11/22/16 Patient started on ceftrioxone. Not started no Zithromax because of drug interactions. 11/25/16 Patients antibiotics stopped. Repeating chest xray Abgs on room air. (3) Nonsustained ventricular tachycardia Current Visit: Yes Status: Acute Plan to address problem: Management as per cardiology. (4) Pulmonary edema w/congestive heart failure w/preserved LV function Current Visit: Yes Status: Acute Plan to address problem: Management as per cardiology. Chest xray reported improving pulmonary edema. Subjective Date of service: 11/25/16 Principal diagnosis: Diarrhea, colitis on CT, anemia Interval history: Patient resting on room air at this time.. O2 satuaration 92% on room air.No acute respiratory distress..Patient undergone thallium stress test.Reported normal study. Objective Vital Signs - 12hr 11/25/16 11/25/16 11/25/16 08:47 08:55 09:21 Temperature Pulse Rate 80 Pulse Rate [ 95 H 97 H Anterior Bilateral Throughout] Pulse Rate [ Right Dorsalis Pedis] Respiratory Rate Respiratory 20 20 Rate [Anterior Bilateral Throughout] Respiratory 22 Rate [Anterior Bilateral Upper Lobe] Blood Pressure [Right Radial Artery] O2 Sat by Pulse Oximetry 11/25/16 11/25/16 11/25/16 11:40 16:16 19:57 Temperature 97.8 F 98.7 F Pulse Rate Pulse Rate [ Anterior Bilateral Throughout] Pulse Rate [ 90 90 Right Dorsalis Pedis] Respiratory 20 20 22 Rate Respiratory Rate [Anterior Bilateral Throughout] Respiratory Rate [Anterior Bilateral Upper Lobe] Blood Pressure 132/67 131/60 [Right Radial Artery] O2 Sat by Pulse 98 92 Oximetry Constitutional: no acute distress Eyes: non-icteric ENT: oropharynx moist Neck: supple, no lymphadenopathy Effort: mildly labored Ascultation: Bilateral: diminished breath sounds (bases), rales (basilar predominant) Cardiovascular: regular rate and rhythm Gastrointestinal: normoactive bowel sounds, soft, non-tender, non-distended Integumentary: other (left leg swelling) Extremities: no cyanosis, pulses normal, no ischemia or petechiae, edema (left leg) Neurologic: normal mental status, non-focal exam (grossly), pupils equal and round, motor strength normal and Psychiatric: mood appropriate, affect normal CBC and BMP: 11/23/16 06:00 11/23/16 20:25 ABG, PT/INR, D-dimer: ABG POC ABG pH 7.483 (7.35-7.45) H 11/17/16 13:00 POC ABG pCO2 27.0 (35-45) L 11/17/16 13:00 POC ABG pO2 55 (80-105) L 11/17/16 13:00 POC ABG HCO3 20.2 11/17/16 13:00 POC ABG Total CO2 21 11/17/16 13:00 POC ABG O2 Sat 91 11/17/16 13:00 PT/INR, D-dimer PT 14.4 Sec. (12.2-14.9) 11/17/16 Unknown INR 1.13 (0.87-1.13) 11/17/16 Unknown Abnormal lab findings: Abnormal Labs 11/17/16 11/17/16 11/17/16 17:07 17:43 17:43 WBC RBC Hgb Hct MCHC RDW Lymph % (Auto) [place] # Seg Neutrophils % Seg Neuts % (Manual) Lymphocytes % (Manual) Seg Neutrophils # Seg Neutrophils # Man Lymphocytes # (Manual) Sodium 136 L Potassium Chloride Carbon Dioxide Glucose 166 H POC Glucose 153 H Hemoglobin A1c Lactic Acid Calcium 7.5 L Magnesium Total Creatine Kinase CK-MB (CK-2) Rel Index Troponin T 0.352 H* D C-Reactive Protein NT-Pro-B Natriuret Pep Total Protein Albumin LDL Cholesterol Direct Lipase 11/17/16 11/17/16 11/17/16 Unknown Unknown Unknown WBC 25.7 H RBC 2.89 L Hgb 8.5 L Hct 26.2 L MCHC RDW 16.3 H Lymph % (Auto) [place] # Seg Neutrophils % Seg Neuts % (Manual) 90.0 H Lymphocytes % (Manual) 7.0 L Seg Neutrophils # Seg Neutrophils # Man 23.1 H Lymphocytes # (Manual) Sodium 135 L Potassium 2.5 L* Chloride 95.4 L Carbon Dioxide Glucose 132 H POC Glucose Hemoglobin A1c Lactic Acid 2.1 H* Calcium 7.7 L Magnesium Total Creatine Kinase CK-MB (CK-2) Rel Index Troponin T 0.066 H C-Reactive Protein NT-Pro-B Natriuret Pep Total Protein Albumin 2.5 L LDL Cholesterol Direct 39 L Lipase 76 H 11/17/16 11/18/16 11/18/16 Unknown 00:20 01:25 WBC RBC Hgb Hct MCHC RDW Lymph % (Auto) [place] # Seg Neutrophils % Seg Neuts % (Manual) Lymphocytes % (Manual) Seg Neutrophils # Seg Neutrophils # Man Lymphocytes # (Manual) Sodium Potassium Chloride Carbon Dioxide Glucose POC Glucose 290 H Hemoglobin A1c 7.9 H Lactic Acid Calcium Magnesium Total Creatine Kinase 23 L CK-MB (CK-2) Rel Index 11.3 H Troponin T C-Reactive Protein NT-Pro-B Natriuret Pep Total Protein Albumin LDL Cholesterol Direct Lipase 11/18/16 11/18/16 11/18/16 01:25 01:25 08:00 WBC RBC Hgb Hct MCHC RDW Lymph % (Auto) [place] # Seg Neutrophils % Seg Neuts % (Manual) Lymphocytes % (Manual) Seg Neutrophils # Seg Neutrophils # Man Lymphocytes # (Manual) Sodium 136 L Potassium Chloride Carbon Dioxide 21 L 20 L Glucose 169 H 120 H POC Glucose Hemoglobin A1c Lactic Acid Calcium 7.3 L 7.6 L Magnesium 1.5 L Total Creatine Kinase CK-MB (CK-2) Rel Index Troponin T C-Reactive Protein NT-Pro-B Natriuret Pep Total Protein 6.0 L Albumin 2.4 L LDL Cholesterol Direct Lipase 11/18/16 11/18/16 11/18/16 08:00 08:28 11:21 WBC RBC Hgb Hct MCHC RDW Lymph % (Auto) [place] # Seg Neutrophils % Seg Neuts % (Manual) Lymphocytes % (Manual) Seg Neutrophils # Seg Neutrophils # Man Lymphocytes # (Manual) Sodium Potassium Chloride Carbon Dioxide Glucose POC Glucose 145 H 203 H Hemoglobin A1c Lactic Acid Calcium Magnesium Total Creatine Kinase CK-MB (CK-2) Rel Index Troponin T C-Reactive Protein 6.40 H NT-Pro-B Natriuret Pep Total Protein Albumin LDL Cholesterol Direct Lipase 11/18/16 11/18/16 11/19/16 16:17 21:46 02:45 WBC RBC Hgb Hct MCHC RDW Lymph % (Auto) [place] # Seg Neutrophils % Seg Neuts % (Manual) Lymphocytes % (Manual) Seg Neutrophils # Seg Neutrophils # Man Lymphocytes # (Manual) Sodium Potassium Chloride Carbon Dioxide Glucose POC Glucose 259 H 335 H Hemoglobin A1c Lactic Acid Calcium Magnesium Total Creatine Kinase CK-MB (CK-2) Rel Index Troponin T C-Reactive Protein NT-Pro-B Natriuret Pep 2949 H Total Protein Albumin LDL Cholesterol Direct Lipase 11/19/16 11/19/16 11/19/16 07:45 11:38 15:56 WBC RBC Hgb Hct MCHC RDW Lymph % (Auto) [place] # Seg Neutrophils % Seg Neuts % (Manual) Lymphocytes % (Manual) Seg Neutrophils # Seg Neutrophils # Man Lymphocytes # (Manual) Sodium Potassium Chloride Carbon Dioxide Glucose POC Glucose 238 H 229 H 248 H Hemoglobin A1c Lactic Acid Calcium Magnesium Total Creatine Kinase CK-MB (CK-2) Rel Index Troponin T C-Reactive Protein NT-Pro-B Natriuret Pep Total Protein Albumin LDL Cholesterol Direct Lipase 11/19/16 11/20/16 11/20/16 21:58 04:30 04:30 WBC 14.2 H RBC 2.38 L Hgb 7.5 L Hct 21.7 L MCHC 35 H RDW 16.2 H Lymph % (Auto) [place] # Seg Neutrophils % Seg Neuts % (Manual) 86.0 H Lymphocytes % (Manual) 6.0 L Seg Neutrophils # Seg Neutrophils # Man 12.2 H Lymphocytes # (Manual) 0.9 L Sodium Potassium 3.5 L Chloride Carbon Dioxide 19 L Glucose 110 H POC Glucose 164 H Hemoglobin A1c Lactic Acid Calcium 8.0 L Magnesium Total Creatine Kinase CK-MB (CK-2) Rel Index Troponin T C-Reactive Protein NT-Pro-B Natriuret Pep Total Protein Albumin LDL Cholesterol Direct Lipase 11/20/16 11/20/16 11/20/16 04:30 07:52 11:35 WBC RBC Hgb Hct MCHC RDW Lymph % (Auto) [place] # Seg Neutrophils % Seg Neuts % (Manual) Lymphocytes % (Manual) Seg Neutrophils # Seg Neutrophils # Man Lymphocytes # (Manual) Sodium Potassium Chloride Carbon Dioxide Glucose POC Glucose 113 H 194 H Hemoglobin A1c Lactic Acid Calcium Magnesium 1.4 L Total Creatine Kinase CK-MB (CK-2) Rel Index Troponin T C-Reactive Protein NT-Pro-B Natriuret Pep Total Protein Albumin LDL Cholesterol Direct Lipase 11/20/16 11/20/16 11/21/16 15:32 21:08 06:20 WBC RBC Hgb Hct MCHC RDW Lymph % (Auto) [place] # Seg Neutrophils % Seg Neuts % (Manual) Lymphocytes % (Manual) Seg Neutrophils # Seg Neutrophils # Man Lymphocytes # (Manual) Sodium Potassium Chloride Carbon Dioxide Glucose POC Glucose 179 H 204 H Hemoglobin A1c Lactic Acid Calcium Magnesium 1.5 L Total Creatine Kinase CK-MB (CK-2) Rel Index Troponin T C-Reactive Protein NT-Pro-B Natriuret Pep Total Protein Albumin LDL Cholesterol Direct Lipase 11/21/16 11/21/16 11/21/16 07:53 11:22 16:16 WBC RBC Hgb Hct MCHC RDW Lymph % (Auto) [place] # Seg Neutrophils % Seg Neuts % (Manual) Lymphocytes % (Manual) Seg Neutrophils # Seg Neutrophils # Man Lymphocytes # (Manual) Sodium Potassium Chloride Carbon Dioxide Glucose POC Glucose 193 H 260 H 315 H Hemoglobin A1c Lactic Acid Calcium Magnesium Total Creatine Kinase CK-MB (CK-2) Rel Index Troponin T C-Reactive Protein NT-Pro-B Natriuret Pep Total Protein Albumin LDL Cholesterol Direct Lipase 11/21/16 11/22/16 11/22/16 20:57 05:49 05:49 WBC 13.2 H RBC 2.52 L Hgb 7.3 L Hct 22.5 L MCHC RDW 16.0 H Lymph % (Auto) 9.8 L [place] # 1.0 H Seg Neutrophils % 81.3 H Seg Neuts % (Manual) Lymphocytes % (Manual) Seg Neutrophils # 10.7 H Seg Neutrophils # Man Lymphocytes # (Manual) Sodium Potassium 2.6 L* D Chloride Carbon Dioxide 21 L Glucose 188 H POC Glucose 311 H Hemoglobin A1c Lactic Acid Calcium 7.6 L Magnesium Total Creatine Kinase CK-MB (CK-2) Rel Index Troponin T C-Reactive Protein NT-Pro-B Natriuret Pep Total Protein Albumin LDL Cholesterol Direct Lipase 11/22/16 11/22/16 11/22/16 07:28 11:22 22:53 WBC RBC Hgb Hct MCHC RDW Lymph % (Auto) [place] # Seg Neutrophils % Seg Neuts % (Manual) Lymphocytes % (Manual) Seg Neutrophils # Seg Neutrophils # Man Lymphocytes # (Manual) Sodium Potassium Chloride Carbon Dioxide Glucose POC Glucose 223 H 462 H 181 H Hemoglobin A1c Lactic Acid Calcium Magnesium Total Creatine Kinase CK-MB (CK-2) Rel Index Troponin T C-Reactive Protein NT-Pro-B Natriuret Pep Total Protein Albumin LDL Cholesterol Direct Lipase 11/23/16 11/23/16 11/23/16 06:00 06:00 07:48 WBC 14.6 H RBC 2.49 L Hgb 7.4 L Hct 22.2 L MCHC RDW 16.0 H Lymph % (Auto) 10.4 L [place] # 1.0 H Seg Neutrophils % 80.8 H Seg Neuts % (Manual) Lymphocytes % (Manual) Seg Neutrophils # 11.8 H Seg Neutrophils # Man Lymphocytes # (Manual) Sodium 136 L Potassium 2.8 L* Chloride Carbon Dioxide 20 L Glucose 159 H POC Glucose 168 H Hemoglobin A1c Lactic Acid Calcium 7.6 L Magnesium Total Creatine Kinase CK-MB (CK-2) Rel Index Troponin T C-Reactive Protein NT-Pro-B Natriuret Pep Total Protein Albumin LDL Cholesterol Direct Lipase 11/23/16 11/23/16 11/23/16 11:02 16:15 20:40 WBC RBC Hgb Hct MCHC RDW Lymph % (Auto) [place] # Seg Neutrophils % Seg Neuts % (Manual) Lymphocytes % (Manual) Seg Neutrophils # Seg Neutrophils # Man Lymphocytes # (Manual) Sodium Potassium Chloride Carbon Dioxide Glucose POC Glucose 223 H 359 H 331 H Hemoglobin A1c Lactic Acid Calcium Magnesium Total Creatine Kinase CK-MB (CK-2) Rel Index Troponin T C-Reactive Protein NT-Pro-B Natriuret Pep Total Protein Albumin LDL Cholesterol Direct Lipase 11/24/16 11/24/16 11/24/16 07:45 11:52 15:13 WBC RBC Hgb Hct MCHC RDW Lymph % (Auto) [place] # Seg Neutrophils % Seg Neuts % (Manual) Lymphocytes % (Manual) Seg Neutrophils # Seg Neutrophils # Man Lymphocytes # (Manual) Sodium Potassium Chloride Carbon Dioxide Glucose POC Glucose 262 H 330 H 238 H Hemoglobin A1c Lactic Acid Calcium Magnesium Total Creatine Kinase CK-MB (CK-2) Rel Index Troponin T C-Reactive Protein NT-Pro-B Natriuret Pep Total Protein Albumin LDL Cholesterol Direct Lipase 11/24/16 11/25/16 11/25/16 20:56 07:34 11:42 WBC RBC Hgb Hct MCHC RDW Lymph % (Auto) [place] # Seg Neutrophils % Seg Neuts % (Manual) Lymphocytes % (Manual) Seg Neutrophils # Seg Neutrophils # Man Lymphocytes # (Manual) Sodium Potassium Chloride Carbon Dioxide Glucose POC Glucose 131 H 225 H 240 H Hemoglobin A1c Lactic Acid Calcium Magnesium Total Creatine Kinase CK-MB (CK-2) Rel Index Troponin T C-Reactive Protein NT-Pro-B Natriuret Pep Total Protein Albumin LDL Cholesterol Direct Lipase 11/25/16 16:34 WBC RBC Hgb Hct MCHC RDW Lymph % (Auto) [place] # Seg Neutrophils % Seg Neuts % (Manual) Lymphocytes % (Manual) Seg Neutrophils # Seg Neutrophils # Man Lymphocytes # (Manual) Sodium Potassium Chloride Carbon Dioxide Glucose POC Glucose 281 H Hemoglobin A1c Lactic Acid Calcium Magnesium Total Creatine Kinase CK-MB (CK-2) Rel Index Troponin T C-Reactive Protein NT-Pro-B Natriuret Pep Total Protein Albumin LDL Cholesterol Direct Lipase
[2016-11-26] MEDS: LASIX PO SCH ×2 (06:09→19:42)
[2016-11-26] MEDS: BROVANA NEBU IH SCH ×2 (07:37→20:37)
--- NOTE | 2016-11-26 09:11 | Progress Note ---
Assessment and Plan - Patient Problems (1) Sepsis Current Visit: Yes Status: Resolved Plan to address problem: sepsis protocol, IV abs, supportive care, monitor uop q shift. (2) Acute hypoxemic respiratory failure Current Visit: Yes Status: Resolved Plan to address problem: supplemental oxygen, nebs, supportive care, pulmonary toilet, early ambulation, (3) Bilateral pneumonia Current Visit: Yes Status: Resolved Qualifiers: Pneumonia type: due to unspecified organism Lung location: lower lobe of lung Qualified Code(s): J18.9 - Pneumonia, unspecified organism Plan to address problem: Full course PNA protocol, IV abs, supportive care, nebs, supplemental oxygen, pulmonary toilet (4) Paroxysmal atrial fibrillation Current Visit: Yes Status: Acute Plan to address problem: Cardiology consulted, continue current therapy,telemetry monitoring (5) Pulmonary edema w/congestive heart failure w/preserved LV function Current Visit: Yes Status: Acute Plan to address problem: Pending stress test. as per cardiology team. (6) DVT prophylaxis Current Visit: Yes Status: Acute History Interval history: Pt resting in bed, No reported nursing events. Pt deneis pain. Hospitalist Physical - Constitutional Vitals: Temp Pulse Resp BP Pulse Ox 98.7 F 94 H 18 140/67 96 11/26/16 07:47 11/26/16 07:48 11/26/16 07:48 11/26/16 07:47 11/26/16 07:47 General appearance: Present: no acute distress, well-nourished - EENT Eyes: Present: PERRL, EOM intact ENT: hearing intact - Neck Neck: Present: supple - Respiratory Respiratory: bilateral: diminished - Cardiovascular Rhythm: regular Heart Sounds: Present: S1 & S2 - Extremities Extremities: no ischemia Peripheral Pulses: within normal limits - Abdominal General gastrointestinal: soft, non-tender, non-distended - Integumentary Integumentary: Present: clear, dry - Psychiatric Psychiatric: appropriate mood/affect, cooperative - Neurologic Neurologic: CNII-XII intact Results - Labs CBC & Chem 7: 11/23/16 06:00 11/23/16 20:25 Labs: Laboratory Last Values WBC 14.6 K/mm3 (4.5-11.0) H 11/23/16 06:00 RBC 2.49 M/mm3 (3.65-5.03) L 11/23/16 06:00 Hgb 7.4 gm/dl (11.8-15.2) L 11/23/16 06:00 Hct 22.2 % (35.5-45.6) L 11/23/16 06:00 MCV 89 fl (84-94) 11/23/16 06:00 MCH 30 pg (28-32) 11/23/16 06:00 MCHC 34 % (32-34) 11/23/16 06:00 RDW 16.0 % (13.2-15.2) H 11/23/16 06:00 Plt Count 258 K/mm3 (140-440) 11/23/16 06:00 Lymph % (Auto) 10.4 % (13.4-35.0) L 11/23/16 06:00 [place] % (Auto) 7.1 % (0.0-7.3) 11/23/16 06:00 Eos % (Auto) 1.1 % (0.0-4.3) 11/23/16 06:00 Baso % (Auto) 0.6 % (0.0-1.8) 11/23/16 06:00 Lymph # 1.5 K/mm3 (1.2-5.4) 11/23/16 06:00 [place] # 1.0 K/mm3 (0.0-0.8) H 11/23/16 06:00 Eos # 0.2 K/mm3 (0.0-0.4) 11/23/16 06:00 Baso # 0.1 K/mm3 (0.0-0.1) 11/23/16 06:00 Add Manual Diff Complete 11/20/16 04:30 Total Counted 100 11/20/16 04:30 Seg Neutrophils % 80.8 % (40.0-70.0) H 11/23/16 06:00 Seg Neuts % (Manual) 86.0 % (40.0-70.0) H 11/20/16 04:30 Band Neutrophils % 4.0 % 11/20/16 04:30 Lymphocytes % (Manual) 6.0 % (13.4-35.0) L 11/20/16 04:30 Reactive Lymphs % (Man) 0 % 11/20/16 04:30 Monocytes % (Manual) 1.0 % (0.0-7.3) 11/20/16 04:30 Eosinophils % (Manual) 2.0 % (0.0-4.3) 11/20/16 04:30 Basophils % (Manual) 1.0 % (0.0-1.8) 11/20/16 04:30 Metamyelocytes % 0 % 11/20/16 04:30 Myelocytes % 0 % 11/20/16 04:30 Promyelocytes % 0 % 11/20/16 04:30 Blast Cells % 0 % 11/20/16 04:30 Nucleated RBC % Not Reportable 11/20/16 04:30 Seg Neutrophils # 11.8 K/mm3 (1.8-7.7) H 11/23/16 06:00 Seg Neutrophils # Man 12.2 K/mm3 (1.8-7.7) H 11/20/16 04:30 Band Neutrophils # 0.6 K/mm3 11/20/16 04:30 Lymphocytes # (Manual) 0.9 K/mm3 (1.2-5.4) L 11/20/16 04:30 Abs React Lymphs (Man) 0.0 K/mm3 11/20/16 04:30 Monocytes # (Manual) 0.1 K/mm3 (0.0-0.8) 11/20/16 04:30 Eosinophils # (Manual) 0.3 K/mm3 (0.0-0.4) 11/20/16 04:30 Basophils # (Manual) 0.1 K/mm3 (0.0-0.1) 11/20/16 04:30 Metamyelocytes # 0.0 K/mm3 11/20/16 04:30 Myelocytes # 0.0 K/mm3 11/20/16 04:30 Promyelocytes # 0.0 K/mm3 11/20/16 04:30 Blast Cells # 0.0 K/mm3 11/20/16 04:30 WBC Morphology Not Reportable 11/20/16 04:30 Hypersegmented Neuts Not Reportable 11/20/16 04:30 Hyposegmented Neuts Not Reportable 11/20/16 04:30 Hypogranular Neuts Not Reportable 11/20/16 04:30 Smudge Cells Not Reportable 11/20/16 04:30 Toxic Granulation Not Reportable 11/20/16 04:30 Toxic Vacuolation Not Reportable 11/20/16 04:30 Dohle Bodies Not Reportable 11/20/16 04:30 Pelger-Huet Anomaly Not Reportable 11/20/16 04:30 Boo Rods Not Reportable 11/20/16 04:30 Platelet Estimate Appears normal 11/20/16 04:30 Clumped Platelets Not Reportable 11/20/16 04:30 Plt Clumps, EDTA Not Reportable 11/20/16 04:30 Large Platelets Not Reportable 11/20/16 04:30 Giant Platelets Not Reportable 11/20/16 04:30 Platelet Satelliting Not Reportable 11/20/16 04:30 Plt Morphology Comment Not Reportable 11/20/16 04:30 RBC Morphology Not Reportable 11/20/16 04:30 Dimorphic RBCs Not Reportable 11/20/16 04:30 Polychromasia Not Reportable 11/20/16 04:30 Hypochromasia Not Reportable 11/20/16 04:30 Poikilocytosis Not Reportable 11/20/16 04:30 Anisocytosis Rare 11/20/16 04:30 Microcytosis Not Reportable 11/20/16 04:30 Macrocytosis Not Reportable 11/20/16 04:30 Spherocytes Not Reportable 11/20/16 04:30 Pappenheimer Bodies Not Reportable 11/20/16 04:30 Sickle Cells Not Reportable 11/20/16 04:30 Target Cells Not Reportable 11/20/16 04:30 Tear Drop Cells Not Reportable 11/20/16 04:30 Ovalocytes Not Reportable 11/20/16 04:30 Helmet Cells Not Reportable 11/20/16 04:30 [place] Bodies Not Reportable 11/20/16 04:30 [place] Rings Not Reportable 11/20/16 04:30 [place] Cells Not Reportable 11/20/16 04:30 Bite Cells Not Reportable 11/20/16 04:30 Crenated Cell Not Reportable 11/20/16 04:30 Elliptocytes Not Reportable 11/20/16 04:30 Acanthocytes (Spur) Not Reportable 11/20/16 04:30 Rouleaux Not Reportable 11/20/16 04:30 Hemoglobin C Crystals Not Reportable 11/20/16 04:30 Schistocytes Not Reportable 11/20/16 04:30 Malaria parasites Not Reportable 11/20/16 04:30 Tan Bodies Not Reportable 11/20/16 04:30 Hem Pathologist Commnt No 11/20/16 04:30 PT 14.4 Sec. (12.2-14.9) 11/17/16 Unknown INR 1.13 (0.87-1.13) 11/17/16 Unknown POC ABG pH 7.483 (7.35-7.45) H 11/17/16 13:00 POC ABG pCO2 27.0 (35-45) L 11/17/16 13:00 POC ABG pO2 55 (80-105) L 11/17/16 13:00 POC ABG HCO3 20.2 11/17/16 13:00 POC ABG Total CO2 21 11/17/16 13:00 POC ABG O2 Sat 91 11/17/16 13:00 POC ABG Base Excess -3 11/17/16 13:00 FiO2 100 % 11/17/16 13:00 Sodium 136 mmol/L (137-145) L 11/23/16 06:00 Potassium 3.7 mmol/L (3.6-5.0) D 11/23/16 20:25 Chloride 98.8 mmol/L (98-107) 11/23/16 06:00 Carbon Dioxide 20 mmol/L (22-30) L 11/23/16 06:00 Anion Gap 20 mmol/L 11/23/16 06:00 BUN 11 mg/dL (9-20) 11/23/16 06:00 Creatinine 1.4 mg/dL (0.8-1.5) 11/23/16 06:00 Estimated GFR > 60 ml/min 11/23/16 06:00 BUN/Creatinine Ratio 7.85 % 11/23/16 06:00 Glucose 159 mg/dL (75-100) H 11/23/16 06:00 POC Glucose 102 (70-105) 11/25/16 21:36 Hemoglobin A1c 7.9 % (4-6) H 11/18/16 01:25 Lactic Acid 0.9 mmol/L (0.7-2.0) 11/19/16 05:55 Calcium 7.6 mg/dL (8.4-10.2) L 11/23/16 06:00 Magnesium 1.5 mg/dL (1.7-2.3) L 11/21/16 06:20 Total Bilirubin 0.5 mg/dL (0.1-1.2) 11/18/16 08:00 Direct Bilirubin < 0.2 mg/dL (0-0.2) 11/17/16 Unknown Indirect Bilirubin 0.5 mg/dL 11/17/16 Unknown AST 20 units/L (5-40) 11/18/16 08:00 ALT 13 units/L (7-56) 11/18/16 08:00 Alkaline Phosphatase 110 units/L (35-129) 11/18/16 08:00 Ammonia 43.0 umol/L (25-60) 11/17/16 Unknown Total Creatine Kinase 23 units/L (55-170) L 11/17/16 Unknown CK-MB (CK-2) 2.6 ng/mL (0.0-4.0) 11/17/16 Unknown CK-MB (CK-2) Rel Index 11.3 (0-4) H 11/17/16 Unknown Troponin T 0.066 ng/mL (0.00-0.029) H 11/17/16 Unknown C-Reactive Protein 6.40 mg/dL (0.00-1.30) H 11/18/16 08:00 NT-Pro-B Natriuret Pep 2949 pg/mL (0-900) H 11/19/16 02:45 Total Protein 6.0 g/dL (6.3-8.2) L 11/18/16 08:00 Albumin 2.4 g/dL (3.9-5) L 11/18/16 08:00 Albumin/Globulin Ratio 0.7 % 11/18/16 08:00 Triglycerides 138 mg/dL (2-149) 11/17/16 Unknown Cholesterol 111 mg/dL (50-199) 11/17/16 Unknown LDL Cholesterol Direct 39 mg/dL (50-130) L 11/17/16 Unknown HDL Cholesterol 45 mg/dL (40-59) 11/17/16 Unknown Cholesterol/HDL Ratio 2.46 % 11/17/16 Unknown Lipase 76 units/L (13-60) H 11/17/16 Unknown Urine Color Yellow (Yellow) 11/17/16 15:29 Urine Turbidity Clear (Clear) 11/17/16 15: Urine pH 6.0 (5.0-7.0) 11/17/16 15: Ur Specific [place] 1.011 (1.003-1.030) 11/17/16 15: Urine Protein <15 mg/dl mg/dL (Negative) 11/17/16 15: Urine Glucose (UA) 50 mg/dL (Negative) 11/17/16 15: Urine Ketones Neg mg/dL (Negative) 11/17/16: Urine Blood Neg (Negative) 11/17/16 15: Urine Nitrite Neg (Negative) 11/17/16: Urine Bilirubin Neg (Negative) 11/17/16: Urine Urobilinogen < 2.0 mg/dL (<2.0) 11/17/16 15: Ur Leukocyte Esterase Neg (Negative) 11/17/16 15: Urine WBC (Auto) 2.0 /HPF (0.0-6.0) 11/17/16 15: Urine RBC (Auto) 3.0 /HPF (0.0-6.0) 11/17/16 15: Urine Mucus Few /HPF 11/17/16:
--- NOTE | 2016-11-26 09:16 | Progress Note ---
Assessment and Plan - Patient Problems (1) Sepsis Current Visit: Yes Status: Resolved Plan to address problem: sepsis protocol, IV abs, supportive care, monitor uop q shift. (2) Acute hypoxemic respiratory failure Current Visit: Yes Status: Resolved Plan to address problem: supplemental oxygen, nebs, supportive care, pulmonary toilet, early ambulation, (3) Bilateral pneumonia Current Visit: Yes Status: Resolved Qualifiers: Pneumonia type: due to unspecified organism Lung location: lower lobe of lung Qualified Code(s): J18.9 - Pneumonia, unspecified organism Plan to address problem: Full course PNA protocol, IV abs, supportive care, nebs, supplemental oxygen, pulmonary toilet (4) Paroxysmal atrial fibrillation Current Visit: Yes Status: Acute Plan to address problem: Cardiology consulted, continue current therapy,telemetry monitoring (5) Pulmonary edema w/congestive heart failure w/preserved LV function Current Visit: Yes Status: Acute Plan to address problem: Pending stress test. as per cardiology team. (6) DVT prophylaxis Current Visit: Yes Status: Acute History Interval history: Pt resting in bed, No reported nursing events. Pt deneis pain. Pt stable overnight. Pt denies fever, chills, CP, Palpitations, NVD. Hospitalist Physical - Constitutional Vitals: Temp Pulse Resp BP Pulse Ox 98.7 F 94 H 18 140/67 96 11/26/16 07:47 11/26/16 07:48 11/26/16 07:48 11/26/16 07:47 11/26/16 07:47 General appearance: Present: no acute distress, well-nourished - EENT Eyes: Present: PERRL ENT: hearing intact - Neck Neck: Present: supple - Respiratory Respiratory: bilateral: diminished - Cardiovascular Rhythm: regular Heart Sounds: Present: S1 & S2 - Extremities Extremities: no ischemia Peripheral Pulses: within normal limits - Abdominal General gastrointestinal: soft, non-tender, non-distended - Integumentary Integumentary: Present: clear, dry - Psychiatric Psychiatric: appropriate mood/affect, cooperative - Neurologic Neurologic: no gait normal Results - Labs CBC & Chem 7: 11/23/16 06:00 11/23/16 20:25 Labs: Laboratory Last Values WBC 14.6 K/mm3 (4.5-11.0) H 11/23/16 06:00 RBC 2.49 M/mm3 (3.65-5.03) L 11/23/16 06:00 Hgb 7.4 gm/dl (11.8-15.2) L 11/23/16 06:00 Hct 22.2 % (35.5-45.6) L 11/23/16 06:00 MCV 89 fl (84-94) 11/23/16 06:00 MCH 30 pg (28-32) 11/23/16 06:00 MCHC 34 % (32-34) 11/23/16 06:00 RDW 16.0 % (13.2-15.2) H 11/23/16 06:00 Plt Count 258 K/mm3 (140-440) 11/23/16 06:00 Lymph % (Auto) 10.4 % (13.4-35.0) L 11/23/16 06:00 [place] % (Auto) 7.1 % (0.0-7.3) 11/23/16 06:00 Eos % (Auto) 1.1 % (0.0-4.3) 11/23/16 06:00 Baso % (Auto) 0.6 % (0.0-1.8) 11/23/16 06:00 Lymph # 1.5 K/mm3 (1.2-5.4) 11/23/16 06:00 [place] # 1.0 K/mm3 (0.0-0.8) H 11/23/16 06:00 Eos # 0.2 K/mm3 (0.0-0.4) 11/23/16 06:00 Baso # 0.1 K/mm3 (0.0-0.1) 11/23/16 06:00 Add Manual Diff Complete 11/20/16 04:30 Total Counted 100 11/20/16 04:30 Seg Neutrophils % 80.8 % (40.0-70.0) H 11/23/16 06:00 Seg Neuts % (Manual) 86.0 % (40.0-70.0) H 11/20/16 04:30 Band Neutrophils % 4.0 % 11/20/16 04:30 Lymphocytes % (Manual) 6.0 % (13.4-35.0) L 11/20/16 04:30 Reactive Lymphs % (Man) 0 % 11/20/16 04:30 Monocytes % (Manual) 1.0 % (0.0-7.3) 11/20/16 04:30 Eosinophils % (Manual) 2.0 % (0.0-4.3) 11/20/16 04:30 Basophils % (Manual) 1.0 % (0.0-1.8) 11/20/16 04:30 Metamyelocytes % 0 % 11/20/16 04:30 Myelocytes % 0 % 11/20/16 04:30 Promyelocytes % 0 % 11/20/16 04:30 Blast Cells % 0 % 11/20/16 04:30 Nucleated RBC % Not Reportable 11/20/16 04:30 Seg Neutrophils # 11.8 K/mm3 (1.8-7.7) H 11/23/16 06:00 Seg Neutrophils # Man 12.2 K/mm3 (1.8-7.7) H 11/20/16 04:30 Band Neutrophils # 0.6 K/mm3 11/20/16 04:30 Lymphocytes # (Manual) 0.9 K/mm3 (1.2-5.4) L 11/20/16 04:30 Abs React Lymphs (Man) 0.0 K/mm3 11/20/16 04:30 Monocytes # (Manual) 0.1 K/mm3 (0.0-0.8) 11/20/16 04:30 Eosinophils # (Manual) 0.3 K/mm3 (0.0-0.4) 11/20/16 04:30 Basophils # (Manual) 0.1 K/mm3 (0.0-0.1) 11/20/16 04:30 Metamyelocytes # 0.0 K/mm3 11/20/16 04:30 Myelocytes # 0.0 K/mm3 11/20/16 04:30 Promyelocytes # 0.0 K/mm3 11/20/16 04:30 Blast Cells # 0.0 K/mm3 11/20/16 04:30 WBC Morphology Not Reportable 11/20/16 04:30 Hypersegmented Neuts Not Reportable 11/20/16 04:30 Hyposegmented Neuts Not Reportable 11/20/16 04:30 Hypogranular Neuts Not Reportable 11/20/16 04:30 Smudge Cells Not Reportable 11/20/16 04:30 Toxic Granulation Not Reportable 11/20/16 04:30 Toxic Vacuolation Not Reportable 11/20/16 04:30 Dohle Bodies Not Reportable 11/20/16 04:30 Pelger-Huet Anomaly Not Reportable 11/20/16 04:30 Boo Rods Not Reportable 11/20/16 04:30 Platelet Estimate Appears normal 11/20/16 04:30 Clumped Platelets Not Reportable 11/20/16 04:30 Plt Clumps, EDTA Not Reportable 11/20/16 04:30 Large Platelets Not Reportable 11/20/16 04:30 Giant Platelets Not Reportable 11/20/16 04:30 Platelet Satelliting Not Reportable 11/20/16 04:30 Plt Morphology Comment Not Reportable 11/20/16 04:30 RBC Morphology Not Reportable 11/20/16 04:30 Dimorphic RBCs Not Reportable 11/20/16 04:30 Polychromasia Not Reportable 11/20/16 04:30 Hypochromasia Not Reportable 11/20/16 04:30 Poikilocytosis Not Reportable 11/20/16 04:30 Anisocytosis Rare 11/20/16 04:30 Microcytosis Not Reportable 11/20/16 04:30 Macrocytosis Not Reportable 11/20/16 04:30 Spherocytes Not Reportable 11/20/16 04:30 Pappenheimer Bodies Not Reportable 11/20/16 04:30 Sickle Cells Not Reportable 11/20/16 04:30 Target Cells Not Reportable 11/20/16 04:30 Tear Drop Cells Not Reportable 11/20/16 04:30 Ovalocytes Not Reportable 11/20/16 04:30 Helmet Cells Not Reportable 11/20/16 04:30 [place] Bodies Not Reportable 11/20/16 04:30 [place] Rings Not Reportable 11/20/16 04:30 [place] Cells Not Reportable 11/20/16 04:30 Bite Cells Not Reportable 11/20/16 04:30 Crenated Cell Not Reportable 11/20/16 04:30 Elliptocytes Not Reportable 11/20/16 04:30 Acanthocytes (Spur) Not Reportable 11/20/16 04:30 Rouleaux Not Reportable 11/20/16 04:30 Hemoglobin C Crystals Not Reportable 11/20/16 04:30 Schistocytes Not Reportable 11/20/16 04:30 Malaria parasites Not Reportable 11/20/16 04:30 Tan Bodies Not Reportable 11/20/16 04:30 Hem Pathologist Commnt No 11/20/16 04:30 PT 14.4 Sec. (12.2-14.9) 11/17/16 Unknown INR 1.13 (0.87-1.13) 11/17/16 Unknown POC ABG pH 7.483 (7.35-7.45) H 11/17/16 13:00 POC ABG pCO2 27.0 (35-45) L 11/17/16 13:00 POC ABG pO2 55 (80-105) L 11/17/16 13:00 POC ABG HCO3 20.2 11/17/16 13:00 POC ABG Total CO2 21 11/17/16 13:00 POC ABG O2 Sat 91 11/17/16 13:00 POC ABG Base Excess -3 11/17/16 13:00 FiO2 100 % 11/17/16 13:00 Sodium 136 mmol/L (137-145) L 11/23/16 06:00 Potassium 3.7 mmol/L (3.6-5.0) D 11/23/16 20:25 Chloride 98.8 mmol/L (98-107) 11/23/16 06:00 Carbon Dioxide 20 mmol/L (22-30) L 11/23/16 06:00 Anion Gap 20 mmol/L 11/23/16 06:00 BUN 11 mg/dL (9-20) 11/23/16 06:00 Creatinine 1.4 mg/dL (0.8-1.5) 11/23/16 06:00 Estimated GFR > 60 ml/min 11/23/16 06:00 BUN/Creatinine Ratio 7.85 % 11/23/16 06:00 Glucose 159 mg/dL (75-100) H 11/23/16 06:00 POC Glucose 102 (70-105) 11/25/16 21:36 Hemoglobin A1c 7.9 % (4-6) H 11/18/16 01:25 Lactic Acid 0.9 mmol/L (0.7-2.0) 11/19/16 05:55 Calcium 7.6 mg/dL (8.4-10.2) L 11/23/16 06:00 Magnesium 1.5 mg/dL (1.7-2.3) L 11/21/16 06:20 Total Bilirubin 0.5 mg/dL (0.1-1.2) 11/18/16 08:00 Direct Bilirubin < 0.2 mg/dL (0-0.2) 11/17/16 Unknown Indirect Bilirubin 0.5 mg/dL 11/17/16 Unknown AST 20 units/L (5-40) 11/18/16 08:00 ALT 13 units/L (7-56) 11/18/16 08:00 Alkaline Phosphatase 110 units/L (35-129) 11/18/16 08:00 Ammonia 43.0 umol/L (25-60) 11/17/16 Unknown Total Creatine Kinase 23 units/L (55-170) L 11/17/16 Unknown CK-MB (CK-2) 2.6 ng/mL (0.0-4.0) 11/17/16 Unknown CK-MB (CK-2) Rel Index 11.3 (0-4) H 11/17/16 Unknown Troponin T 0.066 ng/mL (0.00-0.029) H 11/17/16 Unknown C-Reactive Protein 6.40 mg/dL (0.00-1.30) H 11/18/16 08:00 NT-Pro-B Natriuret Pep 2949 pg/mL (0-900) H 11/19/16 02:45 Total Protein 6.0 g/dL (6.3-8.2) L 11/18/16 08:00 Albumin 2.4 g/dL (3.9-5) L 11/18/16 08:00 Albumin/Globulin Ratio 0.7 % 11/18/16 08:00 Triglycerides 138 mg/dL (2-149) 11/17/16 Unknown Cholesterol 111 mg/dL (50-199) 11/17/16 Unknown LDL Cholesterol Direct 39 mg/dL (50-130) L 11/17/16 Unknown HDL Cholesterol 45 mg/dL (40-59) 11/17/16 Unknown Cholesterol/HDL Ratio 2.46 % 11/17/16 Unknown Lipase 76 units/L (13-60) H 11/17/16 Unknown Urine Color Yellow (Yellow) 11/17/16 Urine Turbidity Clear (Clear) 11/17/16 Urine pH 6.0 (5.0-7.0) 11/17/16 Ur Specific [place] 1.011 (1.003-1.030) 11/17/16 Urine Protein <15 mg/dl mg/dL (Negative) 11/17/16 Urine Glucose (UA) 50 mg/dL (Negative) 11/17/16 Urine Ketones Neg mg/dL (Negative) 11/17/16 Urine Blood Neg (Negative) 11/17/16 Urine Nitrite Neg (Negative) 11/17/16 Urine Bilirubin Neg (Negative) 11/17/16 Urine Urobilinogen < 2.0 mg/dL (<2.0) 11/17/16 Ur Leukocyte Esterase Neg (Negative) 11/17/16 Urine WBC (Auto) 2.0 /HPF (0.0-6.0) 11/17/16 Urine RBC (Auto) 3.0 /HPF (0.0-6.0) 11/17/16 Urine Mucus Few /HPF 11/17/16
--- NOTE | 2016-11-26 10:18 | XRay Report ---
CHEST X-RAY, 2 VIEWS History: Followup on infiltrates Findings: Bilateral perihilar infiltrates most consistent with pulmonary edema are unchanged since the exam 3 days ago. Small pleural effusions are identified on the lateral image. Heart size remains normal. Right IJ venous catheters in good position. Impression: No significant change.
[2016-11-26 11:32] LABS: ISTAT Base Excess -3; ISTAT DEVICE 0; ISTAT HCO3 20.3; ISTAT PCO2 25.5 (35-45); ISTAT PH 7.508 (7.35-7.45); ISTAT PO2 64 (80-105); ISTAT SO2 94; ISTAT TCO2 21
[2016-11-26] MEDS: DILAUDID IV PRN ×2 (13:49→19:55)
[2016-11-26] MEDS: LOVENOX SUB-Q SCH (13:52)
[2016-11-26] MEDS: PEPCID PO SCH (13:54)
[2016-11-26] MEDS: BABY ASPIRIN PO SCH (13:55)
[2016-11-26] MEDS: LOPRESSOR PO SCH ×2 (14:03→22:28)
--- NOTE | 2016-11-26 20:07 | Progress Note ---
Assessment and Plan - Patient Problems (1) Hypoxia Current Visit: Yes Status: Acute Plan to address problem: Continue with current therapies. supplemental oxygen to keep O2 sats>94% (2) Pulmonary edema w/congestive heart failure w/preserved LV function Current Visit: Yes Status: Acute Plan to address problem: Per cardiology service (3) Paroxysmal atrial fibrillation Current Visit: Yes Status: Acute Subjective Date of service: 11/26/16 Principal diagnosis: Diarrhea, colitis on CT, anemia Interval history: seen and examined at bedside; 24hour events reviewed; nursing and respiratory care staff consulted; no adverse overnight events reported to me; oxygenation much improved; denies acute chest pains or increased SOB Objective - Exam Narrative Exam: Well-developed well-nourished appearing. Somewhat tachypneic. HEENT: Pupils are equal reactive to light and accommodation. Conjunctiva clear. Oropharynx is normal with no evidence of oral candidiasis or pharyngitis. NECK: Supple. No enlargement of the thyroid gland. No significant cervical lymphadenopathy. No jugular venous distention at 30. Right IJ catheter in place. LUNGS: Anterior breath sounds clear sounding this a.m. HEART: Regular rate with ectopy. Murmur not heard. ABDOMEN: Soft and nontender. Liver and spleen are not palpably enlarged or tender. No palpable masses. Mildly distended. BS+ EXTREMITIES: No rash,or peripheral lymphadenopathy; 2+ ankle edema SKIN: No other rash, ulcers or wounds. NEUROLOGIC: No focal findings. No tremor. Vital Signs - 12hr 11/26/16 11/26/16 11/26/16 10:33 11:18 14:03 Temperature 99.2 F Pulse Rate [ 98 H Right Dorsalis Pedis] Respiratory 20 Rate Blood Pressure 106/70 Blood Pressure 106/62 [Right Radial Artery] O2 Sat by Pulse 94 92 Oximetry 11/26/16 11/26/16 16:59 19:55 Temperature 98.7 F Pulse Rate [ 91 H Right Dorsalis Pedis] Respiratory 20 20 Rate Blood Pressure Blood Pressure 115/66 [Right Radial Artery] O2 Sat by Pulse 94 Oximetry Constitutional: no acute distress Eyes: non-icteric ENT: oropharynx moist Neck: supple, no lymphadenopathy Effort: normal, mildly labored Ascultation: Bilateral: diminished breath sounds (bases), rales (basilar predominant) Cardiovascular: regular rate and rhythm Gastrointestinal: normoactive bowel sounds, soft, non-tender, non-distended Integumentary: other (left leg swelling) Extremities: no cyanosis, pulses normal, no ischemia or petechiae, edema (left leg) Neurologic: normal mental status, non-focal exam (grossly), pupils equal and round, motor strength normal and Psychiatric: mood appropriate, affect normal CBC and BMP: 11/23/16 06:00 11/23/16 20:25 ABG, PT/INR, D-dimer: ABG POC ABG pH 7.508 (7.35-7.45) H 11/26/16 10:31 POC ABG pCO2 25.5 (35-45) L 11/26/16 10:31 POC ABG pO2 64 (80-105) L 11/26/16 10:31 POC ABG HCO3 20.3 11/26/16 10:31 POC ABG Total CO2 21 11/26/16 10:31 POC ABG O2 Sat 94 11/26/16 10:31 PT/INR, D-dimer PT 14.4 Sec. (12.2-14.9) 11/17/16 Unknown INR 1.13 (0.87-1.13) 11/17/16 Unknown Abnormal lab findings: Abnormal Labs 11/17/16 11/17/16 11/17/16 17:07 17:43 17:43 WBC RBC Hgb Hct MCHC RDW Lymph % (Auto) [place] # Seg Neutrophils % Seg Neuts % (Manual) Lymphocytes % (Manual) Seg Neutrophils # Seg Neutrophils # Man Lymphocytes # (Manual) POC ABG pH POC ABG pCO2 POC ABG pO2 Sodium 136 L Potassium Chloride Carbon Dioxide Glucose 166 H POC Glucose 153 H Hemoglobin A1c Lactic Acid Calcium 7.5 L Magnesium Total Creatine Kinase CK-MB (CK-2) Rel Index Troponin T 0.352 H* D C-Reactive Protein NT-Pro-B Natriuret Pep Total Protein Albumin LDL Cholesterol Direct Lipase 11/17/16 11/17/16 11/17/16 Unknown Unknown Unknown WBC 25.7 H RBC 2.89 L Hgb 8.5 L Hct 26.2 L MCHC RDW 16.3 H Lymph % (Auto) [place] # Seg Neutrophils % Seg Neuts % (Manual) 90.0 H Lymphocytes % (Manual) 7.0 L Seg Neutrophils # Seg Neutrophils # Man 23.1 H Lymphocytes # (Manual) POC ABG pH POC ABG pCO2 POC ABG pO2 Sodium 135 L Potassium 2.5 L* Chloride 95.4 L Carbon Dioxide Glucose 132 H POC Glucose Hemoglobin A1c Lactic Acid 2.1 H* Calcium 7.7 L Magnesium Total Creatine Kinase CK-MB (CK-2) Rel Index Troponin T 0.066 H C-Reactive Protein NT-Pro-B Natriuret Pep Total Protein Albumin 2.5 L LDL Cholesterol Direct 39 L Lipase 76 H 11/17/16 11/18/16 11/18/16 Unknown 00:20 01:25 WBC RBC Hgb Hct MCHC RDW Lymph % (Auto) [place] # Seg Neutrophils % Seg Neuts % (Manual) Lymphocytes % (Manual) Seg Neutrophils # Seg Neutrophils # Man Lymphocytes # (Manual) POC ABG pH POC ABG pCO2 POC ABG pO2 Sodium Potassium Chloride Carbon Dioxide Glucose POC Glucose 290 H Hemoglobin A1c 7.9 H Lactic Acid Calcium Magnesium Total Creatine Kinase 23 L CK-MB (CK-2) Rel Index 11.3 H Troponin T C-Reactive Protein NT-Pro-B Natriuret Pep Total Protein Albumin LDL Cholesterol Direct Lipase 11/18/16 11/18/16 11/18/16 01:25 01:25 08:00 WBC RBC Hgb Hct MCHC RDW Lymph % (Auto) [place] # Seg Neutrophils % Seg Neuts % (Manual) Lymphocytes % (Manual) Seg Neutrophils # Seg Neutrophils # Man Lymphocytes # (Manual) POC ABG pH POC ABG pCO2 POC ABG pO2 Sodium 136 L Potassium Chloride Carbon Dioxide 21 L 20 L Glucose 169 H 120 H POC Glucose Hemoglobin A1c Lactic Acid Calcium 7.3 L 7.6 L Magnesium 1.5 L Total Creatine Kinase CK-MB (CK-2) Rel Index Troponin T C-Reactive Protein NT-Pro-B Natriuret Pep Total Protein 6.0 L Albumin 2.4 L LDL Cholesterol Direct Lipase 11/18/16 11/18/16 11/18/16 08:00 08:28 11:21 WBC RBC Hgb Hct MCHC RDW Lymph % (Auto) [place] # Seg Neutrophils % Seg Neuts % (Manual) Lymphocytes % (Manual) Seg Neutrophils # Seg Neutrophils # Man Lymphocytes # (Manual) POC ABG pH POC ABG pCO2 POC ABG pO2 Sodium Potassium Chloride Carbon Dioxide Glucose POC Glucose 145 H 203 H Hemoglobin A1c Lactic Acid Calcium Magnesium Total Creatine Kinase CK-MB (CK-2) Rel Index Troponin T C-Reactive Protein 6.40 H NT-Pro-B Natriuret Pep Total Protein Albumin LDL Cholesterol Direct Lipase 11/18/16 11/18/16 11/19/16 16:17 21:46 02:45 WBC RBC Hgb Hct MCHC RDW Lymph % (Auto) [place] # Seg Neutrophils % Seg Neuts % (Manual) Lymphocytes % (Manual) Seg Neutrophils # Seg Neutrophils # Man Lymphocytes # (Manual) POC ABG pH POC ABG pCO2 POC ABG pO2 Sodium Potassium Chloride Carbon Dioxide Glucose POC Glucose 259 H 335 H Hemoglobin A1c Lactic Acid Calcium Magnesium Total Creatine Kinase CK-MB (CK-2) Rel Index Troponin T C-Reactive Protein NT-Pro-B Natriuret Pep 2949 H Total Protein Albumin LDL Cholesterol Direct Lipase 11/19/16 11/19/16 11/19/16 07:45 11:38 15:56 WBC RBC Hgb Hct MCHC RDW Lymph % (Auto) [place] # Seg Neutrophils % Seg Neuts % (Manual) Lymphocytes % (Manual) Seg Neutrophils # Seg Neutrophils # Man Lymphocytes # (Manual) POC ABG pH POC ABG pCO2 POC ABG pO2 Sodium Potassium Chloride Carbon Dioxide Glucose POC Glucose 238 H 229 H 248 H Hemoglobin A1c Lactic Acid Calcium Magnesium Total Creatine Kinase CK-MB (CK-2) Rel Index Troponin T C-Reactive Protein NT-Pro-B Natriuret Pep Total Protein Albumin LDL Cholesterol Direct Lipase 11/19/16 11/20/16 11/20/16 21:58 04:30 04:30 WBC 14.2 H RBC 2.38 L Hgb 7.5 L Hct 21.7 L MCHC 35 H RDW 16.2 H Lymph % (Auto) [place] # Seg Neutrophils % Seg Neuts % (Manual) 86.0 H Lymphocytes % (Manual) 6.0 L Seg Neutrophils # Seg Neutrophils # Man 12.2 H Lymphocytes # (Manual) 0.9 L POC ABG pH POC ABG pCO2 POC ABG pO2 Sodium Potassium 3.5 L Chloride Carbon Dioxide 19 L Glucose 110 H POC Glucose 164 H Hemoglobin A1c Lactic Acid Calcium 8.0 L Magnesium Total Creatine Kinase CK-MB (CK-2) Rel Index Troponin T C-Reactive Protein NT-Pro-B Natriuret Pep Total Protein Albumin LDL Cholesterol Direct Lipase 11/20/16 11/20/16 11/20/16 04:30 07:52 11:35 WBC RBC Hgb Hct MCHC RDW Lymph % (Auto) [place] # Seg Neutrophils % Seg Neuts % (Manual) Lymphocytes % (Manual) Seg Neutrophils # Seg Neutrophils # Man Lymphocytes # (Manual) POC ABG pH POC ABG pCO2 POC ABG pO2 Sodium Potassium Chloride Carbon Dioxide Glucose POC Glucose 113 H 194 H Hemoglobin A1c Lactic Acid Calcium Magnesium 1.4 L Total Creatine Kinase CK-MB (CK-2) Rel Index Troponin T C-Reactive Protein NT-Pro-B Natriuret Pep Total Protein Albumin LDL Cholesterol Direct Lipase 11/20/16 11/20/16 11/21/16 15:32 21:08 06:20 WBC RBC Hgb Hct MCHC RDW Lymph % (Auto) [place] # Seg Neutrophils % Seg Neuts % (Manual) Lymphocytes % (Manual) Seg Neutrophils # Seg Neutrophils # Man Lymphocytes # (Manual) POC ABG pH POC ABG pCO2 POC ABG pO2 Sodium Potassium Chloride Carbon Dioxide Glucose POC Glucose 179 H 204 H Hemoglobin A1c Lactic Acid Calcium Magnesium 1.5 L Total Creatine Kinase CK-MB (CK-2) Rel Index Troponin T C-Reactive Protein NT-Pro-B Natriuret Pep Total Protein Albumin LDL Cholesterol Direct Lipase 11/21/16 11/21/16 11/21/16 07:53 11:22 16:16 WBC RBC Hgb Hct MCHC RDW Lymph % (Auto) [place] # Seg Neutrophils % Seg Neuts % (Manual) Lymphocytes % (Manual) Seg Neutrophils # Seg Neutrophils # Man Lymphocytes # (Manual) POC ABG pH POC ABG pCO2 POC ABG pO2 Sodium Potassium Chloride Carbon Dioxide Glucose POC Glucose 193 H 260 H 315 H Hemoglobin A1c Lactic Acid Calcium Magnesium Total Creatine Kinase CK-MB (CK-2) Rel Index Troponin T C-Reactive Protein NT-Pro-B Natriuret Pep Total Protein Albumin LDL Cholesterol Direct Lipase 11/21/16 11/22/16 11/22/16 20:57 05:49 05:49 WBC 13.2 H RBC 2.52 L Hgb 7.3 L Hct 22.5 L MCHC RDW 16.0 H Lymph % (Auto) 9.8 L [place] # 1.0 H Seg Neutrophils % 81.3 H Seg Neuts % (Manual) Lymphocytes % (Manual) Seg Neutrophils # 10.7 H Seg Neutrophils # Man Lymphocytes # (Manual) POC ABG pH POC ABG pCO2 POC ABG pO2 Sodium Potassium 2.6 L* D Chloride Carbon Dioxide 21 L Glucose 188 H POC Glucose 311 H Hemoglobin A1c Lactic Acid Calcium 7.6 L Magnesium Total Creatine Kinase CK-MB (CK-2) Rel Index Troponin T C-Reactive Protein NT-Pro-B Natriuret Pep Total Protein Albumin LDL Cholesterol Direct Lipase 11/22/16 11/22/16 11/22/16 07:28 11:22 22:53 WBC RBC Hgb Hct MCHC RDW Lymph % (Auto) [place] # Seg Neutrophils % Seg Neuts % (Manual) Lymphocytes % (Manual) Seg Neutrophils # Seg Neutrophils # Man Lymphocytes # (Manual) POC ABG pH POC ABG pCO2 POC ABG pO2 Sodium Potassium Chloride Carbon Dioxide Glucose POC Glucose 223 H 462 H 181 H Hemoglobin A1c Lactic Acid Calcium Magnesium Total Creatine Kinase CK-MB (CK-2) Rel Index Troponin T C-Reactive Protein NT-Pro-B Natriuret Pep Total Protein Albumin LDL Cholesterol Direct Lipase 11/23/16 11/23/16 11/23/16 06:00 06:00 07:48 WBC 14.6 H RBC 2.49 L Hgb 7.4 L Hct 22.2 L MCHC RDW 16.0 H Lymph % (Auto) 10.4 L [place] # 1.0 H Seg Neutrophils % 80.8 H Seg Neuts % (Manual) Lymphocytes % (Manual) Seg Neutrophils # 11.8 H Seg Neutrophils # Man Lymphocytes # (Manual) POC ABG pH POC ABG pCO2 POC ABG pO2 Sodium 136 L Potassium 2.8 L* Chloride Carbon Dioxide 20 L Glucose 159 H POC Glucose 168 H Hemoglobin A1c Lactic Acid Calcium 7.6 L Magnesium Total Creatine Kinase CK-MB (CK-2) Rel Index Troponin T C-Reactive Protein NT-Pro-B Natriuret Pep Total Protein Albumin LDL Cholesterol Direct Lipase 11/23/16 11/23/16 11/23/16 11:02 16:15 20:40 WBC RBC Hgb Hct MCHC RDW Lymph % (Auto) [place] # Seg Neutrophils % Seg Neuts % (Manual) Lymphocytes % (Manual) Seg Neutrophils # Seg Neutrophils # Man Lymphocytes # (Manual) POC ABG pH POC ABG pCO2 POC ABG pO2 Sodium Potassium Chloride Carbon Dioxide Glucose POC Glucose 223 H 359 H 331 H Hemoglobin A1c Lactic Acid Calcium Magnesium Total Creatine Kinase CK-MB (CK-2) Rel Index Troponin T C-Reactive Protein NT-Pro-B Natriuret Pep Total Protein Albumin LDL Cholesterol Direct Lipase 11/24/16 11/24/16 11/24/16 07:45 11:52 15:13 WBC RBC Hgb Hct MCHC RDW Lymph % (Auto) [place] # Seg Neutrophils % Seg Neuts % (Manual) Lymphocytes % (Manual) Seg Neutrophils # Seg Neutrophils # Man Lymphocytes # (Manual) POC ABG pH POC ABG pCO2 POC ABG pO2 Sodium Potassium Chloride Carbon Dioxide Glucose POC Glucose 262 H 330 H 238 H Hemoglobin A1c Lactic Acid Calcium Magnesium Total Creatine Kinase CK-MB (CK-2) Rel Index Troponin T C-Reactive Protein NT-Pro-B Natriuret Pep Total Protein Albumin LDL Cholesterol Direct Lipase 11/24/16 11/25/16 11/25/16 20:56 07:34 11:42 WBC RBC Hgb Hct MCHC RDW Lymph % (Auto) [place] # Seg Neutrophils % Seg Neuts % (Manual) Lymphocytes % (Manual) Seg Neutrophils # Seg Neutrophils # Man Lymphocytes # (Manual) POC ABG pH POC ABG pCO2 POC ABG pO2 Sodium Potassium Chloride Carbon Dioxide Glucose POC Glucose 131 H 225 H 240 H Hemoglobin A1c Lactic Acid Calcium Magnesium Total Creatine Kinase CK-MB (CK-2) Rel Index Troponin T C-Reactive Protein NT-Pro-B Natriuret Pep Total Protein Albumin LDL Cholesterol Direct Lipase 11/25/16 11/26/16 11/26/16 16:34 07:17 10:31 WBC RBC Hgb Hct MCHC RDW Lymph % (Auto) [place] # Seg Neutrophils % Seg Neuts % (Manual) Lymphocytes % (Manual) Seg Neutrophils # Seg Neutrophils # Man Lymphocytes # (Manual) POC ABG pH 7.508 H POC ABG pCO2 25.5 L POC ABG pO2 64 L Sodium Potassium Chloride Carbon Dioxide Glucose POC Glucose 281 H 207 H Hemoglobin A1c Lactic Acid Calcium Magnesium Total Creatine Kinase CK-MB (CK-2) Rel Index Troponin T C-Reactive Protein NT-Pro-B Natriuret Pep Total Protein Albumin LDL Cholesterol Direct Lipase 11/26/16 11/26/16 11:10 17:40 WBC RBC Hgb Hct MCHC RDW Lymph % (Auto) [place] # Seg Neutrophils % Seg Neuts % (Manual) Lymphocytes % (Manual) Seg Neutrophils # Seg Neutrophils # Man Lymphocytes # (Manual) POC ABG pH POC ABG pCO2 POC ABG pO2 Sodium Potassium Chloride Carbon Dioxide Glucose POC Glucose 266 H 195 H Hemoglobin A1c Lactic Acid Calcium Magnesium Total Creatine Kinase CK-MB (CK-2) Rel Index Troponin T C-Reactive Protein NT-Pro-B Natriuret Pep Total Protein Albumin LDL Cholesterol Direct Lipase
[2016-11-27] MEDS: LASIX PO SCH ×2 (05:52→18:59)
[2016-11-27] MEDS: DILAUDID IV PRN ×2 (05:53→18:58)
[2016-11-27] MEDS: BROVANA NEBU IH SCH ×2 (07:02→20:08)
[2016-11-27] MEDS: LOVENOX SUB-Q SCH (10:41)
[2016-11-27] MEDS: BABY ASPIRIN PO SCH (10:42)
[2016-11-27] MEDS: LOPRESSOR PO SCH (10:42)
[2016-11-27] MEDS: PEPCID PO SCH (10:42)
--- NOTE | 2016-11-27 10:55 | Progress Note ---
Assessment and Plan - Patient Problems (1) Hypoxia Current Visit: Yes Status: Acute (2) Pulmonary edema w/congestive heart failure w/preserved LV function Current Visit: Yes Status: Acute (3) Paroxysmal atrial fibrillation Current Visit: Yes Status: Acute Subjective Date of service: 11/27/16 Principal diagnosis: Diarrhea, colitis on CT, anemia Interval history: seen and examined at bedside; 24hour events reviewed; nursing and respiratory care staff consulted; no adverse overnight events reported to me; oxygenation much improved; denies acute chest pains or increased SOB acceptable oxygen saturations, complains of pain. dolly driver at the bedside. Patient now taking orally but appetite is extremely poor. Objective - Exam Narrative Exam: Well-developed chronically ill appearing. Somewhat tachypneic. HEENT: Pupils are equal reactive to light and accommodation. Conjunctiva clear. Oropharynx is normal with no evidence of oral candidiasis or pharyngitis. NECK: Supple. No enlargement of the thyroid gland. No significant cervical lymphadenopathy. No jugular venous distention at 30. Right IJ catheter in place. LUNGS: Anterior breath sounds clear sounding this a.m. HEART: Regular rate with ectopy. Murmur not heard. ABDOMEN: Soft and nontender. Liver and spleen are not palpably enlarged or tender. No palpable masses. Mildly distended. BS+ Colostomy on left side, midline abdominal incision wound ( being dressed by cotton picker operator during my exam) EXTREMITIES: No rash,or peripheral lymphadenopathy; 1+ ankle edema SKIN: No other rash, ulcers or wounds. NEUROLOGIC: No focal findings. No tremor. Vital Signs - 12hr 11/27/16 11/27/16 11/27/16 00:39 05:20 05:53 Temperature 98.2 F 98.5 F Pulse Rate Pulse Rate [ Anterior Bilateral Throughout] Pulse Rate [ 79 83 Apical] Respiratory 20 20 20 Rate Respiratory Rate [Anterior Bilateral Throughout] Blood Pressure 117/65 131/65 [Right Radial Artery] O2 Sat by Pulse 99 Oximetry 11/27/16 11/27/16 11/27/16 07:02 07:08 07:30 Temperature 98.9 F Pulse Rate Pulse Rate [ 86 86 Anterior Bilateral Throughout] Pulse Rate [ 89 Apical] Respiratory 22 Rate Respiratory 16 16 Rate [Anterior Bilateral Throughout] Blood Pressure 146/72 [Right Radial Artery] O2 Sat by Pulse 98 99 Oximetry 11/27/16 07:51 Temperature Pulse Rate 89 Pulse Rate [ Anterior Bilateral Throughout] Pulse Rate [ Apical] Respiratory Rate Respiratory Rate [Anterior Bilateral Throughout] Blood Pressure [Right Radial Artery] O2 Sat by Pulse Oximetry Constitutional: no acute distress Eyes: non-icteric ENT: oropharynx moist Neck: supple, no lymphadenopathy Effort: normal, mildly labored Ascultation: Bilateral: diminished breath sounds (bases), rales (basilar predominant) Cardiovascular: regular rate and rhythm Gastrointestinal: normoactive bowel sounds, soft, non-tender, non-distended Integumentary: other (left leg swelling) Extremities: no cyanosis, pulses normal, no ischemia or petechiae, edema (left leg) Neurologic: normal mental status, non-focal exam (grossly), pupils equal and round, motor strength normal and Psychiatric: mood appropriate, affect normal CBC and BMP: 11/23/16 06:00 11/23/16 20:25 ABG, PT/INR, D-dimer: ABG POC ABG pH 7.508 (7.35-7.45) H 11/26/16 10:31 POC ABG pCO2 25.5 (35-45) L 11/26/16 10:31 POC ABG pO2 64 (80-105) L 11/26/16 10:31 POC ABG HCO3 20.3 11/26/16 10:31 POC ABG Total CO2 21 11/26/16 10:31 POC ABG O2 Sat 94 11/26/16 10:31 PT/INR, D-dimer PT 14.4 Sec. (12.2-14.9) 11/17/16 Unknown INR 1.13 (0.87-1.13) 11/17/16 Unknown Abnormal lab findings: Abnormal Labs 11/17/16 11/17/16 11/17/16 17:07 17:43 17:43 WBC RBC Hgb Hct MCHC RDW Lymph % (Auto) [place] # Seg Neutrophils % Seg Neuts % (Manual) Lymphocytes % (Manual) Seg Neutrophils # Seg Neutrophils # Man Lymphocytes # (Manual) POC ABG pH POC ABG pCO2 POC ABG pO2 Sodium 136 L Potassium Chloride Carbon Dioxide Glucose 166 H POC Glucose 153 H Hemoglobin A1c Lactic Acid Calcium 7.5 L Magnesium Total Creatine Kinase CK-MB (CK-2) Rel Index Troponin T 0.352 H* D C-Reactive Protein NT-Pro-B Natriuret Pep Total Protein Albumin LDL Cholesterol Direct Lipase 11/17/16 11/17/16 11/17/16 Unknown Unknown Unknown WBC 25.7 H RBC 2.89 L Hgb 8.5 L Hct 26.2 L MCHC RDW 16.3 H Lymph % (Auto) [place] # Seg Neutrophils % Seg Neuts % (Manual) 90.0 H Lymphocytes % (Manual) 7.0 L Seg Neutrophils # Seg Neutrophils # Man 23.1 H Lymphocytes # (Manual) POC ABG pH POC ABG pCO2 POC ABG pO2 Sodium 135 L Potassium 2.5 L* Chloride 95.4 L Carbon Dioxide Glucose 132 H POC Glucose Hemoglobin A1c Lactic Acid 2.1 H* Calcium 7.7 L Magnesium Total Creatine Kinase CK-MB (CK-2) Rel Index Troponin T 0.066 H C-Reactive Protein NT-Pro-B Natriuret Pep Total Protein Albumin 2.5 L LDL Cholesterol Direct 39 L Lipase 76 H 11/17/16 11/18/16 11/18/16 Unknown 00:20 01:25 WBC RBC Hgb Hct MCHC RDW Lymph % (Auto) [place] # Seg Neutrophils % Seg Neuts % (Manual) Lymphocytes % (Manual) Seg Neutrophils # Seg Neutrophils # Man Lymphocytes # (Manual) POC ABG pH POC ABG pCO2 POC ABG pO2 Sodium Potassium Chloride Carbon Dioxide Glucose POC Glucose 290 H Hemoglobin A1c 7.9 H Lactic Acid Calcium Magnesium Total Creatine Kinase 23 L CK-MB (CK-2) Rel Index 11.3 H Troponin T C-Reactive Protein NT-Pro-B Natriuret Pep Total Protein Albumin LDL Cholesterol Direct Lipase 11/18/16 11/18/16 11/18/16 01:25 01:25 08:00 WBC RBC Hgb Hct MCHC RDW Lymph % (Auto) [place] # Seg Neutrophils % Seg Neuts % (Manual) Lymphocytes % (Manual) Seg Neutrophils # Seg Neutrophils # Man Lymphocytes # (Manual) POC ABG pH POC ABG pCO2 POC ABG pO2 Sodium 136 L Potassium Chloride Carbon Dioxide 21 L 20 L Glucose 169 H 120 H POC Glucose Hemoglobin A1c Lactic Acid Calcium 7.3 L 7.6 L Magnesium 1.5 L Total Creatine Kinase CK-MB (CK-2) Rel Index Troponin T C-Reactive Protein NT-Pro-B Natriuret Pep Total Protein 6.0 L Albumin 2.4 L LDL Cholesterol Direct Lipase 01/09/2411/18/16 11/18/16 08:00 08:28 11:21 WBC RBC Hgb Hct MCHC RDW Lymph % (Auto) [place] # Seg Neutrophils % Seg Neuts % (Manual) Lymphocytes % (Manual) Seg Neutrophils # Seg Neutrophils # Man Lymphocytes # (Manual) POC ABG pH POC ABG pCO2 POC ABG pO2 Sodium Potassium Chloride Carbon Dioxide Glucose POC Glucose 145 H 203 H Hemoglobin A1c Lactic Acid Calcium Magnesium Total Creatine Kinase CK-MB (CK-2) Rel Index Troponin T C-Reactive Protein 6.40 H NT-Pro-B Natriuret Pep Total Protein Albumin LDL Cholesterol Direct Lipase 11/18/16 11/18/16 11/19/16 16:17 21:46 02:45 WBC RBC Hgb Hct MCHC RDW Lymph % (Auto) [place] # Seg Neutrophils % Seg Neuts % (Manual) Lymphocytes % (Manual) Seg Neutrophils # Seg Neutrophils # Man Lymphocytes # (Manual) POC ABG pH POC ABG pCO2 POC ABG pO2 Sodium Potassium Chloride Carbon Dioxide Glucose POC Glucose 259 H 335 H Hemoglobin A1c Lactic Acid Calcium Magnesium Total Creatine Kinase CK-MB (CK-2) Rel Index Troponin T C-Reactive Protein NT-Pro-B Natriuret Pep 2949 H Total Protein Albumin LDL Cholesterol Direct Lipase 11/19/16 11/19/16 11/19/16 07:45 11:38 15:56 WBC RBC Hgb Hct MCHC RDW Lymph % (Auto) [place] # Seg Neutrophils % Seg Neuts % (Manual) Lymphocytes % (Manual) Seg Neutrophils # Seg Neutrophils # Man Lymphocytes # (Manual) POC ABG pH POC ABG pCO2 POC ABG pO2 Sodium Potassium Chloride Carbon Dioxide Glucose POC Glucose 238 H 229 H 248 H Hemoglobin A1c Lactic Acid Calcium Magnesium Total Creatine Kinase CK-MB (CK-2) Rel Index Troponin T C-Reactive Protein NT-Pro-B Natriuret Pep Total Protein Albumin LDL Cholesterol Direct Lipase 11/19/16 11/20/16 11/20/16 21:58 04:30 04:30 WBC 14.2 H RBC 2.38 L Hgb 7.5 L Hct 21.7 L MCHC 35 H RDW 16.2 H Lymph % (Auto) [place] # Seg Neutrophils % Seg Neuts % (Manual) 86.0 H Lymphocytes % (Manual) 6.0 L Seg Neutrophils # Seg Neutrophils # Man 12.2 H Lymphocytes # (Manual) 0.9 L POC ABG pH POC ABG pCO2 POC ABG pO2 Sodium Potassium 3.5 L Chloride Carbon Dioxide 19 L Glucose 110 H POC Glucose 164 H Hemoglobin A1c Lactic Acid Calcium 8.0 L Magnesium Total Creatine Kinase CK-MB (CK-2) Rel Index Troponin T C-Reactive Protein NT-Pro-B Natriuret Pep Total Protein Albumin LDL Cholesterol Direct Lipase 11/20/16 11/20/16 11/20/16 04:30 07:52 11:35 WBC RBC Hgb Hct MCHC RDW Lymph % (Auto) [place] # Seg Neutrophils % Seg Neuts % (Manual) Lymphocytes % (Manual) Seg Neutrophils # Seg Neutrophils # Man Lymphocytes # (Manual) POC ABG pH POC ABG pCO2 POC ABG pO2 Sodium Potassium Chloride Carbon Dioxide Glucose POC Glucose 113 H 194 H Hemoglobin A1c Lactic Acid Calcium Magnesium 1.4 L Total Creatine Kinase CK-MB (CK-2) Rel Index Troponin T C-Reactive Protein NT-Pro-B Natriuret Pep Total Protein Albumin LDL Cholesterol Direct Lipase 11/20/16 11/20/16 11/21/16 15:32 21:08 06:20 WBC RBC Hgb Hct MCHC RDW Lymph % (Auto) [place] # Seg Neutrophils % Seg Neuts % (Manual) Lymphocytes % (Manual) Seg Neutrophils # Seg Neutrophils # Man Lymphocytes # (Manual) POC ABG pH POC ABG pCO2 POC ABG pO2 Sodium Potassium Chloride Carbon Dioxide Glucose POC Glucose 179 H 204 H Hemoglobin A1c Lactic Acid Calcium Magnesium 1.5 L Total Creatine Kinase CK-MB (CK-2) Rel Index Troponin T C-Reactive Protein NT-Pro-B Natriuret Pep Total Protein Albumin LDL Cholesterol Direct Lipase 11/21/16 11/21/16 11/21/16 07:53 11:22 16:16 WBC RBC Hgb Hct MCHC RDW Lymph % (Auto) [place] # Seg Neutrophils % Seg Neuts % (Manual) Lymphocytes % (Manual) Seg Neutrophils # Seg Neutrophils # Man Lymphocytes # (Manual) POC ABG pH POC ABG pCO2 POC ABG pO2 Sodium Potassium Chloride Carbon Dioxide Glucose POC Glucose 193 H 260 H 315 H Hemoglobin A1c Lactic Acid Calcium Magnesium Total Creatine Kinase CK-MB (CK-2) Rel Index Troponin T C-Reactive Protein NT-Pro-B Natriuret Pep Total Protein Albumin LDL Cholesterol Direct Lipase 11/21/16 11/22/16 11/22/16 20:57 05:49 05:49 WBC 13.2 H RBC 2.52 L Hgb 7.3 L Hct 22.5 L MCHC RDW 16.0 H Lymph % (Auto) 9.8 L [place] # 1.0 H Seg Neutrophils % 81.3 H Seg Neuts % (Manual) Lymphocytes % (Manual) Seg Neutrophils # 10.7 H Seg Neutrophils # Man Lymphocytes # (Manual) POC ABG pH POC ABG pCO2 POC ABG pO2 Sodium Potassium 2.6 L* D Chloride Carbon Dioxide 21 L Glucose 188 H POC Glucose 311 H Hemoglobin A1c Lactic Acid Calcium 7.6 L Magnesium Total Creatine Kinase CK-MB (CK-2) Rel Index Troponin T C-Reactive Protein NT-Pro-B Natriuret Pep Total Protein Albumin LDL Cholesterol Direct Lipase 11/22/16 11/22/16 11/22/16 07:28 11:22 22:53 WBC RBC Hgb Hct MCHC RDW Lymph % (Auto) [place] # Seg Neutrophils % Seg Neuts % (Manual) Lymphocytes % (Manual) Seg Neutrophils # Seg Neutrophils # Man Lymphocytes # (Manual) POC ABG pH POC ABG pCO2 POC ABG pO2 Sodium Potassium Chloride Carbon Dioxide Glucose POC Glucose 223 H 462 H 181 H Hemoglobin A1c Lactic Acid Calcium Magnesium Total Creatine Kinase CK-MB (CK-2) Rel Index Troponin T C-Reactive Protein NT-Pro-B Natriuret Pep Total Protein Albumin LDL Cholesterol Direct Lipase 11/23/16 11/23/16 11/23/16 06:00 06:00 07:48 WBC 14.6 H RBC 2.49 L Hgb 7.4 L Hct 22.2 L MCHC RDW 16.0 H Lymph % (Auto) 10.4 L [place] # 1.0 H Seg Neutrophils % 80.8 H Seg Neuts % (Manual) Lymphocytes % (Manual) Seg Neutrophils # 11.8 H Seg Neutrophils # Man Lymphocytes # (Manual) POC ABG pH POC ABG pCO2 POC ABG pO2 Sodium 136 L Potassium 2.8 L* Chloride Carbon Dioxide 20 L Glucose 159 H POC Glucose 168 H Hemoglobin A1c Lactic Acid Calcium 7.6 L Magnesium Total Creatine Kinase CK-MB (CK-2) Rel Index Troponin T C-Reactive Protein NT-Pro-B Natriuret Pep Total Protein Albumin LDL Cholesterol Direct Lipase 11/23/16 11/23/16 11/23/16 11:02 16:15 20:40 WBC RBC Hgb Hct MCHC RDW Lymph % (Auto) [place] # Seg Neutrophils % Seg Neuts % (Manual) Lymphocytes % (Manual) Seg Neutrophils # Seg Neutrophils # Man Lymphocytes # (Manual) POC ABG pH POC ABG pCO2 POC ABG pO2 Sodium Potassium Chloride Carbon Dioxide Glucose POC Glucose 223 H 359 H 331 H Hemoglobin A1c Lactic Acid Calcium Magnesium Total Creatine Kinase CK-MB (CK-2) Rel Index Troponin T C-Reactive Protein NT-Pro-B Natriuret Pep Total Protein Albumin LDL Cholesterol Direct Lipase 11/24/16 11/24/16 11/24/16 07:45 11:52 15:13 WBC RBC Hgb Hct MCHC RDW Lymph % (Auto) [place] # Seg Neutrophils % Seg Neuts % (Manual) Lymphocytes % (Manual) Seg Neutrophils # Seg Neutrophils # Man Lymphocytes # (Manual) POC ABG pH POC ABG pCO2 POC ABG pO2 Sodium Potassium Chloride Carbon Dioxide Glucose POC Glucose 262 H 330 H 238 H Hemoglobin A1c Lactic Acid Calcium Magnesium Total Creatine Kinase CK-MB (CK-2) Rel Index Troponin T C-Reactive Protein NT-Pro-B Natriuret Pep Total Protein Albumin LDL Cholesterol Direct Lipase 11/24/16 11/25/16 11/25/16 20:56 07:34 11:42 WBC RBC Hgb Hct MCHC RDW Lymph % (Auto) [place] # Seg Neutrophils % Seg Neuts % (Manual) Lymphocytes % (Manual) Seg Neutrophils # Seg Neutrophils # Man Lymphocytes # (Manual) POC ABG pH POC ABG pCO2 POC ABG pO2 Sodium Potassium Chloride Carbon Dioxide Glucose POC Glucose 131 H 225 H 240 H Hemoglobin A1c Lactic Acid Calcium Magnesium Total Creatine Kinase CK-MB (CK-2) Rel Index Troponin T C-Reactive Protein NT-Pro-B Natriuret Pep Total Protein Albumin LDL Cholesterol Direct Lipase 11/25/16 11/26/16 11/26/16 16:34 07:17 10:31 WBC RBC Hgb Hct MCHC RDW Lymph % (Auto) [place] # Seg Neutrophils % Seg Neuts % (Manual) Lymphocytes % (Manual) Seg Neutrophils # Seg Neutrophils # Man Lymphocytes # (Manual) POC ABG pH 7.508 H POC ABG pCO2 25.5 L POC ABG pO2 64 L Sodium Potassium Chloride Carbon Dioxide Glucose POC Glucose 281 H 207 H Hemoglobin A1c Lactic Acid Calcium Magnesium Total Creatine Kinase CK-MB (CK-2) Rel Index Troponin T C-Reactive Protein NT-Pro-B Natriuret Pep Total Protein Albumin LDL Cholesterol Direct Lipase 11/26/16 11/26/16 11/26/16 11:10 17:40 21:34 WBC RBC Hgb Hct MCHC RDW Lymph % (Auto) [place] # Seg Neutrophils % Seg Neuts % (Manual) Lymphocytes % (Manual) Seg Neutrophils # Seg Neutrophils # Man Lymphocytes # (Manual) POC ABG pH POC ABG pCO2 POC ABG pO2 Sodium Potassium Chloride Carbon Dioxide Glucose POC Glucose 266 H 195 H 201 H Hemoglobin A1c Lactic Acid Calcium Magnesium Total Creatine Kinase CK-MB (CK-2) Rel Index Troponin T C-Reactive Protein NT-Pro-B Natriuret Pep Total Protein Albumin LDL Cholesterol Direct Lipase
--- NOTE | 2016-11-27 12:25 | Progress Note ---
Assessment and Plan - Patient Problems (1) Sepsis Current Visit: Yes Status: Resolved Plan to address problem: sepsis protocol, IV abs, supportive care, monitor uop q shift. (2) Acute hypoxemic respiratory failure Current Visit: Yes Status: Resolved Plan to address problem: supplemental oxygen, nebs, supportive care, pulmonary toilet, early ambulation, (3) Bilateral pneumonia Current Visit: Yes Status: Resolved Qualifiers: Pneumonia type: due to unspecified organism Lung location: lower lobe of lung Qualified Code(s): J18.9 - Pneumonia, unspecified organism Plan to address problem: Full course PNA protocol, IV abs, supportive care, nebs, supplemental oxygen, pulmonary toilet (4) Paroxysmal atrial fibrillation Current Visit: Yes Status: Acute Plan to address problem: Cardiology consulted, continue current therapy,telemetry monitoring (5) Pulmonary edema w/congestive heart failure w/preserved LV function Current Visit: Yes Status: Acute Plan to address problem: Pending stress test. as per cardiology team. (6) DVT prophylaxis Current Visit: Yes Status: Acute History Interval history: Pt resting in bed, No reported nursing events. Pt deneis pain. Pt stable overnight. Pt denies fever, chills, CP, Palpitations, NVD. Case management consulted. Hospitalist Physical - Constitutional Vitals: Temp Pulse Resp BP Pulse Ox 98.9 F 89 22 146/72 99 11/27/16 07:30 11/27/16 07:51 11/27/16 07:30 11/27/16 07:30 11/27/16 07:30 General appearance: Present: no acute distress, well-nourished - EENT Eyes: Present: PERRL, EOM intact ENT: hearing intact - Neck Neck: Present: supple - Respiratory Respiratory: bilateral: CTA - Cardiovascular Rhythm: regular Heart Sounds: Present: S1 & S2 - Extremities Extremities: no ischemia Extremity abnormal: edema Peripheral Pulses: within normal limits - Abdominal General gastrointestinal: soft, non-tender, non-distended - Integumentary Integumentary: Present: clear, dry - Psychiatric Psychiatric: appropriate mood/affect, cooperative - Neurologic Neurologic: CNII-XII intact Results - Labs CBC & Chem 7: 11/23/16 06:00 11/23/16 20:25 Labs: Laboratory Last Values WBC 14.6 K/mm3 (4.5-11.0) H 11/23/16 06:00 RBC 2.49 M/mm3 (3.65-5.03) L 11/23/16 06:00 Hgb 7.4 gm/dl (11.8-15.2) L 11/23/16 06:00 Hct 22.2 % (35.5-45.6) L 11/23/16 06:00 MCV 89 fl (84-94) 11/23/16 06:00 MCH 30 pg (28-32) 11/23/16 06:00 MCHC 34 % (32-34) 11/23/16 06:00 RDW 16.0 % (13.2-15.2) H 11/23/16 06:00 Plt Count 258 K/mm3 (140-440) 11/23/16 06:00 Lymph % (Auto) 10.4 % (13.4-35.0) L 11/23/16 06:00 [place] % (Auto) 7.1 % (0.0-7.3) 11/23/16 06:00 Eos % (Auto) 1.1 % (0.0-4.3) 11/23/16 06:00 Baso % (Auto) 0.6 % (0.0-1.8) 11/23/16 06:00 Lymph # 1.5 K/mm3 (1.2-5.4) 11/23/16 06:00 [place] # 1.0 K/mm3 (0.0-0.8) H 11/23/16 06:00 Eos # 0.2 K/mm3 (0.0-0.4) 11/23/16 06:00 Baso # 0.1 K/mm3 (0.0-0.1) 11/23/16 06:00 Add Manual Diff Complete 11/20/16 04:30 Total Counted 100 11/20/16 04:30 Seg Neutrophils % 80.8 % (40.0-70.0) H 11/23/16 06:00 Seg Neuts % (Manual) 86.0 % (40.0-70.0) H 11/20/16 04:30 Band Neutrophils % 4.0 % 11/20/16 04:30 Lymphocytes % (Manual) 6.0 % (13.4-35.0) L 11/20/16 04:30 Reactive Lymphs % (Man) 0 % 11/20/16 04:30 Monocytes % (Manual) 1.0 % (0.0-7.3) 11/20/16 04:30 Eosinophils % (Manual) 2.0 % (0.0-4.3) 11/20/16 04:30 Basophils % (Manual) 1.0 % (0.0-1.8) 11/20/16 04:30 Metamyelocytes % 0 % 11/20/16 04:30 Myelocytes % 0 % 11/20/16 04:30 Promyelocytes % 0 % 11/20/16 04:30 Blast Cells % 0 % 11/20/16 04:30 Nucleated RBC % Not Reportable 11/20/16 04:30 Seg Neutrophils # 11.8 K/mm3 (1.8-7.7) H 11/23/16 06:00 Seg Neutrophils # Man 12.2 K/mm3 (1.8-7.7) H 11/20/16 04:30 Band Neutrophils # 0.6 K/mm3 11/20/16 04:30 Lymphocytes # (Manual) 0.9 K/mm3 (1.2-5.4) L 11/20/16 04:30 Abs React Lymphs (Man) 0.0 K/mm3 11/20/16 04:30 Monocytes # (Manual) 0.1 K/mm3 (0.0-0.8) 11/20/16 04:30 Eosinophils # (Manual) 0.3 K/mm3 (0.0-0.4) 11/20/16 04:30 Basophils # (Manual) 0.1 K/mm3 (0.0-0.1) 11/20/16 04:30 Metamyelocytes # 0.0 K/mm3 11/20/16 04:30 Myelocytes # 0.0 K/mm3 11/20/16 04:30 Promyelocytes # 0.0 K/mm3 11/20/16 04:30 Blast Cells # 0.0 K/mm3 11/20/16 04:30 WBC Morphology Not Reportable 11/20/16 04:30 Hypersegmented Neuts Not Reportable 11/20/16 04:30 Hyposegmented Neuts Not Reportable 11/20/16 04:30 Hypogranular Neuts Not Reportable 11/20/16 04:30 Smudge Cells Not Reportable 11/20/16 04:30 Toxic Granulation Not Reportable 11/20/16 04:30 Toxic Vacuolation Not Reportable 11/20/16 04:30 Dohle Bodies Not Reportable 11/20/16 04:30 Pelger-Huet Anomaly Not Reportable 11/20/16 04:30 Boo Rods Not Reportable 11/20/16 04:30 Platelet Estimate Appears normal 11/20/16 04:30 Clumped Platelets Not Reportable 11/20/16 04:30 Plt Clumps, EDTA Not Reportable 11/20/16 04:30 Large Platelets Not Reportable 11/20/16 04:30 Giant Platelets Not Reportable 11/20/16 04:30 Platelet Satelliting Not Reportable 11/20/16 04:30 Plt Morphology Comment Not Reportable 11/20/16 04:30 RBC Morphology Not Reportable 11/20/16 04:30 Dimorphic RBCs Not Reportable 11/20/16 04:30 Polychromasia Not Reportable 11/20/16 04:30 Hypochromasia Not Reportable 11/20/16 04:30 Poikilocytosis Not Reportable 11/20/16 04:30 Anisocytosis Rare 11/20/16 04:30 Microcytosis Not Reportable 11/20/16 04:30 Macrocytosis Not Reportable 11/20/16 04:30 Spherocytes Not Reportable 11/20/16 04:30 Pappenheimer Bodies Not Reportable 11/20/16 04:30 Sickle Cells Not Reportable 11/20/16 04:30 Target Cells Not Reportable 11/20/16 04:30 Tear Drop Cells Not Reportable 11/20/16 04:30 Ovalocytes Not Reportable 11/20/16 04:30 Helmet Cells Not Reportable 11/20/16 04:30 [place] Bodies Not Reportable 11/20/16 04:30 [place] Rings Not Reportable 11/20/16 04:30 [place] Cells Not Reportable 11/20/16 04:30 Bite Cells Not Reportable 11/20/16 04:30 Crenated Cell Not Reportable 11/20/16 04:30 Elliptocytes Not Reportable 11/20/16 04:30 Acanthocytes (Spur) Not Reportable 11/20/16 04:30 Rouleaux Not Reportable 11/20/16 04:30 Hemoglobin C Crystals Not Reportable 11/20/16 04:30 Schistocytes Not Reportable 11/20/16 04:30 Malaria parasites Not Reportable 11/20/16 04:30 Tan Bodies Not Reportable 11/20/16 04:30 Hem Pathologist Commnt No 11/20/16 04:30 PT 14.4 Sec. (12.2-14.9) 11/17/16 Unknown INR 1.13 (0.87-1.13) 11/17/16 Unknown POC ABG pH 7.508 (7.35-7.45) H 11/26/16 10:31 POC ABG pCO2 25.5 (35-45) L 11/26/16 10:31 POC ABG pO2 64 (80-105) L 11/26/16 10:31 POC ABG HCO3 20.3 11/26/16 10:31 POC ABG Total CO2 21 11/26/16 10:31 POC ABG O2 Sat 94 11/26/16 10:31 POC ABG Base Excess -3 11/26/16 10:31 FiO2 21 % 11/26/16 10:31 Sodium 136 mmol/L (137-145) L 11/23/16 06:00 Potassium 3.7 mmol/L (3.6-5.0) D 11/23/16 20:25 Chloride 98.8 mmol/L (98-107) 11/23/16 06:00 Carbon Dioxide 20 mmol/L (22-30) L 11/23/16 06:00 Anion Gap 20 mmol/L 11/23/16 06:00 BUN 11 mg/dL (9-20) 11/23/16 06:00 Creatinine 1.4 mg/dL (0.8-1.5) 11/23/16 06:00 Estimated GFR > 60 ml/min 11/23/16 06:00 BUN/Creatinine Ratio 7.85 % 11/23/16 06:00 Glucose 159 mg/dL (75-100) H 11/23/16 06:00 POC Glucose 201 (70-105) H 11/26/16 21:34 Hemoglobin A1c 7.9 % (4-6) H 11/18/16 01:25 Lactic Acid 0.9 mmol/L (0.7-2.0) 11/19/16 05:55 Calcium 7.6 mg/dL (8.4-10.2) L 11/23/16 06:00 Magnesium 1.5 mg/dL (1.7-2.3) L 11/21/16 06:20 Total Bilirubin 0.5 mg/dL (0.1-1.2) 11/18/16 08:00 Direct Bilirubin < 0.2 mg/dL (0-0.2) 11/17/16 Unknown Indirect Bilirubin 0.5 mg/dL 11/17/16 Unknown AST 20 units/L (5-40) 11/18/16 08:00 ALT 13 units/L (7-56) 11/18/16 08:00 Alkaline Phosphatase 110 units/L (35-129) 11/18/16 08:00 Ammonia 43.0 umol/L (25-60) 11/17/16 Unknown Total Creatine Kinase 23 units/L (55-170) L 11/17/16 Unknown CK-MB (CK-2) 2.6 ng/mL (0.0-4.0) 11/17/16 Unknown CK-MB (CK-2) Rel Index 11.3 (0-4) H 11/17/16 Unknown Troponin T 0.066 ng/mL (0.00-0.029) H 11/17/16 Unknown C-Reactive Protein 6.40 mg/dL (0.00-1.30) H 11/18/16 08:00 NT-Pro-B Natriuret Pep 2949 pg/mL (0-900) H 11/19/16 02:45 Total Protein 6.0 g/dL (6.3-8.2) L 11/18/16 08:00 Albumin 2.4 g/dL (3.9-5) L 11/18/16 08:00 Albumin/Globulin Ratio 0.7 % 11/18/16 08:00 Triglycerides 138 mg/dL (2-149) 11/17/16 Unknown Cholesterol 111 mg/dL (50-199) 11/17/16 Unknown LDL Cholesterol Direct 39 mg/dL (50-130) L 11/17/16 Unknown HDL Cholesterol 45 mg/dL (40-59) 11/17/16 Unknown Cholesterol/HDL Ratio 2.46 % 11/17/16 Unknown Lipase 76 units/L (13-60) H 11/17/16 Unknown Urine Color Yellow (Yellow) 11/17/16: Urine Turbidity Clear (Clear) 11/17/16: Urine pH 6.0 (5.0-7.0) 11/17/16 15: Ur Specific [place] 1.011 (1.003-1.030) 11/17/16 Urine Protein <15 mg/dl mg/dL (Negative) 11/17/16 Urine Glucose (UA) 50 mg/dL (Negative) 11/17/16 Urine Ketones Neg mg/dL (Negative) 11/17/16 Urine Blood Neg (Negative) 11/17/16 Urine Nitrite Neg (Negative) 11/17/16 Urine Bilirubin Neg (Negative) 11/17/16 Urine Urobilinogen < 2.0 mg/dL (<2.0) 11/17/16: Ur Leukocyte Esterase Neg (Negative) 11/17/16: Urine WBC (Auto) 2.0 /HPF (0.0-6.0) 11/17/16 Urine RBC (Auto) 3.0 /HPF (0.0-6.0) 11/17/16 Urine Mucus Few /HPF 11/17/16
--- NOTE | 2016-11-27 12:26 | Progress Note ---
Assessment and Plan - Patient Problems (1) Sepsis Current Visit: Yes Status: Resolved Plan to address problem: sepsis protocol, IV abs, supportive care, monitor uop q shift. (2) Acute hypoxemic respiratory failure Current Visit: Yes Status: Resolved Plan to address problem: supplemental oxygen, nebs, supportive care, pulmonary toilet, early ambulation, (3) Bilateral pneumonia Current Visit: Yes Status: Resolved Qualifiers: Pneumonia type: due to unspecified organism Lung location: lower lobe of lung Qualified Code(s): J18.9 - Pneumonia, unspecified organism Plan to address problem: Full course PNA protocol, IV abs, supportive care, nebs, supplemental oxygen, pulmonary toilet (4) Paroxysmal atrial fibrillation Current Visit: Yes Status: Acute Plan to address problem: Cardiology consulted, continue current therapy,telemetry monitoring (5) Pulmonary edema w/congestive heart failure w/preserved LV function Current Visit: Yes Status: Acute Plan to address problem: Pending stress test. as per cardiology team. (6) DVT prophylaxis Current Visit: Yes Status: Acute History Interval history: Pt resting in bed, No reported nursing events. Pt deneis pain. Pt stable overnight. Pt denies fever, chills, CP, Palpitations, NVD. Case management consulted. Hospitalist Physical - Constitutional Vitals: Temp Pulse Resp BP Pulse Ox 98.9 F 89 22 146/72 99 11/27/16 07:30 11/27/16 07:51 11/27/16 07:30 11/27/16 07:30 11/27/16 07:30 General appearance: Present: no acute distress, well-nourished - EENT Eyes: Present: PERRL, EOM intact ENT: hearing intact - Neck Neck: Present: supple - Respiratory Respiratory: bilateral: CTA - Cardiovascular Rhythm: regular Heart Sounds: Present: S1 & S2 - Extremities Extremity abnormal: edema Peripheral Pulses: within normal limits - Abdominal General gastrointestinal: soft, non-tender, non-distended - Integumentary Integumentary: Present: clear, dry - Psychiatric Psychiatric: appropriate mood/affect, cooperative Results - Labs CBC & Chem 7: 11/23/16 06:00 11/23/16 20:25 Labs: Laboratory Last Values WBC 14.6 K/mm3 (4.5-11.0) H 11/23/16 06:00 RBC 2.49 M/mm3 (3.65-5.03) L 11/23/16 06:00 Hgb 7.4 gm/dl (11.8-15.2) L 11/23/16 06:00 Hct 22.2 % (35.5-45.6) L 11/23/16 06:00 MCV 89 fl (84-94) 11/23/16 06:00 MCH 30 pg (28-32) 11/23/16 06:00 MCHC 34 % (32-34) 11/23/16 06:00 RDW 16.0 % (13.2-15.2) H 11/23/16 06:00 Plt Count 258 K/mm3 (140-440) 11/23/16 06:00 Lymph % (Auto) 10.4 % (13.4-35.0) L 11/23/16 06:00 Randall % (Auto) 7.1 % (0.0-7.3) 11/23/16 06:00 Eos % (Auto) 1.1 % (0.0-4.3) 11/23/16 06:00 Baso % (Auto) 0.6 % (0.0-1.8) 11/23/16 06:00 Lymph # 1.5 K/mm3 (1.2-5.4) 11/23/16 06:00 Randall # 1.0 K/mm3 (0.0-0.8) H 11/23/16 06:00 Eos # 0.2 K/mm3 (0.0-0.4) 11/23/16 06:00 Baso # 0.1 K/mm3 (0.0-0.1) 11/23/16 06:00 Add Manual Diff Complete 11/20/16 04:30 Total Counted 100 11/20/16 04:30 Seg Neutrophils % 80.8 % (40.0-70.0) H 11/23/16 06:00 Seg Neuts % (Manual) 86.0 % (40.0-70.0) H 11/20/16 04:30 Band Neutrophils % 4.0 % 11/20/16 04:30 Lymphocytes % (Manual) 6.0 % (13.4-35.0) L 11/20/16 04:30 Reactive Lymphs % (Man) 0 % 11/20/16 04:30 Monocytes % (Manual) 1.0 % (0.0-7.3) 11/20/16 04:30 Eosinophils % (Manual) 2.0 % (0.0-4.3) 11/20/16 04:30 Basophils % (Manual) 1.0 % (0.0-1.8) 11/20/16 04:30 Metamyelocytes % 0 % 11/20/16 04:30 Myelocytes % 0 % 11/20/16 04:30 Promyelocytes % 0 % 11/20/16 04:30 Blast Cells % 0 % 11/20/16 04:30 Nucleated RBC % Not Reportable 11/20/16 04:30 Seg Neutrophils # 11.8 K/mm3 (1.8-7.7) H 11/23/16 06:00 Seg Neutrophils # Man 12.2 K/mm3 (1.8-7.7) H 11/20/16 04:30 Band Neutrophils # 0.6 K/mm3 11/20/16 04:30 Lymphocytes # (Manual) 0.9 K/mm3 (1.2-5.4) L 11/20/16 04:30 Abs React Lymphs (Man) 0.0 K/mm3 11/20/16 04:30 Monocytes # (Manual) 0.1 K/mm3 (0.0-0.8) 11/20/16 04:30 Eosinophils # (Manual) 0.3 K/mm3 (0.0-0.4) 11/20/16 04:30 Basophils # (Manual) 0.1 K/mm3 (0.0-0.1) 11/20/16 04:30 Metamyelocytes # 0.0 K/mm3 11/20/16 04:30 Myelocytes # 0.0 K/mm3 11/20/16 04:30 Promyelocytes # 0.0 K/mm3 11/20/16 04:30 Blast Cells # 0.0 K/mm3 11/20/16 04:30 WBC Morphology Not Reportable 11/20/16 04:30 Hypersegmented Neuts Not Reportable 11/20/16 04:30 Hyposegmented Neuts Not Reportable 11/20/16 04:30 Hypogranular Neuts Not Reportable 11/20/16 04:30 Smudge Cells Not Reportable 11/20/16 04:30 Toxic Granulation Not Reportable 11/20/16 04:30 Toxic Vacuolation Not Reportable 11/20/16 04:30 Dohle Bodies Not Reportable 11/20/16 04:30 Pelger-Huet Anomaly Not Reportable 11/20/16 04:30 Boo Rods Not Reportable 11/20/16 04:30 Platelet Estimate Appears normal 11/20/16 04:30 Clumped Platelets Not Reportable 11/20/16 04:30 Plt Clumps, EDTA Not Reportable 11/20/16 04:30 Large Platelets Not Reportable 11/20/16 04:30 Giant Platelets Not Reportable 11/20/16 04:30 Platelet Satelliting Not Reportable 11/20/16 04:30 Plt Morphology Comment Not Reportable 11/20/16 04:30 RBC Morphology Not Reportable 11/20/16 04:30 Dimorphic RBCs Not Reportable 11/20/16 04:30 Polychromasia Not Reportable 11/20/16 04:30 Hypochromasia Not Reportable 11/20/16 04:30 Poikilocytosis Not Reportable 11/20/16 04:30 Anisocytosis Rare 11/20/16 04:30 Microcytosis Not Reportable 11/20/16 04:30 Macrocytosis Not Reportable 11/20/16 04:30 Spherocytes Not Reportable 11/20/16 04:30 Pappenheimer Bodies Not Reportable 11/20/16 04:30 Sickle Cells Not Reportable 11/20/16 04:30 Target Cells Not Reportable 11/20/16 04:30 Tear Drop Cells Not Reportable 11/20/16 04:30 Ovalocytes Not Reportable 11/20/16 04:30 Helmet Cells Not Reportable 11/20/16 04:30 [place] Bodies Not Reportable 11/20/16 04:30 [place] Rings Not Reportable 11/20/16 04:30 Oscar Cells Not Reportable 11/20/16 04:30 Bite Cells Not Reportable 11/20/16 04:30 Crenated Cell Not Reportable 11/20/16 04:30 Elliptocytes Not Reportable 11/20/16 04:30 Acanthocytes (Spur) Not Reportable 11/20/16 04:30 Rouleaux Not Reportable 11/20/16 04:30 Hemoglobin C Crystals Not Reportable 11/20/16 04:30 Schistocytes Not Reportable 11/20/16 04:30 Malaria parasites Not Reportable 11/20/16 04:30 Tan Bodies Not Reportable 11/20/16 04:30 Hem Pathologist Commnt No 11/20/16 04:30 PT 14.4 Sec. (12.2-14.9) 11/17/16 Unknown INR 1.13 (0.87-1.13) 11/17/16 Unknown POC ABG pH 7.508 (7.35-7.45) H 11/26/16 10:31 POC ABG pCO2 25.5 (35-45) L 11/26/16 10:31 POC ABG pO2 64 (80-105) L 11/26/16 10:31 POC ABG HCO3 20.3 11/26/16 10:31 POC ABG Total CO2 21 11/26/16 10:31 POC ABG O2 Sat 94 11/26/16 10:31 POC ABG Base Excess -3 11/26/16 10:31 FiO2 21 % 11/26/16 10:31 Sodium 136 mmol/L (137-145) L 11/23/16 06:00 Potassium 3.7 mmol/L (3.6-5.0) D 11/23/16 20:25 Chloride 98.8 mmol/L (98-107) 11/23/16 06:00 Carbon Dioxide 20 mmol/L (22-30) L 11/23/16 06:00 Anion Gap 20 mmol/L 11/23/16 06:00 BUN 11 mg/dL (9-20) 11/23/16 06:00 Creatinine 1.4 mg/dL (0.8-1.5) 11/23/16 06:00 Estimated GFR > 60 ml/min 11/23/16 06:00 BUN/Creatinine Ratio 7.85 % 11/23/16 06:00 Glucose 159 mg/dL (75-100) H 11/23/16 06:00 POC Glucose 201 (70-105) H 11/26/16 21:34 Hemoglobin A1c 7.9 % (4-6) H 11/18/16 01:25 Lactic Acid 0.9 mmol/L (0.7-2.0) 11/19/16 05:55 Calcium 7.6 mg/dL (8.4-10.2) L 11/23/16 06:00 Magnesium 1.5 mg/dL (1.7-2.3) L 11/21/16 06:20 Total Bilirubin 0.5 mg/dL (0.1-1.2) 11/18/16 08:00 Direct Bilirubin < 0.2 mg/dL (0-0.2) 11/17/16 Unknown Indirect Bilirubin 0.5 mg/dL 11/17/16 Unknown AST 20 units/L (5-40) 11/18/16 08:00 ALT 13 units/L (7-56) 11/18/16 08:00 Alkaline Phosphatase 110 units/L (35-129) 11/18/16 08:00 Ammonia 43.0 umol/L (25-60) 11/17/16 Unknown Total Creatine Kinase 23 units/L (55-170) L 11/17/16 Unknown CK-MB (CK-2) 2.6 ng/mL (0.0-4.0) 11/17/16 Unknown CK-MB (CK-2) Rel Index 11.3 (0-4) H 11/17/16 Unknown Troponin T 0.066 ng/mL (0.00-0.029) H 11/17/16 Unknown C-Reactive Protein 6.40 mg/dL (0.00-1.30) H 11/18/16 08:00 NT-Pro-B Natriuret Pep 2949 pg/mL (0-900) H 11/19/16 02:45 Total Protein 6.0 g/dL (6.3-8.2) L 11/18/16 08:00 Albumin 2.4 g/dL (3.9-5) L 11/18/16 08:00 Albumin/Globulin Ratio 0.7 % 11/18/16 08:00 Triglycerides 138 mg/dL (2-149) 11/17/16 Unknown Cholesterol 111 mg/dL (50-199) 11/17/16 Unknown LDL Cholesterol Direct 39 mg/dL (50-130) L 11/17/16 Unknown HDL Cholesterol 45 mg/dL (40-59) 11/17/16 Unknown Cholesterol/HDL Ratio 2.46 % 11/17/16 Unknown Lipase 76 units/L (13-60) H 11/17/16 Unknown Urine Color Yellow (Yellow) 11/17/16 15: Urine Turbidity Clear (Clear) 11/17/16: Urine pH 6.0 (5.0-7.0) 11/17/16 Ur Specific [employer] 1.011 (1.003-1.030) 11/17/16 Urine Protein <15 mg/dl mg/dL (Negative) 11/17/16 Urine Glucose (UA) 50 mg/dL (Negative) 11/17/16 Urine Ketones Neg mg/dL (Negative) 11/17/16 Urine Blood Neg (Negative) 11/17/16: Urine Nitrite Neg (Negative) 11/17/16 Urine Bilirubin Neg (Negative) 11/17/16 Urine Urobilinogen < 2.0 mg/dL (<2.0) 11/17/16: Ur Leukocyte Esterase Neg (Negative) 11/17/16: Urine WBC (Auto) 2.0 /HPF (0.0-6.0) 11/17/16: Urine RBC (Auto) 3.0 /HPF (0.0-6.0) 11/17/16: Urine Mucus Few /HPF 11/17/16
[2016-11-27 20:24] VITALS: BP 132/61
== END 2016-11-27 20:30 | disposition home or self-care (01) | DRG 871 ==
LOC: ED 12:05 → CC1 14:10 → 4A 11-20 18:15
PROVIDERS: ADMIT Internal Medicine; ATTEND Internal Medicine
PROC: 05HM33Z Insertion of Infusion Device into Right Internal Jugular Vein, Percutaneous Approach (ICD-10-PCS; principal; 2016-11-17)
PROC: 4A033R1 Measurement of Arterial Saturation, Peripheral, Percutaneous Approach (ICD-10-PCS; 2016-11-17)
PROC: 4A033R1 Measurement of Arterial Saturation, Peripheral, Percutaneous Approach (ICD-10-PCS; 2016-11-26)
DX: A41.9 Sepsis, unspecified organism (principal); R65.21 Severe sepsis with septic shock; J18.9 Pneumonia, unspecified organism; J96.01 Acute respiratory failure with hypoxia; A04.7 Enterocolitis due to Clostridium difficile; J44.1 Chronic obstructive pulmonary disease with (acute) exacerbation; I47.2 Ventricular tachycardia; J81.1 Chronic pulmonary edema; I13.0 Hypertensive heart and chronic kidney disease with heart failure and stage 1 through stage 4 chronic kidney disease, or unspecified chronic kidney disease; E87.6 Hypokalemia; D64.9 Anemia, unspecified; E78.5 Hyperlipidemia, unspecified; I48.0 Paroxysmal atrial fibrillation; N18.9 Chronic kidney disease, unspecified; E11.22 Type 2 diabetes mellitus with diabetic chronic kidney disease; K21.9 Gastro-esophageal reflux disease without esophagitis; F32.9 Major depressive disorder, single episode, unspecified; F10.10 Alcohol abuse, uncomplicated; I50.9 Heart failure, unspecified; Z82.49 Family history of ischemic heart disease and other diseases of the circulatory system
CPT/HCPCS: 36415; 36600; 71010; 71020; 74176; 78452; 80048; 80053; 80061; 80074; 81001; 82140; 82550; 82553; 82803; 82962; 83036; 83690; 83735; 83880; 84132; 84484; 85007; 85025; 85610; 86140; 87040; 87086; 87493; 90686; 90732; 93005; 93010; 93017; 93306; 94640; 94760; 96365; 96366; 96368; 99292; A9502; C9113; J0282; J0696; J1170; J1650; J1815; J1940; J2185; J2543; J2785; J3370; J3475; J3480; J7030; J7040; J7060